=== PATIENT | female | born 1945 | race Caucasian/White ===

== ENCOUNTER 2017-11-17 16:08 | Emergency (ER) | payer MEDICARE, SELFPAY ==
[2017-11-17 16:08] VITALS: BP 181/116; PULSE 116; RESP 16; TEMP 36.6; O2SAT 98; BMI 30.2
--- NOTE | 2017-11-17 16:49 | CT_ITS ---
STUDY: CT ABDOMEN AND PELVIS WITH CONTRAST REASON FOR EXAM: Female, 72 years old. BILATERAL LOWER ABDOMINAL PAIN RADIATION DOSAGE (If Supplied By Facility): CTDIvol = ( 17.29 ) mGy, DLP = ( 1041.08 ) mGycm TECHNIQUE: Transaxial images were obtained from the dome of the diaphragm to the symphysis pubis without oral contrast. 100 ml of Isovue 300 contrast was administered. Sagittal and coronal images were reconstructed. Individualized dose optimization techniques were used for this CT. COMPARISON: December 07, 2013. FINDINGS: The visualized lung bases are unremarkable. The visualized portions of the heart are within normal limits. Normal liver. Normal gallbladder and extrahepatic biliary system. Normal spleen. There is diffuse atrophy of the pancreas. Normal bilateral adrenal glands. Normal right kidney. Normal left kidney. There is a small hiatal hernia. Normal small intestine. There are multiple diverticula the colon. I do not that the colonic wall in association with the distal sigmoid colon appears thickened, consider colitis. No evidence of subjacent abscess. No sign of perforation. There is non-visualization of the appendix. No inflammatory change in the right lower quadrant to suggest an appendicitis. There is diffuse atherosclerotic calcification of the abdominal aorta, without a demonstrated aneurysm. Normal inferior vena cava. Normal retroperitoneum. The urinary bladder is contracted. The uterus appears atrophic. There does appear a lobulation in association with the fundus suggesting underlying fibroid. I do note that there is a left adnexal cyst measuring approximately 3.2 x 2.5 cm. This may be benign, it was present December 07, 2013 and now appears smaller. Ultrasound may characterize further however. Normal abdominal wall. There are diffuse degenerative changes of the visualized lumbar spine. There is grade 1 anterior listhesis of L4 and L5. This appears secondary to facet arthropathy. CT/Abdomen/Pelvis W IV Cont ONLY IMPRESSION: Diverticulosis. It does appear that the sigmoid colon is thick-walled and this is consistent with superimposed colitis. I do not see a specific diverticulum that is inflamed to suggest diverticulitis nor do I see evidence of pericolonic abscess. There does appear a persistent left adnexal cyst likely ovarian related, smaller than that seen previously. See above. Electronically Signed: Magda Lloyd MD at 18:19 EST Tel , Service support ,
--- NOTE | 2017-11-17 16:51 | ED.VISSUMM ---
- ER Visit Summary Date of Service: 11/17/17 Chief Complaint: Lower quadrant abdominal discomfort History of Present Illness: The patient is a 72 F 3 of hypertension and prior kidney stones. Patient states she had normal bowel movements on Monday but has not had any bowel movements for the last 2 days. Denies nausea or vomiting. No diarrhea. No melena. No fever. No dysuria. No back pain. No prior abdominal surgeries. Patient states she has never had any surgeries. She is just concerned because she normally does not have abdominal pain. Physical Examination: Afebrile. She does not look septic or toxic. She is in no acute distress. HEENT exam unremarkable. Neck nontender no lymphadenopathy. Lungs clear to auscultation bilaterally. Heart regular rhythm no murmur. Abdomen is soft and nondistended. Normal bowel sounds. No pulsatile mass. No hernias. No signs of obstruction. Both the right upper right lower quadrants are unremarkable. She really does not have significant reproducible abdominal pain since the same discomfort she had with or without palpating her abdomen. She is moving all 4 extremities. They are neurovascularly intact. No mottling. Back exam nontender. Neurologic exam normal. Test Results: CBC shows a white count of 15,000 with a normal H&H no bands. Electrolytes are unremarkable. Liver and lipase are normal. UA shows 25-50 white cells 1+ bacteria but no nitrates and no red cells. She has had no urinary symptoms. A urine culture was sent. CT abdomen and pelvis shows increasing stool. Diverticulosis no obvious diverticulitis but there is inflammation of the bowel around the areas of diverticulosis that may be a colitis versus diverticulitis. This is read by the radiologist and reviewed by me. I did go over all test results with patient. Emergency Department Course and Treatment: Patient with bilateral lower quadrant abdominal pain Treatment Plan: We treated both Cipro and Flagyl for 10 days for possible diverticulitis versus colitis. Magnesium citrate for her constipation. A urine culture will be sent. She will follow-up her primary care physician on . On repeat exam patient is doing well at 2039. She has no peritoneal signs. Disposition: Discharge Impression: Acute bilateral lower quadrant abdominal pain secondary to situs rule out diverticulitis. Constipation Rule out UTI urine culture sent. This note was generated with pocketfungamesation software. It may contain incorrect words, spelling, and punctuation that were not noted in review of the chart prior to signing ED Disposition - Plan for ED Patient: Chief Complaint: Abd Pain Referrals: Belén Pratt MD [Primary Care Provider] -
[2017-11-17] MEDS: 0.9% Normal Saline 1,000 ML 1000 ML IV (17:03)
[2017-11-17 17:16] LABS: Basophil# 0.02 X10^3/uL; Basophil% 0.1 % (0-1); Eosinophil# 0.14 X10^3/uL; Eosinophils% 0.9 % (0-5); Hematocrit 42.6 % (37-47); Hemoglobin 13.7 g/dl (12.0-15.0); Lymphocyte % 10.6 % (19-41); Mean Corp Hgb Conc 32.2 g/gl (32-36); Mean Corpuscular Volume 90.3 fL (81-99); Monocyte% 8.6 % (0-10); Neutrophil # 11.98 X10^3/uL (2.7-7.7); Neutrophil % 79.6 % (47-70); POSITIVE COUNT NO; POSITIVE DIFFERENTIAL NO; POSITIVE MORPHOLOGY NO; Platelet Count 309 K/mm3 (150-450); RBC Distribution Width CV 13.6 % (11.6-14.6); RBC Distribution Width SD 45.1 fl (35.1-43.9); Red Blood Count 4.72 M/mm3 (4.2-5.4); White Blood Count 15.1 K/mm3 (4.4-11.0)
[2017-11-17 17:32] LABS: AST(SGOT) 19 U/L (15-37); Alanine Aminotransfer ALT/SGPT 29 U/L (13-56); Albumin, Serum 3.6 g/dL (3.2-5.0); Alkaline Phosphatase 94 U/L (45-117); Anion Gap 6 (5-15); BUN 20 mg/dL (7-18); BUN/Creat Ratio 23.5 RATIO (10-20); Bilirubin, Direct 0.13 mg/dL (0.00-0.30); Calcium,Total 8.5 mg/dL (8.5-10.1); Chloride 106 mmol/L (98-107); Creatinine, Serum 0.85 mg/dL (0.55-1.02); EST Glomerular Filtration Rate 69 mL/min (>60); Est Glom Filt Rate - Afr Amer 84 mL/min (>60); Estimated Creatinine Clearance 44.48 ml/min; Globulin 3.7 g/dL (2.2-4.2); Glucose 145 mg/dL (74-106); Lipase 85 U/L (73-393); Potassium 3.8 mmol/L (3.5-5.1); Protein, Total 7.3 g/dL (6.4-8.2); Sodium Level 138 mmol/L (136-145)
[2017-11-17 17:39] LABS: Mucous, Urine 0 SEEN /hpf (<or=2+)
[2017-11-17 17:43] LABS: Color, Urine Yellow (Yellow); Glucose, Dipstick Normal (Normal); Ketone-Dipstick Negative (Negative); Leukocyte Esterase-Dipstick 500 /ul (Negative); Nitrite-Dipstick Negative (Negative); Occult Blood-Urine 10 /ul (Negative); Protein-Dipstick 15 mg/dl (Negative); Specific Gravity, Urine 1.025 (1.002-1.030); Urine Bilirubin Dipstick Negative (Negative); Urine Clarity Clear (Clear); Urine Urobilinogen Normal (Normal)
[2017-11-17 17:48] LABS: White Blood Cells 25-50 SEEN /hpf (0-5)
[2017-11-17 17:49] LABS: Bacteria 1+ /hpf (None Seen); Red Blood Cells-Urine 0-5 SEEN /hpf (0-5); Squamous Epithelial Cells - UA 0-5 SEEN /hpf (5-10)
[2017-11-17 18:28] VITALS: BP 147/81; PULSE 78; RESP 18; O2SAT 97
[2017-11-17 20:34] VITALS: RESP 18
--- NOTE | 2017-11-17 20:41 | ED.DEP ---
ED Disposition - Plan for ED Patient: Disposition: Home or Assisted Living Chief Complaint: Abd Pain Instructions: ED Constipation Prescriptions: Ciprofloxacin [Cipro] 500 mg PO BID #20 tab Metronidazole [Flagyl] 500 mg PO Q6H #40 tab Referrals: Belén Pratt MD [Primary Care Provider] - As soon as possible Additional Instructions: abdominal pain secondary to colitis which is inflammation of the colon and constipation. See diverticulosis but not specifically diverticulitis. Will be treated with 2 antibiotics Cipro and Flagyl which should take care of this problem. Your also constipated and we given magnesium citrate to help have a bowel movement. Also do plenty of fluids. Plenty of fruits, vegetables and fiber to help you have a bowel movement. Follow-up your primary care physician and/or return to the ER if worse.
[2017-11-17] MEDS: Magnesium Citrate 300 ML 150 ML PO (21:04)
[2017-11-17] MEDS: Ciprofloxacin 500 MG Tablet PO (21:07)
[2017-11-17 21:09] VITALS: BP 116/73; PULSE 84; RESP 16; O2SAT 96
== END 2017-11-17 21:10 | disposition home or self-care (01) ==
PROVIDERS: Emergency Provider Emergency Medicine; Family Provider Internal Medicine; PCP Internal Medicine
DX: R10.31 Right lower quadrant pain (principal); R10.32 Left lower quadrant pain; K59.00 Constipation, unspecified; K52.9 Noninfective gastroenteritis and colitis, unspecified; K57.90 Diverticulosis of intestine, part unspecified, without perforation or abscess without bleeding; I10 Essential (primary) hypertension; Z87.442 Personal history of urinary calculi; Z79.899 Other long term (current) drug therapy
CPT/HCPCS: 74177; 80048; 80076; 81001; 83690; 85025; 96360; 96361; 99284; J7030

== ENCOUNTER 2020-11-12 01:49 | Outpatient (RCR) | payer MEDICARE, SELFPAY ==
[2020-11-12] MEDS: COVID-19 VACC, MRNA(PFIZER)/PF 30 MCG/0.3 ML SYRINGE IM (13:24)
[2020-12-03] MEDS: COVID-19 VACC, MRNA(PFIZER)/PF 30 MCG/0.3 ML SYRINGE IM (12:59)
== END 2020-12-03 23:59 | disposition home or self-care (01) ==
LOC: IMMUN 01:49
PROVIDERS: PCP Internal Medicine; Visit Provider Family Medicine
DX: Z23 Encounter for immunization (principal)
CPT/HCPCS: 0001A; 0002A; 91300

== ENCOUNTER → 2025-02-20 | Outpatient (CLI) | payer MEDICARE, SELFPAY ==
--- NOTE | 2025-02-19 16:20 | LES_PTH ---
PATIENT: ANGELICA MARTINEZ LOC: [facility] #:[id number] AGE/SX: 80/F ROOM: RE02/20/[address]: Dr. Antelmo Gutierrez MD : 1945 BED: DIS: 02/20/2025 SPEC #: [id number] RECD: 02/19/25 17:28 STATUS: JIM REGene #: [id number] ANNA MARIE: 02/19/25 16:[address]: Antelmo Gutierrez DEPT: SURGICAL PATHOLOGY RECD BY: Hemant Lai ENTERED: 02/20/25 11:44 SP TYPE: Lesion OTHR DR: Dr. Belén Pratt MD Tissues: A - Skin of eyelid, NOS Procedures: Surgery Specimen Level IV HEADER OPERATION: Lesion removal left upper lid PRE-OP DIAGNOSIS: Possible papilloma TISSUE SUBMITTED: A- Left upper eyelid lesion MICROSCOPIC DIAGNOSIS A. Eyelid, left upper, lesion, shave biopsy: * Atypical squamous proliferation arising in an eroded and inflamed fibroepithelial polyp, suspicious for a superficially invasive, well-differentiated squamous cell carcinoma. * The surgical margin is free in the planes of section examined (deeper sections examined). MICROSCOPIC DESCRIPTION Slides are reviewed. GROSS DESCRIPTION A. Received in formalin labeled with the patient's name and date of . Designated as left upper eyelid lesion is a 0.4 x 0.2 x <0.1 cm spencer skin shave devoid of orientation. There is a 0.4 x 0.4 x 0.2 cm spencer, raised and granular lesion comprising approximately 90% of the epidermal surface. The resection margin is inked black, the specimen is bisected (on the long axis) and entirely submitted in 1 cassette. [facility] [place] 02/20/2025 CPT:52155
--- OUTSIDE RECORDS SUMMARY | 2025-02-20 07:21 | XMS RPT_ITS | CCD ---
Author Organization [facility] Care Team Providers Care Tanning Drum Operator Name Role Phone Emily Flaherty MD Primary Care Provider [facility], Becki Unavailable Emily Flaherty MD Primary Care Provider [facility], Becki Unavailable Mauricio HOSPICE REGISTERED NURSE.DELIVERY AND MAIL SORTER, Amara Unavailable Gema HOSPICE REGISTERED NURSE.TUBE CUTTER OPERATOR, Araeclis Unavailable Gema HOSPICE REGISTERED NURSE.TUBE CUTTER OPERATOR, Aracelis Unavailable Kiera Shepard RN Unavailable Mauricio HOSPICE REGISTERED NURSE.DELIVERY AND MAIL SORTER, Amara Unavailable LC CUELLO Attending Unavailable TALAMPAS, EMILY D Primary Care Unavailable LC CUELLO Attending Unavailable TALAMPAS, EMILY D Primary Care Unavailable TALAMPAS, EMILY D Primary Care Unavailable ZAHRAA DELACRUZ Attending Unavailable LC CUELLO Attending Unavailable TALAMPAS, EMILY D Referring Unavailable TALAMPAS, EMILY D Primary Care Unavailable TALAMPAS, EMILY D Referring Unavailable TALAMPAS, EMILY D Primary Care Unavailable TALAMPAS, EMILY D Attending Unavailable TALAMPAS, EMILY D Primary Care Unavailable MAURICIO, AMARA Referring Unavailable TALAMPAS, EMILY D Primary Care Unavailable TALAMPAS, EMILY D Primary Care Unavailable MAURICIO, AMARA Attending Unavailable TALAMPAS, EMILY D Primary Care Unavailable GEMA, ARACELIS Attending Unavailable SELF Referring Unavailable TALAMPAS, EMILY D Primary Care Unavailable TALAMPAS, EMILY D Primary Care Unavailable Allergies Allergy Classification Reported Allergen(s) Allergy Type Date of Onset Reaction(s) Facility (20 sources) Acetaminophen; Translations: [ACETAMINOPHEN] Drug Allergy 10-17-2005 [facility] Work Phone: (20 sources) beef allergenic extract; Translations: [BEEF DERIVED (BOVINE)] Drug Allergy 10-17-2005 [facility] Work Phone: (20 sources) Fish; Translations: [FISH CONTAINING PRODUCTS] Drug Allergy 11-17-2017 Itching [facility] (20 sources) peanut; Translations: [PEANUTS] Propensity to adverse reactions 10-17-2005 [facility] Work Phone: (20 sources) peanut oil; Translations: [PEANUT OIL] Drug Allergy 10-17-2005 [facility] Work Phone: (14 sources) Homeopathic Products Propensity to adverse reactions 10-17-2005 [facility] Work Phone: (20 sources) Shellfish; Translations: [SHELLFISH DERIVED] Drug Allergy 10-11-2023 Itching [facility] Medications Current Medications Medication Drug Class(es) Dates Sig (Normalized) Sig (Original) cholecalciferol 0.05 mg oral capsule (20 sources) Vitamin D Start: 03-30-2021 End: 11-11-2024 take 1 capsule by mouth once daily Cholecalciferol , Vitamin D3, 50 mcg (2,000 unit) cap Take 1 capsule by mouth once daily. 90 capsule 3 11/11/2024 Active Comment on above: Take 1 capsule by [facility] once daily. clobetasol propionate 0.0005 mg/mg topical ointment (20 sources) Corticosteroid Start: 02-08-2024 End: 02-04-2026 clobetasol (TEMOVATE) 0.05 % ointment APPLY DAILY NEEDED TO THE AFFECTED AREA SPARINGLY 30 g 3 02/06/2025 02/04/2026 Active Start: 03-30-2021 End: 2024 clobetasol (TEMOVATE) 0.05 % ointment APPLY DAILY NEEDED TO THE AFFECTED AREA SPARINGLY 30 g 3 2023 2024 Active Comment on above: APPLY DAILY NEEDE D TO THE AFFECTED AREA SPARINGLY lisinopril 20 mg oral tablet (20 sources) Angiotensin Converting Enzyme Inhibitor Start: 11-06-2023 End: 11-11-2024 take 1 tablet by mouth once daily lisinopril (ZESTRIL) 20 mg tablet Take 1 tablet by mouth once daily. 90 tablet 3 11/11/2024 Active Start: 11-01-2022 take 1 tablet by [facility] once daily lisinopril (ZESTRIL, PRINIVIL) 20 mg tablet Take 1 tablet by mouth once daily. 90 tablet 3 11/01/2022 Active Start: 07-28-2020 End: 10-05-2021 take 1 tablet by mouth once daily lisinopril (ZESTRIL, PRINIVIL) 20 mg tablet Take 1 tablet by mouth once daily. 90 tablet 3 10/05/2021 Active Comment on above: Take 1 tablet by fel[facility] once daily. meloxicam 15 mg oral tablet (3 sources) Nonsteroidal Anti-inflammatory Drug Start: End: take 1 tablet by mouth once daily for pain meloxicam (MOBIC) 15 mg tablet Indications: Acute right-sided low back pain with right-sided sciatica Take 1 tablet by mouth once daily. for back pain. Take with food. 30 tablet 1 07/04/2024 09/02/2024 Active 24 hr metFORMIN hydrochloride 500 mg extended release oral tablet (20 sources) Biguanide Start: metFORMIN ER (GLUCOPHAGE XR) 500 mg 24 hr tablet Take 1 tablets with breakfast and 1 tablet with dinner or as directed 180 tablet 3 01/03/2025 Active Start: 06-07-2024 take 1 tablet by felipe [facility] once daily at breakfast, then take 1 tablet by mouth at breakfast, then take 1 tablet by mouth at dinner metFORMIN ER (GLUCOPHAGE XR) 500 mg 24 hr tablet Take 1 tablet by mouth daily with breakfast. Take 1 tablets with breakfast and 1 tablet with dinner or as directed 180 tablet 1 06/07/2024 Active Start: 12-30-2022 End: 06-07-2024 metFORMIN ER (GLUCOPHAGE XR) 500 mg 24 hr tablet Indications: Controlled type 2 diabetes mellitus without complication, without long-term current use of insulin (HCC) Take 1 tablets with breakfast and 1 tablet with dinner or as directed 180 tablet 3 12/06/2023 06/07/2024 Discontinued (Adjust Sig - Block E-Cancel) Start: 04-08-2021 End: 10-05-2021 metFORMIN ER (GLUCOPHAGE XR) 500 mg 24 hr tablet Take 1 tablets with breakfast and 1 tablet with dinner or as directed 180 tablet 3 10/05/2021 Active Comment on above: Take 1 tablets with breakfast and 1 tablet with dinner or as directed Take 2 tablets with breakfast and 1 tablet with dinner or as directed minocycline 50 mg oral capsule (20 sources) Tetracycline-class Drug Start: 4 End: 5 take 1 capsule by mouth once daily minocycline (MINOCIN, DYNACIN) 50 mg capsule Take 1 capsule by mouth once daily. As directed 90 capsule 3 11/11/2024 Active Start: 03-30-2021 End: 12-06-2023 take 1 capsule by mouth twice daily minocycline (MINOCIN, DYNACIN) 50 mg capsule Take 1 capsule by mouth twice daily. As directed 180 capsule 1 04/18/2022 12/06/2023 Discontinued Comment on above: Take 1 capsule by [facility] twice daily. As directed perflutren lipid microspheres 1.3 mL in NaCl (PF) 0.9% 10 mL injection (DEFINITY) (5 sources) Start: 1 End: 2 perflutren lipid microspheres 1.3 mL in NaCl (PF) 0.9% 10 mL injection (DEFINITY) sertraline 50 mg oral tablet (6 sources) Serotonin Reuptake Inhibitor Start: 3 End: 4 take 1 tablet by mouth once daily sertraline (ZOLOFT) 50 mg tablet Take 1 tablet by mouth once daily. 90 tablet 3 08/17/2023 06/07/2024 Discontinued Comment on above: Take 1 tablet by [facility] once daily. 125 ml sodium chloride 9 mg/ml prefilled syringe (5 sources) Start: 1 End: 2 sodium chloride 0.9 % (flush) 10 mL (BD POSIFLUSH) tretinoin 0.25 mg/ml topical cream (6 sources) Retinoid Start: 4 End: 4 tretinoin (RETIN-A) 0.025 % topical cream Indications: Milia Apply a pea size amount to affected area every other night for 2 weeks then increase to daily as tolerated 45 g 5 10/11/2023 06/07/2024 Discontinued Comment on above: Apply a pea size sunny unt to affected area every other night for 2 weeks then increase to daily as tolerated Completed/Discontinued Medications Medication Drug Class(es) Dates Sig (Normalized) Sig (Original) calcium chloride 0.0014 meq/ml / potassium chloride 0.004 meq/ml / sodium chloride 0.103 meq/ml / sodium lactate 0.028 meq/ml injectable solution (1 source) Start: 12-19-2024 End: 12-19-2024 take 30 mL intravenously every hour 30 mL/hr, INTRAVENOUS, CONTINUOUS, Starting on Kecia 12/19/24 at 0730, Until Kecia 12/19/24 at 0832, Preprocedure cyclobenzaprine hydrochloride 10 mg oral tablet (8 sources) Muscle Relaxant Start: 07-04-2024 End: 12-30-2024 take 1 tablet by mouth at bedtime as needed for muscle spasms cyclobenzaprine (FLEXERIL) 10 mg tablet Indications: Acute right-sided low back pain with right-sided sciatica Take 1 tablet by mouth at bedtime as needed for muscle spasm. 30 tablet 1 07/04/2024 12/30/2024 Discontinued (Discontinued by Patient) 1 ml fentaNYL 0.05 mg/ml injection (1 source) Opioid Agonist Start: 12-19-2024 End: 12-19-2024 25-100 mcg, INTRAVENOUS, DIRECTED, Starting on Kecia 12/19/24 at 0830, Until Kecia 12/19/24 at 1229, DOSING DIRECTED BY PHYSICIAN FOR PROCEDURAL SEDATION ONLY, Intraprocedure 5 ml midazolam 1 mg/ml injection (1 source) Benzodiazepine Start: 12-19-2024 End: 12-19-2024 1-5 mg, INTRAVENOUS, DIRECTED, Starting on Kecia 12/19/24 at 0830, Until Kecia 12/19/24 at 1229, DOSING DIRECTED BY PHYSICIAN FOR PROCEDURAL SEDATION ONLY, Intraprocedure triamcinolone acetonide 0.001 mg/mg topical ointment (8 sources) Corticosteroid Start: 03-05-2020 End: 10-05-2021 triamcinolone acetonide (KENALOG) 0.1 % ointment Apply to scaly patches on arms and legs twice daily as needed. Use 2 weeks on 1 week off. Not for face, armpits or groin 80 g 0 10/05/2021 Active Comment on above: Apply to scaly patch es on arms and legs twice daily as needed. Use 2 weeks on 1 week off. Not for face, armpits or groin Problems Active Problems Problem Classification Problem Date Documented Da te Episodic/Chronic Diabetes mellitus with complications (4 sources) Type II diabetes mellitus uncontrolled; Translations: [Type 2 diabetes mellitus with hyperglycemia] Chronic Diabetes mellitus without complication (20 sources) Type 2 diabetes mellitus without complication; Translations: [Type 2 diabetes mellitus without complications] Onset: 05-04-2021 Chronic Diseases of white blood cells (20 sources) Leukocytosis; Translations: [Elevated white blood cell count, unspecified] Onset: 08-20-2007 08-20-2007 Chronic Disorders of lipid metabolism (20 sources) Mixed hyperlipidemia; Translations: [Mixed hyperlipidemia] Onset: 10-17-2005 Chronic Essential hypertension (20 sources) Essential hypertension; Translations: [Essential (primary) hypertension] Onset: 10-17-2005 Chronic Glaucoma (1 source) Glaucoma; Translations: [Unspecified glaucoma] Chronic Menopausal disorders (1 source) Atrophy of vagina; 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 Mood disorders (20 sources) Reactive depression (situational); Translations: [Major depressive disorder, single episode, unspecified] Onset: 10-17-2005 06-25-2018 Chronic Nutritional deficiencies (20 sources) Vitamin D deficiency; Translations: [Vitamin D deficiency, unspecified] Onset: 09-23-2016 Chronic Other aftercare (1 source) Removal of sutures done; Translations: [Encounter for removal of sutures] 2025 Episodic Other aftercare (1 source) Encounter for removal of sutures; Translations: [Visit for suture removal] Onset: 2025 Episodic Other and unspecified benign neoplasm (1 source) Hyperplastic polyp of intestine; Translations: [Polyp of colon] 12-30-2024 Episodic Other and unspecified benign neoplasm (1 source) Polyp of colon; Translations: [Hyperplastic polyp of sigmoid colon] Onset: 12-30-2024 Episodic Other inflammatory condition of skin (20 sources) Rosacea; Translations: [Rosacea, unspecified] Onset: 10-17-2005 10-17-2005 Chronic Other non-epithelial cancer of skin (1 source) Basal cell carcinoma of face; Translations: [Basal cell carcinoma of skin of unspecified parts of face] 11-14-2023 Episodic Other screening for suspected conditions (not mental disorders or infectious disease) (20 sources) Patient encounter status; Translations: [Encounter for screening mammogram for malignant neoplasm of breast] Onset: 07-15-2024 Episodic Other skin disorders (20 sources) Localized scleroderma; 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]] Onset: 10-17-2005 10-17-2005 Chronic Other skin disorders (1 source) Lichen sclerosus et atrophicus; 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 Other skin disorders (1 source) Disorder of skin of lower limb; Translations: [Disorder of the skin and subcutaneous tissue, unspecified] 11-11-2024 Episodic Other skin disorders (2 sources) Sebaceous cyst of skin; Translations: [Sebaceous cyst] 12-31-2024 Episodic Other skin disorders (1 source) Sebaceous cyst; Translations: [Sebaceous cyst] Onset: 01-06-2025 Episodic Past or Other Problems Problem Classification Problem Date Documented Da te Episodic/Chronic Other bone disease and musculoskeletal deformities (20 sources) Disorder of skeletal system; Translations: [Disorder of bone, unspecified] Onset: 09-24-2010 09-24-2010 Episodic Other bone disease and musculoskeletal deformities (20 sources) Osteopenia; Translations: [Other specified disorders of bone density and structure, unspecified site] Onset: 11-06-2012 09-06-2021 Episodic Spondylosis; intervertebral disc disorders; other back problems (2 sources) Acute back pain with sciatica; Translations: [Lumbago with sciatica, right side] Onset: 07-04-2024 07-04-2024 Episodic Unclassified (2 sources) Patient encounter status 11-11-2024 Results Test Name Value Interpretation Reference Range [facility] (GENSWS[facility] ANGELICA [id number]) 1945 F CHT Date Time Provider Department 01/13/25 2:30 PM [facility] During your visit today, we recorded the following information about you: Anson York RN 2025 2:43 PM Signed The right neck (site) was assessed and 2 simple sutures were removed as ordered. Dressing was applied. Patient instructed on wound care and verbalized understanding. Pathology was reviewed by Dr. Cuello and patient was advised.Anson York RN Allergies As of Date: 2025 Noted Allergy Reaction BEEF DERIVED (BOVINE) 10/17/2005 Comments: congestion FISH CONTAINING PRODUCTS 11/17/2017 9 - Itching SHELLFISH DERIVED 10/11/2023 9 - Itching TYLENOL (ACETAMINOPHEN) 10/17/2005 Comments: hyperactivity Date Reviewed: 01/06/2025 Reviewed by: Pooja Shaw LPN - Fully Assessed Primary Visit Diagnosis:Visit for suture removal [Z48.02] Prescriptions as of 2025 - metFORMIN ER (GLUCOPHAGE XR) 500 mg 24 hr tablet Take 1 tablets with breakfast and 1 tablet with dinner or as directed - minocycline (MINOCIN, DYNACIN) 50 mg capsule Take 1 capsule by mouth once daily. As directed - lisinopril (ZESTRIL) 20 mg tablet Take 1 tablet by mouth once daily. - Cholecalciferol, Vitamin D3, 50 mcg (2,000 unit) cap Take 1 capsule by mouth once daily. 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] 10/17/2005 LEUKOCYTOSIS NOS [D72.829] 08/20/2007 Disorder of bone and cartilage, unspecified [M8*09/24/2010 Osteopenia [M85.80] 11/06/2012 Vitamin D deficiency [E55.9] 09/23/2016 Controlled type 2 diabetes mellitus without com*05/04/2021 Special screening for malignant neoplasms, colo*12/19/2024 Encounter Status:Closed by ANSON YORK on 01/13/25 [facility] CNOVon 01-06-2025 CNOV Office Visit (GENSWS ) ANGELICA SOSA ([id number]) 1945 F T Date Time Provider Department 01/06/25 3:00 PM LC CUELLO During your visit today, we recorded the following information about you: Pooja Shaw LPN 01/06/2025 3:23 PM Signed UNIVERSAL PROTOCOL / SAFETY CHECKLIST Procedure to be Performed: Excision of sebaceous cyst right neck Sign In: A Moment of CARE was completed. Appropriate PPE (Personal Protective Equipment) worn by all providers involved with the procedure. Special equipment not required. Patient/Surrogate Stated/Verified: Patient name, Date of , Relevant allergies, and The intended procedure Time Out: Relevant labs, photos, and/or imaging studies are not applicable. Intended patient and procedure match the source document(s) (e.g. consent, HANDP, associated studies [imaging, pathology]) match the intended patient and procedure. Consent obtained and matches the intended procedure. Yes. Correct side/site has been marked and visible. Medications required for this procedure are verified. Fire risk assessed and is not applicable. Implants: are not applicable. Sign Out: Specimens are all correctly labeled and sent. All instruments, equipment, possible retained foreign bodies are accounted for. Yes. The post-procedure plan of care has been communicated to the patient or surrogate. PATRICIO Ye Kimberly, LPN 01/06/2025 3:13 PM Signed The following instructions are important for you related to your office visit today with the [facility] General Surgeons. Instructions After SKIN EXCISION-SUTURES You can remove the dressing in two days. If the dressing becomes soaked or had significant drainage, the dressing should be changed. If there is minor bleeding from this skin edge, you should hold pressure on the incision until the bleeding stops. If there is continued bleeding, you should contact our office immediately. You do not need to leave a dressing on the wound after two days. If the wound shows signs of redness, inflammation, or purulent drainage, you should contact our office immediately. You should keep the wound dry for the first two days. After that time, you may wash the wound with gentle soap and water. The wound should not be immersed in a pool, bathtub, or even hot tub. We prefer to check the incision and remove the stitches (two simple sutures) in our office when ready. Please make an appointment to return to our office in one week. Please do not remove the stitches yourself without approval from our office. If you note any additional difficulties, questions, or concerns, you should contact our office immediately @ [phone] and ask to be transferred to the General Surgery department. Lc Cuello MD 01/06/2025 3:23 PM Signed Preoperative diagnosis: Sebaceous cyst right neck Postoperative diagnosis: The same Procedure: Excision of a 2.5 cm sebaceous cyst of right neck Surgeon: Abdullahi Procedure: Right neck was sterilely prepped and draped in usual fashion. 1% lidocaine plain was injected. 3 cm incision was made. Took quite a bit of dissecting to get out this sebaceous cyst it was old calcified. I was able to remove it in its entirety. I brought the wound together with 2 interrupted sutures of 5-0 nylon sterile dressings were applied and the patient tolerated the procedure well. Allergies As of Date: 01/06/2025 Noted Allergy Reaction BEEF DERIVED (BOVINE) 10/17/2005 Comments: congestion FISH CONTAINING PRODUCTS 11/17/2017 9 - Itching SHELLFISH DERIVED 10/11/2023 9 - Itching TYLENOL (ACETAMINOPHEN) 10/17/2005 Comments: hyperactivity Date Reviewed: 01/06/2025 Reviewed by: Pooja Shaw LPN - Fully Assessed Primary Visit Diagnosis:Sebaceous cyst [L72.3] Order(s):SURGICAL PATHOLOGY [UCP1265] Order #: [id number]. #:[id number] Prescriptions as of 01/06/2025 - metFORMIN ER (GLUCOPHAGE XR) 500 mg 24 hr tablet Take 1 tablets with breakfast and 1 tablet with dinner or as directed - minocycline (MINOCIN, DYNACIN) 50 mg capsule Take 1 capsule by mouth once daily. As directed - lisinopril (ZESTRIL) 20 mg tablet Take 1 tablet by mouth once daily. - Cholecalciferol, Vitamin D3, 50 mcg (2,000 unit) cap Take 1 capsule by mouth once daily. 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 Normal [facility] Pathology biopsy report Jesus (Tiss)on 01-06-2025 AP DISCLAIMER Normal [facility] Comment on above: Order Comment: Speci men Type: TISSUE SPECIMENOrdering Facility: [facility] Address: [address] [place] [address] Result Comment: Bhavik mckinney Developed Test (LDT) Disclaimer: Performance characteristics of immunohistochemical, immunofluorescent, and chromogenic in-situ hybridization tests have been determined by the performing laboratory within [facility]'s Artem Tomlinson Pathology and Laboratory Medicine Department ([facility], [facility], [facility], [facility], [facility], [facility], or [facility]) in a manner consistent with CLIA requirements. One or more of these tests may not have been cleared or approved by the FDA. [facility] is regulated under CLIA as qualified to perform high-complexity testing. These tests are used for clinical purposes. These should not be regarded as investigational or for research. Positive and negative controls stain appropriately. Performed By: #### 6 6121-5 ####[facility] [id number] [place] [address] [place] CASE REPORT Normal [facility] Comment on above: Order Comment: Speci men Type: TISSUE SPECIMENOrdering Facility: [facility] Address: [address] [place] [address] Result Comment: Surg [facility] Pathology Report Case: [id number] Authorizing Provider: Lc Cuello MD Collected: 01/06/2025 03:23 PM Ordering Location: General Surgery Received: 01/06/2025 03:52 PM Pathologist: Cele Antonio MD Specimen: Cyst, Skin, Sebaceous, Right neck Performed By: #### 6 6121-5 ####[facility] [id number] [address] STATES [place] CLINICAL HISTORY Normal [facility] Comment on above: Order Comment: Speci men Type: TISSUE SPECIMENOrdering Facility: [facility] Address: [address] [place] [address] Result Comment: Cyst , Skin, Sebaceous Comment: Right neck Performed By: #### 6 6121-5 ####[facility] [id number] [address] [place] FINAL DIAGNOSIS Normal [facility] Comment on above: Order Comment: Speci men Type: TISSUE SPECIMENOrdering Facility: [facility] Address: [address] [place] [address] Result Comment: A. S kin, right neck, excision: - Epidermal inclusion cyst. MP/FAUZIA/bs 01/08/2025 at 1515 EDT Performed By: #### 6 6121-5 ####[facility] [id number] [address] [place] FINAL PERFORMING LAB Normal [facility] Comment on above: Order Comment: Speci men Type: TISSUE SPECIMENOrdering Facility: [facility] Address: [address] [place] [address] Result Comment: Diag nostic interpretation performed at: [facility], [address] [place] [address] CLIA# [id number] Indoor Landscape Architect: Bertrand Alfaro MD Performed By: #### 6 6121-5 ####[facility] [id number] [address] STATES OF [facility] GROSS DESCRIPTION Normal [facility] Comment on above: Order Comment: Speci men Type: TISSUE SPECIMENOrdering Facility: [facility] Address: [address] [place] [address] Result Comment: Yonatan. Niraj yst, Skin, Sebaceous Received in formalin is an irregular shaped segment of spencer-yellow, firm material measuring 2.2 x 2.1 x 1.7 cm. The specimen resembles a ruptured cyst. No skin is present. A outside sales account representative section is submitted in one cassette. [facility] January 06, 2025 9:53 PM Gross examination performed at [facility], [address] [place] [address] Performed By: #### 6 6121-5 ####[facility] [id number] [address] [place] CNOVon 12-31-2024 CNOV Office Visit (GENSWS ) ANGELICA SOSA ([id number]) 1945 F T Date Time Provider Department 12/31/24 1:15 PM LC CUELLO During your visit today, we recorded the following information about you: Pulse Respiration Blood pressure Weight 71/minute 14/minute 135/70 64.5 kg Lc Cuello MD 12/31/2024 1:33 PM Signed Subjective: Patient is a 79-year-old white female who has a sebaceous cyst in her right neck gradually getting larger in size. Sometimes uncomfortable it is never been infected. Objective:Blood pressure 135/70, pulse 71, resp. rate 14, weight 64.5 kg (142 lb 3.2 oz), SpO2 96%. Right posterior neck shows a 2-1/2 cm sebaceous cyst with a blackhead. No signs of cellulitis no signs of infection. Assessment:Sebaceous cyst (primary encounter diagnosis) Plan: Will excise this in the office. She is not on any blood thinners at this time. Will close this with 2 simple interrupted sutures of 5-0 nylon Allergies As of Date: 12/31/2024 Noted Allergy Reaction BEEF DERIVED (BOVINE) 10/17/2005 Comments: congestion FISH CONTAINING PRODUCTS 11/17/2017 9 - Itching SHELLFISH DERIVED 10/11/2023 9 - Itching TYLENOL (ACETAMINOPHEN) 10/17/2005 Comments: hyperactivity Date Reviewed: 12/31/2024 Reviewed by: Kailyn Diallo RN - Fully Assessed Reason for Visit: Consult [173] Cmt: Lump to rt neck region has been present for a long time Primary Visit Diagnosis:Sebaceous cyst [L72.3] Prescriptions as of 12/31/2024 - minocycline (MINOCIN, DYNACIN) 50 mg capsule Take 1 capsule by mouth once daily. As directed - lisinopril (ZESTRIL) 20 mg tablet Take 1 tablet by mouth once daily. - Cholecalciferol, Vitamin D3, 50 mcg (2,000 unit) cap Take 1 capsule by mouth once daily. - metFORMIN ER (GLUCOPHAGE XR) 500 mg 24 hr tablet Take 1 tablet by mouth daily with breakfast. 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] 10/17/2005 LEUKOCYTOSIS NOS [D72.829] 08/20/2007 Disorder of bone and cartilage, unspecified [M8*09/24/2010 Osteopenia [M85.80] 11/06/2012 Vitamin D deficiency [E55.9] 09/23/2016 Controlled type 2 diabetes mellitus without com*05/04/2021 Special screening for malignant neoplasms, colo*12/19/2024 Follow-up and Disposition History for Encounter Date Provider Department Center 12/31/2024 [id number] CUELLO [facility] Encounter Status:Closed by LC CUELLO on 12/31/24 [facility] CNOVon 12-30-2024 CNOV Office Visit (EDY ) ANGELICA SOSA ([id number]) 1945 [facility] Date Time Provider Department 12/30/24 2:00 PM ZAHRAA DELACRUZ During your visit today, we recorded the following information about you: Zahraa Delacruz APRN.CNP 12/30/2024 2:00 PM Signed FOLLOW UP VISIT - ENDOSCOPY Angelica Sosa 1945 [id number] REFERRING PHYSICIAN: No referring provider defined for this encounter. Angelica Sosa is a patient I am following for screening colonoscopy. Dr. Cuello performed lower endoscopy on 12/19/2024. The patient was found to have Impression: - Three diminutive (1-3 mm) polyps in the sigmoid colon, removed with a jumbo cold forceps. Resected and retrieved. - Diverticulosis in the sigmoid colon and in the descending colon. - Non-bleeding internal hemorrhoids. - The examined portion of the ileum was normal. - The examination was otherwise normal. Pathology demonstrated: FINAL DIAGNOSIS A. Sigmoid colon, polypectomy x 3: -Fragments of hyperplastic polyp The patient notes no complaints since the procedure. VITALS: There were no vitals taken for this visit. General: patient is alert, cooperative, pleasant and in no acute distress On examination, the abdomen is benign. Assessment ASSESSMENT/PLAN: 1. Hyperplastic polyp of sigmoid colon - ICD9: 211.3, ICD10: K63.5 PLAN: The operative findings and pathology report were reviewed with the patient, and the patient has had the opportunity to ask questions and have questions answered. If the patient notes any problems or changes in bowel function, the patient should contact me immediately. Otherwise I recommend follow up endoscopy in 5 years. HM updated. Discussed treatment plan and patient voices understanding. Patient's questions answered appropriately. Medications and potential side effects were discussed and patient voices understanding. Return to the office as scheduled or as needed for worsening/no improvement. Zahraa Delacruz APRN.CNP Allergies As of Date: 12/30/2024 Noted Allergy Reaction BEEF DERIVED (BOVINE) 10/17/2005 Comments: congestion FISH CONTAINING PRODUCTS 11/17/2017 9 - Itching PEANUT OIL 10/17/2005 Comments: uncertain PEANUTS 10/17/2005 Comments: not sure SHELLFISH DERIVED 10/11/2023 9 - Itching TYLENOL (ACETAMINOPHEN) 10/17/2005 Comments: hyperactivity Date Reviewed: 12/30/2024 Reviewed by: Zahraa Delacruz APRN.TUBE CUTTER OPERATOR - Fully Assessed Reason for Visit: Follow Up [171] Primary Visit Diagnosis:Hyperplastic polyp of sigmoid colon [K63.5] Prescriptions as of 12/30/2024 - minocycline (MINOCIN, DYNACIN) 50 mg capsule Take 1 capsule by mouth once daily. As directed - lisinopril (ZESTRIL) 20 mg tablet Take 1 tablet by mouth once daily. - Cholecalciferol, Vitamin D3, 50 mcg (2,000 unit) cap Take 1 capsule by mouth once daily. - metFORMIN ER (GLUCOPHAGE XR) 500 mg 24 hr tablet Take 1 tablet by mouth daily with breakfast. 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 Encounter Status:Closed by ZAHRAA DELACRUZ on 12/30/24 Normal [facility] [id number] 12-19-2024 [id number] HNO ID: [id number] Author: BRIONNA VILLATORO RN Service: ? Author Type: Registered Nurse Type: [id number] Filed: 12/19/2024 08:50 Note Text: The patient received a copy of Colonoscopy discharge instructions that contain information for how to contact the physician who performed the procedure and when to seek medical care. Normal [facility] Colonoscopyon 12-19-2024 Colonoscopy [facility] Patient Name: Angelica Sosa Procedure Date: 12/19/2024 7:52 AM Date of : 1945 Admit Type: Outpatient Age: 79 Gender: Female Note Status: Finalized Procedure: Colonoscopy Indications: Screening for colorectal malignant neoplasm Providers: Lc Cuello MD Patient Profile: This is an 79 year old female. Refer to note in patient chart for documentation of history and physical. Last Colonoscopy: May 2018. Referring Physician: Emily Flaherty (Referring MD) Medicines: Fentanyl 50 micrograms IV, Midazolam 3 mg IV Complications: No immediate complications. Estimated blood loss: Minimal. Requesting Provider: Procedure: Pre-Anesthesia Assessment: - Prior to the procedure, a History and Physical was performed, and patient medications and allergies were reviewed. The patient's tolerance of previous anesthesia was also reviewed. The risks and benefits of the procedure and the sedation options and risks were discussed with the patient. All questions were answered, and informed consent was obtained. Prior Anticoagulants: The patient has taken no anticoagulant or antiplatelet agents. ASA Grade Assessment: III - A patient with severe systemic disease. After reviewing the risks and benefits, the patient was deemed in satisfactory condition to undergo the procedure. After I obtained informed consent, the scope was passed under direct vision. Throughout the procedure, the patient's blood pressure, pulse, and oxygen saturations were monitored continuously. The Colonoscope was introduced through the anus and advanced to 3 cm into the ileum. The colonoscopy was performed without difficulty. The patient tolerated the procedure well. The quality of the bowel preparation was adequate to identify polyps greater than 5 mm in size. The terminal ileum, ileocecal valve, appendiceal orifice, and rectum were photographed. Moderate Sedation: The administration of moderate sedation was initiated at 08:04. Moderate (conscious) sedation was personally administered by the endoscopist. The following parameters were monitored: oxygen saturation, heart rate, blood pressure, respiratory rate, EKG, adequacy of pulmonary ventilation, and response to care. Total physician intraservice time was 15 minutes. Findings: The perianal and digital rectal examinations were normal. Three sessile polyps were found in the sigmoid colon. The polyps were diminutive (1-3 mm) in size. These polyps were removed with a jumbo cold forceps. Resection and retrieval were complete. Many small-mouthed diverticula were found in the sigmoid colon and descending colon. Non-bleeding internal hemorrhoids were found during retroflexion. The hemorrhoids were mild and small. The terminal ileum appeared normal. The exam was otherwise without abnormality. Impression: - Three diminutive (1-3 mm) polyps in the sigmoid colon, removed with a jumbo cold forceps. Resected and retrieved. - Diverticulosis in the sigmoid colon and in the descending colon. - Non-bleeding internal hemorrhoids. - The examined portion of the ileum was normal. - The examination was otherwise normal. Recommendation: - Patient has a contact number available for emergencies. The signs and symptoms of potential delayed complications were discussed with the patient. Return to normal activities tomorrow. Written discharge instructions were provided to the patient. - Resume previous diet. - Continue present medications. - Await pathology results. - Repeat colonoscopy in 5 years for surveillance. - Return to referring provider at appointment to be scheduled. Procedure Code(s): --- Professional --- 83093, Colonoscopy, flexible; with biopsy, single or multiple G0500, Moderate sedation services provided by the same physician or other qualified health professional healthcare representative performing a gastrointestinal endoscopic service that sedation supports, requiring the presence of an independent trained observer to assist in the monitoring of the patient's level of consciousness and physiological status; initial 15 minutes of intra-service time; patient age 5 years or older (additional time may be reported with 34818, as appropriate) Diagnosis Code(s): --- Professional --- Z12.11, Encounter for screening for malignant neoplasm of colon D12.5, Benign neoplasm of sigmoid colon K64.8, Other hemorrhoids K57.30, Diverticulosis of large intestine without perforation or abscess without bleeding CPT copyright 2020 [employer]. All rights reserved. The codes documented in this report are preliminary and upon senior electrical controls engineer review may be revised to meet current compliance requirements. Attending Participation: I personally performed the entire procedure. Scope In: 8:08:00 AM Scope Out: 8:19:48 AM MD Lc Padilla MD 12/19/2024 8 (more content not included)... Normal [facility] Colonoscopy Study observatio non 12-19-2024 [facility] Patient Name: Angelica Sosa Procedure Date: 12/19/2024 7:52 AM Date of : 1945 Admit Type: Outpatient Age: 79 Gender: Female Note Status: Finalized Procedure: Colonoscopy Indications: Screening for colorectal malignant neoplasm Providers: Lc Cuello MD Patient Profile: This is an 79 year old female. Refer to note in patient chart for documentation of history and physical. Last Colonoscopy: May 2018. Referring Physician: Eimly Flaherty (Referring MD) Medicines: Fentanyl 50 micrograms IV, Midazolam 3 mg IV Complications: No immediate complications. Estimated blood loss: Minimal. Requesting Provider: Procedure: Pre-Anesthesia Assessment: - Prior to the procedure, a History and Physical was performed, and patient medications and allergies were reviewed. The patient's tolerance of previous anesthesia was also reviewed. The risks and benefits of the procedure and the sedation options and risks were discussed with the patient. All questions were answered, and informed consent was obtained. Prior Anticoagulants: The patient has taken no anticoagulant or antiplatelet agents. ASA Grade Assessment: III - A patient with severe systemic disease. After reviewing the risks and benefits, the patient was deemed in satisfactory condition to undergo the procedure. After I obtained informed consent, the scope was passed under direct vision. Throughout the procedure, the patient's blood pressure, pulse, and oxygen saturations were monitored continuously. The Colonoscope was introduced through the anus and advanced to 3 cm into the ileum. The colonoscopy was performed without difficulty. The patient tolerated the procedure well. The quality of the bowel preparation was adequate to identify polyps greater than 5 mm in size. The terminal ileum, ileocecal valve, appendiceal orifice, and rectum were photographed. Moderate Sedation: The administration of moderate sedation was initiated at 08:04. Moderate (conscious) sedation was personally administered by the endoscopist. The following parameters were monitored: oxygen saturation, heart rate, blood pressure, respiratory rate, EKG, adequacy of pulmonary ventilation, and response to care. Total physician intraservice time was 15 minutes. Findings: The perianal and digital rectal examinations were normal. Three sessile polyps were found in the sigmoid colon. The polyps were diminutive (1-3 mm) in size. These polyps were removed with a jumbo cold forceps. Resection and retrieval were complete. Many small-mouthed diverticula were found in the sigmoid colon and descending colon. Non-bleeding internal hemorrhoids were found during retroflexion. The hemorrhoids were mild and small. The terminal ileum appeared normal. The exam was otherwise without abnormality. Impression: - Three diminutive (1-3 mm) polyps in the sigmoid colon, removed with a jumbo cold forceps. Resected and retrieved. - Diverticulosis in the sigmoid colon and in the descending colon. - Non-bleeding internal hemorrhoids. - The examined portion of the ileum was normal. - The examination was otherwise normal. Recommendation: - Patient has a contact number available for emergencies. The signs and symptoms of potential delayed complications were discussed with the patient. Return to normal activities tomorrow. Written discharge instructions were provided to the patient. - Resume previous diet. - Continue present medications. - Await pathology results. - Repeat colonoscopy in 5 years for surveillance. - Return to referring provider at appointment to be scheduled. Procedure Code(s): --- Professional --- 82039, Colono (more content not included)... PROVATION [facility] Radiology Study observation (narrative) [facility] HISTORY PHYSICALon HISTORY PHYSICAL HNO ID: [id number] Author: LC CUELLO MD Service: General Surgery Author Type: Physician Type: H&P Filed: 12/19/2024 07:57 Note Text: Angelica Sosa is a 79 year old female. Patient presents with: Diabetes: Is concerned due to medication side effects with treating diabetes. Is taking Metformin 500 mg 1 daily as two daily causes to severe diarrhea. SUBJECTIVE: Angelica Sosa is a 79 year old year old lady here today for follow up appointment for review of medical conditions. Angelica Sosa is an 79-year-old female with a history of DM, presenting for evaluation of glycemic control and a chronic pruritic lesion on the leg. Angelica reports difficulty tolerating metformin due to gastrointestinal side effects, specifically diarrhea, when taking more than 500 mg daily. She currently takes 500 mg once daily at bedtime and notes that higher doses exacerbate gastrointestinal symptoms. She monitors her blood glucose levels regularly and brought her glucose meter to the visit. Recent fasting blood glucose readings have ranged from 159 to 192 mg/dL, with most readings in the 160s to 180s. She denies any fasting blood glucose readings over 200 mg/dL. She occasionally checks postprandial blood glucose levels but has not done so recently and denies any postprandial readings over 180 mg/dL. Her last HbA1c, measured in November of the previous year, was 7.5%. She reports decreased physical activity due to weather conditions and denies any recent changes in diet or exercise habits. Angelica also reports a chronic pruritic lesion on her leg, which has been present since she had shingles approximately 2 years ago. The lesion is described as itchy and sometimes scaly. She has tried various topical treatments, including calamine lotion and ice packs, to alleviate the itching. She has clobetasol at home but has used it sparingly due to concerns about skin thinning. She has not seen a installation service representative for this issue in the past year but plans to make an appointment. Additionally, Angelica inquires about the need for a colonoscopy. She had her last colonoscopy in 2019 and has a family history of colorectal cancer, with both grandmothers having from the disease. She expresses reluctance to undergo the procedure but is seeking medical advice on whether it is necessary. PAST MEDICAL HISTORY 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 LICHEN SCLEROSIS Controlled type 2 diabetes mellitus without complication, without long-term current use of insulin ([facility]) 05/04/2021 DEPRESSIVE DISORDER NEC 10/17/[address] eyes [address]. Daniels follows at [facility] HYPERLIPIDEMIA NEC/NOS 10/17/2005 HYPERTENSION NOS 10/17/2005 Rosacea 10/17/2005 Vitamin D deficiency 09/23/2016 CURRENT MEDICATIONS Current Outpatient Medications Medication Sig cyclobenzaprine (FLEXERIL) 10 mg tablet Take 1 tablet by mouth at bedtime as needed for muscle spasm. (Patient not taking: Reported on 11/11/2024) metFORMIN ER (GLUCOPHAGE XR) 500 mg 24 hr tablet Take 1 tablet by mouth daily with breakfast. Take 1 tablets with breakfast and 1 tablet with dinner or as directed clobetasol (TEMOVATE) 0.05 % ointment APPLY DAILY NEEDED TO THE AFFECTED AREA SPARINGLY Cholecalciferol, Vitamin D3, 50 mcg (2,000 unit) cap Take 1 capsule by mouth once daily. minocycline (MINOCIN, DYNACIN) 50 mg capsule Take 1 capsule by mouth once daily. As directed lisinopril (ZESTRIL) 20 mg tablet Take 1 tablet by mouth once daily. blood sugar diagnostic (CyberXTOUCH VERIO TEST STRIPS) test strip USE TO CHECK BLOOD SUGAR ONCE A DAY lancets (CyberXTOUCH DELICA PLUS LANCET) 33 gauge USE TO CHECK BLOOD SUGAR ONCE A DAY No current facility-administered medications for this visit. Review of Systems Objective BP 126/66 Pulse (!) 58 Wt 65.2 kg (143 lb 11.8 oz) SpO2 97% BMI 26.72 kg/m? Physical Exam Constitutional: Appearance: Normal appearance. HENT: Head: Normocephalic. Eyes: Conjunctiva/sclera: Conjunctivae normal. Cardiovascular: Rate and Rhythm: Normal rate and regular rhythm. Heart sounds: Normal heart sounds. Pulmonary: Effort: Pulmonary effort is normal. Breath sounds: Normal breath sounds. Musculoskeletal: Right lower leg: No edema. Left lower leg: No edema. Skin: General: Skin is warm and dry. Neurological: General: No focal deficit present. Mental Status: She is alert and oriented to person, place, and time. Psychiatric: Mood and Affect: Mood normal. Behavior: Behavior normal. Thought Content: Thought content normal. Judgment: Judgment normal. Hemoglobin A1C (%) Date Value 12/06/2023 7.5 07/13/2021 7.0 03/23/2021 13.6 06/08/2018 6.5 12/26/2017 6.7 05/27/2017 6.3 Hemoglobin A1C (POCT) (%) Date Value 11/01/2022 7.2 Assessment and Plan # Controlled type 2 diabetes mellitus without c (more content not included)... Normal [facility] Pathology biopsy report Jesus (Tiss)on 12-19-2024 AP DISCLAIMER Normal [facility] Comment on above: Order Comment: Speci men Type: TISSUE SPECIMEN Ordering Facility: [facility] Address: [address] [place] [address] Result Comment: Bhavik Solares Test (LDT) Disclaimer: Performance characteristics of immunohistochemical, immunofluorescent, and chromogenic in-situ hybridization tests have been determined by the performing laboratory within [facility]'s [facility] Pathology and Laboratory Medicine Department ([facility], [facility], [facility], [facility], [facility], [facility], or [facility]) in a manner consistent with CLIA requirements. One or more of these tests may not have been cleared or approved by the FDA. [facility] is regulated under CLIA as qualified to perform high-complexity testing. These tests are used for clinical purposes. These should not be regarded as investigational or for research. Positive and negative controls stain appropriately. Performed By: #### 6 6121-5 #### [facility] CLIA [id number] [address] [place] [address] [place] CASE REPORT Normal [facility] Comment on above: Order Comment: Speci men Type: TISSUE SPECIMEN Ordering Facility: [facility] Address: [address] [place] [address] Result Comment: Surg [facility] Pathology Report Case: [id number] Authorizing Provider: Lc Cuello MD Collected: 12/19/2024 08:17 AM Ordering Location: Ambulatory Surgery Received: 12/19/2024 12:28 PM Pathologist: Leonard Lopez MD Specimen: Colon, Sigmoid, Polyp, polyp'S x3 Performed By: #### 6 6121-5 #### [facility] CLIA [id number] [address] [place] [address] OF [place] FINAL DIAGNOSIS Normal [facility] Comment on above: Order Comment: Speci men Type: TISSUE SPECIMEN Ordering Facility: [facility] Address: [address] [place] [address] Result Comment: A. S igmoid colon, polypectomy x 3: -Fragments of hyperplastic polyp at 1408 EDT Performed By: #### 6 6121-5 #### [facility] CLIA [id number] [address] [place] [address] OF [place] FINAL PERFORMING LAB Normal [facility] Comment on above: Order Comment: Speci men Type: TISSUE SPECIMEN Ordering Facility: [facility] Address: [address] [place] [address] Result Comment: Diag nostic interpretation performed at: [facility], [address] [place] [address] CLIA# [id number] Indoor Landscape Architect: Bertrand Alfaro MD Performed By: #### 6 6121-5 #### [facility] CLIA [id number] [address] [place] [address] [place] GROSS DESCRIPTION Normal [facility] Comment on above: Order Comment: Speci men Type: TISSUE SPECIMEN Ordering Facility: [facility] Address: [address] [place] [address] Result Comment: A. C olon, Sigmoid, Polyp Received in formalin are multiple pieces of spencer, soft tissue aggregating to 1.3 x 0.2 x 0.2 cm. Totally submitted in one cassette. Gross examination performed at [address] 12/19/2024 4:57 PM Performed By: #### 6 6121-5 #### [facility] CLIA [id number] [address] [place] [address] [place] 25(OH)D3 [facility] 25-hydroxyvitamin D3 [Mass/Vol] 20.3 ng/mL Low 31.0-80.0 [facility] Comment on above: Order Comment: Speci men Type: BLOOD SPECIMENOrdering Facility: [facility] Address: [address] [place] [address] Result Comment: Clas sification of 25 [place] Vitamin D status: Deficiency/Insufficiency: < or = 30 ng/ml. Sufficiency/Optimal Levels: 31-80 ng/mL Toxicity: > 100 ng/mL. Test performed by chemiluminescent immunoassay. Performed By: #### 1 989-3 ####[facility] [id number] [place] [address] [place] CBC panel Auto (Bld)on 11-27 Erythrocyte distribution width (RBC) [Ratio] 13.5 % Normal 11.5-15.0 [facility] Comment on above: Order Comment: Speci men Type: BLOOD SPECIMENOrdering Facility: [facility] Address: [address] [place] [address] Performed By: #### 5 8410-2 ####[facility] [id number] [place] [address] [place] Hematocrit (Bld) [Volume fraction] 41.4 % Normal 36.0-46.0 [facility] Comment on above: Order Comment: Speci men Type: BLOOD SPECIMENOrdering Facility: [facility] Address: [address] [place] [address] Performed By: #### 5 8410-2 ####[facility] [id number] [place] [address] [place] Hemoglobin (Bld) [Mass/Vol] 13.2 g/dL Normal 11.5-15.5 [facility] Comment on above: Order Comment: Speci men Type: BLOOD SPECIMENOrdering Facility: [facility] Address: [address] [place] [address] Performed By: #### 5 8410-2 ####[facility] [id number] [place] [address] [place] MCH (RBC) [Entitic mass] 28.8 pg Normal 26.0-34.0 [facility] Comment on above: Order Comment: Speci men Type: BLOOD SPECIMENOrdering Facility: [facility] Address: [address] [place] [address] Performed By: #### 5 8410-2 ####[facility] [id number] [place] [address] [place] MCHC (RBC) [Mass/Vol] 31.9 g/dL Normal 30.5-36.0 [facility] Comment on above: Order Comment: Speci men Type: BLOOD SPECIMENOrdering Facility: [facility] Address: [address] [place] [address] Performed By: #### 5 8410-2 ####[facility] [id number] [place] [address] [place] MCV (RBC) [Entitic vol] 90.2 fL Normal 80.0-100.0 [facility] Comment on above: Order Comment: Speci men Type: BLOOD SPECIMENOrdering Facility: [facility] Address: [address] [place] [address] Performed By: #### 5 8410-2 ####[facility] [id number] [address] [address] [place] Nucleated RBC (Bld) [#/Vol] 10*3/uL Normal <0.01 [facility] Comment on above: Order Comment: Speci men Type: BLOOD SPECIMENOrdering Facility: [facility] Address: [address] [place] [address] Performed By: #### 5 8410-2 ####[facility] [id number] [address] [address] [place] Platelet mean volume (Bld) [Entitic vol] 9.6 fL Normal 9.0-12.7 [facility] Comment on above: Order Comment: Speci men Type: BLOOD SPECIMENOrdering Facility: [facility] Address: [address] [place] [address] Performed By: #### 5 8410-2 ####[facility] [id number] [place] [address] [place] Platelets (Bld) [#/Vol] 392 10*3/uL Normal 150-400 [facility] Comment on above: Order Comment: Speci men Type: BLOOD SPECIMENOrdering Facility: [facility] Address: [address] [place] [address] Performed By: #### 5 8410-2 ####[facility] [id number] [address] [address] [place] RBC (Bld) [#/Vol] 4.59 10*6/uL Normal 3.90-5.20 [facility] Comment on above: Order Comment: Speci men Type: BLOOD SPECIMENOrdering Facility: [facility] Address: [address] [place] [address] Performed By: #### 5 8410-2 ####[facility] [id number] [address] [place] [address] [place] WBC (Bld) [#/Vol] 10.22 10*3/uL Normal 3.70-11.00 [facility] Comment on above: Order Comment: Speci men Type: BLOOD SPECIMENOrdering Facility: [facility] Address: [address] [place] [address] Performed By: #### 5 8410-2 ####[facility] [id number] [address] [place] [address] [place] [facility] Comprehensive metabolic 2000 panelon 11-27-2024 Albumin [Mass/Vol] 4.4 g/dL Normal 3.9-4.9 [facility] Comment on above: Order Comment: Speci men Type: BLOOD SPECIMENOrdering Facility: [facility] Address: [address] [place] [address] Performed By: #### 2 4331-1, 69677-7 ####[facility] [id number] [address] [place] [address] [place] ALP [Catalytic activity/Vol] 88 U/L Normal 34-123 [facility] Comment on above: Order Comment: Speci men Type: BLOOD SPECIMENOrdering Facility: [facility] Address: [address] [place] [address] Performed By: #### 2 4331-1, 12859-0 ####[facility] [id number] [address] [place] [address] [place] ALT [Catalytic activity/Vol] 18 U/L Normal 7-38 [facility] Comment on above: Order Comment: Speci men Type: BLOOD SPECIMENOrdering Facility: [facility] Address: [address] [place] [address] Performed By: #### 2 4331-1, 66779-7 ####[facility] [id number] [address] [place] [address] [place] Anion gap [Moles/Vol] 12 mmol/L Normal 8-15 [facility] Comment on above: Order Comment: Speci men Type: BLOOD SPECIMENOrdering Facility: [facility] Address: [address] [place] [address] Performed By: #### 2 4331-1, ####[facility] [id number] [place] [id number] [place] AST [Catalytic activity/Vol] 19 U/L Normal 13-35 [facility] Comment on above: Order Comment: Speci men Type: BLOOD SPECIMENOrdering Facility: [facility] Address: [address] [place] [address] Performed By: #### 2 4331-1, 78341-4 ####[facility] [id number] [place] [address] [place] Bilirubin [Mass/Vol] 0.5 mg/dL Normal 0.2-1.3 [facility] Comment on above: Order Comment: Speci men Type: BLOOD SPECIMENOrdering Facility: [facility] Address: [address] [place] [address] Performed By: #### 2 4331-1, 41877-4 ####[facility] [id number] [facility] [place] [id number] [place] Calcium [Mass/Vol] 9.5 mg/dL Normal 8.5-10.2 [facility] Comment on above: Order Comment: Speci men Type: BLOOD SPECIMENOrdering Facility: [facility] Address: [address] [place], [place] [address] Performed By: #### 2 4331-1, ####[facility] [id number] [facility] [place] [address] [place] Chloride [Moles/Vol] 104 mmol/L Normal 98-107 [facility] Comment on above: Order Comment: Speci men Type: BLOOD SPECIMENOrdering Facility: [facility] Address: [address] [place] [address] Performed By: #### 2 4331-1, 52962-1 ####[facility] [id number] [place] [id number] [place] CO2 [Moles/Vol] 24 mmol/L Normal 22-30 [facility] Comment on above: Order Comment: Speci men Type: BLOOD SPECIMENOrdering Facility: [facility] Address: [address] [place] [address] Performed By: #### 2 4331-1, 71511-9 ####[facility] [id number] [address] [place] Creatinine [Mass/Vol] 0.67 mg/dL Normal 0.58-0.96 [facility] Comment on above: Order Comment: Speci men Type: BLOOD SPECIMENOrdering Facility: [facility] Address: [address] [place] [address] Performed By: #### 2 4331-1, 16620-8 ####[facility] [id number] [address] Creatinine and Glomerular filtration rate.predicted panel (S/P/Bld) 88 mL/min/1.73m??? Normal >=60 [facility] Comment on above: Order Comment: Speci men Type: BLOOD SPECIMENOrdering Facility: [facility] Address: [address] [place] [address] Result Comment: Jaylin mated Glomerular Filtration Rate (eGFR) is calculated using the 2020 CKD-EPI creatinine equation. This equation utilizes serum creatinine, sex, and age as parameters. The creatinine assay has traceable calibration to isotope dilution-mass spectrometry. Refer to KDIGO guidelines for clinical interpretation. In patients with unstable renal function, e.g. those with acute kidney injury, the eGFR may not accurately reflect actual GFR. Performed By: #### 2 4331-1, 37530-4 ####[facility] [id number] [address] [address] [place] Glucose [Mass/Vol] 179 mg/dL High 74-99 [facility] Comment on above: Order Comment: Speci men Type: BLOOD SPECIMENOrdering Facility: [facility] Address: [address] [place] [address] Result Comment: The [place] Diabetes Association (ADA) provides guidance for cutoff values for fasting glucose and random glucose. The ADA defines fasting as no caloric intake for at least 8 hours. Fasting plasma glucose results between 100 to 125 mg/dL indicate increased risk for diabetes (prediabetes). Fasting plasma glucose results greater than or equal to 126 mg/dL meet the criteria for diagnosis of diabetes. In the absence of unequivocal hyperglycemia, results should be confirmed by repeat testing. In a patient with classic symptoms of hyperglycemia or hyperglycemic crisis, random plasma glucose results greater than or equal to 200 mg/dL meet the criteria for diagnosis of diabetes. Reference: Standards of Medical Care in Diabetes 2016, [place] Diabetes Association. Diabetes Care. 2016.39(Suppl 1). Performed By: #### 2 4331-1, 32869-2 ####[facility] [id number] [place] [address] [place] Potassium [Moles/Vol] 4.4 mmol/L Normal 3.7-5.1 [facility] Comment on above: Order Comment: Speci men Type: BLOOD SPECIMENOrdering Facility: [facility] Address: [address] [place] [address] Performed By: #### 2 4331-1, 41879-2 ####[facility] [id number] [place] [id number] [place] Protein [Mass/Vol] 6.9 g/dL Normal 6.3-8.0 [facility] Comment on above: Order Comment: Speci men Type: BLOOD SPECIMENOrdering Facility: [facility] Address: [address] [place] [address] Performed By: #### 2 4331-, 44559-6 ####[facility] [id number] [address] [address] [place] Sodium [Moles/Vol] 140 mmol/L Normal 136-144 [facility] Comment on above: Order Comment: Speci men Type: BLOOD SPECIMENOrdering Facility: [facility] Address: [address] [place] [address] Performed By: #### 2 4331-1, 35668-7 ####[facility] [id number] [place] [address] [place] Urea nitrogen [Mass/Vol] 23 mg/dL High 7-21 [facility] Comment on above: Order Comment: Fiordalizai men Type: BLOOD SPECIMENOrdering Facility: [facility] Address: [address] [place] [address] Performed By: #### 2 4331-1, 58528-7 ####[facility] [id number] [place] [address] [place] HbA1c (Bld)on 11-27-2024 Average glucose Estimated from glycated hemoglobin (Bld) [Mass/Vol] 192 mg/dL Normal [facility] Comment on above: Order Comment: Fiordalizai men Type: BLOOD SPECIMENOrdering Facility: [facility] Address: [address] [place] [address] Result Comment: eAG: (Estimated average glucose) is a calculated value from HgbA1c and is outside sales account representative of the average blood glucose level in the last 2-3 month period. Performed By: #### 5 5454-3 ####[facility] [id number] [address] [address] [place] HbA1c (Bld) [Mass fraction] 8.3 % High 4.3-5.6 [facility] Comment on above: Order Comment: Fiordalizai men Type: BLOOD SPECIMENOrdering Facility: [facility] Address: [address] [place] [address] Result Comment: Amer [place] Diabetes Association guidelines indicate that patients with HgbA1c in the range 5.7-6.4% are at increased risk for development of diabetes, and intervention by lifestyle modification may be beneficial. HgbA1c greater or equal to 6.5% is considered diagnostic of diabetes. Performed By: #### 5 5454-3 ####[facility] [id number] [address] [address] [place] Lipid 1996 panelon 5 Cholesterol [Mass/Vol] 184 mg/dL Normal <200 [facility] Comment on above: Order Comment: Speci men Type: BLOOD SPECIMENOrdering Facility: [facility] Address: [address] [place] [address] Result Comment: <200 mg/dL, Desirable 200-239 mg/dL, Borderline high >239 mg/dL, High Performed By: #### 2 4331-1, 76973-4 ####[facility] [id number] [place] [id number] [place] Cholesterol in HDL [Mass/Vol] 36 mg/dL Low >39 [facility] Comment on above: Order Comment: Graciela patton Type: BLOOD SPECIMENOrdering Facility: [facility] Address: [address] [place] [address] Result Comment: 40-5 9 mg/dL, Acceptable >59 mg/dL, High: Negative risk factor for coronary heart disease <40 mg/dL, Low: Positive risk factor for coronary heart disease Performed By: #### 2 4331-1, 01032-0 ####[facility] [id number] [address] [address] [place] Cholesterol in LDL [Mass/Vol] 127 mg/dL High <100 [facility] Comment on above: Order Comment: Fiordalizai men Type: BLOOD SPECIMENOrdering Facility: [facility] Address: [address] [place] [address] Result Comment: <100 mg/dL, Optimal 100-129 mg/dL, Near optimal/above optimal 130-159 mg/dL, Borderline high 160-189 mg/dL, High >189 mg/dL, Very high Secondary prevention optimal LDL Cholesterol levels are recommended to be < 70 mg/dL Performed By: #### 2 4331-1, 15990-9 ####[facility] [id number] [address] [address] [place] Cholesterol in LDL/Cholesterol in HDL [Mass ratio] 3.53 {ratio} High <2.54 [facility] Comment on above: Order Comment: Speci men Type: BLOOD SPECIMENOrdering Facility: [facility] Address: [address] [place] [address] Result Comment: Refe rence: 1. National Cholesterol Education Program ATP III Guideline At-A-Glance Quick Desk Reference: National Heart, Lung, and Blood [place]. National Institutes of Health. 2001: NIH Publication No. 01-3305. 2. An International Atherosclerosis Society position paper: global recommendations for the management of dyslipidemia: executive summary, Atherosclerosis. 2014: 232(2):410-413. Performed By: #### 2 4331-1, 58192-9 ####[facility] [id number] [place] [id number] [place] Cholesterol in VLDL [Mass/Vol] 21 mg/dL Normal <30 [facility] Comment on above: Order Comment: Graciela patton Type: BLOOD SPECIMENOrdering Facility: [facility] Address: [address] [place] [address] Performed By: #### 2 4331-1, 14660-9 ####[facility] [id number] [address] [address] [place] Cholesterol non HDL [Mass/Vol] 148 mg/dL High <130 [facility] Comment on above: Order Comment: Fiordalizai men Type: BLOOD SPECIMENOrdering Facility: [facility] Address: [address] [place] [address] Result Comment: <130 mg/dL, Optimal 130-159 mg/dL, Near optimal/above optimal 160-189 mg/dL, Borderline high 190-219 mg/dL, High >219 mg/dL, Very high Secondary prevention optimal non HDL Cholesterol levels are recommended to be <100 mg/dL Performed By: #### 2 4331-1, ####[facility] [id number] [address] [address] [place] Cholesterol.total/Ch olesterol in HDL [Mass ratio] 5.11 {ratio} High <5.10 [facility] Comment on above: Order Comment: Speci men Type: BLOOD SPECIMENOrdering Facility: [facility] Address: [address] [place] [address] Performed By: #### 2 4331-1, ####[facility] [id number] [place] [address] [place] FASTING TIME 12 hrs Normal [facility] Comment on above: Order Comment: Speci men Type: BLOOD SPECIMENOrdering Facility: [facility] Address: [address] [place] [address] Performed By: #### 2 4331-1, ####[facility] [id number] [place] [id number] [place] Triglyceride [Mass/Vol] 107 mg/dL Normal <150 [facility] Comment on above: Order Comment: Speci men Type: BLOOD SPECIMENOrdering Facility: [facility] Address: [address] [place] [address] Result Comment: <150 mg/dL, Normal 150-199 mg/dL, Borderline high 200-499 mg/dL, High >499 mg/dL, Very high Performed By: #### 2 4331-1, ####[facility] [id number] [place] [id number] [place] CNOVon 11-11-2024 CNOV Office Visit (INTMWS ) ANGELICA SOSA ([id number]) 1945 [address] [facility] Date Time Provider Department 11/11/24 10:00 AM EMILY FLAHERTY INTMarshalWS During your visit today, we recorded the following information about you: Pulse Blood pressure Weight 58/minute 126/66 65.2 kg Emily Flaherty MD 11/11/2024 11:59 AM Signed This note was created using Bespokeriter. Subjective Angelica Sosa is a 79 year old female. Patient presents with: Diabetes: Is concerned due to medication side effects with treating diabetes. Is taking Metformin 500 mg 1 daily as two daily causes to severe diarrhea. SUBJECTIVE: Angelica Sosa is a 79 year old year old lady here today for follow up appointment for review of medical conditions. Angelica Sosa is an 79-year-old female with a history of DM, presenting for evaluation of glycemic control and a chronic pruritic lesion on the leg. Angelica reports difficulty tolerating metformin due to gastrointestinal side effects, specifically diarrhea, when taking more than 500 mg daily. She currently takes 500 mg once daily at bedtime and notes that higher doses exacerbate gastrointestinal symptoms. She monitors her blood glucose levels regularly and brought her glucose meter to the visit. Recent fasting blood glucose readings have ranged from 159 to 192 mg/dL, with most readings in the 160s to 180s. She denies any fasting blood glucose readings over 200 mg/dL. She occasionally checks postprandial blood glucose levels but has not done so recently and denies any postprandial readings over 180 mg/dL. Her last HbA1c, measured in November of the previous year, was 7.5%. She reports decreased physical activity due to weather conditions and denies any recent changes in diet or exercise habits. Angelica also reports a chronic pruritic lesion on her leg, which has been present since she had shingles approximately 2 years ago. The lesion is described as itchy and sometimes scaly. She has tried various topical treatments, including calamine lotion and ice packs, to alleviate the itching. She has clobetasol at home but has used it sparingly due to concerns about skin thinning. She has not seen a installation service representative for this issue in the past year but plans to make an appointment. Additionally, Angelica inquires about the need for a colonoscopy. She had her last colonoscopy in 2019 and has a family history of colorectal cancer, with both grandmothers having from the disease. She expresses reluctance to undergo the procedure but is seeking medical advice on whether it is necessary. 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 Daniels follows at [facility] HYPERLIPIDEMIA NEC/NOS 10/17/2005 HYPERTENSION NOS 10/17/2005 Rosacea 10/17/2005 Vitamin D deficiency 09/23/2016 Current Outpatient Medications Medication Sig cyclobenzaprine (FLEXERIL) 10 mg tablet Take 1 tablet by mouth at bedtime as needed for muscle spasm. (Patient not taking: Reported on 11/11/2024) metFORMIN ER (GLUCOPHAGE XR) 500 mg 24 hr tablet Take 1 tablet by mouth daily with breakfast. Take 1 tablets with breakfast and 1 tablet with dinner or as directed clobetasol (TEMOVATE) 0.05 % ointment APPLY DAILY NEEDED TO THE AFFECTED AREA SPARINGLY Cholecalciferol, Vitamin D3, 50 mcg (2,000 unit) cap Take 1 capsule by mouth once daily. minocycline (MINOCIN, DYNACIN) 50 mg capsule Take 1 capsule by mouth once daily. As directed lisinopril (ZESTRIL) 20 mg tablet Take 1 tablet by mouth once daily. blood sugar diagnostic (ONETOUCH VERIO TEST STRIPS) test strip USE TO CHECK BLOOD SUGAR ONCE A DAY lancets (CyberXTOUCH DELICA PLUS LANCET) 33 gauge USE TO CHECK BLOOD SUGAR ONCE A DAY No current facility-administered medications for this visit. Review of Systems Objective BP 126/66 Pulse (!) 58 Wt 65.2 kg (143 lb 11.8 oz) SpO2 97% BMI 26.72 kg/m? Physical Exam Constitutional: Appearance: Normal appearance. HENT: Head: Normocephalic. Eyes: Conjunctiva/sclera: Conjunctivae normal. Cardiovascular: Rate and Rhythm: Normal rate and regular rhythm. Heart sounds: Normal heart sounds. Pulmonary: Effort: Pulmonary effort is normal. Breath sounds: Normal breath sounds. Musculoskeletal: Right lower leg: No edema. Left lower leg: No edema. Skin: General: Skin is warm and dry. Neurological: General: No focal deficit present. Mental Status: She is alert and oriented to person, place, and time. Psychiatric: Mood and Affect: Mood normal. Behavior: Behavior normal. Thought Content: Thought content normal. Judgment: Judgment normal. (more content not included)... Normal [facility] 07-31-2024 CNPN Telephone (INTMWS) ANGELICA SOSA ([id number]) 1945 F T Date Time Provider Department 07/31/24 EMILY FLAHERTY INTMWS During your visit today, we recorded the following information about you: Alicia Templeton LPN 07/31/2024 10:04 AM Signed Electronic PA completed for cyclobenzaprine. This was approved. Approved Prior authorization approved Payer: [employer] [phone] Approval Details Authorized from September 11, 2023 to October 29, 2024 Electronic appeal: Not supported Prior auth initiated by: e- [facility]/pharmacy #[id number] [place] [address] [address] [facility] [phone] [facility] [place] [id number] View History Notes Time User Attachment Attachment received from payer. 07/31/2024 9:20 AM [facility], Rx Priorauth In Document OBTAIN PA USING PA Phone # [phone] or TP Help Desk Phone:[phone] REQUIRES PRIOR AUTH. 07/31/2024 8:32 AM Reba, [facility] Incoming Retail Pharmacy From [facility] Open Encounter ANGELICA SOSA - [facility] SSIMDXR ([employer] CLAUDE) Covered: Retail, Mail Order, Specialty Unknown: Long-Term Care BIN: [id number] : 1945 Group ID: [id number] PCN: [id number] Legal sex: F Group name: [facility] [place] [facility] MED D/AMA PART B ONLY Address: [address] [place] [address] [place] [address] Medication Being Authorized cyclobenzaprine (FLEXERIL) 10 mg tablet Take 1 tablet by mouth at bedtime as needed for muscle spasm. Dispense: 30 tablet Refills: 1 Start: 07/04/2024 Class: Normal Diagnoses: Acute right-sided low back pain with right-sided sciatica This order has been released to its destination. To be filled at: e- [id number] [place] [address] - [address] - [phone] [phone] Pt notified via my chart. Allergies As of Date: 07/31/2024 Noted Allergy Reaction BEEF DERIVED (BOVINE) 10/17/2005 Comments: congestion FISH CONTAINING PRODUCTS 11/17/2017 9 - Itching PEANUT OIL 10/17/2005 Comments: uncertain PEANUTS 10/17/2005 Comments: not sure SHELLFISH DERIVED 10/11/2023 9 - Itching TYLENOL (ACETAMINOPHEN) 10/17/2005 Comments: hyperactivity Date Reviewed: 07/04/2024 Reviewed by: Amara Mauricio APRN.DELIVERY AND MAIL SORTER - Fully Assessed Reason for Visit: Insurance Authorization [[id number]] Prescriptions as of 07/31/2024 - meloxicam (MOBIC) 15 mg tablet Take 1 tablet by mouth once daily. for back pain. Take with food. - cyclobenzaprine (FLEXERIL) 10 mg tablet Take 1 tablet by mouth at bedtime as needed for muscle spasm. - metFORMIN ER (GLUCOPHAGE XR) 500 mg 24 hr tablet Take 1 tablet by mouth daily with breakfast. Take 1 tablets with breakfast and 1 tablet with dinner or as directed - clobetasol (TEMOVATE) 0.05 % ointment APPLY DAILY NEEDED TO THE AFFECTED AREA SPARINGLY - Cholecalciferol, Vitamin D3, 50 mcg (2,000 unit) cap Take 1 capsule by mouth once daily. - minocycline (MINOCIN, DYNACIN) 50 mg capsule Take 1 capsule by mouth once daily. As directed - lisinopril (ZESTRIL) 20 mg tablet Take 1 tablet by mouth once daily. - blood sugar diagnostic (ONETOUCH VERIO TEST STRIPS) test strip USE TO CHECK BLOOD SUGAR ONCE A DAY - lancets (ONETOUCH DELICA PLUS LANCET) 33 gauge USE TO CHECK BLOOD SUGAR ONCE A DAY Problem List As Of Date 07/31/2024 Noted Resolved Essential hypertension [I10] 10/17/2005 Reactive depression [F32.9] 10/17/2005 Mixed hyperlipidemia [E78.2] 10/17/2005 ROSACEA [L71.9] 10/17/2005 CIRCUMSCRIBE SCLERODERMA [L94.0] 10/17/2005 LEUKOCYTOSIS NOS [D72.829] 08/20/2007 Disorder of bone and cartilage, unspecified [M8*09/24/2010 Osteopenia [M85.80] 11/06/2012 Vitamin D deficiency [E55.9] 09/23/2016 Controlled type 2 diabetes mellitus without com*05/04/2021 Encounter Status:Closed by ALICIA TEMPLETON on 07/31/24 Normal [facility] SCREENINGon 07-15-2024 [facility] SCREENING * * *Final Report* * * DATE OF EXAM: Jul 15 2024 2:39PM [facility] [id number] - [facility] SCREENING / PROCEDURE REASON: Screening mammogram for breast cancer * * * * Physician Interpretation * * * * RESULT: [place] [address] HISTORY: Patient is 79 years old and is seen for screening and is asymptomatic in both breasts. Patient states no personal history of breast cancer. Patient states no personal history of other cancers. COMPARISON STUDIES: The present examination has been compared to prior imaging studies dated 01/29/2021 (mammogram), 04/25/2022 (mammogram) and 07/13/2023 (mammogram). MAMMOGRAM TECHNIQUE: The study was acquired using full field digital technology and interpreted from soft copy. Digital Breast Tomosynthesis (DBT) images were obtained and used to assist in the interpretation of this examination. Computer-aided detection was utilized by the radiologist in the interpretation of this examination. MAMMOGRAM FINDINGS: The breasts are heterogeneously dense, which may obscure small masses. No suspicious masses, calcifications or other abnormalities are seen in either breast. There are no significant changes from the prior study. IMPRESSION: There is no mammographic evidence of malignancy in either breast. Routine screening mammogram is recommended. Annual mammogram will be due in 1 year. BI-RADS Category 1: Negative RISK: Based on the Tyrer-Cuzick (TC) risk assessment model, this patient has a 3.4% lifetime risk of developing breast cancer, meaning they are at average risk for developing breast cancer. However, this is only an estimate based on available history provided on the patient's questionnaire. We encourage all patients to talk with their providers about these results, further recommendations for managing breast health, and appropriate supplemental screening options if the patient has dense breast tissue. Interpreting Radiologist: Flex Ochoa M.D. Electronically signed on: 07/16/2024 [employer] Polisher Operator: RITESH Transcribe Date/Time: Jul 15 2024 2:28P Dictated by: FLEX OCHOA MD This examination was interpreted and the report reviewed and electronically signed by: FLEX OCHOA MD on Jul 16 2024 3:10PM EST [id number] Normal [facility] CNOVon 07-04-2024 CNOV Office Visit (INTMWS ) ANGELICA SOSA ([id number]) 1945 F T Date Time Provider Department 07/04/24 12:00 PM AMARA MAURICIO INTMWS During your visit today, we recorded the following information about you: Pulse Respiration Blood pressure Weight 89/minute 16/minute 134/79 67.3 kg Amara Mauricio APRN.DELIVERY AND MAIL SORTER 07/04/2024 2:01 PM Signed SUBJECTIVE: Diabetic Foot Exam Never done Shingrix Vaccine(2 of 3) due on 01/29/2009 DTaP,Tdap,Td Vaccine(2 - Td or Tdap) due on 11/24/2018 RSV Vaccine(1 - 1-dose 75+ series) Never done BP Controlled (<130/80) due on 07/28/2021 Covid-19 Vaccine( season) due on 05/12/2024 HbA1C due on 06/07/2024 HPI Angelica Sosa is a 79 year old female. Presents today to follow up. She presents with right sided back pin radiating to right leg for 1-2 weeks. She notes this started after standing for standing prolonged period, better with walking. Is keep ing her awake at night. Pain described as persistent only. It is working in the kitchen. Nothing seems to aggravate or alleviate it. Has taken Advil. Notes that feels like sciatic pain. No alarm symptoms reported. Review of Systems Constitutional: Negative. Musculoskeletal: Positive for back pain. Objective BP 134/79 Pulse 89 Resp 16 Wt 67.3 kg (148 lb 5.9 oz) BMI 27.58 kg/m? Physical Exam Vitals and nursing note reviewed. Constitutional: Appearance: Normal appearance. HENT: Head: Normocephalic and atraumatic. Eyes: Conjunctiva/sclera: Conjunctivae normal. Cardiovascular: Rate and Rhythm: Normal rate. Pulmonary: Effort: Pulmonary effort is normal. Neurological: Mental Status: She is alert. Mental status is at baseline. ALLERGIES Allergen Reactions Beef Derived (Bovin* congestion Fish Containing Pro* Itching Peanut Oil uncertain Peanuts not sure Shellfish Derived Itching Tylenol [Acetaminop* hyperactivity Medications: metFORMIN ER (GLUCOPHAGE XR) 500 mg 24 hr tablet Take 1 tablet by mouth daily with breakfast. Take 1 tablets with breakfast and 1 tablet with dinner or as directed (Patient taking differently: Take 500 mg by mouth daily with breakfast.) clobetasol (TEMOVATE) 0.05 % ointment APPLY DAILY NEEDED TO THE AFFECTED AREA SPARINGLY Cholecalciferol, Vitamin D3, 50 mcg (2,000 unit) cap Take 1 capsule by mouth once daily. minocycline (MINOCIN, DYNACIN) 50 mg capsule Take 1 capsule by mouth once daily. As directed lisinopril (ZESTRIL) 20 mg tablet Take 1 tablet by mouth once daily. 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 Daniels follows at [facility] HYPERLIPIDEMIA NEC/NOS 10/17/2005 HYPERTENSION NOS 10/17/2005 Rosacea 10/17/2005 Vitamin D deficiency 09/23/2016 Social History Tobacco Use Smoking status: Former Current packs/day: 0.00 Types: Cigarettes Quit date: 05/12/1972 Years since quittin.1 Smokeless tobacco: Never Substance Use Topics Alcohol use: No Drug use: No Component Latest Ref Rng AND Units 03/23/2021 03/26/2021 03/29/2021 Protein, Total 6.3 - 8.0 g/dL 7.5 Albumin 3.9 - 4.9 g/dL 4.6 Calcium 8.5 - 10.2 mg/dL 10.3 (H) 9.8 Bilirubin, Total 0.2 - 1.3 mg/dL 0.5 Alkaline Phosphatase 34 - 123 U/L 115 AST 13 - 35 U/L 27 Glucose 74 - 99 mg/dL 460 (H) 321 (H) BUN 7 - 21 mg/dL 16 14 Creatinine 0.58 - 0.96 mg/dL 0.76 0.56 (L) Sodium 136 - 144 mmol/L 134 (L) 136 Potassium 3.7 - 5.1 mmol/L 4.4 4.5 Chloride 97 - 105 mmol/L 98 101 CO2 22 - 30 mmol/L 22 20 (L) Anion Gap 9 - 18 mmol/L 14 15 ALT 7 - 38 U/L 41 (H) eGFR- >60 >60 eGFR-All Other Races . >60 >60 Color Yellow Light Yellow (A) Clarity Clear Clear Glucose, Urine Negative mg/dL 3+ (A) Bilirubin, Urine Negative Negative Ketones, Urine Negative 1+ (A) Specific [place], Ur 1.005 - 1.030 1.035 (H) Hemoglobin/Blood,Ur Negative Negative pH, Urine 5.0 - 8.0 6.0 Protein, Urine Negative Negative Urobilinogen Negative E.U./dL Negative Nitrites Negative Negative Leukest Negative Trace (A) Comment SEE COMMENT Urine Ish Comment SEE COMMENT WBC, Urine 0 - 5 /HPF 0-5 RBC, Urine 0 - 3 /HPF 0-3 Epithelial Cells /HPF SEE COMMENT WBC 3.70 - 11.00 k/uL 10.16 RBC 3.90 - 5.20 m/uL 5.09 Hemoglobin 11.5 - 15.5 g/dL 14.7 Hematocrit 36.0 - 46.0 % 44.9 MCV 80.0 - 100.0 fL 88.2 MCH 26.0 - 34.0 pG 28.9 MCHC 30.5 - 36.0 g/dL 32.7 RDW-CV 11.5 - 15.0 % 12.5 Platelet Count 150 - (more content not included)... [facility]INTMWS[facility] ANGELICA SOSA ([id number]) 1945 F T Date Time Provider Department 07/04/24 EMILY FLAHERTY INTWS During your visit today, we recorded the following information about you: Kelly Soto RN 07/04/2024 8:48 AM Signed Patient calls and states that she has had issues with sciatica pain in the past. Patient asking if there is anything else she can do for the pain besides taking Advil. Advised patient that she should set up appointment with provider so that provider can assess her back pain. Patient voiced understanding. Patient scheduled today with Amara 07/04/2024. Kelly Soto RN Allergies As of Date: 07/04/2024 Noted Allergy Reaction BEEF DERIVED (BOVINE) 10/17/2005 Comments: congestion FISH CONTAINING PRODUCTS 11/17/2017 9 - Itching PEANUT OIL 10/17/2005 Comments: uncertain PEANUTS 10/17/2005 Comments: not sure SHELLFISH DERIVED 10/11/2023 9 - Itching TYLENOL (ACETAMINOPHEN) 10/17/2005 Comments: hyperactivity Date Reviewed: 06/07/2024 Reviewed by: Aracelis Ribeiro APRN.TUBE CUTTER OPERATOR - Fully Assessed Reason for Visit: Patient Update [1234] Prescriptions as of 07/04/2024 - metFORMIN ER (GLUCOPHAGE XR) 500 mg 24 hr tablet Take 1 tablet by mouth daily with breakfast. Take 1 tablets with breakfast and 1 tablet with dinner or as directed - clobetasol (TEMOVATE) 0.05 % ointment APPLY DAILY NEEDED TO THE AFFECTED AREA SPARINGLY - Cholecalciferol, Vitamin D3, 50 mcg (2,000 unit) cap Take 1 capsule by mouth once daily. - minocycline (MINOCIN, DYNACIN) 50 mg capsule Take 1 capsule by mouth once daily. As directed - lisinopril (ZESTRIL) 20 mg tablet Take 1 tablet by mouth once daily. - blood sugar diagnostic (ParakeyUCH VERIO TEST STRIPS) test strip USE TO CHECK BLOOD SUGAR ONCE A DAY - lancets (CyberXTOUCH DELICA PLUS LANCET) 33 gauge USE TO CHECK BLOOD SUGAR ONCE A DAY Problem List As Of Date 07/04/2024 Noted Resolved Essential hypertension [I10] 10/17/2005 Reactive depression [F32.9] 10/17/2005 Mixed hyperlipidemia [E78.2] 10/17/2005 ROSACEA [L71.9] 10/17/2005 CIRCUMSCRIBE SCLERODERMA [L94.0] 10/17/2005 LEUKOCYTOSIS NOS [D72.829] 08/20/2007 Disorder of bone and cartilage, unspecified [M8*09/24/2010 Osteopenia [M85.80] 11/06/2012 Vitamin D deficiency [E55.9] 09/23/2016 Controlled type 2 diabetes mellitus without com*05/04/2021 Encounter Status:Closed by KELLY SOTO on 07/04/24 Normal [facility] CNOVon 06-07-2024 CNOV Office Visit (INTMWS ) ANGELICA SOSA ([id number]) 1945 F CHT Date Time Provider Department 06/07/24 9:00 AM ARACELIS RIBEIRO During your visit today, we recorded the following information about you: Pulse Blood pressure Weight 74/minute 154/72 66.6 kg Aracelis Ribeiro APRN.CNP 06/07/2024 9:28 AM Signed Angelica Sosa is a 79 year old female here for a Medicare wellness visit. Medicare Health Risk Assessment General Health Pretty good for age Exercise: Minutes/Day 30 min Exercise: Days/Week 7 days Alcohol: Daily Use Never Alcohol: Drinks/Day Patient does not drink Alcohol: 6 or more drinks Never Feel off balance No Concerns: Teeth/Dentures no Concerns: Sexual function no Troubled by feelings no Frequency: Eating healthy diet Tries daily ADLs requiring help no Safety precautions in home/vehicle yes Smoke, vape, chews tobacco no Difficulty hearing Hearing aid Difficulty seeing no Current Providers Specialists: I have reviewed specialist-related care of the patient in the medical record. Current care team: Patient Care Team: [facility] Outside specialists seen: hook and eye machine operator, dermatology Medical/Family history review Reviewed and updated problem list, medical/surgical/famil y/social history, medications, and allergies. Opioid use review Opioid Medications (last 90 days) No data to display Anxiety/Depression screening CAITIE-2 Score: 0 (Lower risk for anxiety) Recommendation: no further intervention at this time Cognitive screening Mini Cog Score: 5 Cognitive screening reviewed and No further action needed (score 3-5). Functional Observation Was the patient's Timed Up AND Go test unsteady or >= 12 seconds? No Advance Care Planning Surrogate decision maker and/or advance care plan documented Measurements BP 154/72 Pulse 74 Wt 66.6 kg (146 lb 13.2 oz) SpO2 97% BMI 27.29 kg/m? Vision Screening: Follows with optometry/ophthalmolog y SUBJECTIVE Angelica Sosa is a 79 year old female here today for a check up on her medical problems. Chief Complaint Patient presents with: F/U 6 months Medicare Wellness Exam HPI Angelica Sosa is a 79 year old female. Here for 6 month follow up and medicare wellness. Some issues with her sugars, running 150's on average, metformin causes GI upset/diarrhea and taking this as 500 mg daily. Otherwise doing well. Has not had blood pressure pill yet today. Her medications were reviewed today and her list is now up to date. Medications Current Outpatient Medications Medication Sig clobetasol (TEMOVATE) 0.05 % ointment APPLY DAILY NEEDED TO THE AFFECTED AREA SPARINGLY Cholecalciferol, Vitamin D3, 50 mcg (2,000 unit) cap Take 1 capsule by mouth once daily. minocycline (MINOCIN, DYNACIN) 50 mg capsule Take 1 capsule by mouth once daily. As directed lisinopril (ZESTRIL) 20 mg tablet Take 1 tablet by mouth once daily. metFORMIN ER (GLUCOPHAGE XR) 500 mg 24 hr tablet Take 1 tablet by mouth daily with breakfast. Take 1 tablets with breakfast and 1 tablet with dinner or as directed blood sugar diagnostic (CyberXTOUCH VERIO TEST STRIPS) test strip USE TO CHECK BLOOD SUGAR ONCE A DAY lancets (CyberXTOUCH DELICA PLUS LANCET) 33 gauge USE TO CHECK BLOOD SUGAR ONCE A DAY No current facility-administered medications for this visit. ALLERGIES Allergen Reactions Beef Derived (Bovin* congestion Fish Containing Pro* Itching Peanut Oil uncertain Peanuts not sure Shellfish Derived Itching Tylenol [Acetaminop* hyperactivity ACTIVE PROBLEM LIST Controlled Type 2 Diabetes Mellitus Without Complication, Without Long-Term Current Use of Insulin ([facility]) - 05/04/2021 Vitamin D Deficiency - 09/23/2016 Osteopenia - 11/06/2012 Comment: Last BMD - 2010 Disorder of Bone and Cartilage, Unspecified - 09/24/2010 Leukocytosis, Unspecified - 08/20/2007 Essential Hypertension - 10/17/2005 Reactive Depression - 10/17/2005 Mixed Hyperlipidemia - 10/17/2005 Rosacea - 10/17/2005 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 Respiratory: Negative. Cardiovascular: Negative. OBJECTIVE BP 154/72 Pulse 74 Wt 146 lb 13.2 oz (66.6kg) SpO2 97% Physical Exam Vitals and nursing note reviewed. Constitutional: General: She is awake. She is not in acute distress. Appearance: Normal appearance. She is well-developed and well-groomed. She is not ill-appearing, toxic-appearing or diaphoretic. HENT: Head: Normocephalic. Right Ear: External ear no (more content not included)... Normal [facility] ALBUMIN/CREATININE RATIO, UR INEon 04-19-2024 Albumin DL <= 20 mg/L (U) [Mass/Vol] 41.7 mg/L [facility] Albumin/Creatinine (U) [Mass ratio] 27 mg/g NINF - 30 mg/g [facility] Comment on above: Adult Male and Femal e Nephrotic Criteria: <30 mg/g is considered normal to mildly increased 30-300 mg/g is considered moderately increased >300 mg/g is considered severely increased KDIGO. (2013). KDIGO 2012 Clinical Practice Guideline for the Evaluation and Management of Chronic Kidney Disease. Official Journal of the International Society of Nephrology, 3(1), 1-150. Creatinine (U) [Mass/Vol] 153.1 mg/dL 20.0 - 300.0 mg/dL [facility] Albumin DL <= 20 mg/L (U) [Mass/Vol] 41.7 mg/L Normal [facility] Comment on above: Order Comment: Speci men Type: URINE SPECIMENOrdering Facility: [facility] Address: [address] [place] [address] Performed By: #### U ACR ####[facility] [id number] [place] [address] [place] Albumin/Creatinine (U) [Mass ratio] 27 mg/g Normal <30 [facility] Comment on above: Order Comment: Speci men Type: URINE SPECIMENOrdering Facility: [facility] Address: [address] [place] [address] Result Comment: Adul t Male and Female Nephrotic Criteria: <30 mg/g is considered normal to mildly increased 30-300 mg/g is considered moderately increased >300 mg/g is considered severely increased KDIGO. (2013). KDIGO 2012 Clinical Practice Guideline for the Evaluation and Management of Chronic Kidney Disease. Official Journal of the International Society of Nephrology, 3(1), 1-150. Performed By: #### U ACR ####[facility] [id number] [place] [address] [place] Creatinine (U) [Mass/Vol] 153.1 mg/dL Normal 20.0-300.0 [facility] Comment on above: Order Comment: Speci men Type: URINE SPECIMENOrdering Facility: [facility] Address: [address] [place] [address] Performed By: #### U ACR ####[facility] [id number] [address] OF [place] [facility] Telephone (INTMWS) ANGELICA SOSA ([id number]) 1945 F T Date Time Provider Department 04/19/24 EMILY FLAHERTY INTWS During your visit today, we recorded the following information about you: Meaghan Galvan LPN 04/19/2024 12:12 PM Signed Patient brought urine sample to lab, the alb/crea order had been cancelled. Order pending so lab can accept the urine. PATRICIO Carl Sue E, LPN 04/19/2024 12:12 PM Signed Order needing to be files as soon as possible. Forwarded pending order to Dr Flaherty. PATRICIO Carl Liza D, MD 04/19/2024 12:17 PM Signed Filed order I also filed standing orders so may get labs every 6 months given diagnosis of diabetes. Meaghan Galvan LPN 04/19/2024 1:20 PM Signed Urine presently in process. Meaghan PATRICIO Bolton Liza D, MD 04/19/2024 6:17 PM Signed Noted. MD Goran Marquez Julia, LPN 04/30/2024 10:09 AM Signed Urine results have been processed. Emily Flaherty MD 05/04/2024 1:25 AM Signed Lab within normal limits Allergies As of Date: 04/19/2024 Noted Allergy Reaction BEEF DERIVED (BOVINE) 10/17/2005 Comments: congestion FISH CONTAINING PRODUCTS 11/17/2017 9 - Itching PEANUT OIL 10/17/2005 Comments: uncertain PEANUTS 10/17/2005 Comments: not sure SHELLFISH DERIVED 10/11/2023 9 - Itching TYLENOL (ACETAMINOPHEN) 10/17/2005 Comments: hyperactivity Date Reviewed: 12/06/2023 Reviewed by: Janice Quach LPN - Fully Assessed Primary Visit Diagnosis:Controlled type 2 diabetes mellitus without complication, without long-term current use of insulin (HCC) [E11.9] Other Visit Diagnoses:Essential hypertension [I10] Mixed hyperlipidemia [E78.2] Vitamin D deficiency [E55.9] Order(s):ALBUMIN/CREAT ININE RATIO, URINE [SQUACR] Order #: [id number] FUTURE ALBUMIN/CREATININE RATIO, URINE [SQUACR] Order #: [id number] FUTURE COMPLETE BLOOD COUNT [SQCBC] Order #: [id number] STANDING COMPREHENSIVE METABOLIC PANEL [SQCMP] Order #: [id number] STANDING HEMOGLOBIN A1C [EGYSI3R] Order #: [id number] STANDING LIPID PANEL BASIC [SQLIPB] Order #: [id number] STANDING VITAMIN D 25 HYDROXY [SQVITD] Order #: [id number] STANDING Prescriptions as of 05/04/2024 - clobetasol (TEMOVATE) 0.05 % ointment APPLY DAILY NEEDED TO THE AFFECTED AREA SPARINGLY - metFORMIN ER (GLUCOPHAGE XR) 500 mg 24 hr tablet Take 1 tablets with breakfast and 1 tablet with dinner or as directed - Cholecalciferol, Vitamin D3, 50 mcg (2,000 unit) cap Take 1 capsule by mouth once daily. - minocycline (MINOCIN, DYNACIN) 50 mg capsule Take 1 capsule by mouth once daily. As directed - lisinopril (ZESTRIL) 20 mg tablet Take 1 tablet by mouth once daily. - blood sugar diagnostic (ParakeyUCH VERIO TEST STRIPS) test strip USE TO CHECK BLOOD SUGAR ONCE A DAY - tretinoin (RETIN-A) 0.025 % topical cream Apply a pea size amount to affected area every other night for 2 weeks then increase to daily as tolerated - lancets (CyberXTOUCH DELICA PLUS LANCET) 33 gauge USE TO CHECK BLOOD SUGAR ONCE A DAY - sertraline (ZOLOFT) 50 mg tablet Take 1 tablet by mouth once daily. Problem List As Of Date 04/19/2024 Noted Resolved Essential hypertension [I10] 10/17/2005 Reactive depression [F32.9] 10/17/2005 Mixed hyperlipidemia [E78.2] 10/17/2005 ROSACEA [L71.9] 10/17/2005 CIRCUMSCRIBE SCLERODERMA [L94.0] 10/17/2005 LEUKOCYTOSIS NOS [D72.829] 08/20/2007 Disorder of bone and cartilage, unspecified [M8*09/24/2010 Osteopenia [M85.80] 11/06/2012 Vitamin D deficiency [E55.9] 09/23/2016 Controlled type 2 diabetes mellitus without com*05/04/2021 Encounter Status:Closed by EMILY FLAHERTY on 05/04/24 Normal [facility] CBC panel Auto (Bld)on 12-05 Erythrocyte distribution width (RBC) [Ratio] 14.0 % 11.5 - 15.0 % [facility] Hematocrit (Bld) [Volume fraction] 43.0 % 36.0 - 46.0 % [facility] Hemoglobin (Bld) [Mass/Vol] 13.5 g/dL 11.5 - 15.5 g/dL [facility] Interpretation and review of laboratory results Normal [facility] MCH (RBC) [Entitic mass] 28.4 pg 26.0 - 34.0 pg [facility] MCHC (RBC) [Mass/Vol] 31.4 g/dL 30.5 - 36.0 g/dL [facility] MCV (RBC) [Entitic vol] 90.5 fL 80.0 - 100.0 fL [facility] Nucleated RBC (Bld) [#/Vol] NINF [facility] Platelet mean volume (Bld) [Entitic vol] 9.2 fL 9.0 - 12.7 fL [facility] Platelets (Bld) [#/Vol] 344 10*3/uL [facility] RBC (Bld) [#/Vol] 4.75 10*6/uL 3.90 - 5.2 0 m/uL [facility] WBC (Bld) [#/Vol] 8.71 10*3/uL [facility] REINIER SCREENINGon 07-13-2023 [facility] REINIER SCREENINGon 04-25-2022 [facility] Vital Signs Date Time Vital Sign Value Performing Clinician Faci lity 02-18-2025 14:53-0400 Body height 152.5 cm Aracelis Gema HOSPICE REGISTERED NURSE.TUBE CUTTER OPERATOR Work Phone: [facility] 02-18-2025 14:53-0400 Body mass index (BMI) [Ratio] 27.61 kg/m2 Aracelis Gema HOSPICE REGISTERED NURSE.TUBE CUTTER OPERATOR Work Phone: [facility] 02-18-2025 14:53-0400 Body weight 64.2 kg Aracelis Gema HOSPICE REGISTERED NURSE.TUBE CUTTER OPERATOR Work Phone: [facility] 02-18-2025 14:53-0400 Diastolic blood pressure 62 mm[Hg] Aracelis Gema HOSPICE REGISTERED NURSE.TUBE CUTTER OPERATOR Work Phone: [facility] 02-18-2025 14:53-0400 Heart rate 66 /min Aracelis Gema HOSPICE REGISTERED NURSE.TUBE CUTTER OPERATOR Work Phone: [facility] 02-18-2025 14:53-0400 SaO2% (BldA) [Mass fraction] 96 % Aracelis Gema HOSPICE REGISTERED NURSE.TUBE CUTTER OPERATOR Work Phone: [facility] 02-18-2025 14:53-0400 Systolic blood pressure 134 mm[Hg] Aracelis Gema HOSPICE REGISTERED NURSE.TUBE CUTTER OPERATOR Work Phone: [facility] 12-31-2024 13:16-0400 Body mass index (BMI) [Ratio] 26.43 kg/m2 Lc Cuello MD Work Phone: [facility] [facility]-31-2024 13:16-0400 Body weight 64.5 kg Lc Cuello MD Work Phone: [facility] 12-31-2024 13:16-0400 Diastolic blood pressure 70 mm[Hg] Lc Cuello MD Work Phone: [facility] 12-31-2024 13:16-0400 Heart rate 71 /min Lc Cuello MD Work Phone: [facility] 12-31-2024 13:16-0400 Respiratory rate 14 /min Lc Cuello MD Work Phone: [facility] 12-31-2024 13:16-0400 SaO2% (BldA) [Mass fraction] 96 % Lc Cuello MD Work Phone: [facility] 12-31-2024 13:16-0400 Systolic blood pressure 135 mm[Hg] cL Cuello MD Work Phone: [facility] 12-19-2024 09:00-0400 Heart rate 58 /min Lc Cuello MD Work Phone: [facility] 12-19-2024 09:00-0400 Respiratory rate 16 /min Lc Cuello MD Work Phone: [facility] 12-19-2024 09:00-0400 SaO2% (BldA) [Mass fraction] 97 % Lc Cuello MD Work Phone: [facility] 12-19-2024 08:50-0400 Diastolic blood pressure 51 mm[Hg] Lc Cuello MD Work Phone: [facility] 12-19-2024 08:50-0400 Systolic blood pressure 100 mm[Hg] Lc Cuello MD Work Phone: [facility] 12-19-2024 07:34-0400 Body mass index (BMI) [Ratio] 26.72 kg/m2 Lc Cuello MD Work Phone: [facility] 12-19-2024 07:34-0400 Body temperature 97.81 [degF] Lc Cuello MD Work Phone: [facility] 12-19-2024 07:34-0400 Body weight 65.2 kg Lc Cuello MD Work Phone: [facility] 11-11-2024 10:36-0500 Body mass index (BMI) [Ratio] 26.72 kg/m2 Emily Flaherty MD Work Phone: [facility] 11-11-2024 10:36-0500 Body weight 65.2 kg Emily Flaherty MD Work Phone: [facility] 11-11-2024 10:36-0500 Diastolic blood pressure 66 mm[Hg] Emily Flaherty MD Work Phone: [facility] 11-11-2024 10:36-0500 Heart rate 58 /min Emily Flaherty MD Work Phone: [facility] 11-11-2024 10:36-0500 SaO2% (BldA) [Mass fraction] 97 % Emily Flaherty MD Work Phone: [facility] 11-11-2024 10:36-0500 Systolic blood pressure 126 mm[Hg] Emily Flaherty MD Work Phone: [facility] 07-04-2024 12:08-0400 Body mass index (BMI) [Ratio] 27.58 kg/m2 Amara Mauricio HOSPICE REGISTERED NURSE.DELIVERY AND MAIL SORTER Work Phone: [facility] 07-04-2024 12:08-0400 Body weight 67.3 kg Amara Mauricio HOSPICE REGISTERED NURSE.DELIVERY AND MAIL SORTER Work Phone: [facility] 07-04-2024 12:08-0400 Diastolic blood pressure 79 mm[Hg] Amara Mauricio HOSPICE REGISTERED NURSE.DELIVERY AND MAIL SORTER Work Phone: [facility] 07-04-2024 12:08-0400 Heart rate 89 /min Amara Mauricio HOSPICE REGISTERED NURSE.DELIVERY AND MAIL SORTER Work Phone: [facility] 07-04-2024 12:08-0400 Respiratory rate 16 /min Amara Mauricio HOSPICE REGISTERED NURSE.DELIVERY AND MAIL SORTER Work Phone: [facility] 07-04-2024 12:08-0400 Systolic blood pressure 134 mm[Hg] Amara Mauricio HOSPICE REGISTERED NURSE.DELIVERY AND MAIL SORTER Work Phone: [facility] 06-07-2024 08:39-0400 Diastolic blood pressure 72 mm[Hg] Aracelis Gema HOSPICE REGISTERED NURSE.TUBE CUTTER OPERATOR Work Phone: [facility] 06-07-2024 08:39-0400 Systolic blood pressure 154 mm[Hg] Aracelis Gema HOSPICE REGISTERED NURSE.TUBE CUTTER OPERATOR Work Phone: [facility] 06-07-2024 08:37-0400 Body mass index (BMI) [Ratio] 27.29 kg/m2 Aracelis Gema HOSPICE REGISTERED NURSE.TUBE CUTTER OPERATOR Work Phone: [facility] 06-07-2024 08:37-0400 Body weight 66.6 kg Aracelis Gema HOSPICE REGISTERED NURSE.TUBE CUTTER OPERATOR Work Phone: [facility] 06-07-2024 08:37-0400 Heart rate 74 /min Aracelis Gema HOSPICE REGISTERED NURSE.TUBE CUTTER OPERATOR Work Phone: [facility] 06-07-2024 08:37-0400 SaO2% (BldA) [Mass fraction] 97 % Aracelis Gema HOSPICE REGISTERED NURSE.TUBE CUTTER OPERATOR Work Phone: [facility] 11-14-2023 10:22-0500 Diastolic blood pressure 73 mm[Hg] Lakeisha Strange MD Work Phone: [facility] 11-14-2023 10:22-0500 Heart rate 73 /min Lakeisha Strange MD Work Phone: [facility] 11-14-2023 10:22-0500 Systolic blood pressure 142 mm[Hg] Lakeisha Strange MD Work Phone: [facility] 05-03-2023 15:14-0400 Body temperature 96.49 [degF] Emily Flaherty MD Work Phone: [facility] 05-03-2023 15:14-0400 Body weight 65.32 kg Emily Flaherty MD Work Phone: [facility] 05-03-2023 15:14-0400 Diastolic blood pressure 62 mm[Hg] Emily Flaherty MD Work Phone: [facility] 05-03-2023 15:14-0400 Heart rate 68 /min Emily Flaherty MD Work Phone: [facility] 05-03-2023 15:14-0400 Respiratory rate 18 /min Emily Flaherty MD Work Phone: [facility] 05-03-2023 15:14-0400 SaO2% (BldA) [Mass fraction] 99 % Emily Flaherty MD Work Phone: [facility] 05-03-2023 15:14-0400 Systolic blood pressure 120 mm[Hg] Emily Flaherty MD Work Phone: [facility] 04-18-2022 16:44-0400 Body weight 62.6 kg Emily Flaherty MD Work Phone: [facility] 04-18-2022 16:44-0400 Diastolic blood pressure 82 mm[Hg] Emily Flaherty MD Work Phone: [facility] 04-18-2022 16:44-0400 Heart rate 76 /min Emily Flaherty MD Work Phone: [facility] 04-18-2022 16:44-0400 SaO2% (BldA) [Mass fraction] 95 % Emily Flaherty MD Work Phone: [facility] 04-18-2022 16:44-0400 Systolic blood pressure 132 mm[Hg] Emily Flaherty MD Work Phone: [facility] 02-16-2022 17:19-0400 Body weight 60.78 kg Emily Flaherty MD Work Phone: [facility] 02-16-2022 17:19-0400 Diastolic blood pressure 90 mm[Hg] Emily Flaherty MD Work Phone: [facility] 02-16-2022 17:19-0400 Heart rate 76 /min Emily Flaherty MD Work Phone: [facility] 02-16-2022 17:19-0400 Respiratory rate 16 /min Emily Flaherty MD Work Phone: [facility] 02-16-2022 17:19-0400 Systolic blood pressure 160 mm[Hg] Emily Flaherty MD Work Phone: [facility] 10-05-2021 14:18-0500 Diastolic blood pressure 70 mm[Hg] Emily Flaherty MD Work Phone: [facility] 10-05-2021 14:18-0500 Systolic blood pressure 122 mm[Hg] Emily Flaherty MD Work Phone: [facility] 10-05-2021 13:30-0500 Body temperature 98.6 [degF] Emily Flaherty MD Work Phone: [facility] 10-05-2021 13:30-0500 Body weight 62.14 kg Emily Flaherty MD Work Phone: [facility] 10-05-2021 13:30-0500 Heart rate 64 /min Emily Flaherty MD Work Phone: [facility] 10-05-2021 13:30-0500 Respiratory rate 20 /min Emily Flaherty MD Work Phone: [facility] Encounters Encounter Date Encounter Type Care Provider Facility Start: 02-18-2025 End: 02-18-2025 Patient encounter procedure Aracelis Ribeiro APRN.TUBE CUTTER OPERATOR Work Phone: [facility] Comment on above: Medicare annual well ness visit, subsequent (Primary Dx); Type 2 diabetes mellitus with hyperlipidemia (HCC); Essential hypertension Start: 02-07-2025 End: 02-07-2025 ambulatory Hedy Sepulveda RN Work Phone: [employer] Comment on above: Primary Care Coordin ator- Other (Incoming call ) Bi-Weekly Outreach ( Recurring) for Chronic Disease Management Start: 02-05-2025 End: 02-06-2025 Refill Emily Flaherty MD Work Phone: [facility] Comment on above: Refill Request Start: 01-24-2025 End: 01-24-2025 ambulatory Tara Bohon range scientistSolar System Designer Management Comment on above: Initial enrollment o rodolfo for Chronic Disease Management Start: 2025 End: 2025 Nursing evaluation of patient and report Nurse Nargis [facility] Work Phone: General Surgery Comment on above: Visit for suture rem oval (Primary Dx) Start: 2025 End: 2025 ambulatory EMILY Logan [facility] Facility:[facility] Start: 01-06-2025 End: 01-06-2025 Patient encounter procedure Lc Cuello MD Work Phone: General Surgery Comment on above: Sebaceous cyst (Prim vamshi Dx) Start: 01-06-2025 End: 01-06-2025 ambulatory LC CUELLO Facility:[facility] Start: 12-31-2024 End: 12-31-2024 Patient encounter procedure Lc Cuello MD Work Phone: General Surgery Comment on above: Sebaceous cyst (Prim vamshi Dx) Start: 12-31-2024 End: 12-31-2024 ambulatory LC CUELLO Facility:[facility] Start: 12-30-2024 End: 12-30-2024 Patient encounter procedure Zahraa Delacruz APRN.CNP Work Phone: General Surgery Comment on above: Hyperplastic polyp o f sigmoid colon (Primary Dx) Start: 12-30-2024 End: 12-30-2024 [facility] Start: 12-25-2024 End: 12-25-2024 ambulatory Ngozi Foster [facility] Work Phone: Pharmacy Medicine Start: 12-25-2024 End: 12-25-2024 Patient encounter procedure Ngozi Foster [facility] Work Phone: Pharmacy Medicine Comment on above: Care Coordination (P tiffany Management Review for Pharmacist Referral for Diabetes Management) Start: 12-19-2024 End: 12-19-2024 ambulatory LC CUELLO Facility:[facility] Start: 12-19-2024 End: 12-19-2024 Subsequent hospital visit by physician Lc Cuello MD Work Phone: Ambulatory Surgery Comment on above: Special screening fo r malignant neoplasms, colon [Z12.11] Start: 12-11-2024 End: 12-11-2024 Admission to same day surgery center Lc Cuello MD Work Phone: Ambulatory Surgery Comment on above: bowel prep instructi ons Start: 12-11-2024 End: 12-11-2024 E-mail encounter from caregiver Lc Cuello MD Work Phone: Ambulatory Surgery Start: 11-27-2024 End: 11-27-2024 ambulatory EMILY D KRYSTINA Facility:[facility] Start: 11-11-2024 End: 11-11-2024 ambulatory EMILY D KRYSTINA Facility:[facility] Start: 11-11-2024 End: 11-11-2024 Office outpatient visit 40 minutes Emily Flaherty MD Work Phone: [facility] Comment on above: Controlled type 2 di abetes mellitus without complication, without long-term current use of insulin (HCC) (Primary Dx); Vitamin D deficiency; Mixed hyperlipidemia; Essential hypertension; Skin lesion of lower extremity; Special screening for malignant neoplasms, colon; Encounter for immunization Start: 07-31-2024 End: 07-31-2024 Telephone encounter Emily Flaherty MD Work Phone: [facility] [place] Comment on above: Insurance Authorizat ion Start: 07-15-2024 End: 07-15-2024 ambulatory AMARA MAURICIO Facility:[facility] Start: 07-15-2024 End: 07-15-2024 Subsequent hospital visit by physician Screen Mammo [facility] Mammogram Comment on above: Screening mammogram for breast cancer [Z12.31] Start: 07-04-2024 End: 07-04-2024 Telephone encounter Emily Flaherty MD Work Phone: [facility] [place] Comment on above: Patient Update Start: 07-04-2024 End: 07-04-2024 ambulatory EMILY Logan FLAHERTY Facility:[facility] Start: 07-04-2024 End: 07-04-2024 Office outpatient visit 15 minutes Amara Mauricio HOSPICE REGISTERED NURSE.DELIVERY AND MAIL SORTER Work Phone: [facility] Comment on above: Acute right-sided lo w back pain with right-sided sciatica (Primary Dx); Screening mammogram for breast cancer Start: 06-07-2024 End: 06-07-2024 ambulatory EMILY FLAHERTY Facility:[facility] Start: 06-07-2024 End: 06-07-2024 Patient encounter procedure Aracelis Gema WILSON.TUBE CUTTER OPERATOR Work Phone: [facility] Comment on above: Medicare annual well ness visit, subsequent (Primary Dx); Controlled type 2 diabetes mellitus without complication, without long-term current use of insulin (HCC); Essential hypertension; Mixed hyperlipidemia; Vitamin D deficiency; Encounter for screening examination for other mental health and behavioral disorders Start: 04-19-2024 End: 05-04-2024 Telephone encounter Emily Flaherty MD Work Phone: [facility] Start: 04-19-2024 End: 04-19-2024 ambulatory EMILY FLAHERTY Facility:[facility] Start: 02-07-2024 Refill Emily colon MD Work Phone: [facility] Comment on above: Refill Request Start: 12-06-2023 End: 12-06-2023 Office outpatient visit 25 minutes Emily Flaherty MD Work Phone: [facility] Comment on above: Controlled type 2 di abetes mellitus without complication, without long-term current use of insulin (HCC) (Primary Dx); Mixed hyperlipidemia; Primary hypertension; Vitamin D deficiency; Encounter for immunization Start: 11-14-2023 End: 11-14-2023 Patient encounter procedure Lakeisha Strange MD Work Phone: Dermatology Comment on above: Basal cell carcinoma of face Start: 10-19-2023 Telephone encounter Alessia Townsend MD Work Phone: Dermatology Comment on above: Insurance Authorizat ion Start: 07-14-2023 Documentation procedure Mammog umm Coordinator [facility] Start: 07-14-2023 Letter encounter Mammography Coordinator [facility] Department Start: 07-13-2023 End: 07-13-2023 Subsequent hospital visit by physician Screen Mammo [facility] Mammogram Comment on above: Encounter for screen ing mammogram for breast cancer [Z12.31] Start: 05-03-2023 End: 05-03-2023 Office outpatient visit 25 minutes Emily Flaherty MD Work Phone: [facility] [place] Comment on above: Controlled type 2 di abetes mellitus without complication, without long-term current use of insulin (HCC) (Primary Dx); Mixed hyperlipidemia; Vitamin D deficiency; Primary hypertension Start: 2023 Refill Emily colon MD Work Phone: [facility] [place] Comment on above: Refill Request Start: 12-30-2022 End: 12-30-2022 Office outpatient visit 15 minutes Emily Flaherty MD Work Phone: [facility] Comment on above: Controlled type 2 di abetes mellitus without complication, without long-term current use of insulin (HCC) (Primary Dx) Start: 07-15-2022 Refill Emily colon MD Work Phone: [facility] Comment on above: Refill Request Start: 04-25-2022 End: 04-25-2022 Refill Emily Flaherty MD Work Phone: [facility] Comment on above: Refill Request Visit for screening mammogram [Z12.31] Appointment Start: 04-18-2022 End: 04-18-2022 Office outpatient visit 25 minutes Emily Flaherty MD Work Phone: [facility] Comment on above: Controlled type 2 di abetes mellitus without complication, without long-term current use of insulin (HCC) (Primary Dx); Vitamin D deficiency; Essential hypertension Start: 02-16-2022 End: 02-17-2022 Office outpatient visit 15 minutes Emily Flaherty MD Work Phone: [facility] Comment on above: Vaginal atrophy (Myla kylah Dx); Lichen sclerosus et atrophicus Start: 10-05-2021 End: 10-05-2021 Patient encounter procedure Emily Flaherty MD Work Phone: [facility] Comment on above: Controlled type 2 di abetes mellitus without complication, without long-term current use of insulin (HCC) (Primary Dx); Essential hypertension; Vitamin D deficiency; Mixed hyperlipidemia; Glaucoma, unspecified glaucoma type, unspecified laterality Procedures Date Procedure Procedure Detail Performing Clinician Start: 12-19-2024 Colonoscopy flx dx w /collj spec when pfrmd Emily Flaherty MD Work Phone: Start: 12-19-2024 Colonoscopy Lc mendiola MD Work Phone: Start: 07-13-2023 Screening mammograph y bi 2-view breast inc sofía Flaherty MD Work Phone: Start: 04-25-2022 Screening mammograph y bi 2-view breast inc sofía Flaherty MD Work Phone: Start: 05-29-2018 Colonoscopy Emily tee MD Work Phone: Plan of Treatment Date Care Activity Detail Author Start: 12-19-2029 Screening for malign ant neoplasm of colon [facility] Start: 11-27-2025 Hepatitis B surface antibody level LDL Cholesterol [facility] Start: 11-25-2025 End: 11-25-2025 Patient encounter procedure 11/25/2025 1:20 PM EDT Office Visit [facility] [address] [place], [place] [id number] Emily Flaherty MD [address] [place], [place] [id number] Medicare Wellness Exam [facility] Comment on above: Medicare Wellness Ex am Start: 11-11-2025 Annual PCP Team Operating Room Coordinator zhao Disease Visit Annual PCP Team Chronic Disease Visit [facility] Start: 11-11-2025 BP Controlled (<130/80) BP Controlle d (<130/80) [facility] Start: 11-11-2025 Shingrix Vaccine (2 of 3) Shingrix Vaccine (2 of 3) [facility] Comment on above: Postponed from 01/29 (Declined at this time) Start: 08-16-2025 Glaucoma screening Dilated Retinal E xam [facility] Start: 06-07-2025 Annual PCP Team Operating Room Coordinator zhao Disease Visit Annual PCP Team Chronic Disease Visit [facility] Start: 06-07-2025 Anxiety Screening Anxiety Screening [facility] Start: 05-26-2025 End: 05-26-2025 Patient encounter procedure 05/26/2025 10:00 AM EDT Office Visit [facility] [address] [place] [address] Emily Flaherty MD [address] [place], [place] [id number] 6 month follow up [facility] Comment on above: 6 month follow up Start: 05-12-2025 Influenza vaccination Influenz a Vaccine (Season Ended) [facility] Start: 04-19-2025 Hepatitis B screening Urine Al bumin:Creatinine Ratio [facility] Start: 03-10-2025 Influenza vaccination Influenza Vacc ine (#1) [facility] Comment on above: Postponed from 05/12 (Declined at this time) Start: 02-27-2025 Hemoglobin A1c measurement HbA1C [facility] Start: 02-27-2025 End: 02-27-2025 Patient encounter procedure 02/27/2025 1:00 PM EDT Office Visit Pharm [facility] [address] [place], [place] [id number] [facility] [address] [place] [address] Goal: A1c < 8% Pharm [facility] Comment on above: Goal: A1c < 8% Start: 02-18-2025 End: 02-18-2025 Patient encounter procedure 02/18/2025 3:00 PM EDT Office Visit [facility] [address] [place], [place] [id number] Aracelis Ribeiro APRN.TUBE CUTTER OPERATOR [address] [place], [place] [address] 2024 Medicare Wellness Z00.00 [facility] Comment on above: 2024 Medicare Wellne ss Z00.00 Start: 01-23-2025 End: 01-23-2025 Patient encounter procedure 01/23/2025 1:00 PM EDT Office Visit [facility] [address] [place] [address] Damarismargaret Mala, [facility] [address] [place] [address] initial pharmD visit. T2DM. [facility] Comment on above: initial pharmD visit . T2DM. Start: 2025 End: 2025 Nursing evaluation of patient and report 2025 2:30 PM EDT Nurse Visit General Surgery [address] [place] [address] Wstr, Nurse Gens [facility] [address] [place] [address] Nurse visit suture removal General Surgery Comment on above: Nurse visit suture r emoval Start: 01-06-2025 End: 01-06-2025 Patient encounter procedure 01/06/2025 3:00 PM EDT Office Visit General Surgery [address] [place] [address] Lc Cuello MD [address] [place] [address] excision right neck cyst General Surgery Comment on above: excision right neck cyst Start: 12-30-2024 End: 12-30-2024 Patient encounter procedure General Surgery Comment on above: 12-19 colonoscopy fo llow up 12-19 colonoscopy fo llow up with Path. Hx updated. [facility] Start: 12-19-2024 End: 12-19-2024 Patient encounter procedure 12/19/2024 8:00 AM EDT Appointment Ambulatory Surgery [address] [place] [address] Lc Cuello MD [address] [place] [address] Special screening for malignant neoplasms, colon [Z12.11] Ambulatory Surgery Comment on above: Special screening fo r malignant neoplasms, colon [Z12.11] Start: 12-13-2024 End: 12-13-2024 Patient encounter procedure 12/13/2024 1:00 PM EDT Office Visit [facility] [address] [place] [address] Emily Flaherty MD [address] [place] [address] Yearly [facility] Comment on above: Yearly Start: 12-05-2024 Annual PCP Team Operating Room Coordinator zhao Disease Visit Annual PCP Team Chronic Disease Visit [facility] Start: 12-05-2024 BP Controlled (<130/80) BP Controlle d (<130/80) [facility] Start: 12-05-2024 Hepatitis B surface antibody level LDL Cholesterol [facility] Start: 11-21-2024 End: 01-21-2025 Microalbumin/Creatinine [Mass Ratio] in Urine ALBUMIN/CREATININE RATIO, URINE Lab Routine Controlled type 2 diabetes mellitus without complication, without long-term current use of insulin (HCC) Expected: 11/21/2024 (Approximate), Expires: 01/21/2025 [facility] Work Phone: Comment on above: Expected: 11/21/2024 (Approximate), Expires: 01/21/2025 Start: 11-11-2024 End: 02-10-2025 Microalbumin/Creatinine [Mass Ratio] in Urine ALBUMIN/CREATININE RATIO, URINE Lab Routine Controlled type 2 diabetes mellitus without complication, without long-term current use of insulin (HCC) Essential hypertension Expected: 11/11/2024, Expires: 02/10/2025 [facility] Work Phone: Comment on above: Expected: 11/11/2024 , Expires: 02/10/2025 Start: 10-12-2024 Glaucoma screening Dilated Retinal E xam [facility] Start: 09-11-2024 Advance Directive Discussion Advance Directive Discussion [facility] Start: 07-15-2024 End: 07-15-2024 Patient encounter procedure 07/15/2024 2:30 PM EST Appointment Mammogram [address] [place] [address] Screening mammogram for breast cancer [Z12.31] Mammogram Comment on above: Screening mammogram for breast cancer [Z12.31] Start: 06-07-2024 Hemoglobin A1c measurement HbA1C [facility] Start: 06-07-2024 End: 06-07-2024 Patient encounter procedure 06/07/2024 9:00 AM EDT Office Visit [facility] [address] [place], [place] [phone] Aracelis Ribeiro APRN.TUBE CUTTER OPERATOR [address] [place], [place] [phone] 6 month follow up [facility] Comment on above: 6 month follow up Start: 05-12-2024 Covid-19 Vaccine () Covid-19 Vaccine () [facility] Start: 05-12-2024 Influenza vaccination C [facility] Start: 05-03-2024 Annual PCP Team Operating Room Coordinator zhao Disease Visit Annual PCP Team Chronic Disease Visit [facility] Start: 05-03-2024 BP Controlled (<130/80) BP Controlle d (<130/80) [facility] Start: 12-31-2023 ANNUAL PCP TEAM SLAT GRADER ZHAO DISEASE VISIT ANNUAL PCP TEAM CHRONIC DISEASE VISIT [facility] Start: 12-06-2023 End: 03-06-2024 ALBUMIN/CREAT RATIO RND UR ALBUMIN/CREAT RATIO RND UR Lab Routine Controlled type 2 diabetes mellitus without complication, without long-term current use of insulin (HCC) Expected: 12/06/2023, Expires: 03/06/2024 [facility] Work Phone: Comment on above: Expected: 12/06/2023 , Expires: 03/06/2024 Start: 11-01-2023 BP CONTROLLED (<130/80) BP CONTROLLE D (<130/80) [facility] Start: 10-12-2023 End: 12-12-2023 25-hydroxyvitamin D3 [Mass/volume] in Serum or Plasma VITAMIN D 25 HYDROXY Lab Routine Vitamin D deficiency Expected: 10/12/2023 (Approximate), Expires: 12/12/2023 [facility] Work Phone: Comment on above: Expected: 10/12/2023 (Approximate), Expires: 12/12/2023 Start: 10-12-2023 End: 12-12-2023 Comprehensive metabolic 2000 panel - Serum or Plasma COMP METABOLIC PANEL Lab Routine Controlled type 2 diabetes mellitus without complication, without long-term current use of insulin (HCC) Primary hypertension Expected: 10/12/2023 (Approximate), Expires: 12/12/2023 [facility] Work Phone: Comment on above: Expected: 10/12/2023 (Approximate), Expires: 12/12/2023 Start: 10-12-2023 End: 12-12-2023 Hemoglobin A1c in Blood HGB A1C Lab Routine Controlled type 2 diabetes mellitus without complication, without long-term current use of insulin (HCC) Expected: 10/12/2023 (Approximate), Expires: 12/12/2023 [facility] Work Phone: Comment on above: Expected: 10/12/2023 (Approximate), Expires: 12/12/2023 Start: 10-12-2023 End: 12-12-2023 Lipid 1996 panel - Serum or Plasma LIPID PANEL BASIC Lab Routine Mixed hyperlipidemia Expected: 10/12/2023 (Approximate), Expires: 12/12/2023 [facility] Work Phone: Comment on above: Expected: 10/12/2023 (Approximate), Expires: 12/12/2023 Start: 09-11-2023 Advance Directive Discussion Advance Directive Discussion [facility] Start: 05-29-2023 Screening for malign ant neoplasm of colon [facility] Start: 05-12-2023 Covid-19 Vaccine ( season) Covid-19 Vaccine () [facility] Start: 05-12-2023 Influenza vaccination C [facility] Start: 05-01-2023 Hemoglobin A1c measurement HbA1C [facility] Start: 05-01-2023 Hemoglobin A1c/Hemoglobin.total in Blood HBA1C [facility] Start: 04-18-2023 ANNUAL PCP TEAM SLAT GRADER ZHAO DISEASE VISIT ANNUAL PCP TEAM CHRONIC DISEASE VISIT [facility] Start: 04-18-2023 SHINGRIX VACCINE (2 of 3) SHINGRIX VACCINE (2 of 3) [facility] Comment on above: Postponed from 01/29 (Declined at this time) Start: 04-18-2023 Urine microalbumin profile DTAP,TDAP,TD (2 - Td or Tdap) [facility] Comment on above: Postponed from 11/24 (Declined at this time) Start: 03-01-2023 Covid-19 Vaccine (5 - Pfizer series) Covid-19 Vaccine (5 - Pfizer series) [facility] Start: 02-16-2023 ANNUAL PCP TEAM SLAT GRADER ZHAO DISEASE VISIT ANNUAL PCP TEAM CHRONIC DISEASE VISIT [facility] Start: 10-05-2022 ANNUAL PCP TEAM SLAT GRADER ZHAO DISEASE VISIT ANNUAL PCP TEAM CHRONIC DISEASE VISIT [facility] Start: 10-05-2022 BP CONTROLLED (<130/80) BP CONTROLLE D (<130/80) [facility] Start: 09-16-2022 Hepatitis C antibody , confirmatory test DILATED RETINAL EXAM [facility] Start: 09-11-2022 ADVANCE DIRECTIVE DISCUSSION ADVANCE DIRECTIVE DISCUSSION [facility] Start: 07-13-2022 Hepatitis B screening URINE AL BUMIN:CREATININE RATIO [facility] Start: 07-13-2022 Hepatitis B surface antibody level LDL CHOLESTEROL [facility] Start: 05-12-2022 [facility] Start: 04-04-2022 End: 10-05-2022 CBC panel - Blood by Automated count CBC Lab Routine Controlled type 2 diabetes mellitus without complication, without long-term current use of insulin (HCC) Expected: 04/04/2022 (Approximate), Expires: 10/05/2022 [facility] Work Phone: Comment on above: Expected: 04/04/2022 (Approximate), Expires: 10/05/2022 Start: 04-04-2022 End: 10-05-2022 Comprehensive metabolic 2000 panel - Serum or Plasma COMP METABOLIC PANEL Lab Routine Controlled type 2 diabetes mellitus without complication, without long-term current use of insulin (HCC) Expected: 04/04/2022 (Approximate), Expires: 10/05/2022 [facility] Work Phone: Comment on above: Expected: 04/04/2022 (Approximate), Expires: 10/05/2022 Start: 04-04-2022 End: 10-05-2022 Hemoglobin A1c/Hemoglobin.total in Blood HGB A1C Lab Routine Controlled type 2 diabetes mellitus without complication, without long-term current use of insulin (HCC) Expected: 04/04/2022 (Approximate), Expires: 10/05/2022 [facility] Work Phone: Comment on above: Expected: 04/04/2022 (Approximate), Expires: 10/05/2022 Start: 03-22-2022 SHINGRIX VACCINE (2 of 3) SHINGRIX VACCINE (2 of 3) [facility] Comment on above: Postponed from 01/29 (Declined at this time) Start: 03-22-2022 Urine microalbumin profile DTAP,TDAP,TD (2 - Td or Tdap) [facility] Comment on above: Postponed from 11/24 (Declined at this time) Start: 01-10-2022 Hemoglobin A1c/Hemoglobin.total in Blood HBA1C [facility] Start: 12-10-2021 COVID-19 VACCINE (4 - Booster for Pfizer series) COVID-19 VACCINE (4 - Booster for Pfizer series) [facility] Start: 10-12-2021 End: 10-05-2022 Basic metabolic 2000 panel - Serum or Plasma BASIC METABOLIC PNL Lab Routine Controlled type 2 diabetes mellitus without complication, without long-term current use of insulin (HCC) Expected: 10/12/2021 (Approximate), Expires: 10/05/2022 [facility] Work Phone: Comment on above: Expected: 10/12/2021 (Approximate), Expires: 10/05/2022 Start: 10-12-2021 End: 10-05-2022 Hemoglobin A1c/Hemoglobin.total in Blood HGB A1C Lab Routine Controlled type 2 diabetes mellitus without complication, without long-term current use of insulin (HCC) Expected: 10/12/2021 (Approximate), Expires: 10/05/2022 [facility] Work Phone: Comment on above: Expected: 10/12/2021 (Approximate), Expires: 10/05/2022 Start: 10-12-2021 End: 10-05-2022 VITAMIN D 25 HYDROXY VITAMIN D 25 HYDROXY Lab Routine Vitamin D deficiency Expected: 10/12/2021 (Approximate), Expires: 10/05/2022 [facility] Work Phone: Comment on above: Expected: 10/12/2021 (Approximate), Expires: 10/05/2022 Start: 10-06-2021 COVID-19 VACCINE (4 - Booster for Pfizer series) COVID-19 VACCINE (4 - Booster for Pfizer series) [facility] Start: 09-11-2021 ADVANCE DIRECTIVE DISCUSSION ADVANCE DIRECTIVE DISCUSSION [facility] Start: 07-28-2021 BP CONTROLLED (<130/80) BP CONTROLLE D (<130/80) [facility] Start: 01-12-2019 RSV Vaccine (1 - 1-d ose 75+ series) RSV Vaccine (1 - 1-dose 75+ series) [facility] Start: 11-24-2018 Urine microalbumin profile [facility] Start: 01-29-2009 SHINGRIX VACCINE (2 of 3) SHINGRIX VACCINE (2 of 3) [facility] Start: 2004 Hepatitis B Vaccine (1 of 3 - Risk 3-dose series) Hepatitis B Vaccine (1 of 3 - Risk 3-dose series) [facility] Start: 2004 RSV Vaccine (1 - 1-d ose 60+ series) RSV Vaccine (1 - 1-dose 60+ series) [facility] Start: 01-12-1962 Anxiety Screening Anxiety Screening [facility] Start: 01-12-1954 3 comp foot exam completed DIABETIC FOOT EXAM [facility] Start: 01-12-1954 Diabetic foot examination Diabetic Foot Exam [facility] Start: 1944 Screening for malign ant neoplasm of colon [facility] End: 04-19-2025 25-hydroxyvitamin D3 [Mass/volume] in Serum or Plasma VITAMIN D 25 HYDROXY Lab Routine Vitamin D deficiency Every 4 months for 60 Occurrences starting 04/19/2024 until 04/19/2025 [facility] Comment on above: Every 4 months for 6 0 Occurrences starting 04/19/2024 until 04/19/2025 End: 04-19-2025 CBC panel - Blood by Automated count COMPLETE BLOOD COUNT Lab Routine Essential hypertension Every 4 months for 60 Occurrences starting 04/19/2024 until 04/19/2025 [facility] Comment on above: Every 4 months for 6 0 Occurrences starting 04/19/2024 until 04/19/2025 End: 04-19-2025 Comprehensive metabolic 2000 panel - Serum or Plasma COMPREHENSIVE METABOLIC PANEL Lab Routine Controlled type 2 diabetes mellitus without complication, without long-term current use of insulin (HCC) Essential hypertension Every 4 months for 60 Occurrences starting 04/19/2024 until 04/19/2025 [facility] Comment on above: Every 4 months for 6 0 Occurrences starting 04/19/2024 until 04/19/2025 End: 04-19-2025 Hemoglobin A1c in Blood HEMOGLOBIN A1C Lab Routine Controlled type 2 diabetes mellitus without complication, without long-term current use of insulin (HCC) Every 4 months for 60 Occurrences starting 04/19/2024 until 04/19/2025 [facility] Comment on above: Every 4 months for 6 0 Occurrences starting 04/19/2024 until 04/19/2025 End: 04-19-2025 Lipid 1996 panel - Serum or Plasma LIPID PANEL BASIC Lab Routine Mixed hyperlipidemia Every 4 months for 60 Occurrences starting 04/19/2024 until 04/19/2025 [facility] Comment on above: Every 4 months for 6 0 Occurrences starting 04/19/2024 until 04/19/2025 End: 08-03-2025 MG Breast Screening REINIER SCREENING Radiology Routine Screening mammogram for breast cancer 1 Occurrences starting 07/04/2024 until 08/03/2025 [facility] Comment on above: 1 Occurrences starti ng 07/04/2024 until 08/03/2025 MG Breast Screening REINIER SCREENIN G Radiology Routine Screening mammogram for breast cancer 07/15/2024 2:39 PM EST [facility] Work Phone: End: 11-11-2025 Screening colonoscopy COLONOSCOPY SCREENING Endoscopy Routine Special screening for malignant neoplasms, colon 1 Occurrences starting 11/11/2024 until 11/11/2025 [facility] Comment on above: 1 Occurrences starti ng 11/11/2024 until 11/11/2025 Tissue Pathology bio psy report [facility] Work Phone: Comment on above: Release Upon Orderin g for 1 Occurrences starting 12/19/2024, 1 completed Tissue Pathology bio psy report SURGICAL PATHOLOGY Lab Routine Sebaceous cyst 01/06/2025 3:23 PM EDT [facility] Work Phone: End: 08-03-2025 XR Lumbar spine 3 Views XR LUMBAR GENERAL 3V AP/LAT/L5-S1 Radiology Routine Acute right-sided low back pain with right-sided sciatica 1 Occurrences starting 07/04/2024 until 08/03/2025 [facility] Work Phone: Comment on above: 1 Occurrences starti ng 07/04/2024 until 08/03/2025 [facility] Immunizations Immunization Date Immunization Notes Care Provider Fa [facility] 11-01-2022 COVID-19 vaccine, ag e 12+ yr, bivalent (PFIZER-BIONTECH) Emily Flaherty MD Work Phone: [facility] 08-11-2021 COVID-19 vaccine, ag e 12+ yr (PFIZER-BIONTECH - PURPLE TOP) Emily Flaherty MD Work Phone: [facility] Work Phone: 12-03-2020 COVID-19 vaccine, ag e 12+ yr (PFIZER-BIONTECH - PURPLE TOP) Emily Flaherty MD Work Phone: [facility] 11-12-2020 COVID-19 vaccine, ag e 12+ yr (PFIZER-BIONTECH - PURPLE TOP) Emily Flaherty MD Work Phone: [facility] 06-08-2018 influenza virus vacc ine, unspecified formulation Emily Flaherty MD Work Phone: [facility] 03-09-2015 pneumococcal conjuga te vaccine, 13 valent Emily Flaherty MD Work Phone: [facility] 11-06-2012 pneumococcal polysaccharide vaccine, 23 valent Emily Flaherty MD Work Phone: [facility] Work Phone: 12-04-2008 zoster vaccine, live Emily mireles MD Work Phone: [facility] 11-24-2008 tetanus toxoid, redu ba diphtheria toxoid, and acellular pertussis vaccine, adsorbed Emily Flaherty MD Work Phone: [facility] Work Phone: 01-27-2005 hepatitis B vaccine, pediatric or pediatric/adolescent dosage Emily Flaherty MD Work Phone: [facility] 12-27-2004 hepatitis B vaccine, pediatric or pediatric/adolescent dosage Emily Flaherty MD Work Phone: [facility] Payers Date Payer Category Payer Medicare AET[employer] MEDICARE A ETNA MEDICARE PPO [id number] 2021-Present [phone] [address] [place] [address] PPO [id number] 2021 Medicare AETNA MEDICARE A ETNA MEDICARE PPO [id number] 2021-Present [phone] [address] [place] [address] [facility] [id number] 2021 Medicare (Managed Care) [facility] [facility] [id number] 2021 Medicare [id number] Social History Date Type Detail Facility Start: 04-18-2022 End: 06-07-2024 Tobacco smoking status NHIS Ex-smoker [facility] Work Phone: End: 05-12-1972 History of tobacco use Current smoker [facility] Start: 10-05-2021 End: 02-18-2025 Alcohol intake Current non-drinker of alcohol (finding) [facility] Start: 1945 Sex Assigned At Not on file C [facility] Start: 09-05-2021 End: 04-25-2022 Exposure to SARS-CoV-2 (event) Not sure [facility] End: 05-12-1972 History of tobacco use Cigarette Smoker [facility] Start: 04-18-2022 End: 06-07-2024 Tobacco use and exposure Smokeless tobacco non-user [facility] Start: 11-01-2022 History SDOH Physica l Activity DPW 7 [facility] Start: 11-01-2022 History SDOH Physica l Activity MPS 3 [facility] Start: 11-01-2022 History SDOH Stress 1 [facility] Start: 10-31-2022 End: 05-01-2023 History of Social function [facility] Start: 10-31-2022 End: 05-01-2023 Social connection and isolation panel [facility] In a typical week, h ow many times do you talk on the telephone with family, friends, or neighbors? Patient refused [facility] Are you now , , , , never or living with a partner? Refused [facility] Do you feel stress - tense, restless, nervous, or anxious, or unable to sleep at night because your mind is troubled all the time - these days [OSQ] Not at all [facility] (I/We) worried wheth er (my/our) food would run out before (I/we) got money to buy more. DK or Refused [facility] Has the [employer], [employer], or [employer] threatened to shut off services in your home in past 12Mo No [facility] Do you belong to any clubs or organizations such as roman catholic groups, unions, fraternal or athletic groups, or school groups? Yes [facility] Are you now , , , , never or living with a partner? [facility] How often to you hav e a drink containing alcohol? Never [facility] (I/We) worried wheth er (my/our) food would run out before (I/we) got money to buy more. Never true [facility] Medical Equipment Procedure Code Equipment Code Equipment Original Text Equipment Identifier Dates [id number], [id number], [id number], [id number] Start: 03-30-2021 End: 02-18-2025 Comment on above: Test blood sugar(s) 1 times daily. Dx: Type 2 DM - Uncontrolled E11.65 Insulin: No USE TO CHECK BLOOD S UGAR ONCE A DAY Functional Status Date Assessment Result Facility 02-18-2025 Total score [AUDIT-C] 0 02/19/20 3:04 PM EDT Diana Zimmer LPN [facility] 03-09-2015 Are you deaf, or do you have serious difficulty hearing No 03/09/2015 1:54 PM EDT Karely Grubbs Cma [facility] 03-09-2015 Are you blind, or do you have serious difficulty seeing, even when wearing glasses No 03/09/2015 1:54 PM EDT Karely Grubbs Cma No [facility] 03-09-2015 Do you have serious difficulty walking or climbing stairs No 03/09/2015 1:54 PM EDT Karely Grubbs Cma No [facility] 03-09-2015 Do you have difficul ty dressing or bathing No 03/09/2015 1:54 PM EDT Karely Grubbs Cma [facility] 03-09-2015 Because of a physica l, mental, or emotional condition, do you have difficulty doing errands alone such as visiting a physician's office or shopping No 03/09/2015 1:54 PM EDT Karely Grubbs Cma [facility] Mental Status Date Assessment Result Facility 03-09-2015 Because of a physica l, mental, or emotional condition, do you have serious difficulty concentrating, remembering, or making decisions No 03/09/2015 1:54 PM EDT Karely Grubbs Cma [facility] Clinical Notes 10-05-2021 to 02-18-2025 Aracelis Ribeiro APRN.TUBE CUTTER OPERATOR - 02/18/2025 3:14 PM EDTPKiera Hussein RN - 02/07/2025 2:22 PM LEIGHTONTPMala fajardo RPh - 02/07/2025 2:21 PM EDTPatient Instructions Note Date & Type Note Facility 02-18-2025 History of Presen t illness Narrative Images from the original note were not included. Angelica Sosa is a 80 year old female here for a Medicare wellness visit. Medicare Health Risk Assessment General Health Very good Exercise: Minutes/Day 20 min Exercise: Days/Week 7 days Alcohol: Daily Use Never Alcohol: Drinks/Day Patient does not drink Alcohol: 6 or more drinks Never Feel off balance Yes Concerns: Teeth/Dentures No Concerns: Sexual function No Troubled by feelings None of the above Frequency: Eating healthy diet Nearly every day ADLs requiring help None of the above Safety precautions in home/vehicle Yes Smoke, vape, chews tobacco No Difficulty hearing Yes, I wear a hearing aid Difficulty seeing No Current Providers Specialists: I have reviewed specialist-related care of the patient in the medical record. Current care team: Patient Care Team: Emily Flaherty MD as PCP - Becki Gonzalez [facility] as Pharmacist (Pharmacy) Aracelis Ribeiro APRN.TUBE CUTTER OPERATOR as [employer] (Internal Medicine) Kiera Shepard RN as Roll Former (Family Medicine) Amara Mauricio APRN.DELIVERY AND MAIL SORTER as [employer] (Internal Medicine) Outside specialists seen: Eye provider Medical/Family history review Reviewed and updated problem list, medical/surgical/family/social history, medications, and allergies. Opioid use review Opioid Medications (last 90 days) No data to display Anxiety/Depression screening PHQ-2 Score: 0 (Lower risk for depression) Recommendation: no further intervention at this time Cognitive screening Mini Cog Score: 5 Cognitive screening reviewed and No further action needed (score 3-5). Functional Observation Was the patient's Timed Up & Go test unsteady or >= 12 seconds? No Advance Care Planning Surrogate decision maker and/or advance care plan documented Measurements BP 134/62 Pulse 66 Ht 152.5 cm (5' 0.04) Wt 64.2 kg (141 lb 8.6 oz) SpO2 96% BMI 27.61 kg/m Vision Screening: Follows with optometry/ophthalmology SUBJECTIVE Angelica Sosa is a 80 year old female here today for a check up on her medical problems. Chief Complaint Patient presents with: Medicare Wellness Exam: Having trouble controlling sugar levels states this morning it was 199 and averaging 160-170 Rash: on arms and legs only HPI Angelica Sosa is a 80 year old female. Daughter recently diagnosed with breast cancer. Watching her blood sugars. Metformin can cause diarrhea at times. Planning to see pharmD for help with sugar mgmt, wants to wait and see them before starting new medicine. Blood pressure stable. Her medications were reviewed today and her list is now up to date. Medications Current Outpatient Medications Medication Sig clobetasol (TEMOVATE) 0.05 % ointment APPLY DAILY NEEDED TO THE AFFECTED AREA SPARINGLY metFORMIN ER (GLUCOPHAGE XR) 500 mg 24 hr tablet Take 1 tablets with breakfast and 1 tablet with dinner or as directed (Patient taking differently: Take 500 mg by mouth daily with breakfast. Take 1 tablets with breakfast and 1 tablet with dinner or as directed) minocycline (MINOCIN, DYNACIN) 50 mg capsule Take 1 capsule by mouth once daily. As directed lisinopril (ZESTRIL) 20 mg tablet Take 1 tablet by mouth once daily. Cholecalciferol, Vitamin D3, 50 mcg (2,000 unit) cap Take 1 capsule by mouth once daily. lancets (CyberXTOUCH DELICA PLUS LANCET) 33 gauge USE TO CHECK BLOOD SUGAR ONCE A DAY blood sugar diagnostic (CyberXT[employer]CH VERIO TEST STRIPS) test strip USE TO CHECK BLOOD SUGAR ONCE A DAY No current facility-administered medications for this visit. ALLERGIES Allergen Reactions Beef Derived (Bovin* congestion Fish Containing Pro* Itching Shellfish Derived Itching Tylenol [Acetaminop* hyperactivity ACTIVE PROBLEM LIST Special Screening for Malignant Neoplasms, Colon - 12/19/2024 Controlled Type 2 Diabetes Mellitus Without Complication, Without Long-Term Current Use of Insulin (Hcc) - 05/04/2021 Vitamin D Deficiency - 09/23/2016 Osteopenia - 11/06/2012 Comment: Last BMD - 2010 Disorder of Bone and Cartilage, Unspecified - 09/24/2010 Leukocytosis, Unspecified - 08/20/2007 Essential Hypertension - 10/17/2005 Reactive Depression - 10/17/2005 Mixed Hyperlipidemia - 10/17/2005 Rosacea - 10/17/2005 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 Respiratory: Negative. Cardiovascular: Negative. OBJECTIVE BP 134/62 Pulse 66 Ht 5' .039 (1.53m) Wt 141 lb 8.6 oz (64.2kg) SpO2 96% BMI 27.61 kg/(m^2). Physical Exam Vitals and nursing note reviewed. Constitutional: General: She is awake. She is not in acute distress. Appearance: Normal appearance. She is well-developed and well-groomed. She is not ill-appearing, toxic-appearing or diaphoretic. HENT: Head: Normocephalic. Right Ear: External ear normal. Left Ear: External ear normal. Nose: Nose normal. Eyes: General: Vision grossly intact. Conjunctiva/sclera: Conjunctivae normal. Pupils: Pupils are equal, round, and reactive to light. Neck: Vascular: No JVD. Trachea: Trachea normal. Cardiovascular: Rate and Rhythm: Normal rate and regular rhythm. Pulses: Normal pulses. Heart sounds: Normal heart sounds. No murmur heard. Pulmonary: Effort: Pulmonary effort is normal. No accessory muscle usage, prolonged expiration or respiratory distress. Breath sounds: Normal breath sounds. Musculoskeletal: Cervical back: Neck supple. Skin: General: Skin is warm and dry. Capillary Refill: Capillary refill takes less than 2 seconds. Neurological: General: No focal deficit present. Mental Status: She is alert and oriented to person, place, and time. Mental status is at baseline. Psychiatric: Attention and Perception: Attention and perception normal. Mood and Affect: Mood and affect normal. Speech: Speech normal. Behavior: Behavior normal. Behavior is cooperative. Thought Content: Thought content normal. Cognition and Memory: Cognition and memory normal. Judgment: Judgment normal. ASSESSMENT/PLAN: 1. Medicare annual wellness visit, subsequent - ICD9: V70.0, ICD10: Z00.00 (primary diagnosis) - Counseled on healthy diet and regular exercise - Fall avoidance information provided - Personalized prevention plan provided 2. Type 2 diabetes mellitus with hyperlipidemia (HCC) - ICD9: 250.80, 272.4, ICD10: E11.69, E78.5 - Barriers to control: lack of exercise - Continue current medications, discussed glp-1's and declines script today - Counseled on healthy diet and regular exercise - Discussed need for and benefit of weight loss. BMI 27.61 kg/(m^2) - See pharmD - Control undetermined, due for labs - Counseled on healthy diet and regular exercise 3. Essential hypertension - ICD9: 401.9, ICD10: I10 - Controlled - Continue current medications - Recommend home blood pressure monitoring, to bring results to next visit - Encouraged sodium restriction, DASH or Mediterranean diet - Recommend regular aerobic exercise Portions of this note have been entered by ancillary staff. I have reviewed and when necessary edited, so that they are an adequate record of my encounter with this patient Please note that parts of this document were created using voice recognition software and therefore may contain grammatical errors. Patient verbalizes understanding of instructions from today's visit and in agreement with treatment plan. Questions answered. Agrees to call the office if questions, concerns of issues with acute symptoms not improving or if they worsen. See diagnoses and orders for additional plan(s). Allergies and medications were reviewed, list was updated, and refills given if needed. Past medical, surgical, social, and family history reviewed and updated as appropriate. Encouraged proper diet & exercise as well as compliance with taking medications. Age-appropriate health preventative measures were discussed.. Return if symptoms worsen or fail to improve, for Keep next scheduled appointment.. Aracelis Ribeiro APRN-EMIGDIO documented in this encounter [facility] 02-18-2025 Instructions Aracelis Ribeiro APRN.CNP - 02/18/2025 3:14 PM EDT Screening schedule The following prevention plan is recommended: Diabetic Foot Exam Never done DTaP,Tdap,Td Vaccine(2 - Td or Tdap) due on 11/24/2018 RSV Vaccine(1 - 1-dose 75+ series) Never done Advance Directive Discussion due on 09/11/2024 WHAT YOU CAN DO TO PREVENT FALLS Many falls can be prevented. By making some changes, you can lower your chances of falling. Four things YOU can do to prevent falls for you* and your caregiver 1. Begin a regular exercise program Exercise is one of the most important ways to lower your chances of falling. It makes you stronger and helps you feel better. Exercises that improve balance and coordination (like Phill Chi) are the most helpful. Lack of exercise leads to weakness and increases your chances of falling. Ask your doctor or health care provider about the best type of exercise program for you. 2. Have your health care provider review your medicines Have your doctor or pharmacist review all the medicines you take, even [id number] medicines. As you get older, the way medicines work in your body can change. Some medicines, or combinations of medicines, can make you sleepy or dizzy and can cause you to fall. 3. Have your vision checked Have your eyes checked by an eye doctor at least once a year. You may be wearing the wrong glasses or have a condition like glaucoma or cataracts that limits your vision. Poor vision can increase your chances of falling. 4. Make your home safer About half of all falls happen at home. To make your home safer: Remove things you can trip over (like papers, books, clothes, and shoes) from stairs and places where you walk. Remove small throw rugs or use double-sided tape to keep the rugs from slipping. Keep items you use often in cabinets you can reach easily without using a step stool. Have grab bars put in next to your toilet and in the tub or shower. Use non-slip mats in the bathtub and on shower floors. Improve the lighting in your home. As you get older, you need brighter lights to see well. Hang light-weight curtains or shades to reduce glare. Have handrails and lights put in on all staircases. Wear shoes both inside and outside the house. Avoid going barefoot or wearing slippers. For more information, contact: Centers for Disease Control and Prevention www.cdc.gov/injury * This information may not apply if you have certain medical conditions. documented in this encounter [facility] 02-07-2025 History of Presen t illness Narrative CDM ENROLLMENT Provider Action / FYI: Dr. Iveth Ball spoke to Angelica today and she is really having a hard time with taking metformin. In fact, she is only taking it once a day because of the side effect of diarrhea and she is not able to control her bowels at times. She skips taking it when she has to go outside of the house in fear of having an accident. She would really like to stop taking it. She wants to know if there are other options? Please have office reach out to discuss your recommendations/suggestions. Thank you in advance. Mala [facility] and Becki [facility]- [place] for you as well. Sincerely, Kiera HERNANDEZ PCC Patient identified by name and date of . Discussed care with patient. Program Details Chronic Disease Management Status: Enrolled Effective Dates: 01/24/2025 - present Responsible Staff: Kiera Shepard RN Support and Services: Hypertension, Diabetes Assessments CDM Assessment Medications: Do you have any questions about taking your medications or which medications you should be taking?: Yes Do you need any medication refills at this time, including any of the medication you might take only when needed?: No Social: It can be normal to feel anxious or down during a time like this. Would you like to talk to a mental health professional about how you have been feeling?: No Symptoms: Are you experiencing any new or worsening symptoms that you need to talk about today?: Yes ADLs Patients can perform the following activities without help: Bathing: Yes Dressing: Yes Eating: Yes Transferring: Yes Toileting: Yes Walking : Yes Instrumental activities of daily living Grocery Shopping: Yes Driving / Use Public Transportation: Yes Using Telephone: Yes Meal Preparation: Yes Housework: Yes Home Repair: No Doing laundry: Yes Taking Medications: Yes Handling finances: Yes Fall Risk One or more falls in the last year:: Yes Any near falls in the last year?: No Advised to use a cane or walker to get around safely:: No Feels unsteady when walking:: Yes Steadies self on furniture while walking at home:: Yes Worried about falling:: Yes Needs to push with hands when rising from a chair:: Yes Has trouble stepping up onto a curb:: No Often has to [place] to the toilet:: Yes Has lost some feeling in feet:: No Takes medicine that makes him/her feel lightheaded or more tired than usual:: Yes Takes medicine to sleep or improve mood:: No SDOH Financial Resource Strain How hard is it for you to pay for the very basics like food, housing, medical care, and heating?: Not hard at all Housing Stability In the last 12 months, was there a time when you were not able to pay the mortgage or rent on time?: No At any time in the past 12 months, were you homeless or living in a [place] facility (including now)?: No Transportation Needs In the past 12 months, has lack of transportation kept you from medical appointments or from getting medications?: No In the past 12 months, has lack of transportation kept you from meetings, work, or from getting things needed for daily living?: No Food Insecurity Within the past 12 months, you worried that your food would run out before you got the money to buy more.: Never true Within the past 12 months, the food you bought just didn't last and you didn't have money to get more.: Never true Utilities In the past 12 months has the electric, gas, oil, or water company threatened to shut off services in your home?: No Tobacco Use Patient reports that she quit smoking about 52 years ago. Her smoking use included cigarettes. She has never used smokeless tobacco. Interventions The following were addressed during this visit: - HTN lab care gaps addressed - Month 3: Schedule/Order BMP Lab - Month 1: Schedule/Order HbA1C Lab - Month 1: Schedule/Order Lipid Panel Lab - Evaluate for Referral to Pharmacy for Diabetes Medication Management - Intake assessments completed: ADLs, Fall Risk, SDOH - Biannual PCP visit addressed - General education provided (managing stress, where to go/how to contact, etc.) - Annual Medicare Wellness visit addressed - Schedule Biannual PCP Appointment - Schedule Annual Wellness Visit - Month 1: Provide General Education: Where to Go for Care - Bi-Weekly Outreach (Recurring) Disposition Based on ballpoint pen cartridge tester, the following disposition is advised: No action needed (routed a message to PCP) Kiera Shepard RN February 07, 2025 2:37 PM Patient is scheduled for New pharmacy visit with me on 02/27/25 (patient no showed previous pharmacy visit with me on 01/23). No earlier PharmD availability on mine or Becki's schedule prior to patient's upcoming visit with Aracelis Ribeiro on 02/18. Could consider switching patient from metformin to an SGLT2i or GLP-1; does not appear patient has tried either per chart review. Routing to Aracelis Gema for review as next patient appointment is scheduled with her (02/18/25) and Dr. Flaherty is out of office next week. Mala Delgado, PharmD, BCACP Primary Care Clinical [place] documented in this encounter [facility] 02-07-2025 Note HNO ID: [id number] Author: KIERA SHEPARD RN Service: ? Author Type: Registered Nurse Type: Progress Notes Filed: 02/07/2025 14:45 Note Text: CDM ENROLLMENT Provider Action / FYI: Dr. Iveth Ball spoke to Angelica today and she is really having a hard time with taking metformin. In fact, she is only taking it once a day because of the side effect of diarrhea and she is not able to control her bowels at times. She skips taking it when she has to go outside of the house in fear of having an accident. She would really like to stop taking it. She wants to know if there are other options? Please have office reach out to discuss your recommendations/suggestions. Thank you in advance. Mala [facility] and Becki [facility]- FYI for you as well. Sincerely, Kiera RN PCC Patient identified by name and date of . Discussed care with patient. Program Details Chronic Disease Management Status: Enrolled Effective Dates: 01/24/2025 - present Responsible Staff: Kiera Shepard RN Support and Services: Hypertension, Diabetes Assessments CDM Assessment Medications: Do you have any questions about taking your medications or which medications you should be taking?: Yes Do you need any medication refills at this time, including any of the medication you might take only when needed?: No Social: It can be normal to feel anxious or down during a time like this. Would you like to talk to a mental health professional about how you have been feeling?: No Symptoms: Are you experiencing any new or worsening symptoms that you need to talk about today?: Yes ADLs Patients can perform the following activities without help: Bathing: Yes Dressing: Yes Eating: Yes Transferring: Yes Toileting: Yes Walking : Yes Instrumental activities of daily living Grocery Shopping: Yes Driving / Use Public Transportation: Yes Using Telephone: Yes Meal Preparation: Yes Housework: Yes Home Repair: No Doing laundry: Yes Taking Medications: Yes Handling finances: Yes Fall Risk One or more falls in the last year:: Yes Any near falls in the last year?: No Advised to use a cane or walker to get around safely:: No Feels unsteady when walking:: Yes Steadies self on furniture while walking at home:: Yes Worried about falling:: Yes Needs to push with hands when rising from a chair:: Yes Has trouble stepping up onto a curb:: No Often has to [place] to the toilet:: Yes Has lost some feeling in feet:: No Takes medicine that makes him/her feel lightheaded or more tired than usual:: Yes Takes medicine to sleep or improve mood:: No SDOH Financial Resource Strain How hard is it for you to pay for the very basics like food, housing, medical care, and heating?: Not hard at all Housing Stability In the last 12 months, was there a time when you were not able to pay the mortgage or rent on time?: No At any time in the past 12 months, were you homeless or living in a [place] facility (including now)?: No Transportation Needs In the past 12 months, has lack of transportation kept you from medical appointments or from getting medications?: No In the past 12 months, has lack of transportation kept you from meetings, work, or from getting things needed for daily living?: No Food Insecurity Within the past 12 months, you worried that your food would run out before you got the money to buy more.: Never true Within the past 12 months, the food you bought just didn't last and you didn't have money to get more.: Never true Utilities In the past 12 months has the [facility], gas, oil, or water [employer] threatened to shut off services in your home?: No Tobacco Use Patient reports that she quit smoking about 52 years ago. Her smoking use included cigarettes. She has never used smokeless tobacco. Interventions The following were addressed during this visit: - HTN lab care gaps addressed - Month 3: Schedule/Order BMP Lab - Month 1: Schedule/Order HbA1C Lab - Month 1: Schedule/Order Lipid Panel Lab - Evaluate for Referral to Pharmacy for Diabetes Medication Management - Intake assessments completed: ADLs, Fall Risk, SDOH - Biannual PCP visit addressed - General education provided (managing stress, where to go/how to contact, etc.) - Annual Medicare Wellness visit addressed - Schedule Biannual PCP Appointment - Schedule Annual Wellness Visit - Month 1: Provide General Education: Where to Go for Care - Bi-Weekly Outreach (Recurring) Disposition Based on ballpoint pen cartridge tester, the following disposition is advised: No action needed (routed a message to PCP) Kiera Shepard RN February 07, 2025 2:37 PM [facility] 02-07-2025 Note HNO ID: [id number] Author: MALA DELGADO [facility] Service: ? Author Type: Pharmacist Type: Progress Notes Filed: 02/07/2025 15:18 Note Text: Patient is scheduled for New pharmacy visit with me on 02/27/25 (patient no showed previous pharmacy visit with me on 01/23). No earlier PharmD availability on [facility] or Becki's schedule prior to patient's upcoming visit with Aracelis Ribeiro on 02/18. Could consider switching patient from metformin to an SGLT2i or GLP-1; does not appear patient has tried either per chart review. Routing to Aracelis Ribeiro for review as next patient appointment is scheduled with her (02/18/25) and Dr. Flaherty is out of office next week. Mala Delgado, PharmD, BCACP Primary Care Clinical [place] [facility] 02-07-2025 Note HNO ID: [id number] Author: HEDY SEPULVEDA RN Service: ? Author Type: Registered Nurse Type: Progress Notes Filed: 02/07/2025 13:37 Note Text: Value Based Care Management Inbound Call Provider Action / FYI: Date of Call: 02/07/2025 Time of Call: 1:36 PM Caller Name: pt Caller relationship to the patient: Patient Patient identified by Name and Date of : Yes Reason for Call / Main Concern Returning call to Pyrometer Temperature Regulator Summary of Callers Concern I don't get to the phone in time usually but she can always leave a message. Action Taken / Plan Routed to Patient's Pyrometer Temperature Regulator Pcc status: stacia Sepulveda RN February 07, 2025 1:36 PM [facility] 02-07-2025 History of Presen t illness Narrative Value Based Care Management Inbound Call Provider Action / FYI: Date of Call: 02/07/2025 Time of Call: 1:36 PM Caller Name: pt Caller relationship to the patient: Patient Patient identified by Name and Date of : Yes Reason for Call / Main Concern Returning call to Pyrometer Temperature Regulator Summary of Callers Concern I don't get to the phone in time usually but she can always leave a message. Action Taken / Plan Routed to Patient's Pyrometer Temperature Regulator Pcc status: stacia Sepulveda RN February 07, 2025 1:36 PM documented in this encounter [facility] 02-07-2025 Note Patient Outreach ([facility]) ANGELICA SOSA ([id number]) 1945 F T Date Time Provider Department 02/07/25 KIERA SHEPARD During your visit today, we recorded the following information about you: Mala Delgado RPh 02/07/2025 3:18 PM Signed Patient is scheduled for New pharmacy visit with ms on 02/27/25 (patient no showed previous pharmacy visit with ms on 01/23). No earlier PharmD availability on jesika or Becki's schedule prior to patient's upcoming visit with Aracelis Ribeiro on 02/18. Could consider switching patient from metformin to an SGLT2i or GLP-1; does not appear patient has tried either per chart review. Routing to Aracelis Ribeiro for review as next patient appointment is scheduled with her (02/18/25) and Dr. Flaherty is out of office next week. Mala Delgado, Paramjit, BCACP Primary Care Clinical [place] Kiera Shepard RN 02/07/2025 2:45 PM Signed CDM ENROLLMENT Provider Action / FYI: Dr. Iveth Ball spoke to Angelica today and she is really having a hard time with taking metformin. In fact, she is only taking it once a day because of the side effect of diarrhea and she is not able to control her bowels at times. She skips taking it when she has to go outside of the house in fear of having an accident. She would really like to stop taking it. She wants to know if there are other options? Please have office reach out to discuss your recommendations/suggestions. Thank you in advance. Mala [facility] and Becki [facility]- FYI for you as well. Sincerely, Kiera HERNANDEZ PCC Patient identified by name and date of . Discussed care with patient. Program Details Chronic Disease Management Status: Enrolled Effective Dates: 01/24/2025 - present Responsible Staff: Kiera Shepard RN Support and Services: Hypertension, Diabetes Assessments CDM Assessment Medications: Do you have any questions about taking your medications or which medications you should be taking?: Yes Do you need any medication refills at this time, including any of the medication you might take only when needed?: No Social: It can be normal to feel anxious or down during a time like this. Would you like to talk to a mental health professional about how you have been feeling?: No Symptoms: Are you experiencing any new or worsening symptoms that you need to talk about today?: Yes ADLs Patients can perform the following activities without help: Bathing: Yes Dressing: Yes Eating: Yes Transferring: Yes Toileting: Yes Walking : Yes Instrumental activities of daily living Grocery Shopping: Yes Driving / Use Public Transportation: Yes Using Telephone: Yes Meal Preparation: Yes Housework: Yes Home Repair: No Doing laundry: Yes Taking Medications: Yes Handling finances: Yes Fall Risk One or more falls in the last year:: Yes Any near falls in the last year?: No Advised to use a cane or walker to get around safely:: No Feels unsteady when walking:: Yes Steadies self on furniture while walking at home:: Yes Worried about falling:: Yes Needs to push with hands when rising from a chair:: Yes Has trouble stepping up onto a curb:: No Often has to [place] to the toilet:: Yes Has lost some feeling in feet:: No Takes medicine that makes him/her feel lightheaded or more tired than usual:: Yes Takes medicine to sleep or improve mood:: No SDOH Financial Resource Strain How hard is it for you to pay for the very basics like food, housing, medical care, and heating?: Not hard at all Housing Stability In the last 12 months, was there a time when you were not able to pay the mortgage or rent on time?: No At any time in the past 12 months, were you homeless or living in a [place] facility (including now)?: No Transportation Needs In the past 12 months, has lack of transportation kept you from medical appointments or from getting medications?: No In the past 12 months, has lack of transportation kept you from meetings, work, or from getting things needed for daily living?: No Food Insecurity Within the past 12 months, you worried that your food would run out before you got the money to buy more.: Never true Within the past 12 months, the food you bought just didn't last and you didn't have money to get more.: Never true Utilities In the past 12 months has the [facility], gas, oil, or water [employer] threatened to shut off services in your home?: No Tobacco Use Patient reports that she quit smoking about 52 years ago. Her smoking use included cigarettes. She has never used smokeless tobacco. Interventions The following were addressed during this visit: - HTN lab care gaps addressed - Month 3: Schedule/Order BMP Lab - Month 1: Schedule/Order HbA1C Lab - Month 1: Schedule/Order Lipid Panel Lab - Evaluate for Referral to Pharmacy for Diabetes Medication Management - Intak (more content not included)... [facility] 02-07-2025 Note Patient Outreach ([facility]) ANGELICA SOSA ([id number]) 1945 F T Date Time Provider Department 02/07/25 COCO, HEDY [facility] During your visit today, we recorded the following information about you: Hedy Sepulveda RN 02/07/2025 1:37 PM Signed Value Based Care Management Inbound Call Provider Action / FYI: Date of Call: 02/07/2025 Time of Call: 1:36 PM Caller Name: pt Caller relationship to the patient: Patient Patient identified by Name and Date of : Yes Reason for Call / Main Concern Returning call to Pyrometer Temperature Regulator Summary of Callers Concern I don't get to the phone in time usually but she can always leave a message. Action Taken / Plan Routed to Patient's Pyrometer Temperature Regulator Pcc status: stacia Sepulveda RN February 07, 2025 1:36 PM Allergies As of Date: 02/07/2025 Noted Allergy Reaction BEEF DERIVED (BOVINE) 10/17/2005 Comments: congestion FISH CONTAINING PRODUCTS 11/17/2017 9 - Itching SHELLFISH DERIVED 10/11/2023 9 - Itching TYLENOL (ACETAMINOPHEN) 10/17/2005 Comments: hyperactivity Date Reviewed: 01/06/2025 Reviewed by: Pooja Shaw LPN - Fully Assessed Reason for Visit: Roll Former- Other [1233] Cmt: Incoming call Prescriptions as of 02/07/2025 - clobetasol (TEMOVATE) 0.05 % ointment APPLY DAILY NEEDED TO THE AFFECTED AREA SPARINGLY - metFORMIN ER (GLUCOPHAGE XR) 500 mg 24 hr tablet Take 1 tablets with breakfast and 1 tablet with dinner or as directed - minocycline (MINOCIN, DYNACIN) 50 mg capsule Take 1 capsule by mouth once daily. As directed - lisinopril (ZESTRIL) 20 mg tablet Take 1 tablet by mouth once daily. - Cholecalciferol, Vitamin D3, 50 mcg (2,000 unit) cap Take 1 capsule by mouth once daily. 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] 10/17/2005 LEUKOCYTOSIS NOS [D72.829] 08/20/2007 Disorder of bone and cartilage, unspecified [M8*09/24/2010 Osteopenia [M85.80] 11/06/2012 Vitamin D deficiency [E55.9] 09/23/2016 Controlled type 2 diabetes mellitus without com*05/04/2021 Special screening for malignant neoplasms, colo*12/19/2024 Encounter Status:Closed by HEDY SEPULVEDA on 02/07/25 [facility] 02-05-2025 Telephone encounter Note Prescription Refill Information The patient has been identified by name and date of : Yes Caregiver verified no other encounters exist for this prescription request: Yes Caregiver confirmed with patient/requestor that no other refills are due, in the near future, with this provider at this time: Yes The last office visit in the department: 11/11/2024 Does the patient have a future office visit with this provider/department: Yes Requested Prescriptions Pending Prescriptions Disp Refills clobetasol (TEMOVATE) 0.05 % ointment 30 g 3 Sig: APPLY DAILY NEEDED TO THE AFFECTED AREA SPARINGLY Niya Durham February 05, 2025 4:41 PM [facility] 02-05-2025 Miscellaneous Notes Prescription Refill Information The patient has been identified by name and date of : Yes Caregiver verified no other encounters exist for this prescription request: Yes Caregiver confirmed with patient/requestor that no other refills are due, in the near future, with this provider at this time: Yes The last office visit in the department: 11/11/2024 Does the patient have a future office visit with this provider/department: Yes Requested Prescriptions Pending Prescriptions Disp Refills clobetasol (TEMOVATE) 0.05 % ointment 30 g 3 Sig: APPLY DAILY NEEDED TO THE AFFECTED AREA SPARINGLY Niya Durham February 05, 2025 4:41 PM documented in this encounter [facility] 01-27-2025 Note HNO ID: [id number] Author: LAKEISHA STORM MA Service: ? Author Type: Care Aid Type: Progress Notes Filed: 01/27/2025 08:45 Note Text: POPULATION HEALTH NAVIGATION OUTREACH Action/FYI Patient returning my call from initial patient outreach Community Monitoring Navigation Pool/CDM Discuss/Due for: Pharmacy Appointment HM Due: Dilated Retinal Exam, 2024 Medicare Wellness KED, Hgb a1c previously ordered - standing order in place 2025 Medicare Wellness previously scheduled Last AWV 06/07/2024 Hi there, Are you able to reschedule a pharmacy visit for diabetes follow up? I am not sure if this is something you are able to do but if so the pt. Is hoping to reschedule the visit she missed yesterday with Mala Delgado [facility] Outcome: 1st attempt - Spoke to patient Scheduled Pharmacy Scheduled 2024 Medicare Wellness Patient reports going to outside facility for Dilated Retinal Exam, will have results sent to Emily Flaherty MD Reason for Outreach Community Monitoring/Network Navigator Pools AND Phone Line: CM Pool Care Gaps due: Medicare Annual Wellness Visit Follow-up Appointment Diabetic Eye Exam Patient Contacted: Spoke to patient/parent/or legal guardian Patient identified by name and : Yes Community Monitoring/Network Navigator Pools AND Phone Line actions taken: Patient scheduled / pended orders: Medicare Annual Wellness Visit Specialty Appointment 02/18/2025 in [facility] with ARACELIS RIBEIRO - 2024 Medicare Wellness Z00.00 02/27/2025 in [facility] with MALA DELGADO - Goal: A1c < 8%, Diabetes Management 05/26/2025 in [facility] with EMILY FLAHERTY - 6 month follow up 11/25/2025 in [facility] with EMILY FLAHERTY - Medicare Wellness Exam Navigation Signature: Lakeisha Storm MA January 27, 2025 8:31 AM [facility] 01-27-2025 Note HNO ID: [id number] Author: LAKEISHA STORM MA Service: ? Author Type: Care Aid Type: Progress Notes Filed: 01/27/2025 08:25 Note Text: POPULATION HEALTH NAVIGATION OUTREACH Action/FYI Community Monitoring Navigation Pool/CDM Discuss/Due for: Pharmacy Appointment HM Due: Dilated Retinal Exam, 2024 Medicare Wellness KED, Hgb a1c previously ordered - standing order in place 2025 medicare Wellness previously scheduled Last AWV 06/07/2024 Hi there, Are you able to reschedule a pharmacy visit for diabetes follow up? I am not sure if this is something you are able to do but if so the pt. Is hoping to reschedule the visit she missed yesterday with Mala Delgado Rph Outcome: 1st attempt - Left Message Final attempt made Reason for Outreach Community Monitoring/Network Navigator Pools AND Phone Line: CM Pool Care Gaps due: Medicare Annual Wellness Visit Follow-up Appointment Diabetic Eye Exam Patient Contacted: Unable or unnecessary to reach patient: Left message Navigation Signature: Lakeisha Storm MA January 27, 2025 8:15 AM [facility] 01-24-2025 Note HNO ID: [id number] Author: NOHEMI BROWN MA Service: ? Author Type: Care Aid Type: Progress Notes Filed: 01/24/2025 18:35 Note Text: POPULATION HEALTH NAVIGATION OUTREACH Action/I Hi there, Are you able to reschedule a pharmacy visit for diabetes follow up? I am not sure if this is something you are able to do but if so the pt. Is hoping to reschedule the visit she missed yesterday with Mala Delgado Rph. Thank you so very much! 2025 MWE noted to be scheduled KED: uACR Due (order in [facility]) Call placed to patient to assist in scheduling - Left message on machine to return call - INTEX Programt message sent to patient Reason for Outreach Community Monitoring/Network Navigator Pools AND Phone Line: CM Pool Care Gaps due: Follow-up Appointment KED Patient Contacted: Unable or unnecessary to reach patient: Left message [employer] message sent Navigation Signature: Nohemi Cunningham MA January 24, 2025 6:30 PM [facility] 01-24-2025 History of Presen t illness Narrative POPULATION HEALTH NAVIGATION OUTREACH Action/FYI Hi there, Are you able to reschedule a pharmacy visit for diabetes follow up? I am not sure if this is something you are able to do but if so the pt. Is hoping to reschedule the visit she missed yesterday with Mala Delgado Rph. Thank you so very much! 2025 MWE noted to be scheduled KED: uACR Due (order in Epic) Call placed to patient to assist in scheduling - Left message on machine to return call - [employer] message sent to patient Reason for Outreach Community Monitoring/Network Navigator Pools & Phone Line: CM Pool Care Gaps due: Follow-up Appointment KED Patient Contacted: Unable or unnecessary to reach patient: Left message MyChart message sent Navigation Signature: Nohemi Cunningham MA January 24, 2025 6:30 PM CDM ENROLLMENT Provider Action / FYI: N/A Navigation Update Hi there, Are you able to reschedule a pharmacy visit for diabetes follow up? I am not sure if this is something you are able to do but if so the pt. Is hoping to reschedule the visit she missed yesterday with Mala Delgado Rph. Thank you so very much! Patient identified by name and date of . Discussed care with patient. CDM Update Briefly spoke with the pt. Who was currently out of town She is interested in ongoing outreach calls but she did not have the time to talk today and finish the initial assessment questions. She mentioned that she had an appt yesterday for diabetic follow up with the pharmacist and she could not make it. She would like to reschedule this appt as it is something she is interested in learning more about. Will send a message to navigation to see if there is any way they could assist in rescheduling. Program Details Chronic Disease Management Status: Enrolled Effective Dates: 01/24/2025 - present Responsible Staff: Kiera Shepard RN Support and Services: Hypertension, Diabetes Assessments No documentation this encounter Interventions The following were addressed during this visit: - Initial enrollment outreach Tara Young RN January 24, 2025 4:01 PM documented in this encounter [facility] 01-24-2025 Note HNO ID: [id number] Author: TARA YOUNG RN Service: ? Author Type: Registered Nurse Type: Progress Notes Filed: 01/24/2025 16:18 Note Text: CDM ENROLLMENT Provider Action / FYI: N/A Navigation Update Hi there, Are you able to reschedule a pharmacy visit for diabetes follow up? I am not sure if this is something you are able to do but if so the pt. Is hoping to reschedule the visit she missed yesterday with Mala Delgado [facility]. Thank you so very much! Patient identified by name and date of . Discussed care with patient. CDM Update Briefly spoke with the pt. Who was currently out of town She is interested in ongoing outreach calls but she did not have the time to talk today and finish the initial assessment questions. She mentioned that she had an appt yesterday for diabetic follow up with the pharmacist and she could not make it. She would like to reschedule this appt as it is something she is interested in learning more about. Will send a message to navigation to see if there is any way they could assist in rescheduling. Program Details Chronic Disease Management Status: Enrolled Effective Dates: 01/24/2025 - present Responsible Staff: Kiera Shepard RN Support and Services: Hypertension, Diabetes Assessments No documentation this encounter Interventions The following were addressed during this visit: - Initial enrollment outreach Tara Young RN January 24, 2025 4:01 PM [facility] 01-24-2025 Note Patient Outreach (AM [facility]) ANGELICA SOSA ([id number]) 1945 F CHT Date Time Provider Department 01/24/25 TARA YOUNGG During your visit today, we recorded the following information about you: Tara Young RN 01/24/2025 4:18 PM Signed CDM ENROLLMENT Provider Action / FYI: N/A Navigation Update Hi there, Are you able to reschedule a pharmacy visit for diabetes follow up? I am not sure if this is something you are able to do but if so the pt. Is hoping to reschedule the visit she missed yesterday with Mala Delgado Rph. Thank you so very much! Patient identified by name and date of . Discussed care with patient. CDM Update Briefly spoke with the pt. Who was currently out of town She is interested in ongoing outreach calls but she did not have the time to talk today and finish the initial assessment questions. She mentioned that she had an appt yesterday for diabetic follow up with the pharmacist and she could not make it. She would like to reschedule this appt as it is something she is interested in learning more about. Will send a message to navigation to see if there is any way they could assist in rescheduling. Program Details Chronic Disease Management Status: Enrolled Effective Dates: 01/24/2025 - present Responsible Staff: Kiera Shepard RN Support and Services: Hypertension, Diabetes Assessments No documentation this encounter Interventions The following were addressed during this visit: - Initial enrollment outreach Tara Young RN January 24, 2025 4:01 PM Nohemi Brown MA 01/24/2025 6:35 PM Signed POPULATION HEALTH NAVIGATION OUTREACH Action/FYI Hi there, Are you able to reschedule a pharmacy visit for diabetes follow up? I am not sure if this is something you are able to do but if so the pt. Is hoping to reschedule the visit she missed yesterday with Mala Delgado Rph. Thank you so very much! 2025 MWE noted to be scheduled KED: uACR Due (order in [facility]) Call placed to patient to assist in scheduling - Left message on machine to return call - INTEX Programt message sent to patient Reason for Outreach Community Monitoring/Network Navigator Pools AND Phone Line: CM Pool Care Gaps due: Follow-up Appointment KED Patient Contacted: Unable or unnecessary to reach patient: Left message MyChart message sent Navigation Signature: Nohemi Cunningham MA January 24, 2025 6:30 PM Lakeisha Storm MA 01/27/2025 8:25 AM Signed POPULATION HEALTH NAVIGATION OUTREACH Action/FYI Community Monitoring Navigation Pool/CDM Discuss/Due for: Pharmacy Appointment HM Due: Dilated Retinal Exam, 2024 Medicare Wellness KED, Hgb a1c previously ordered - standing order in place 2025 medicare Wellness previously scheduled Last AWV 06/07/2024 Hi there, Are you able to reschedule a pharmacy visit for diabetes follow up? I am not sure if this is something you are able to do but if so the pt. Is hoping to reschedule the visit she missed yesterday with Mala Delgado Rph Outcome: 1st attempt - Left Message Final attempt made Reason for Outreach Community Monitoring/Network Navigator Pools AND Phone Line: CM Pool Care Gaps due: Medicare Annual Wellness Visit Follow-up Appointment Diabetic Eye Exam Patient Contacted: Unable or unnecessary to reach patient: Left message Navigation Signature: Lakeisha Storm MA January 27, 2025 8:15 AM Lakeisha Storm MA 01/27/2025 8:45 AM Signed POPULATION HEALTH NAVIGATION OUTREACH Action/FYI Patient returning my call from initial patient outreach Community Monitoring Navigation Pool/CDM Discuss/Due for: Pharmacy Appointment Due: Dilated Retinal Exam, 2024 Medicare Wellness KED, Hgb a1c previously ordered - standing order in place 2025 Medicare Wellness previously scheduled Last AWV 06/07/2024 Hi there, Are you able to reschedule a pharmacy visit for diabetes follow up? I am not sure if this is something you are able to do but if so the pt. Is hoping to reschedule the visit she missed yesterday with Mala Delgado Rph Outcome: 1st attempt - Spoke to patient Scheduled Pharmacy Scheduled 2024 Medicare Wellness Patient reports going to outside facility for Dilated Retinal Exam, will have results sent to Emily Flaherty MD Reason for Outreach Community Monitoring/Network Navigator Pools AND Phone Line: CM Pool Care Gaps due: Medicare Annual Wellness Visit Follow-up Appointment Diabetic Eye Exam Patient Contacted: Spoke to patient/parent/or legal guardian Patient identified by name and : Yes Community Monitoring/Network Navigator Pools AND Phone Line actions taken: Patient scheduled / pended orders: Medicare Annual Wellness Visit Specialty App[facility] GEMA ARACELIS - 2024 Medicare Wellness Z00.00 02/27/2025 in [facility] (more content not included)... [facility] 2025 Note HNO ID: [id number] Author: ANSON YORK RN Service: ? Author Type: Registered Nurse Type: Progress Notes Filed: 2025 14:43 Note Text: The right neck (site) was assessed and 2 simple sutures were removed as ordered. Dressing was applied. Patient instructed on wound care and verbalized understanding. Pathology was reviewed by Dr. Cuello and patient was advised.Anson York RN [facility] 2025 History of Presen t illness Narrative The right neck (site) was assessed and 2 simple sutures were removed as ordered. Dressing was applied. Patient instructed on wound care and verbalized understanding. Pathology was reviewed by Dr. Cuello and patient was advised.Anson York RN documented in this encounter [facility] 01-06-2025 Note HNO ID: [id number] Author: LC CUELLO MD Service: ? Author Type: Physician Type: Progress Notes Filed: 01/06/2025 15:23 Note Text: Preoperative diagnosis: Sebaceous cyst right neck Postoperative diagnosis: The same Procedure: Excision of a 2.5 cm sebaceous cyst of right neck Surgeon: Abdullahi Procedure: Right neck was sterilely prepped and draped in usual fashion. 1% lidocaine plain was injected. 3 cm incision was made. Took quite a bit of dissecting to get out this sebaceous cyst it was old calcified. I was able to remove it in its entirety. I brought the wound together with 2 interrupted sutures of 5-0 nylon sterile dressings were applied and the patient tolerated the procedure well. [facility] 01-06-2025 History of Presen t illness Narrative Preoperative diagnosis: Sebaceous cyst right neck Postoperative diagnosis: The same Procedure: Excision of a 2.5 cm sebaceous cyst of right neck Surgeon: Abdullahi Procedure: Right neck was sterilely prepped and draped in usual fashion. 1% lidocaine plain was injected. 3 cm incision was made. Took quite a bit of dissecting to get out this sebaceous cyst it was old calcified. I was able to remove it in its entirety. I brought the wound together with 2 interrupted sutures of 5-0 nylon sterile dressings were applied and the patient tolerated the procedure well. UNIVERSAL PROTOCOL / SAFETY CHECKLIST Procedure to be Performed: Excision of sebaceous cyst right neck Sign In: A Moment of CARE was completed. Appropriate PPE (Personal Protective Equipment) worn by all providers involved with the procedure. Special equipment not required. Patient/Surrogate Stated/Verified: Patient name, Date of , Relevant allergies, and The intended procedure Time Out: Relevant labs, photos, and/or imaging studies are not applicable. Intended patient and procedure match the source document(s) (e.g. consent, H&P, associated studies [imaging, pathology]) match the intended patient and procedure. Consent obtained and matches the intended procedure. Yes. Correct side/site has been marked and visible. Medications required for this procedure are verified. Fire risk assessed and is not applicable. Implants: are not applicable. Sign Out: Specimens are all correctly labeled and sent. All instruments, equipment, possible retained foreign bodies are accounted for. Yes. The post-procedure plan of care has been communicated to the patient or surrogate. Pooja Shaw LPN documented in this encounter [facility] 01-06-2025 Instructions oPoja Shaw LPN - 01/06/2025 3:01 PM EDT The following instructions are important for you related to your office visit today with the [facility] General Surgeons. Instructions After SKIN EXCISION-SUTURES You can remove the dressing in two days. If the dressing becomes soaked or had significant drainage, the dressing should be changed. If there is minor bleeding from this skin edge, you should hold pressure on the incision until the bleeding stops. If there is continued bleeding, you should contact our office immediately. You do not need to leave a dressing on the wound after two days. If the wound shows signs of redness, inflammation, or purulent drainage, you should contact our office immediately. You should keep the wound dry for the first two days. After that time, you may wash the wound with gentle soap and water. The wound should not be immersed in a pool, bathtub, or even hot tub. We prefer to check the incision and remove the stitches (two simple sutures) in our office when ready. Please make an appointment to return to our office in one week. Please do not remove the stitches yourself without approval from our office. If you note any additional difficulties, questions, or concerns, you should contact our office immediately @ [phone] and ask to be transferred to the General Surgery department. documented in this encounter [facility] 01-06-2025 Note HNO ID: [id number] Author: POOJA SHAW LPN Service: ? Author Type: LICENSED NURSE Type: Progress Notes Filed: 01/06/2025 15:23 Note Text: UNIVERSAL PROTOCOL / SAFETY CHECKLIST Procedure to be Performed: Excision of sebaceous cyst right neck Sign In: A Moment of CARE was completed. Appropriate PPE (Personal Protective Equipment) worn by all providers involved with the procedure. Special equipment not required. Patient/Surrogate Stated/Verified: Patient name, Date of , Relevant allergies, and The intended procedure Time Out: Relevant labs, photos, and/or imaging studies are not applicable. Intended patient and procedure match the source document(s) (e.g. consent, HANDP, associated studies [imaging, pathology]) match the intended patient and procedure. Consent obtained and matches the intended procedure. Yes. Correct side/site has been marked and visible. Medications required for this procedure are verified. Fire risk assessed and is not applicable. Implants: are not applicable. Sign Out: Specimens are all correctly labeled and sent. All instruments, equipment, possible retained foreign bodies are accounted for. Yes. The post-procedure plan of care has been communicated to the patient or surrogate. Pooja Shaw LPN [facility] 12-31-2024 Note HNO ID: [id number] Author: LC CUELLO MD Service: ? Author Type: Physician Type: Progress Notes Filed: 12/31/2024 13:33 Note Text: Subjective: Patient is a 79-year-old white female who has a sebaceous cyst in her right neck gradually getting larger in size. Sometimes uncomfortable it is never been infected. Objective:Blood pressure 135/70, pulse 71, resp. rate 14, weight 64.5 kg (142 lb 3.2 oz), SpO2 96%. Right posterior neck shows a 2-1/2 cm sebaceous cyst with a blackhead. No signs of cellulitis no signs of infection. Assessment:Sebaceous cyst (primary encounter diagnosis) Plan: Will excise this in the office. She is not on any blood thinners at this time. Will close this with 2 simple interrupted sutures of 5-0 nylon [facility] 12-31-2024 History of Presen t illness Narrative Subjective: Patient is a 79-year-old white female who has a sebaceous cyst in her right neck gradually getting larger in size. Sometimes uncomfortable it is never been infected. Objective:Blood pressure 135/70, pulse 71, resp. rate 14, weight 64.5 kg (142 lb 3.2 oz), SpO2 96%. Right posterior neck shows a 2-1/2 cm sebaceous cyst with a blackhead. No signs of cellulitis no signs of infection. Assessment:Sebaceous cyst (primary encounter diagnosis) Plan: Will excise this in the office. She is not on any blood thinners at this time. Will close this with 2 simple interrupted sutures of 5-0 nylon documented in this encounter [facility] 12-30-2024 History of Presen t illness Narrative FOLLOW UP VISIT - ENDOSCOPY Angelica Sosa 1945 [id number] REFERRING PHYSICIAN: No referring provider defined for this encounter. Angelica Sosa is a patient I am following for screening colonoscopy. Dr. Cuello performed lower endoscopy on 12/19/2024. The patient was found to have Impression: - Three diminutive (1-3 mm) polyps in the sigmoid colon, removed with a jumbo cold forceps. Resected and retrieved. - Diverticulosis in the sigmoid colon and in the descending colon. - Non-bleeding internal hemorrhoids. - The examined portion of the ileum was normal. - The examination was otherwise normal. Pathology demonstrated: FINAL DIAGNOSIS A. Sigmoid colon, polypectomy x 3: -Fragments of hyperplastic polyp The patient notes no complaints since the procedure. VITALS: There were no vitals taken for this visit. General: patient is alert, cooperative, pleasant and in no acute distress On examination, the abdomen is benign. Assessment ASSESSMENT/PLAN: 1. Hyperplastic polyp of sigmoid colon - ICD9: 211.3, ICD10: K63.5 PLAN: The operative findings and pathology report were reviewed with the patient, and the patient has had the opportunity to ask questions and have questions answered. If the patient notes any problems or changes in bowel function, the patient should contact me immediately. Otherwise I recommend follow up endoscopy in 5 years. HM updated. Discussed treatment plan and patient voices understanding. Patient's questions answered appropriately. Medications and potential side effects were discussed and patient voices understanding. Return to the office as scheduled or as needed for worsening/no improvement. Zahraa Delacruz APRN.TUBE CUTTER OPERATOR documented in this encounter [facility] 12-30-2024 Note HNO ID: [id number] Author: ZAHRAA DELACRUZ APRN.TUBE CUTTER OPERATOR Service: ? Author Type: Nurse Practitioner Type: Progress Notes Filed: 12/30/2024 14:00 Note Text: FOLLOW UP VISIT - ENDOSCOPY Angelica Sosa 1945 [id number] REFERRING PHYSICIAN: No referring provider defined for this encounter. Angelica Sosa is a patient I am following for screening colonoscopy. Dr. Cuello performed lower endoscopy on 12/19/2024. The patient was found to have Impression: - Three diminutive (1-3 mm) polyps in the sigmoid colon, removed with a jumbo cold forceps. Resected and retrieved. - Diverticulosis in the sigmoid colon and in the descending colon. - Non-bleeding internal hemorrhoids. - The examined portion of the ileum was normal. - The examination was otherwise normal. Pathology demonstrated: FINAL DIAGNOSIS A. Sigmoid colon, polypectomy x 3: -Fragments of hyperplastic polyp The patient notes no complaints since the procedure. VITALS: There were no vitals taken for this visit. General: patient is alert, cooperative, pleasant and in no acute distress On examination, the abdomen is benign. Assessment ASSESSMENT/PLAN: 1. Hyperplastic polyp of sigmoid colon - ICD9: 211.3, ICD10: K63.5 PLAN: The operative findings and pathology report were reviewed with the patient, and the patient has had the opportunity to ask questions and have questions answered. If the patient notes any problems or changes in bowel function, the patient should contact me immediately. Otherwise I recommend follow up endoscopy in 5 years. HM updated. Discussed treatment plan and patient voices understanding. Patient's questions answered appropriately. Medications and potential side effects were discussed and patient voices understanding. Return to the office as scheduled or as needed for worsening/no improvement. Zahraa Delacruz APRN.CNP [facility] 12-27-2024 Note HNO ID: [id number] Author: ARACELIS RIBEIRO APRN.CNP Service: ? Author Type: Nurse Practitioner Type: Progress Notes Filed: 12/27/2024 08:13 Note Text: Noted. [facility] 12-25-2024 History of Presen t illness Narrative Primary Care Pharmacy Panel Management This patient has been identified through Specialty Integration/Value-Based Operations Diabetes Registry Review by the primary care pharmacy team. Please contact patient and schedule a pharmacy in-person or phone visit for diabetes management. Please use New Pharmacy, New Pharmacy Phone call, or Video Primary New visit types. ^Contacted patient discuss consult agreement/services, and to schedule initial appointment. Patient prefers in-office visits. Initial appointment was scheduled for 01/23/25. Patient was educated to come prepared with medications and recent blood sugar readings, if checking these at home. Verbalized understanding. Thank you, Ngozi Foster, PharmD, BCACP documented in this encounter [facility] 12-25-2024 Note HNO ID: [id number] Author: NGOZI FOSTER RPh Service: ? Author Type: Pharmacist Type: Progress Notes Filed: 12/25/2024 15:52 Note Text: Primary Care Pharmacy Panel Management This patient has been identified through Specialty Integration/Value-Based Operations Diabetes Registry Review by the primary care pharmacy team. Please contact patient and schedule a pharmacy in-person or phone visit for diabetes management. Please use New Pharmacy, New Pharmacy Phone call, or Video Primary New visit types. Contacted patient discuss consult agreement/services, and to schedule initial appointment. Patient prefers in-office visits. Initial appointment was scheduled for 01/23/25. Patient was educated to come prepared with medications and recent blood sugar readings, if checking these at home. Verbalized understanding. Thank you, Ngozi Foster PharmD, BCACP [facility] 12-25-2024 Note Patient Outreach (PM STOW) ANGELICA SOSA ([id number]) 1945 [facility] Date Time Provider Department 12/25/24 NGOZI FOSTER PMSTOW During your visit today, we recorded the following information about you: Ngozi Foster RPh 12/25/2024 3:52 PM Signed Primary Care Pharmacy Panel Management This patient has been identified through Specialty Integration/Value-Based Operations Diabetes Registry Review by the primary care pharmacy team. Please contact patient and schedule a pharmacy in-person or phone visit for diabetes management. Please use New Pharmacy, New Pharmacy Phone call, or Video Primary New visit types. Contacted patient discuss consult agreement/services, and to schedule initial appointment. Patient prefers in-office visits. Initial appointment was scheduled for 01/23/25. Patient was educated to come prepared with medications and recent blood sugar readings, if checking these at home. Verbalized understanding. Thank you, Ngozi Foster PharmD, BCACP Aracelis Ribeiro APRN.TUBE CUTTER OPERATOR 12/27/2024 8:13 AM Signed Noted. Allergies As of Date: 12/25/2024 Noted Allergy Reaction BEEF DERIVED (BOVINE) 10/17/2005 Comments: congestion FISH CONTAINING PRODUCTS 11/17/2017 9 - Itching PEANUT OIL 10/17/2005 Comments: uncertain PEANUTS 10/17/2005 Comments: not sure SHELLFISH DERIVED 10/11/2023 9 - Itching TYLENOL (ACETAMINOPHEN) 10/17/2005 Comments: hyperactivity Date Reviewed: 12/19/2024 Reviewed by: Brionna Villatoro RN - Fully Assessed Reason for Visit: Care Coordination [8045] Cmt: Panel Management Review for Pharmacist Referral for Diabetes Management Primary Visit Diagnosis:Type 2 diabetes mellitus without complication, without long-term current use of insulin (HCC) [E11.9] Order(s):CONSULT TO PHARMACY [147469] Order #: [id number]: 1 Prescriptions as of 12/27/2024 - minocycline (MINOCIN, DYNACIN) 50 mg capsule Take 1 capsule by mouth once daily. As directed - lisinopril (ZESTRIL) 20 mg tablet Take 1 tablet by mouth once daily. - Cholecalciferol, Vitamin D3, 50 mcg (2,000 unit) cap Take 1 capsule by mouth once daily. - cyclobenzaprine (FLEXERIL) 10 mg tablet Take 1 tablet by mouth at bedtime as needed for muscle spasm. - metFORMIN ER (GLUCOPHAGE XR) 500 mg 24 hr tablet Take 1 tablet by mouth daily with breakfast. Take 1 tablets with breakfast and 1 tablet with dinner or as directed - clobetasol (TEMOVATE) 0.05 % ointment APPLY DAILY NEEDED TO THE AFFECTED AREA SPARINGLY - blood sugar diagnostic (ParakeyUCH VERIO TEST STRIPS) test strip USE TO CHECK BLOOD SUGAR ONCE A DAY - lancets (CyberXTOUCH DELICA PLUS LANCET) 33 gauge USE TO CHECK BLOOD SUGAR ONCE A DAY Problem List As Of Date 12/25/2024 Noted Resolved Essential hypertension [I10] 10/17/2005 Reactive depression [F32.9] 10/17/2005 Mixed hyperlipidemia [E78.2] 10/17/2005 ROSACEA [L71.9] 10/17/2005 CIRCUMSCRIBE SCLERODERMA [L94.0] 10/17/2005 LEUKOCYTOSIS NOS [D72.829] 08/20/2007 Disorder of bone and cartilage, unspecified [M8*09/24/2010 Osteopenia [M85.80] 11/06/2012 Vitamin D deficiency [E55.9] 09/23/2016 Controlled type 2 diabetes mellitus without com*05/04/2021 Special screening for malignant neoplasms, colo*12/19/2024 Encounter Status:Closed by NGOZI FOSTER on 12/25/24 [facility] 12-19-2024 Note Formatting of this n ote might be different from the original. The patient received a copy of Colonoscopy discharge instructions that contain information for how to contact the physician who performed the procedure and when to seek medical care. [facility] 12-19-2024 Miscellaneous Notes The patient received a copy of Colonoscopy discharge instructions that contain information for how to contact the physician who performed the procedure and when to seek medical care. documented in this encounter [facility] 12-19-2024 History and physical note Images from the original note were not included. Angelica Sosa is a 79 year old female. Patient presents with: Diabetes: Is concerned due to medication side effects with treating diabetes. Is taking Metformin 500 mg 1 daily as two daily causes to severe diarrhea. SUBJECTIVE: Angelica Sosa is a 79 year old year old lady here today for follow up appointment for review of medical conditions. Angelica Sosa is an 79-year-old female with a history of DM, presenting for evaluation of glycemic control and a chronic pruritic lesion on the leg. Angelica reports difficulty tolerating metformin due to gastrointestinal side effects, specifically diarrhea, when taking more than 500 mg daily. She currently takes 500 mg once daily at bedtime and notes that higher doses exacerbate gastrointestinal symptoms. She monitors her blood glucose levels regularly and brought her glucose meter to the visit. Recent fasting blood glucose readings have ranged from 159 to 192 mg/dL, with most readings in the 160s to 180s. She denies any fasting blood glucose readings over 200 mg/dL. She occasionally checks postprandial blood glucose levels but has not done so recently and denies any postprandial readings over 180 mg/dL. Her last HbA1c, measured in November of the previous year, was 7.5%. She reports decreased physical activity due to weather conditions and denies any recent changes in diet or exercise habits. Angelica also reports a chronic pruritic lesion on her leg, which has been present since she had shingles approximately 2 years ago. The lesion is described as itchy and sometimes scaly. She has tried various topical treatments, including calamine lotion and ice packs, to alleviate the itching. She has clobetasol at home but has used it sparingly due to concerns about skin thinning. She has not seen a installation service representative for this issue in the past year but plans to make an appointment. Additionally, Angelica inquires about the need for a colonoscopy. She had her last colonoscopy in 2019 and has a family history of colorectal cancer, with both grandmothers having from the disease. She expresses reluctance to undergo the procedure but is seeking medical advice on whether it is necessary. PAST MEDICAL HISTORY 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 LICHEN SCLEROSIS Controlled type 2 diabetes mellitus without complication, without long-term current use of insulin ([facility]) 05/04/2021 DEPRESSIVE DISORDER NEC 10/17/[address] of [address] eyes [address] Daniels follows at [facility] HYPERLIPIDEMIA NEC/NOS 10/17/2005 HYPERTENSION NOS 10/17/2005 Rosacea 10/17/2005 Vitamin D deficiency 09/23/2016 CURRENT MEDICATIONS Current Outpatient Medications Medication Sig cyclobenzaprine (FLEXERIL) 10 mg tablet Take 1 tablet by mouth at bedtime as needed for muscle spasm. (Patient not taking: Reported on 11/11/2024) metFORMIN ER (GLUCOPHAGE XR) 500 mg 24 hr tablet Take 1 tablet by mouth daily with breakfast. Take 1 tablets with breakfast and 1 tablet with dinner or as directed clobetasol (TEMOVATE) 0.05 % ointment APPLY DAILY NEEDED TO THE AFFECTED AREA SPARINGLY Cholecalciferol, Vitamin D3, 50 mcg (2,000 unit) cap Take 1 capsule by mouth once daily. minocycline (MINOCIN, DYNACIN) 50 mg capsule Take 1 capsule by mouth once daily. As directed lisinopril (ZESTRIL) 20 mg tablet Take 1 tablet by mouth once daily. blood sugar diagnostic (CyberXTOUCH VERIO TEST STRIPS) test strip USE TO CHECK BLOOD SUGAR ONCE A DAY lancets (CyberXTOUCH DELICA PLUS LANCET) 33 gauge USE TO CHECK BLOOD SUGAR ONCE A DAY No current facility-administered medications for this visit. Review of Systems Objective BP 126/66 Pulse (!) 58 Wt 65.2 kg (143 lb 11.8 oz) SpO2 97% BMI 26.72 kg/m Physical Exam Constitutional: Appearance: Normal appearance. HENT: Head: Normocephalic. Eyes: Conjunctiva/sclera: Conjunctivae normal. Cardiovascular: Rate and Rhythm: Normal rate and regular rhythm. Heart sounds: Normal heart sounds. Pulmonary: Effort: Pulmonary effort is normal. Breath sounds: Normal breath sounds. Musculoskeletal: Right lower leg: No edema. Left lower leg: No edema. Skin: General: Skin is warm and dry. Neurological: General: No focal deficit present. Mental Status: She is alert and oriented to person, place, and time. Psychiatric: Mood and Affect: Mood normal. Behavior: Behavior normal. Thought Content: Thought content normal. Judgment: Judgment normal. Hemoglobin A1C (%) Date Value 12/06/2023 7.5 07/13/2021 7.0 03/23/2021 13.6 06/08/2018 6.5 12/26/2017 6.7 05/27/2017 6.3 Hemoglobin A1C (POCT) (%) Date Value 11/01/2022 7.2 Assessment and Plan # Controlled type 2 diabetes mellitus without complication, without long-term current use of insulin (HCC) (E11.9) - Current medication regimen includes Metformin 500 mg once daily at bedtime; higher doses result in significant gastrointestinal side effects, including diarrhea. - Fasting blood glucose readings are consistently in the 160s to 180s, slightly above the target of <150 mg/dL. - Last HbA1c in November of the previous year was 7.5%. - Ordered comprehensive lab work including HbA1c, vitamin D, lipid panel, CMP, CBC, and ACR to assess current glycemic control and overall metabolic status. - Discussed the importance of diet and exercise in managing blood glucose levels. Recommended indoor exercises such as chair aerobics and light weightlifting due to weather constraints. - Will evaluate lab results to determine if additional pharmacological intervention is necessary. # Vitamin D deficiency (E55.9) - Currently taking vitamin D supplementation. - Ordered vitamin D level to assess efficacy of current supplementation. # Mixed hyperlipidemia (E78.2) - Last LDL was in the 130s. - Discussed dietary modifications to improve lipid profile, including increasing intake of omega-3 fatty acids and using olive oil. - Will evaluate lipid panel results to determine if initiation of statin therapy is indicated. # Essential hypertension (I10) - Refilled lisinopril prescription. - Blood pressure management to continue with current medication regimen. # Skin lesion of lower extremity (L98.9) - Chronic pruritic lesion on the lower extremity, persisting since a shingles outbreak two years ago. - Advised use of clobetasol sparingly for no more than 14 days to reduce inflammation and pruritus. - Recommended moisturizing with lotion followed by a thin layer of Vaseline to lock in moisture. - Patient to follow up with installation service representative Dr. Townsend for further evaluation and management. # Special screening for malignant neoplasms, colon (Z12.11) - Last colonoscopy was in 2018; due for repeat screening. - Family history of colorectal cancer in both grandmothers. - Referred to Dr. Cuello for colonoscopy. - Discussed alternative bowel prep using Miralax and Gatorade to improve tolerability. # Encounter for immunization (Z23) - Discussed RSV and tetanus vaccines; informed patient that these are covered by Medicare Part D. - Patient has received three COVID-19 vaccinations and does not wish to receive additional doses at this time. - Postponed Shingrix vaccine as patient has previously completed the two-dose series. I spent a total of 42 minutes on the date of the service which included [id number] patient care, completing clinical documentation, obtaining and/or reviewing separately obtained history, performing a medically appropriate examination, counseling and educating the patient/family/caregiver, ordering medications, tests, or procedures, and independently interpreting results (not separately reported). Emily Flaherty MD UPDATED HISTORY AND PHYSICAL EXAMINATION SERVICE DATE: 12/19/2024 SERVICE TIME: 7:57 AM PHYSICAL EXAM MUST BE COMPLETED ON ADMISSION The History and Physical (completed in the past 30 days) has been reviewed and the patient has been examined. The contents accurately reflect the patient's condition with the following additions or revisions since the H&P was completed. Examination indicates no changes. This H&P can be found in the attached. SIGNATURE: Lc Cuello III, MD PATIENT NAME: Angelica Sosa DATE: December 19, 2024 TIME: 7:56 AM [facility] 12-19-2024 History and physical note Images from the original note were not included. Angelica Sosa is a 79 year old female. Patient presents with: Diabetes: Is concerned due to medication side effects with treating diabetes. Is taking Metformin 500 mg 1 daily as two daily causes to severe diarrhea. SUBJECTIVE: Angelica Sosa is a 79 year old year old lady here today for follow up appointment for review of medical conditions. Angelica Sosa is an 79-year-old female with a history of DM, presenting for evaluation of glycemic control and a chronic pruritic lesion on the leg. Angelica reports difficulty tolerating metformin due to gastrointestinal side effects, specifically diarrhea, when taking more than 500 mg daily. She currently takes 500 mg once daily at bedtime and notes that higher doses exacerbate gastrointestinal symptoms. She monitors her blood glucose levels regularly and brought her glucose meter to the visit. Recent fasting blood glucose readings have ranged from 159 to 192 mg/dL, with most readings in the 160s to 180s. She denies any fasting blood glucose readings over 200 mg/dL. She occasionally checks postprandial blood glucose levels but has not done so recently and denies any postprandial readings over 180 mg/dL. Her last HbA1c, measured in November of the previous year, was 7.5%. She reports decreased physical activity due to weather conditions and denies any recent changes in diet or exercise habits. Angelica also reports a chronic pruritic lesion on her leg, which has been present since she had shingles approximately 2 years ago. The lesion is described as itchy and sometimes scaly. She has tried various topical treatments, including calamine lotion and ice packs, to alleviate the itching. She has clobetasol at home but has used it sparingly due to concerns about skin thinning. She has not seen a installation service representative for this issue in the past year but plans to make an appointment. Additionally, Angelica inquires about the need for a colonoscopy. She had her last colonoscopy in 2019 and has a family history of colorectal cancer, with both grandmothers having from the disease. She expresses reluctance to undergo the procedure but is seeking medical advice on whether it is necessary. PAST MEDICAL HISTORY 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 LICHEN SCLEROSIS Controlled type 2 diabetes mellitus without complication, without long-term current use of insulin (HCC) 05/04/2021 DEPRESSIVE DISORDER NEC 10/17/[address] of [address] eyes [address] Daniels follows at [facility] HYPERLIPIDEMIA NEC/NOS 10/17/2005 HYPERTENSION NOS 10/17/2005 Rosacea 10/17/2005 Vitamin D deficiency 09/23/2016 CURRENT MEDICATIONS Current Outpatient Medications Medication Sig cyclobenzaprine (FLEXERIL) 10 mg tablet Take 1 tablet by mouth at bedtime as needed for muscle spasm. (Patient not taking: Reported on 11/11/2024) metFORMIN ER (GLUCOPHAGE XR) 500 mg 24 hr tablet Take 1 tablet by mouth daily with breakfast. Take 1 tablets with breakfast and 1 tablet with dinner or as directed clobetasol (TEMOVATE) 0.05 % ointment APPLY DAILY NEEDED TO THE AFFECTED AREA SPARINGLY Cholecalciferol, Vitamin D3, 50 mcg (2,000 unit) cap Take 1 capsule by mouth once daily. minocycline (MINOCIN, DYNACIN) 50 mg capsule Take 1 capsule by mouth once daily. As directed lisinopril (ZESTRIL) 20 mg tablet Take 1 tablet by mouth once daily. blood sugar diagnostic (ONETOUCH VERIO TEST STRIPS) test strip USE TO CHECK BLOOD SUGAR ONCE A DAY lancets (ONETOUCH DELICA PLUS LANCET) 33 gauge USE TO CHECK BLOOD SUGAR ONCE A DAY No current facility-administered medications for this visit. Review of Systems Objective BP 126/66 Pulse (!) 58 Wt 65.2 kg (143 lb 11.8 oz) SpO2 97% BMI 26.72 kg/m Physical Exam Constitutional: Appearance: Normal appearance. HENT: Head: Normocephalic. Eyes: Conjunctiva/sclera: Conjunctivae normal. Cardiovascular: Rate and Rhythm: Normal rate and regular rhythm. Heart sounds: Normal heart sounds. Pulmonary: Effort: Pulmonary effort is normal. Breath sounds: Normal breath sounds. Musculoskeletal: Right lower leg: No edema. Left lower leg: No edema. Skin: General: Skin is warm and dry. Neurological: General: No focal deficit present. Mental Status: She is alert and oriented to person, place, and time. Psychiatric: Mood and Affect: Mood normal. Behavior: Behavior normal. Thought Content: Thought content normal. Judgment: Judgment normal. Hemoglobin A1C (%) Date Value 12/06/2023 7.5 07/13/2021 7.0 03/23/2021 13.6 06/08/2018 6.5 12/26/2017 6.7 05/27/2017 6.3 Hemoglobin A1C (POCT) (%) Date Value 11/01/2022 7.2 Assessment and Plan # Controlled type 2 diabetes mellitus without complication, without long-term current use of insulin (HCC) (E11.9) - Current medication regimen includes Metformin 500 mg once daily at bedtime; higher doses result in significant gastrointestinal side effects, including diarrhea. - Fasting blood glucose readings are consistently in the 160s to 180s, slightly above the target of <150 mg/dL. - Last HbA1c in November of the previous year was 7.5%. - Ordered comprehensive lab work including HbA1c, vitamin D, lipid panel, CMP, CBC, and ACR to assess current glycemic control and overall metabolic status. - Discussed the importance of diet and exercise in managing blood glucose levels. Recommended indoor exercises such as chair aerobics and light weightlifting due to weather constraints. - Will evaluate lab results to determine if additional pharmacological intervention is necessary. # Vitamin D deficiency (E55.9) - Currently taking vitamin D supplementation. - Ordered vitamin D level to assess efficacy of current supplementation. # Mixed hyperlipidemia (E78.2) - Last LDL was in the 130s. - Discussed dietary modifications to improve lipid profile, including increasing intake of omega-3 fatty acids and using olive oil. - Will evaluate lipid panel results to determine if initiation of statin therapy is indicated. # Essential hypertension (I10) - Refilled lisinopril prescription. - Blood pressure management to continue with current medication regimen. # Skin lesion of lower extremity (L98.9) - Chronic pruritic lesion on the lower extremity, persisting since a shingles outbreak two years ago. - Advised use of clobetasol sparingly for no more than 14 days to reduce inflammation and pruritus. - Recommended moisturizing with lotion followed by a thin layer of Vaseline to lock in moisture. - Patient to follow up with installation service representative Dr. Townsend for further evaluation and management. # Special screening for malignant neoplasms, colon (Z12.11) - Last colonoscopy was in 2018; due for repeat screening. - Family history of colorectal cancer in both grandmothers. - Referred to Dr. Cuello for colonoscopy. - Discussed alternative bowel prep using Miralax and Gatorade to improve tolerability. # Encounter for immunization (Z23) - Discussed RSV and tetanus vaccines; informed patient that these are covered by Medicare Part D. - Patient has received three COVID-19 vaccinations and does not wish to receive additional doses at this time. - Postponed Shingrix vaccine as patient has previously completed the two-dose series. I spent a total of 42 minutes on the date of the service which included [id number] patient care, completing clinical documentation, obtaining and/or reviewing separately obtained history, performing a medically appropriate examination, counseling and educating the patient/family/caregiver, ordering medications, tests, or procedures, and independently interpreting results (not separately reported). Emily Flaherty MD UPDATED HISTORY AND PHYSICAL EXAMINATION SERVICE DATE: 12/19/2024 SERVICE TIME: 7:57 AM PHYSICAL EXAM MUST BE COMPLETED ON ADMISSION The History and Physical (completed in the past 30 days) has been reviewed and the patient has been examined. The contents accurately reflect the patient's condition with the following additions or revisions since the H&P was completed. Examination indicates no changes. This H&P can be found in the attached. SIGNATURE: Lc Cuello III, MD PATIENT NAME: Angelica Sosa DATE: December 19, 2024 TIME: 7:56 AM documented in this encounter [facility] 11-11-2024 Instructions Emily Flaherty MD - 11/11/2024 11:45 AM EST - Refill prescriptions for Minocycline, Lisinopril, and Vitamin D at [facility]. - Continue taking Metformin 500 mg once daily at bedtime. - Schedule and complete lab tests, including Vitamin D, cholesterol, A1c, metabolic panel, blood counts, and urine test for protein. - Stay hydrated by drinking water before lab tests. - Increase physical activity with indoor exercises such as chair aerobics, light weights, and walking around the house. - Use Clobetasol sparingly for no more than 14 days to treat itching on the alvarez. - Apply lotion followed by a thin layer of Vaseline to keep the skin moisturized. - Schedule an appointment with your installation service representative. - Use olive oil in your diet to help lower LDL cholesterol. - Schedule a colonoscopy with Dr. Cuello and follow the Miralax and Gatorade prep instructions. - Next follow-up appointment in 6 months. Miralax/Dulcolax Bowel Prep For this bowel preparation, you will need to purchase the following medications at any pharmacy: Over the counter Miralax (generic name is polyethylene glycol) 8.3 oz or 238 grams Four (4) Dulcolax (generic name is Bisacodyl) tablets 3 days prior to your procedure, you need to be on a low fiber diet (Such as popcorn, beans, seeds, nuts, salad and raw vegetables, corn, fresh and dried fruit and multi-grain bread) YOU MUST BE ON CLEAR LIQUIDS FOR 2 FULL DAYS PRIOR TO YOUR COLONOSCOPY Day one which would be two days before your colonoscopy, you will need to be on clear liquids all day. You may have coffee or tea-black only (no cream), clear broths (beef, chicken or vegetable), apple juice, white grape juice, pop, Gatorade, Powerade, lemonade, Jello, popsicles, Guille-aid, and water-But nothing red or dark purple in color and no dairy products, tomato or orange juices. Day two which would be the day before your colonoscopy continue clear liquids all day as above. And follow the instructions below: 8:00 AM - Mix the Miralax with 64 oz of Gatorade or another clear liquid of choice and place in refrigerator. Most people say the drink is better cold. 4:00 PM - Take 2 of the Dulcolax tablets with 8 oz of water. 6:00 PM - Start to drink the Miralax mixture. You must finish it by midnight. 8:00 PM - Take the other 2 Dulcolax tablets with 8 oz of water. You may continue to drink clear liquids while you are taking your prep and after you finish it as long as it is before midnight. Drink lots of fluids so you don t become dehydrated. Nothing to drink after midnight the night before the procedure unless you are instructed differently by the physician or nurses. Please remember to take your normal medications the morning of the procedure with a small sip of water especially your blood pressure medications. If you are diabetic, you need to contact your physician about how to take your diabetic medications and/or insulin during the prepping period and the day of your procedure. Any questions please call: Dr. Reddy or Dr. Barksdale [phone] Tammie Degroot [phone] Dr. Avendano [phone] [facility] nurses [phone] documented in this encounter [facility] 11-11-2024 Note HNO ID: [id number] Author: EMILY FLAHERTY MD Service: ? Author Type: Physician Type: Progress Notes Filed: 11/11/2024 11:59 Note Text: This note was created using [employer]. Subjective Angelica Sosa is a 79 year old female. Patient presents with: Diabetes: Is concerned due to medication side effects with treating diabetes. Is taking Metformin 500 mg 1 daily as two daily causes to severe diarrhea. SUBJECTIVE: Angelica Sosa is a 79 year old year old lady here today for follow up appointment for review of medical conditions. Angelica Sosa is an 79-year-old female with a history of DM, presenting for evaluation of glycemic control and a chronic pruritic lesion on the leg. Angelica reports difficulty tolerating metformin due to gastrointestinal side effects, specifically diarrhea, when taking more than 500 mg daily. She currently takes 500 mg once daily at bedtime and notes that higher doses exacerbate gastrointestinal symptoms. She monitors her blood glucose levels regularly and brought her glucose meter to the visit. Recent fasting blood glucose readings have ranged from 159 to 192 mg/dL, with most readings in the 160s to 180s. She denies any fasting blood glucose readings over 200 mg/dL. She occasionally checks postprandial blood glucose levels but has not done so recently and denies any postprandial readings over 180 mg/dL. Her last HbA1c, measured in November of the previous year, was 7.5%. She reports decreased physical activity due to weather conditions and denies any recent changes in diet or exercise habits. Angelica also reports a chronic pruritic lesion on her leg, which has been present since she had shingles approximately 2 years ago. The lesion is described as itchy and sometimes scaly. She has tried various topical treatments, including calamine lotion and ice packs, to alleviate the itching. She has clobetasol at home but has used it sparingly due to concerns about skin thinning. She has not seen a installation service representative for this issue in the past year but plans to make an appointment. Additionally, Angelica inquires about the need for a colonoscopy. She had her last colonoscopy in 2019 and has a family history of colorectal cancer, with both grandmothers having from the disease. She expresses reluctance to undergo the procedure but is seeking medical advice on whether it is necessary. 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 LICHEN SCLEROSIS Controlled type 2 diabetes mellitus without complication, without long-term current use of insulin (HCC) 05/04/2021 DEPRESSIVE DISORDER NEC 10/17/2005 Gl[address] of both eyes Dr. Daniels follows at [facility] HYPERLIPIDEMIA NEC/NOS 10/17/2005 HYPERTENSION NOS 10/17/2005 Rosacea 10/17/2005 Vitamin D deficiency 09/23/2016 Current Outpatient Medications Medication Sig cyclobenzaprine (FLEXERIL) 10 mg tablet Take 1 tablet by mouth at bedtime as needed for muscle spasm. (Patient not taking: Reported on 11/11/2024) metFORMIN ER (GLUCOPHAGE XR) 500 mg 24 hr tablet Take 1 tablet by mouth daily with breakfast. Take 1 tablets with breakfast and 1 tablet with dinner or as directed clobetasol (TEMOVATE) 0.05 % ointment APPLY DAILY NEEDED TO THE AFFECTED AREA SPARINGLY Cholecalciferol, Vitamin D3, 50 mcg (2,000 unit) cap Take 1 capsule by mouth once daily. minocycline (MINOCIN, DYNACIN) 50 mg capsule Take 1 capsule by mouth once daily. As directed lisinopril (ZESTRIL) 20 mg tablet Take 1 tablet by mouth once daily. blood sugar diagnostic (ONETOUCH VERIO TEST STRIPS) test strip USE TO CHECK BLOOD SUGAR ONCE A DAY lancets (CyberXTOUCH DELICA PLUS LANCET) 33 gauge USE TO CHECK BLOOD SUGAR ONCE A DAY No current facility-administered medications for this visit. Review of Systems Objective BP 126/66 Pulse (!) 58 Wt 65.2 kg (143 lb 11.8 oz) SpO2 97% BMI 26.72 kg/m? Physical Exam Constitutional: Appearance: Normal appearance. HENT: Head: Normocephalic. Eyes: Conjunctiva/sclera: Conjunctivae normal. Cardiovascular: Rate and Rhythm: Normal rate and regular rhythm. Heart sounds: Normal heart sounds. Pulmonary: Effort: Pulmonary effort is normal. Breath sounds: Normal breath sounds. Musculoskeletal: Right lower leg: No edema. Left lower leg: No edema. Skin: General: Skin is warm and dry. Neurological: General: No focal deficit present. Mental Status: She is alert and oriented to person, place, and time. Psychiatric: Mood and Affect: Mood normal. Behavior: Behavior normal. Thought Content: Thought content normal. Judgment: Judgment normal. Hemoglobin A1C (%) Date Value 12/06/2023 7.5 07/13/2021 7.0 03/23/2021 13.6 06/08/2018 6.5 12/26/2017 6.7 05/27/2017 6.3 Hemoglobin A1C (POCT) (%) Date Value 11/01/2022 7.2 Assessment and Plan # Controlled type 2 diabetes mellitus wit (more content not included)... [facility] 11-11-2024 History of Presen t illness Narrative Images from the original note were not included. This note was created using [employer]. Subjective Angelica Sosa is a 79 year old female. Patient presents with: Diabetes: Is concerned due to medication side effects with treating diabetes. Is taking Metformin 500 mg 1 daily as two daily causes to severe diarrhea. SUBJECTIVE: Angelica Sosa is a 79 year old year old lady here today for follow up appointment for review of medical conditions. Angelica Sosa is an 79-year-old female with a history of DM, presenting for evaluation of glycemic control and a chronic pruritic lesion on the leg. Angelica reports difficulty tolerating metformin due to gastrointestinal side effects, specifically diarrhea, when taking more than 500 mg daily. She currently takes 500 mg once daily at bedtime and notes that higher doses exacerbate gastrointestinal symptoms. She monitors her blood glucose levels regularly and brought her glucose meter to the visit. Recent fasting blood glucose readings have ranged from 159 to 192 mg/dL, with most readings in the 160s to 180s. She denies any fasting blood glucose readings over 200 mg/dL. She occasionally checks postprandial blood glucose levels but has not done so recently and denies any postprandial readings over 180 mg/dL. Her last HbA1c, measured in November of the previous year, was 7.5%. She reports decreased physical activity due to weather conditions and denies any recent changes in diet or exercise habits. Angelica also reports a chronic pruritic lesion on her leg, which has been present since she had shingles approximately 2 years ago. The lesion is described as itchy and sometimes scaly. She has tried various topical treatments, including calamine lotion and ice packs, to alleviate the itching. She has clobetasol at home but has used it sparingly due to concerns about skin thinning. She has not seen a installation service representative for this issue in the past year but plans to make an appointment. Additionally, Angelica inquires about the need for a colonoscopy. She had her last colonoscopy in 2019 and has a family history of colorectal cancer, with both grandmothers having from the disease. She expresses reluctance to undergo the procedure but is seeking medical advice on whether it is necessary. 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 Daniels follows at [facility] HYPERLIPIDEMIA NEC/NOS 10/17/2005 HYPERTENSION NOS 10/17/2005 Rosacea 10/17/2005 Vitamin D deficiency 09/23/2016 Current Outpatient Medications Medication Sig cyclobenzaprine (FLEXERIL) 10 mg tablet Take 1 tablet by mouth at bedtime as needed for muscle spasm. (Patient not taking: Reported on 11/11/2024) metFORMIN ER (GLUCOPHAGE XR) 500 mg 24 hr tablet Take 1 tablet by mouth daily with breakfast. Take 1 tablets with breakfast and 1 tablet with dinner or as directed clobetasol (TEMOVATE) 0.05 % ointment APPLY DAILY NEEDED TO THE AFFECTED AREA SPARINGLY Cholecalciferol, Vitamin D3, 50 mcg (2,000 unit) cap Take 1 capsule by mouth once daily. minocycline (MINOCIN, DYNACIN) 50 mg capsule Take 1 capsule by mouth once daily. As directed lisinopril (ZESTRIL) 20 mg tablet Take 1 tablet by mouth once daily. blood sugar diagnostic (ONETOUCH VERIO TEST STRIPS) test strip USE TO CHECK BLOOD SUGAR ONCE A DAY lancets (ONETOUCH DELICA PLUS LANCET) 33 gauge USE TO CHECK BLOOD SUGAR ONCE A DAY No current facility-administered medications for this visit. Review of Systems Objective BP 126/66 Pulse (!) 58 Wt 65.2 kg (143 lb 11.8 oz) SpO2 97% BMI 26.72 kg/m Physical Exam Constitutional: Appearance: Normal appearance. HENT: Head: Normocephalic. Eyes: Conjunctiva/sclera: Conjunctivae normal. Cardiovascular: Rate and Rhythm: Normal rate and regular rhythm. Heart sounds: Normal heart sounds. Pulmonary: Effort: Pulmonary effort is normal. Breath sounds: Normal breath sounds. Musculoskeletal: Right lower leg: No edema. Left lower leg: No edema. Skin: General: Skin is warm and dry. Neurological: General: No focal deficit present. Mental Status: She is alert and oriented to person, place, and time. Psychiatric: Mood and Affect: Mood normal. Behavior: Behavior normal. Thought Content: Thought content normal. Judgment: Judgment normal. Hemoglobin A1C (%) Date Value 12/06/2023 7.5 07/13/2021 7.0 03/23/2021 13.6 06/08/2018 6.5 12/26/2017 6.7 05/27/2017 6.3 Hemoglobin A1C (POCT) (%) Date Value 11/01/2022 7.2 Assessment and Plan # Controlled type 2 diabetes mellitus without complication, without long-term current use of insulin (HCC) (E11.9) - Current medication regimen includes Metformin 500 mg once daily at bedtime; higher doses result in significant gastrointestinal side effects, including diarrhea. - Fasting blood glucose readings are consistently in the 160s to 180s, slightly above the target of <150 mg/dL. - Last HbA1c in November of the previous year was 7.5%. - Ordered comprehensive lab work including HbA1c, vitamin D, lipid panel, CMP, CBC, and ACR to assess current glycemic control and overall metabolic status. - Discussed the importance of diet and exercise in managing blood glucose levels. Recommended indoor exercises such as chair aerobics and light weightlifting due to weather constraints. - Will evaluate lab results to determine if additional pharmacological intervention is necessary. # Vitamin D deficiency (E55.9) - Currently taking vitamin D supplementation. - Ordered vitamin D level to assess efficacy of current supplementation. # Mixed hyperlipidemia (E78.2) - Last LDL was in the 130s. - Discussed dietary modifications to improve lipid profile, including increasing intake of omega-3 fatty acids and using olive oil. - Will evaluate lipid panel results to determine if initiation of statin therapy is indicated. # Essential hypertension (I10) - Refilled lisinopril prescription. - Blood pressure management to continue with current medication regimen. # Skin lesion of lower extremity (L98.9) - Chronic pruritic lesion on the lower extremity, persisting since a shingles outbreak two years ago. - Advised use of clobetasol sparingly for no more than 14 days to reduce inflammation and pruritus. - Recommended moisturizing with lotion followed by a thin layer of Vaseline to lock in moisture. - Patient to follow up with installation service representative Dr. Townsend for further evaluation and management. # Special screening for malignant neoplasms, colon (Z12.11) - Last colonoscopy was in 2018; due for repeat screening. - Family history of colorectal cancer in both grandmothers. - Referred to Dr. Cuello for colonoscopy. - Discussed alternative bowel prep using Miralax and Gatorade to improve tolerability. # Encounter for immunization (Z23) - Discussed RSV and tetanus vaccines; informed patient that these are covered by Medicare Part D. - Patient has received three COVID-19 vaccinations and does not wish to receive additional doses at this time. - Postponed Shingrix vaccine as patient has previously completed the two-dose series. I spent a total of 42 minutes on the date of the service which included [id number] patient care, completing clinical documentation, obtaining and/or reviewing separately obtained history, performing a medically appropriate examination, counseling and educating the patient/family/caregiver, ordering medications, tests, or procedures, and independently interpreting results (not separately reported). Emily Flaherty MD documented in this encounter [facility] 07-31-2024 Telephone encounter Note Images from the original note were not included. Electronic PA completed for cyclobenzaprine. This was approved. Approved Prior authorization approved Payer: [facility] [phone] Approval Details Authorized from September 11, 2023 to October 29, 2024 Electronic appeal: Not supported Prior auth initiated by: e- [id number] - [place] [address] - [address] [facility]. - [phone] [phone] View History Notes Time User Attachment Attachment received from payer. 07/31/2024 9:20 AM Mila Maciasauth In Document OBTAIN PA USING PA Phone # [phone] or TP Help Desk Phone:[phone] REQUIRES PRIOR AUTH. 07/31/2024 8:32 AM [facility] From [employer] Benefits Open Encounter ANGELICA SOSAST BB CDH-N SSIMDXR ([facility]) Covered: Retail, Mail Order, Specialty Unknown: Long-Term Care BIN: [id number] : 1945 Group ID: [id number] PCN: [id number] Legal sex: F Group name: [facility] MED D/AMA PART B ONLY Address: [address] [place] [address] [place] [address] Medication Being Authorized cyclobenzaprine (FLEXERIL) 10 mg tablet Take 1 tablet by mouth at bedtime as needed for muscle spasm. Dispense: 30 tablet Refills: 1 Start: 07/04/2024 Class: Normal Diagnoses: Acute right-sided low back pain with right-sided sciatica This order has been released to its destination. To be filled at: e- [id number] - [place] [address] - [address] [facility]. - [phone] [address] [facility] [id number] Pt notified via my chart. [facility] 07-31-2024 Miscellaneous Notes Images from the original note were not included. Electronic PA completed for cyclobenzaprine. This was approved. Approved Prior authorization approved Payer: [facility] [phone] Approval Details Authorized from September 11, 2023 to October 29, 2024 Electronic appeal: Not supported Prior auth initiated by: e- [id number] - [place] [address] - [address] - [phone] [facility] [phone] View History Notes Time User Attachment Attachment received from payer. 07/31/2024 9:20 AM [facility], Rx Priorauth In Document OBTAIN PA USING PA Phone # [phone] or TP Help Desk Phone:[phone] REQUIRES PRIOR AUTH. 07/31/2024 8:32 AM Ce, [facility] Incoming Retail Pharmacy From [employer] Open Encounter ANGELICA SOSA - SSIST BB CDH-N SSIMDXR ([facility]) Covered: Retail, Mail Order, Specialty Unknown: Long-Term Care BIN: [id number] : 1945 Group ID: [id number] PCN: [id number] Legal sex: F Group name: [facility] D/AMA PART B ONLY Address: [address] [place] [address] [place] [address] Medication Being Authorized cyclobenzaprine (FLEXERIL) 10 mg tablet Take 1 tablet by mouth at bedtime as needed for muscle spasm. Dispense: 30 tablet Refills: 1 Start: 07/04/2024 Class: Normal Diagnoses: Acute right-sided low back pain with right-sided sciatica This order has been released to its destination. To be filled at: e- [id number] [place] [address] - [address] [facility]. - [phone] [facility] [place] [id number] Pt notified via my chart. documented in this encounter [facility] 07-15-2024 History of Presen t illness Narrative Radiology Service Progress Note PATIENT NAME: Angelica Sosa DATE OF SERVICE: July 15, 2024 TIME: 2:56 PM PATIENT IDENTITY VERIFICATION COMPLETED USING TWO (2) IDENTIFIERS: Name and Date of confirmed by patient verbally. FALL SCREENING: Has the patient had 2 falls in the last year or 1 fall with injury or currently using an Ambulatory Assistive Device (Walker, Cane, Wheelchair, Crutches, etc.)? No PATIENT GENDER DATA: Female. status: : No status: NO. PATIENT RELEVANT IMPLANT DATA REVIEWED: Not Applicable PATIENT PRESENTS WITH AN IMPLANTABLE OR ATTACHED PORTER LUGGAGE: No RADIOLOGY DEPARTMENT: Mammography PERIPHERAL IV DATA: Not applicable SIGNED BY: Ryan Coppola July 15, 2024 2:56 PM documented in this encounter [facility] 07-15-2024 Note HNO ID: [id number] Author: TEGAN WILKS Mammo Tech Service: ? Author Type: Infrastructure Consultant Type: Progress Notes Filed: 07/15/2024 14:58 Note Text: Radiology Service Progress Note PATIENT NAME: Angelica Sosa DATE OF SERVICE: July 15, 2024 TIME: 2:56 PM PATIENT IDENTITY VERIFICATION COMPLETED USING TWO (2) IDENTIFIERS: Name and Date of confirmed by patient verbally. FALL SCREENING: Has the patient had 2 falls in the last year or 1 fall with injury or currently using an Ambulatory Assistive Device (Walker, Cane, Wheelchair, Crutches, etc.)? No PATIENT GENDER DATA: Female. status: : No status: NO. PATIENT RELEVANT IMPLANT DATA REVIEWED: Not Applicable PATIENT PRESENTS WITH AN IMPLANTABLE OR ATTACHED PORTER LUGGAGE: No RADIOLOGY DEPARTMENT: Mammography PERIPHERAL IV DATA: Not applicable SIGNED BY: Ryan Coppola July 15, 2024 2:56 PM [facility] 07-04-2024 Instructions Amara Mauricio APRN.[employer] - 07/04/2024 12:43 PM EDT Take meloxicam once daily for the next several days to two weeks daily until back pain is improved then may just take as needed. Take Flexeril at bedtime for back pain as needed, may make you very drowsy Let us know if you are not feeling improved documented in this encounter [facility] 07-04-2024 Note HNO ID: [id number] Author: AMARA MAURICIO APRN.[employer] Service: ? Author Type: Nurse Specialist Type: Progress Notes Filed: 07/04/2024 14:01 Note Text: SUBJECTIVE: Diabetic Foot Exam Never done Shingrix Vaccine(2 of 3) due on 01/29/2009 DTaP,Tdap,Td Vaccine(2 - Td or Tdap) due on 11/24/2018 RSV Vaccine(1 - 1-dose 75+ series) Never done BP Controlled (<130/80) due on 07/28/2021 Covid-19 Vaccine( season) due on 05/12/2024 HbA1C due on 06/07/2024 HPI Angelica Sosa is a 79 year old female. Presents today to follow up. She presents with right sided back pin radiating to right leg for 1-2 weeks. She notes this started after standing for standing prolonged period, better with walking. Is keep ing her awake at night. Pain described as persistent only. It is working in the kitchen. Nothing seems to aggravate or alleviate it. Has taken Advil. Notes that feels like sciatic pain. No alarm symptoms reported. Review of Systems Constitutional: Negative. Musculoskeletal: Positive for back pain. Objective BP 134/79 Pulse 89 Resp 16 Wt 67.3 kg (148 lb 5.9 oz) BMI 27.58 kg/m? Physical Exam Vitals and nursing note reviewed. Constitutional: Appearance: Normal appearance. HENT: Head: Normocephalic and atraumatic. Eyes: Conjunctiva/sclera: Conjunctivae normal. Cardiovascular: Rate and Rhythm: Normal rate. Pulmonary: Effort: Pulmonary effort is normal. Neurological: Mental Status: She is alert. Mental status is at baseline. ALLERGIES Allergen Reactions Beef Derived (Bovin* congestion Fish Containing Pro* Itching Peanut Oil uncertain Peanuts not sure Shellfish Derived Itching Tylenol [Acetaminop* hyperactivity Medications: metFORMIN ER (GLUCOPHAGE XR) 500 mg 24 hr tablet Take 1 tablet by mouth daily with breakfast. Take 1 tablets with breakfast and 1 tablet with dinner or as directed (Patient taking differently: Take 500 mg by mouth daily with breakfast.) clobetasol (TEMOVATE) 0.05 % ointment APPLY DAILY NEEDED TO THE AFFECTED AREA SPARINGLY Cholecalciferol, Vitamin D3, 50 mcg (2,000 unit) cap Take 1 capsule by mouth once daily. minocycline (MINOCIN, DYNACIN) 50 mg capsule Take 1 capsule by mouth once daily. As directed lisinopril (ZESTRIL) 20 mg tablet Take 1 tablet by mouth once daily. blood sugar diagnostic (ONETOUCH VERIO TEST STRIPS) test strip USE TO CHECK BLOOD SUGAR ONCE A DAY lancets (ONETOUCH DELICA PLUS LANCET) 33 gauge USE TO CHECK BLOOD SUGAR ONCE A DAY 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 LICHEN SCLEROSIS Controlled type 2 diabetes mellitus without complication, without long-term current use of insulin (HCC) 05/04/2021 DEPRESSIVE DISORDER NEC 10/17/[address] of [address] eyes Dr. Daniels follows at [facility] HYPERLIPIDEMIA NEC/NOS 10/17/2005 HYPERTENSION NOS 10/17/2005 Rosacea 10/17/2005 Vitamin D deficiency 09/23/2016 Social History Tobacco Use Smoking status: Former Current packs/day: 0.00 Types: Cigarettes Quit date: 05/12/1972 Years since quittin.1 Smokeless tobacco: Never Substance Use Topics Alcohol use: No Drug use: No Component Latest Ref Rng AND Units 03/23/2021 03/26/2021 03/29/2021 Protein, Total 6.3 - 8.0 g/dL 7.5 Albumin 3.9 - 4.9 g/dL 4.6 Calcium 8.5 - 10.2 mg/dL 10.3 (H) 9.8 Bilirubin, Total 0.2 - 1.3 mg/dL 0.5 Alkaline Phosphatase 34 - 123 U/L 115 AST 13 - 35 U/L 27 Glucose 74 - 99 mg/dL 460 (H) 321 (H) BUN 7 - 21 mg/dL 16 14 Creatinine 0.58 - 0.96 mg/dL 0.76 0.56 (L) Sodium 136 - 144 mmol/L 134 (L) 136 Potassium 3.7 - 5.1 mmol/L 4.4 4.5 Chloride 97 - 105 mmol/L 98 101 CO2 22 - 30 mmol/L 22 20 (L) Anion Gap 9 - 18 mmol/L 14 15 ALT 7 - 38 U/L 41 (H) eGFR- >60 >60 eGFR-All Other Races . >60 >60 Color Yellow Light Yellow (A) Clarity Clear Clear Glucose, Urine Negative mg/dL 3+ (A) Bilirubin, Urine Negative Negative Ketones, Urine Negative 1+ (A) Specific [place], Ur 1.005 - 1.030 1.035 (H) Hemoglobin/Blood,Ur Negative Negative pH, Urine 5.0 - 8.0 6.0 Protein, Urine Negative Negative Urobilinogen Negative E.U./dL Negative Nitrites Negative Negative Leukest Negative Trace (A) Comment SEE COMMENT Urine Ish Comment SEE COMMENT WBC, Urine 0 - 5 /HPF 0-5 RBC, Urine 0 - 3 /HPF 0-3 Epithelial Cells /HPF SEE COMMENT WBC 3.70 - 11.00 k/uL 10.16 RBC 3.90 - 5.20 m/uL 5.09 Hemoglobin 11.5 - 15.5 g/dL 14.7 Hematocrit 36.0 - 46.0 % 44.9 MCV 80.0 - 100.0 fL 88.2 MCH 26.0 - 34.0 pG 28.9 MCHC 30.5 - 36.0 g/dL 32.7 RDW-CV 11.5 - 15.0 % 12.5 Platelet Count 150 - 400 k/uL 335 MPV 9.0 - 12.7 fL 10.0 Absolute nRBC <0.01 k/uL <0.01 Hemoglobin A1C 4.3 - 5.6 % 13.6 (H) Estimated Average Glucose mg/dL 344 Glutamic Acid Decarboxylase Ab, Qual Negative Negative Glutamic Acid Decarboxylase Ab <5.1 IU/mL <5.0 Insulin Antibody, (more content not included)... [facility] 07-04-2024 History of Presen t illness Narrative SUBJECTIVE: Diabetic Foot Exam Never done Shingrix Vaccine(2 of 3) due on 01/29/2009 DTaP,Tdap,Td Vaccine(2 - Td or Tdap) due on 11/24/2018 RSV Vaccine(1 - 1-dose 75+ series) Never done BP Controlled (<130/80) due on 07/28/2021 Covid-19 Vaccine(2023- season) due on 05/12/2024 HbA1C due on 06/07/2024 DRE Angelica Sosa is a 79 year old female. Presents today to follow up. She presents with right sided back pin radiating to right leg for 1-2 weeks. She notes this started after standing for standing prolonged period, better with walking. Is keep ing her awake at night. Pain described as persistent only. It is working in the kitchen. Nothing seems to aggravate or alleviate it. Has taken Advil. Notes that feels like sciatic pain. No alarm symptoms reported. Review of Systems Constitutional: Negative. Musculoskeletal: Positive for back pain. Objective BP 134/79 Pulse 89 Resp 16 Wt 67.3 kg (148 lb 5.9 oz) BMI 27.58 kg/m Physical Exam Vitals and nursing note reviewed. Constitutional: Appearance: Normal appearance. HENT: Head: Normocephalic and atraumatic. Eyes: Conjunctiva/sclera: Conjunctivae normal. Cardiovascular: Rate and Rhythm: Normal rate. Pulmonary: Effort: Pulmonary effort is normal. Neurological: Mental Status: She is alert. Mental status is at baseline. ALLERGIES Allergen Reactions Beef Derived (Bovin* congestion Fish Containing Pro* Itching Peanut Oil uncertain Peanuts not sure Shellfish Derived Itching Tylenol [Acetaminop* hyperactivity Medications: metFORMIN ER (GLUCOPHAGE XR) 500 mg 24 hr tablet Take 1 tablet by mouth daily with breakfast. Take 1 tablets with breakfast and 1 tablet with dinner or as directed (Patient taking differently: Take 500 mg by mouth daily with breakfast.) clobetasol (TEMOVATE) 0.05 % ointment APPLY DAILY NEEDED TO THE AFFECTED AREA SPARINGLY Cholecalciferol, Vitamin D3, 50 mcg (2,000 unit) cap Take 1 capsule by mouth once daily. minocycline (MINOCIN, DYNACIN) 50 mg capsule Take 1 capsule by mouth once daily. As directed lisinopril (ZESTRIL) 20 mg tablet Take 1 tablet by mouth once daily. blood sugar diagnostic (CyberXTOUCH VERIO TEST STRIPS) test strip USE TO CHECK BLOOD SUGAR ONCE A DAY lancets (ParakeyUCH DELICA PLUS LANCET) 33 gauge USE TO CHECK BLOOD SUGAR ONCE A DAY 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 LICHEN SCLEROSIS Controlled type 2 diabetes mellitus without complication, without long-term current use of insulin ([facility]) 05/04/2021 DEPRESSIVE DISORDER NEC 10/17/[address] of both eyes Dr. Daniels follows at [facility] HYPERLIPIDEMIA NEC/NOS 10/17/2005 HYPERTENSION NOS 10/17/2005 Rosacea 10/17/2005 Vitamin D deficiency 09/23/2016 Social History Tobacco Use Smoking status: Former Current packs/day: 0.00 Types: Cigarettes Quit date: 05/12/1972 Years since quittin.1 Smokeless tobacco: Never Substance Use Topics Alcohol use: No Drug use: No Component Latest Ref Rng & Units 03/23/2021 03/26/2021 03/29/2021 Protein, Total 6.3 - 8.0 g/dL 7.5 Albumin 3.9 - 4.9 g/dL 4.6 Calcium 8.5 - 10.2 mg/dL 10.3 (H) 9.8 Bilirubin, Total 0.2 - 1.3 mg/dL 0.5 Alkaline Phosphatase 34 - 123 U/L 115 AST 13 - 35 U/L 27 Glucose 74 - 99 mg/dL 460 (H) 321 (H) BUN 7 - 21 mg/dL 16 14 Creatinine 0.58 - 0.96 mg/dL 0.76 0.56 (L) Sodium 136 - 144 mmol/L 134 (L) 136 Potassium 3.7 - 5.1 mmol/L 4.4 4.5 Chloride 97 - 105 mmol/L 98 101 CO2 22 - 30 mmol/L 22 20 (L) Anion Gap 9 - 18 mmol/L 14 15 ALT 7 - 38 U/L 41 (H) eGFR- >60 >60 eGFR-All Other Races . >60 >60 Color Yellow Light Yellow (A) Clarity Clear Clear Glucose, Urine Negative mg/dL 3+ (A) Bilirubin, Urine Negative Negative Ketones, Urine Negative 1+ (A) Specific [place], Ur 1.005 - 1.030 1.035 (H) Hemoglobin/Blood,Ur Negative Negative pH, Urine 5.0 - 8.0 6.0 Protein, Urine Negative Negative Urobilinogen Negative E.U./dL Negative Nitrites Negative Negative Leukest Negative Trace (A) Comment SEE COMMENT Urine Ish Comment SEE COMMENT WBC, Urine 0 - 5 /HPF 0-5 RBC, Urine 0 - 3 /HPF 0-3 Epithelial Cells /HPF SEE COMMENT WBC 3.70 - 11.00 k/uL 10.16 RBC 3.90 - 5.20 m/uL 5.09 Hemoglobin 11.5 - 15.5 g/dL 14.7 Hematocrit 36.0 - 46.0 % 44.9 MCV 80.0 - 100.0 fL 88.2 MCH 26.0 - 34.0 pG 28.9 MCHC 30.5 - 36.0 g/dL 32.7 RDW-CV 11.5 - 15.0 % 12.5 Platelet Count 150 - 400 k/uL 335 MPV 9.0 - 12.7 fL 10.0 Absolute nRBC <0.01 k/uL <0.01 Hemoglobin A1C 4.3 - 5.6 % 13.6 (H) Estimated Average Glucose mg/dL 344 Glutamic Acid Decarboxylase Ab, Qual Negative Negative Glutamic Acid Decarboxylase Ab <5.1 IU/mL <5.0 Insulin Antibody, Qual Negative Negative Insulin Antibody <0.4 U/mL <0.4 Vitamin D 25 Hydroxy 31.0 - 80.0 ng/mL 18.6 (L) TSH 0.270 - 4.200 uU/mL 0.515 Free T4 0.9 - 1.7 ng/dL 1.5 Free T3 2.3 - 4.1 pg/mL 2.6 PTH, Intact 15 - 65 pg/mL 31 Hep C Antibody IA Negative Negative C-Peptide 0.8 - 3.9 ng/mL 1.8 ASSESSMENT/PLAN: 1. Acute right-sided low back pain with right-sided sciatica - ICD9: 724.2, 724.3, ICD10: M54.41 (primary diagnosis) Symptoms consistent with sciatica - NSAIDS- see orders - Muscle relaxant- see orders - PT consult - Xrays- see orders - MELOXICAM 15 MG TABLET - CYCLOBENZAPRINE 10 MG TABLET - XR LUMBAR GENERAL 3V AP/LAT/L5-S1 - CONSULT TO PHYSICAL THERAPY 2. Screening mammogram for breast cancer - ICD9: V76.12, ICD10: Z12.31 - Encourage monthly BSE - REINIER SCREENING Amara Mauricio APRN.CNS Medical Decision Making: Problems: Low: Acute, uncomplicated illness or injury Data: Unique test(s) ordered: 2 Risk: Moderate: Drug management Medical Decision Making Level: 3 - Low documented in this encounter [facility] 07-04-2024 Telephone encounter Note Patient calls and states that she has had issues with sciatica pain in the past. Patient asking if there is anything else she can do for the pain besides taking Advil. Advised patient that she should set up appointment with provider so that provider can assess her back pain. Patient voiced understanding. Patient scheduled today with Amara 07/04/2024. Kelly Soto RN [facility] 07-04-2024 Miscellaneous Notes Patient calls and states that she has had issues with sciatica pain in the past. Patient asking if there is anything else she can do for the pain besides taking Advil. Advised patient that she should set up appointment with provider so that provider can assess her back pain. Patient voiced understanding. Patient scheduled today with Amara 07/04/2024. Kelly Soto RN documented in this encounter [facility] 06-07-2024 Note HNO ID: [id number] Author: ARACELIS RIBEIRO APRN.TUBE CUTTER OPERATOR Service: ? Author Type: Nurse Practitioner Type: Progress Notes Filed: 06/07/2024 09:28 Note Text: Angelica Sosa is a 79 year old female here for a Medicare wellness visit. Medicare Health Risk Assessment General Health Pretty good for age Exercise: Minutes/Day 30 min Exercise: Days/Week 7 days Alcohol: Daily Use Never Alcohol: Drinks/Day Patient does not drink Alcohol: 6 or more drinks Never Feel off balance No Concerns: Teeth/Dentures no Concerns: Sexual function no Troubled by feelings no Frequency: Eating healthy diet Tries daily ADLs requiring help no Safety precautions in home/vehicle yes Smoke, vape, chews tobacco no Difficulty hearing Hearing aid Difficulty seeing no Current Providers Specialists: I have reviewed specialist-related care of the patient in the medical record. Current care team: Patient Care Team: Emily Flaherty MD as PCP - [place] FieldsBecki manley RPh as Pharmacist (Pharmacy) Outside specialists seen: hook and eye machine operator, dermatology Medical/Family history review Reviewed and updated problem list, medical/surgical/family/social history, medications, and allergies. Opioid use review Opioid Medications (last 90 days) No data to display Anxiety/Depression screening CAITIE-2 Score: 0 (Lower risk for anxiety) Recommendation: no further intervention at this time Cognitive screening Mini Cog Score: 5 Cognitive screening reviewed and No further action needed (score 3-5). Functional Observation Was the patient's Timed Up AND Go test unsteady or >= 12 seconds? No Advance Care Planning Surrogate decision maker and/or advance care plan documented Measurements BP 154/72 Pulse 74 Wt 66.6 kg (146 lb 13.2 oz) SpO2 97% BMI 27.29 kg/m? Vision Screening: Follows with optometry/ophthalmology SUBJECTIVE Angelica Sosa is a 79 year old female here today for a check up on her medical problems. Chief Complaint Patient presents with: F/U 6 months Medicare Wellness Exam HPI Angelica Sosa is a 79 year old female. Here for 6 month follow up and medicare wellness. Some issues with her sugars, running 150's on average, metformin causes GI upset/diarrhea and taking this as 500 mg daily. Otherwise doing well. Has not had blood pressure pill yet today. Her medications were reviewed today and her list is now up to date. Medications Current Outpatient Medications Medication Sig clobetasol (TEMOVATE) 0.05 % ointment APPLY DAILY NEEDED TO THE AFFECTED AREA SPARINGLY Cholecalciferol, Vitamin D3, 50 mcg (2,000 unit) cap Take 1 capsule by mouth once daily. minocycline (MINOCIN, DYNACIN) 50 mg capsule Take 1 capsule by mouth once daily. As directed lisinopril (ZESTRIL) 20 mg tablet Take 1 tablet by mouth once daily. metFORMIN ER (GLUCOPHAGE XR) 500 mg 24 hr tablet Take 1 tablet by mouth daily with breakfast. Take 1 tablets with breakfast and 1 tablet with dinner or as directed blood sugar diagnostic (ONETOUCH VERIO TEST STRIPS) test strip USE TO CHECK BLOOD SUGAR ONCE A DAY lancets (ONETOUCH DELICA PLUS LANCET) 33 gauge USE TO CHECK BLOOD SUGAR ONCE A DAY No current facility-administered medications for this visit. ALLERGIES Allergen Reactions Beef Derived (Bovin* congestion Fish Containing Pro* Itching Peanut Oil uncertain Peanuts not sure Shellfish Derived Itching Tylenol [Acetaminop* hyperactivity ACTIVE PROBLEM LIST Controlled Type 2 Diabetes Mellitus Without Complication, Without Long-Term Current Use of Insulin ([facility]) - 05/04/2021 Vitamin D Deficiency - 09/23/2016 Osteopenia - 11/06/2012 Comment: Last BMD - 2010 Disorder of Bone and Cartilage, Unspecified - 09/24/2010 Leukocytosis, Unspecified - 08/20/2007 Essential Hypertension - 10/17/2005 Reactive Depression - 10/17/2005 Mixed Hyperlipidemia - 10/17/2005 Rosacea - 10/17/2005 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 Respiratory: Negative. Cardiovascular: Negative. OBJECTIVE BP 154/72 Pulse 74 Wt 146 lb 13.2 oz (66.6kg) SpO2 97% Physical Exam Vitals and nursing note reviewed. Constitutional: General: She is awake. She is not in acute distress. Appearance: Normal appearance. She is well-developed and well-groomed. She is not ill-appearing, toxic-appearing or diaphoretic. HENT: Head: Normocephalic. Right Ear: External ear normal. Left Ear: External ear normal. Nose: Nose normal. Eyes: General: Vision grossly intact. Conjunctiva/sclera: Conjunctivae normal. Pupils: Pupils are equal, round, and reactive to light. Neck: Vascular: No JVD. Trachea: Tr (more content not included)... [facility] 06-07-2024 History of Presen t illness Narrative Images from the original note were not included. Angelica Sosa is a 79 year old female here for a Medicare wellness visit. Medicare Health Risk Assessment General Health Pretty good for age Exercise: Minutes/Day 30 min Exercise: Days/Week 7 days Alcohol: Daily Use Never Alcohol: Drinks/Day Patient does not drink Alcohol: 6 or more drinks Never Feel off balance No Concerns: Teeth/Dentures no Concerns: Sexual function no Troubled by feelings no Frequency: Eating healthy diet Tries daily ADLs requiring help no Safety precautions in home/vehicle yes Smoke, vape, chews tobacco no Difficulty hearing Hearing aid Difficulty seeing no Current Providers Specialists: I have reviewed specialist-related care of the patient in the medical record. Current care team: Patient Care Team: [facility] Outside specialists seen: hook and eye machine operator, dermatology Medical/Family history review Reviewed and updated problem list, medical/surgical/family/social history, medications, and allergies. Opioid use review Opioid Medications (last 90 days) No data to display Anxiety/Depression screening CAITIE-2 Score: 0 (Lower risk for anxiety) Recommendation: no further intervention at this time Cognitive screening Mini Cog Score: 5 Cognitive screening reviewed and No further action needed (score 3-5). Functional Observation Was the patient's Timed Up & Go test unsteady or >= 12 seconds? No Advance Care Planning Surrogate decision maker and/or advance care plan documented Measurements BP 154/72 Pulse 74 Wt 66.6 kg (146 lb 13.2 oz) SpO2 97% BMI 27.29 kg/m Vision Screening: Follows with optometry/ophthalmology SUBJECTIVE Angelica Sosa is a 79 year old female here today for a check up on her medical problems. Chief Complaint Patient presents with: F/U 6 months Medicare Wellness Exam HPI Angelica Sosa is a 79 year old female. Here for 6 month follow up and medicare wellness. Some issues with her sugars, running 150's on average, metformin causes GI upset/diarrhea and taking this as 500 mg daily. Otherwise doing well. Has not had blood pressure pill yet today. Her medications were reviewed today and her list is now up to date. Medications Current Outpatient Medications Medication Sig clobetasol (TEMOVATE) 0.05 % ointment APPLY DAILY NEEDED TO THE AFFECTED AREA SPARINGLY Cholecalciferol, Vitamin D3, 50 mcg (2,000 unit) cap Take 1 capsule by mouth once daily. minocycline (MINOCIN, DYNACIN) 50 mg capsule Take 1 capsule by mouth once daily. As directed lisinopril (ZESTRIL) 20 mg tablet Take 1 tablet by mouth once daily. metFORMIN ER (GLUCOPHAGE XR) 500 mg 24 hr tablet Take 1 tablet by mouth daily with breakfast. Take 1 tablets with breakfast and 1 tablet with dinner or as directed blood sugar diagnostic (CyberXTOUCH VERIO TEST STRIPS) test strip USE TO CHECK BLOOD SUGAR ONCE A DAY lancets (CyberXTOUCH DELICA PLUS LANCET) 33 gauge USE TO CHECK BLOOD SUGAR ONCE A DAY No current facility-administered medications for this visit. ALLERGIES Allergen Reactions Beef Derived (Bovin* congestion Fish Containing Pro* Itching Peanut Oil uncertain Peanuts not sure Shellfish Derived Itching Tylenol [Acetaminop* hyperactivity ACTIVE PROBLEM LIST Controlled Type 2 Diabetes Mellitus Without Complication, Without Long-Term Current Use of Insulin ([facility]) - 05/04/2021 Vitamin D Deficiency - 09/23/2016 Osteopenia - 11/06/2012 Comment: Last BMD - 2010 Disorder of Bone and Cartilage, Unspecified - 09/24/2010 Leukocytosis, Unspecified - 08/20/2007 Essential Hypertension - 10/17/2005 Reactive Depression - 10/17/2005 Mixed Hyperlipidemia - 10/17/2005 Rosacea - 10/17/2005 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 Respiratory: Negative. Cardiovascular: Negative. OBJECTIVE BP 154/72 Pulse 74 Wt 146 lb 13.2 oz (66.6kg) SpO2 97% Physical Exam Vitals and nursing note reviewed. Constitutional: General: She is awake. She is not in acute distress. Appearance: Normal appearance. She is well-developed and well-groomed. She is not ill-appearing, toxic-appearing or diaphoretic. HENT: Head: Normocephalic. Right Ear: External ear normal. Left Ear: External ear normal. Nose: Nose normal. Eyes: General: Vision grossly intact. Conjunctiva/sclera: Conjunctivae normal. Pupils: Pupils are equal, round, and reactive to light. Neck: Vascular: No JVD. Trachea: Trachea normal. Cardiovascular: Rate and Rhythm: Normal rate and regular rhythm. Pulses: Normal pulses. Heart sounds: Normal heart sounds. No murmur heard. Pulmonary: Effort: Pulmonary effort is normal. No accessory muscle usage, prolonged expiration or respiratory distress. Breath sounds: Normal breath sounds. Musculoskeletal: Cervical back: Neck supple. Skin: General: Skin is warm and dry. Capillary Refill: Capillary refill takes less than 2 seconds. Neurological: General: No focal deficit present. Mental Status: She is alert and oriented to person, place, and time. Mental status is at baseline. Psychiatric: Attention and Perception: Attention and perception normal. Mood and Affect: Mood and affect normal. Speech: Speech normal. Behavior: Behavior normal. Behavior is cooperative. Thought Content: Thought content normal. Cognition and Memory: Cognition and memory normal. Judgment: Judgment normal. ASSESSMENT/PLAN: 1. Medicare annual wellness visit, subsequent - ICD9: V70.0, ICD10: Z00.00 (primary diagnosis) - Counseled on healthy diet and regular exercise - Fall avoidance information provided - Personalized prevention plan provided 2. Controlled type 2 diabetes mellitus without complication, without long-term current use of insulin (HCC) - ICD9: 250.00, ICD10: E11.9 - Control undetermined, due for labs, planning to do standing order labs - Continue current medications - Counseled on healthy diet and regular exercise - Discussed need for and benefit of weight loss. BMI 27.29 kg/(m^2) 3. Essential hypertension - ICD9: 401.9, ICD10: I10 - Controlled, has not had med yet today - Continue current medications - Recommend home blood pressure monitoring, to bring results to next visit - Encouraged sodium restriction, DASH or Mediterranean diet - Recommend regular aerobic exercise 4. Mixed hyperlipidemia - ICD9: 272.2, ICD10: E78.2 - Control undetermined, due for labs - Counseled on healthy diet and regular exercise 5. Vitamin D deficiency - ICD9: 268.9, ICD10: E55.9 Getting standing order labs soon 6. Encounter for screening examination for other mental health and behavioral disorders - ICD9: V79.8, ICD10: Z13.39 - ANXIETY SCREENING Portions of this note have been entered by ancillary staff. I have reviewed and when necessary edited, so that they are an adequate record of my encounter with this patient Please note that parts of this document were created using voice recognition software and therefore may contain grammatical errors. Patient verbalizes understanding of instructions from today's visit and in agreement with treatment plan. Questions answered. Agrees to call the office if questions, concerns of issues with acute symptoms not improving or if they worsen. See diagnoses and orders for additional plan(s). Allergies and medications were reviewed, list was updated, and refills given if needed. Past medical, surgical, social, and family history reviewed and updated as appropriate. Encouraged proper diet & exercise as well as compliance with taking medications. Age-appropriate health preventative measures were discussed. Return if symptoms worsen or fail to improve, for Keep next scheduled appointment.. ANTON Renee documented in this encounter [facility] 06-07-2024 Instructions Aracelis Ribeiro APRN.CNP - 06/07/2024 8:43 AM EDT Screening schedule The following prevention plan is recommended: Diabetic Foot Exam Never done Anxiety Screening Never done Shingrix Vaccine(2 of 3) due on 01/29/2009 DTaP,Tdap,Td Vaccine(2 - Td or Tdap) due on 11/24/2018 RSV Vaccine(1 - 1-dose 75+ series) Never done Advance Directive Discussion due on 09/11/2023 Covid-19 Vaccine( season) due on 05/12/2024 HbA1C due on 06/07/2024 Influenza Vaccine(1) due on 05/12/2024 WHAT YOU CAN DO TO PREVENT FALLS Many falls can be prevented. By making some changes, you can lower your chances of falling. Four things YOU can do to prevent falls for you* and your caregiver 1. Begin a regular exercise program Exercise is one of the most important ways to lower your chances of falling. It makes you stronger and helps you feel better. Exercises that improve balance and coordination (like Phlil Chi) are the most helpful. Lack of exercise leads to weakness and increases your chances of falling. Ask your doctor or health care provider about the best type of exercise program for you. 2. Have your health care provider review your medicines Have your doctor or pharmacist review all the medicines you take, even [id number] medicines. As you get older, the way medicines work in your body can change. Some medicines, or combinations of medicines, can make you sleepy or dizzy and can cause you to fall. 3. Have your vision checked Have your eyes checked by an eye doctor at least once a year. You may be wearing the wrong glasses or have a condition like glaucoma or cataracts that limits your vision. Poor vision can increase your chances of falling. 4. Make your home safer About half of all falls happen at home. To make your home safer: Remove things you can trip over (like papers, books, clothes, and shoes) from stairs and places where you walk. Remove small throw rugs or use double-sided tape to keep the rugs from slipping. Keep items you use often in cabinets you can reach easily without using a step stool. Have grab bars put in next to your toilet and in the tub or shower. Use non-slip mats in the bathtub and on shower floors. Improve the lighting in your home. As you get older, you need brighter lights to see well. Hang light-weight curtains or shades to reduce glare. Have handrails and lights put in on all staircases. Wear shoes both inside and outside the house. Avoid going barefoot or wearing slippers. For more information, contact: Centers for Disease Control and Prevention www.cdc.gov/injury * This information may not apply if you have certain medical conditions. documented in this encounter [facility] 05-04-2024 Telephone encounter Note Lab within normal limits [facility] 05-04-2024 Miscellaneous Notes Lab within normal limits Urine results have been processed. Fer. Emily Flaherty MD Urine presently in process. Meaghan Galvan LPN Filed order I also filed standing orders so may get labs every 6 months given diagnosis of diabetes. Order needing to be files as soon as possible. Forwarded pending order to Dr Flaherty. Meaghan Galvan LPN Patient brought urine sample to lab, the alb/crea order had been cancelled. Order pending so lab can accept the urine. Meaghan Galvan LPN documented in this encounter [facility] 04-30-2024 Telephone encounter Note Urine results have been processed. [facility] 04-19-2024 Telephone encounter Note Noted. Emily Flaherty MD [facility] 04-19-2024 Telephone encounter Note Urine presently in process. Meaghan Galvan LPN [facility] 04-19-2024 Telephone encounter Note Filed order I also filed standing orders so may get labs every 6 months given diagnosis of diabetes. [facility] 04-19-2024 Telephone encounter Note Order needing to be files as soon as possible. Forwarded pending order to Dr Flaherty. Meaghan Galvan LPN [facility] 04-19-2024 Telephone encounter Note Patient brought urine sample to lab, the alb/crea order had been cancelled. Order pending so lab can accept the urine. Meaghan Galvan LPN [facility] 02-08-2024 Telephone encounter Note The following approved medication requests have been transmitted electronically. Requested Prescriptions Signed Prescriptions Disp Refills clobetasol (TEMOVATE) 0.05 % ointment 30 g 3 Sig: APPLY DAILY NEEDED TO THE AFFECTED AREA SPARINGLY Authorizing Provider: EMILY FLAHERTY MD [facility] 02-08-2024 Miscellaneous Notes The following approved medication requests have been transmitted electronically. Requested Prescriptions Signed Prescriptions Disp Refills clobetasol (TEMOVATE) 0.05 % ointment 30 g 3 Sig: APPLY DAILY NEEDED TO THE AFFECTED AREA SPARINGLY Authorizing Provider: EMILY FLAHERTY MD Patient has a current script for the test strips at the pharmacy accordingly to our records. Prescription Refill Information The patient has been identified by name and date of : Yes Patient needs to have this resent to her pharmacy it was cancelled inadvertently by the pharmacy Caregiver verified no other encounters exist for this prescription request: Yes Caregiver confirmed with patient/requestor that no other refills are due, in the near future, with this provider at this time: Yes The last office visit in the department: 09/23/23 Does the patient have a future office visit with this provider/department: Yes Requested Prescriptions Pending Prescriptions Disp Refills clobetasol (TEMOVATE) 0.05 % ointment 30 g 3 Sig: APPLY DAILY NEEDED TO THE AFFECTED AREA SPARINGLY blood sugar diagnostic (ONETOUCH VERIO TEST STRIPS) test strip 100 Strip 11 Sig: USE TO CHECK BLOOD SUGAR ONCE A DAY Yanelis Paez February 07, 2024 3:10 PM documented in this encounter [facility] 02-07-2024 Telephone encounter Note Patient has a current script for the test strips at the pharmacy accordingly to our records. [facility] 02-07-2024 Telephone encounter Note Prescription Refill Information The patient has been identified by name and date of : Yes Patient needs to have this resent to her pharmacy it was cancelled inadvertently by the pharmacy Caregiver verified no other encounters exist for this prescription request: Yes Caregiver confirmed with patient/requestor that no other refills are due, in the near future, with this provider at this time: Yes The last office visit in the department: 09/23/23 Does the patient have a future office visit with this provider/department: Yes Requested Prescriptions Pending Prescriptions Disp Refills clobetasol (TEMOVATE) 0.05 % ointment 30 g 3 Sig: APPLY DAILY NEEDED TO THE AFFECTED AREA SPARINGLY blood sugar diagnostic (ONETOUCH VERIO TEST STRIPS) test strip 100 Strip 11 Sig: USE TO CHECK BLOOD SUGAR ONCE A DAY Yanelis Paez February 07, 2024 3:10 PM [facility] 12-06-2023 History of Presen t illness Narrative This note was created using [employer]. Subjective Angelica Sosa is a 78 year old female. Patient presents with: F/U 6 months SUBJECTIVE: Angelica Sosa is a 78 year old year old lady here today for 6 month follow up appointment for review of medical conditions. Sugars up to 150s. Weight up. Was not walking much in the winter. Avoids shellfish since causing itching. Ocular rosacea diagnosed. Noted had COVID last year after Thanksgiving and was mild like a cold. See assessment and plan for other issues addressed. 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 Daniels follows at [facility] HYPERLIPIDEMIA NEC/NOS 10/17/2005 HYPERTENSION NOS 10/17/2005 Rosacea 10/17/2005 Vitamin D deficiency 09/23/2016 Current Outpatient Medications Medication Sig lisinopril (ZESTRIL) 20 mg tablet Take 1 tablet by mouth once daily. blood sugar diagnostic (ParakeyUCH VERIO TEST STRIPS) test strip USE TO CHECK BLOOD SUGAR ONCE A DAY tretinoin (RETIN-A) 0.025 % topical cream Apply a pea size amount to affected area every other night for 2 weeks then increase to daily as tolerated lancets (ParakeyUCH DELICA PLUS LANCET) 33 gauge USE TO CHECK BLOOD SUGAR ONCE A DAY sertraline (ZOLOFT) 50 mg tablet Take 1 tablet by mouth once daily. clobetasol (TEMOVATE) 0.05 % ointment APPLY DAILY NEEDED TO THE AFFECTED AREA SPARINGLY metFORMIN ER (GLUCOPHAGE XR) 500 mg 24 hr tablet Take 1 tablets with breakfast and 1 tablet with dinner or as directed minocycline (MINOCIN, DYNACIN) 50 mg capsule Take 1 capsule by mouth twice daily. As directed (Patient taking differently: Take 50 mg by mouth once daily. As directed) Cholecalciferol, Vitamin D3, 50 mcg (2,000 unit) cap Take 1 capsule by mouth once daily. No current facility-administered medications for this visit. Review of Systems Objective BP (P) 114/66 (BP Site: Left Arm, BP Position: Sitting, BP Cuff Size: Regular Adult) Pulse (P) 72 Resp (P) 16 Wt (P) 66.7 kg (147 lb) BMI (P) 27.33 kg/m Last 5 Encounter Wt Readings: Date: Wt: 05/03/2023 65.3 kg (144 lb) 11/01/2022 65.3 kg (144 lb) 04/18/2022 62.6 kg (138 lb) 02/16/2022 60.8 kg (134 lb) 10/05/2021 62.1 kg (137 lb) No waist measurement recorded Estimated body mass index is 27.33 kg/m (pended) as calculated from the following: Height as of 04/12/21: 156.2 cm (5' 1.5). Weight as of this encounter: (P) 66.7 kg (147 lb). Last 5 Encounter BP Readings: Date: BP: 11/14/2023 142/73 05/03/2023 120/62 11/01/2022 122/64 04/18/2022 132/82 02/16/2022 160/90 Physical Exam Constitutional: Appearance: Normal appearance. HENT: Head: Normocephalic. Eyes: Conjunctiva/sclera: Conjunctivae normal. Cardiovascular: Rate and Rhythm: Normal rate and regular rhythm. Heart sounds: Normal heart sounds. Pulmonary: Effort: Pulmonary effort is normal. Breath sounds: Normal breath sounds. Musculoskeletal: Right lower leg: No edema. Left lower leg: No edema. Skin: General: Skin is warm and dry. Neurological: General: No focal deficit present. Mental Status: She is alert and oriented to person, place, and time. Psychiatric: Mood and Affect: Mood normal. Behavior: Behavior normal. Thought Content: Thought content normal. Judgment: Judgment normal. Healing well from MOHS on right anterior ear area. Hemoglobin A1C (%) Date Value 07/13/2021 7.0 03/23/2021 13.6 06/08/2018 6.5 12/26/2017 6.7 05/27/2017 6.3 Hemoglobin A1C (POCT) (%) Date Value 11/01/2022 7.2 Assessment and Plan Encounter Diagnosis ICD-10-CM 1. Controlled type 2 diabetes mellitus without complication, without long-term current use of insulin (HCC) E11.9 metFORMIN ER (GLUCOPHAGE XR) 500 mg 24 hr tablet ALBUMIN/CREAT RATIO RND UR Some higher sugars but over all controll is good. Continue present management. Work on healthier choices for diet and exercise most of the time 2. Mixed hyperlipidemia E78.2 Continue present management with lab follow up and working on diet. Declining statin at this time 3. Primary hypertension I10 CBC Good BP control. Continue present management 4. Vitamin D deficiency E55.9 Continue present management 5. Encounter for immunization Z23 RSV PRINTED PHARMACY INSTRUCTIONS SHINGRIX PRINTED PHARMACY INSTRUCTIONS TDAP PRINTED PHARMACY INSTRUCTIONS Above issues addressed with patient. Patient involved in shared decision making for management of medical issues. History and medications reviewed. Epic updated as needed Refills and/or prescriptions taken care of and meds adjusted as indicated after reviewed history, exam and labs. Health Maintenance reviewed. Updated record and/or ordered tests as recorded. Encouraged on efforts at healthy diet and regular exercise and adequate sleep. Emily Flaherty MD documented in this encounter [facility] 11-14-2023 Instructions Diana Jerez RN - 11/14/2023 12:43 PM EST WOUND CARE INSTRUCTIONS WITH DISSOLVABLE SUTURES WOUND CARE: The dressing you have been sent home with is called a pressure dressing. It should remain in place for 48 hours. To care for the wound: Remove pressure dressing after 48 hours. Tip: wet dressing in the shower to assist with adhesive removal. You can remove adhesive with soap, water, or alcohol pad. Clean with gentle soap and water twice daily. Example of gentle soap: Dove, Dial, CeraVe, Cetaphil, Aveeno, or any non-scented bar of soap After wound is thoroughly cleansed and dried, apply a thick layer of Vaseline or Aquaphor to the suture line. Do NOT use polysporin or neosporin on your wound After 72 hours, may leave uncovered as long as it is kept greasy and won t interfere with clothing. You may notice redness along the suture line as the wound heals This is normal- it is your body trying to break down the sutures If redness persists and continues to grow, please call us Signs and symptoms of infection: Redness streaking away from the wound, swelling, new onset of pain, foul smelling drainage, pus, and generalized fevers/chills BLEEDING: Careful attention has been given to your wound to prevent bleeding. The initial dressing you have on is a pressure dressing to also help prevent bleeding. You may notice a small amount of blood on the edges of the dressing the first day; this is normal. In case of persistent bleeding: Apply firm, steady pressure over the dressing with gauze for 20 minutes. If bleeding persists, please apply firm pressure for another 30 minutes. Tip #1: use a timer to record the time of pressure held Tip #2: do not peek at wound until time is completed- this will disrupt clotting time of vessel Tip #3: you may also use ice, as this may aid in slowing any bleeding. 2. If bleeding persists, please call the office using the numbers below. We will instruct you on how to proceed. PAIN: What pain can I expect after surgery? You can expect to have some pain after surgery. This is normal. The pain is typically worse for a day or two after surgery, and quickly begins to get better. Most patients are able to manage their pain after surgery with Hwvi-cmg-Somblmk (OTC) medications such as Tylenol (acetaminophen) and Motrin/Advil (ibuprofen). If you have a condition that does not allow you to take either of these medications, please notify us immediately. How will I manage my pain? The best strategy for controlling your pain after surgery is around the clock pain control with Tylenol (acetaminophen) and Motrin/Advil (ibuprofen). Alternating these medications with each other allows you to maximize your pain control. In addition to Tylenol and Motrin, you can use ice packs on your incisions for 20 minutes each hour for the first two days after surgery to help reduce your pain and swelling. After the first two days, you may use a heating pad or warm compress on your incisions and surrounding area. If you have received a graft, please *DO NOT* apply ice directly onto the graft site. How will I alternate my regular strength lxan-svw-ovbzpxz pain medication? You will take a dose of pain medication every four hours while you're awake. Start by taking 200-400 mg of Motrin/Advil (ibuprofen) (1-2 pills of 200 mg) 4 hours later, take 500-1000 mg of Tylenol (acetaminophen) (1-2 pills of 500 mg) 4 hours later, take 200-400 mg of Motrin/Advil (ibuprofen) (1-2 pills of 200 mg) 4 hours later, take 500-1000 mg of Tylenol (acetaminophen) (1-2 pills of 500 mg) 4 hours later, take 200-400 mg of Motrin/Advil (ibuprofen) (1-2 pills of 200 mg) We recommend that you follow this schedule [id number]-pnm-[id number] for at least 3 days after surgery, or until you feel that it is no longer needed. As an alternative, you can purchase OTC Advil Dual Action, which is a combined pill containing Acetaminophen 250mg and Ibuprofen 125mg. IMPORTANT: Do not take more than 3000mg of Tylenol (acetaminophen) or 3200mg of Motrin/Advil (ibuprofen) in a 24-hour period. Be aware that some chronic pain medications as well as over the counter cold and flu remedies may also contain acetaminophen. Take this into consideration to avoid exceeding the maximum daily dose. Easy on the alcohol. It is recommended to avoid heavy alcohol intake (more than two standard drinks per day for men and one standard drink for women) after surgery and while taking acetaminophen. Drinking alcohol causes the liver to convert more of the acetaminophen you take into toxic byproducts. Alcohol also acts as a blood thinner and can increase your risk for post-operative bleeding. Continue to take all of your prescribed medication. SWELLING: Swelling after surgery is normal and can peak at 48hr after surgery Suggestion: sleep on 1-2 pillows post procedure for 2-3 days to minimize swelling You can do this if you had a procedure on your face, top of head, ears, jaw, eyes, nose, cheeks, etc. Elevate arms and legs at rest to decrease swelling You can wrap your affected extremity by using BEATA wrap, coban wrap, or compression stockings to also minimize swelling Please also use ice to decrease swelling. Can use approximately 20 minutes each hour. NOTES: You may shower regularly after your initial surgery dressing is removed Avoid increasing heart rate or blood pressure for the first 72 hours following surgery (increases bleeding risk) Avoid heavy lifting and strenuous activity for 72 hours following surgery Return to referring installation service representative for skin checks every 6 months Wear sunscreen If sutures are still present in 10 days, cleanse with hydrogen peroxide PHONE NUMBERS: [place]: [phone], [phone], or [phone] (Monday-Monday, 8am-5pm) For emergencies only: On-call number: [phone] and ask for the patient coordinator front desk dermatology surgery fellow documented in this encounter [facility] 11-14-2023 History of Presen t illness Narrative MOHS MICROGRAPHIC OPERATIVE REPORT SERVICE DATE: 11/14/2023 SERVICE TIME: 10:09 AM LOCATION: [place]:[facility],[id number] REFERRING PROVIDER: Alessia Townsend [facility] [address] PROCEDURE START TIME: 10:28 AM PROCEDURE END TIME: 12:42 PM SURGEON: Dr. Lakeisha Strange FELLOW: Dr. Giuseppe Ohara REGISTERED NURSE: Diana Jerez RN ANTICOAGULANTS: None IMPLANTED DEVICES: None ANTIBIOTIC PROPHYLAXIS: Not required TRANSPLANT PATIENT: No PHOTOS: Photos taken VERIFICATION OF PROCEDURE: Procedure to be Performed: Mohs Surgery Patient Verified By: Name and Date of Site(s) Confirmed: Patient confirmed site from image in the EMR. Patient used mirror(s) to identify site(s). Patient verbalized agreement of surgical site(s). Site(s) Marked: Provider marking the site with patient involvement. Relevant documentation, images, implants or special equipment present: Yes SIGN IN COMMUNICATION: Completed Time Out: Team Confirms the Correct Patient, Correct Procedure, Correct Site(s) and Site Marked, Correct Position (if applicable). Time: 10:31 AM Affirmation of Time Out: Yes Sign out Discussion: Completed UNIVERSAL PROTOCOL / SAFETY CHECKLIST Procedure to be Performed: MOHS Sign In: A Moment of CARE was completed. Personnel directly involved with the procedure wore the appropriate PPE (Personal Protective Equipment). Patient/Surrogate Stated/Verified: PATIENT VERIFIED(optional for EMERGENT procedures): Patient name, Date of , Relevant allergies, and The intended procedure Time Out Communication: Intended patient and procedure match the source documents. Consent documented and matches the intended procedure. Sign Out: SIGN OUT (optional for EMERGENT procedures): All specimen containers correctly labeled. Post-procedure follow-up management communicated and Plan of Care Visit completed when applicable. 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 Townsend Pre-op Size: 1.1 cm - 2 cm, (1.2cm X 0.9cm) Indication for Mohs: Anatomic Location where lesion is prone to recur and Type of tumor Location: Area H: (Mask Areas of the Face - Includes Central Face, Eyelids, Inner/Outer Canthi, Eyebrows, Nose, Chin, Lips, Ears, Periauricular Skin and Goldsmith) Preparation: Chlorhexidine LAYER A The patient was positioned, prepped with alcohol and draped in the usual manner. Anesthesia was obtained with local infiltration. The clinically apparent tumor was then debulked with a curette. A 1-2 mm rim of tissue was marked circumferentially around the defect. The area thus outlined was excised deep to the subcutis. Hemostasis was achieved with electrocautery. The specimen was oriented, subdivided into 2 sections, chromacoded and submitted for horizontal frozen sections. The patient tolerated the procedure well and no complications were noted. Upon review of the horizontal frozen sections for Layer A, residual BCC was identified in pieces A1 (A2 negative) Depth of Invasion:epidermis Perineural invasion: No LVI: No . SUPERFICIAL BASAL CELL CARCINOMA: Arising from the epidermis and superficial hair follicles are small, superficial, multicentric buds of basaloid keratinocytes. The cells have scant cytoplasm and round dark nuclei. Mitotic figures and apoptotic bodies are evident. The nuclei at the periphery of the islands have a palisaded arrangement. The islands are associated with a fibromyxoid stroma and there is cleft formation between some of the islands and stroma. LAYER B A 1-2 mm rim of tissue was marked to encompass the positive margins noted in the frozen section. The area thus outlined was excised deep to the subcutis. Hemostasis was achieved with electrocautery. The specimen was oriented, subdivided into 1 sections, chromacoded and submitted for horizontal frozen sections. The patient tolerated the procedure well and no complications were noted. Upon review of the horizontal frozen sections for Layer B, no residual tumor was identified . B1 negative CLOSURE Rationale for Primary Closure: Given the location and size of the defect and in order to minimize the pain, bleeding, and infection associated with second intention healing, the wound was closed with a primary linear closure. 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 Post-op Defect Size: 1.8 x 1.7 cm INTERMEDIATE CLOSURE: Requiring skin and subcutaneous fat. The beveled edge of the Mohs defect was surgically removed. The wound edges were undermined in all directions to decrease the tension of the wound and facilitate skin edge apposition. Meticulous hemostasis was achieved with electrocautery. Redundant standing cones were removed to allow the wound to be closed without distortion. The deep tissue were opposed with 5-0 Absorbable Absorbant sutures. The epidermal edges were opposed with 5-0 Absorbable sutures. The surgical site was cleansed with saline and covered with a bandage as below. The patient tolerated the procedure well and no complications were noted. Final Size: Linear closure - 2.0 cm SCC Staging N/A N/A LOCAL ANESTHETIC: 3cc 1% Lidocaine HCl with Epinephrine 1:100,000 and 1cc 0.5% Bupivacaine HCl ESTIMATED BLOOD LOSS: Less Than Minimal Unless Noted Here. COMPLICATIONS: None, patient tolerated procedure well. TOTAL OPERATIVE TIME: 130 Minutes POST OP MEDS: Pt allergic to tylenol, pt states she will take Advil and use ice for pain control POST OP CARE: Pressure Dressing applied consisting of Contact Layer: Petrolatum ointment and Non stick Telfa pad Absorbent Layer: Gauze pad Liquid Adhesive to surrounding skin to adhere dressing. Outer Layer: Hypafix MOHS POST OP INSTRUCTIONS GIVEN WITH VERBAL UNDERSTANDING: Yes PATIENT DISCHARGED TO HAND COUNTER/NAME: self FOLLOW UP: PRN The documentation for this note was completed by Diana Jerez RN acting as scribe for Lakeisha Strange MD. November 14, 2023 12:57 PM. I/primary surgeon/proceduralist performed the procedure with assistance. I/primary surgeon/proceduralist reviewed the specimen(s) and worked as the pathologist. I have seen and examined Angelica Sosa. I have discussed the case and the management of this patient's care with the Fellow. I also have reviewed and agree with the assessment and plan as stated above and agree with all of its relevant components. I was present for and supervised the procedures as documented above by the Fellow. I was physically present during the critical portion(s) of this procedure. I agree with the operative note independently gathered by the clinical operations support specialist and the remaining scribed note accurately describes my personal service to the patient. I/primary surgeon/proceduralist reviewed the specimen(s) and worked as the pathologist. Lakeisha Strange MD November 27, 2023 Lakeisha Strange MD documented in this encounter [facility] 10-19-2023 Miscellaneous Notes Please advise pt to get tretinoin through [facility]. It is affordable. Prior Auth for Tretinoin cream was denied. Milia does not meet the requirements for approval. Edel Maldonado LPN documented in this encounter [facility] 07-14-2023 Miscellaneous Notes July 14, 2023 PID: [id number] Angelica Sosa [address] [place] [address] Dear Ms. Sosa, We are pleased to inform you that the results of your recent breast imaging exam on 07/13/2023 are normal. Your mammogram demonstrates that you have dense breast tissue, which could hide abnormalities. Dense breast tissue, in and of itself, is a relatively common condition. Therefore, this information is not provided to cause undue concern; rather, it is to raise your awareness and promote discussion with your health care provider regarding the presence of dense breast tissue in addition to other risk factors. Early detection of cancer is very important. We also understand recommendations regarding breast cancer screening are controversial. Please discuss with your primary care provider which strategy is best for you and whether a mammogram is right for you. Your imaging studies and report will be kept on file at [facility] as part of your permanent medical record and are available for your continuing care. Thank you for allowing us to help in meeting your health care needs. Sincerely, Dr. Campos Interpreting Radiologist [facility] (Normal over 40) documented in this encounter [facility] 07-13-2023 History of Presen t illness Narrative Radiology Service Progress Note PATIENT NAME: Angelica Sosa DATE OF SERVICE: July 13, 2023 TIME: 12:32 PM PATIENT IDENTITY VERIFICATION COMPLETED USING TWO (2) IDENTIFIERS: Name and Date of confirmed by patient verbally. FALL SCREENING: Has the patient had 2 falls in the last year or 1 fall with injury or currently using an Ambulatory Assistive Device (Walker, Cane, Wheelchair, Crutches, etc.)? No PATIENT GENDER DATA: Female. status: : No status: NO. PATIENT RELEVANT IMPLANT DATA REVIEWED: Not Applicable RADIOLOGY DEPARTMENT: Mammography PERIPHERAL IV DATA: Not applicable SIGNED BY: Catalino LeoAdallom Reyna July 13, 2023 12:32 PM documented in this encounter [facility] 05-03-2023 History of Presen t illness Narrative This note was created using [employer]. Subjective Angelica Sosa is a 78 year old female. Patient presents with: Follow Up SUBJECTIVE: Angelica Sosa is a 78 year old year old lady here today for follow up appointment for review of medical conditions. Trouble keeping sugars down Walking. Meds and diet same. Current 139 average Highest was 199 around 10AM before breakfast. Most in 130 to 140s range with a few 120s and 150s. Cannot tolerate more metformin--GI and diarrhea. No more than one daily. No lows under 70. Increased stressors noted Does walk every AM. Sometimes twice daily. 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 LICHEN SCLEROSIS Controlled type 2 diabetes mellitus without complication, without long-term current use of insulin (HCC) 05/04/2021 DEPRESSIVE DISORDER NEC 10/17/[address] of [address] eyes [address]. Daniels follows at [facility] HYPERLIPIDEMIA NEC/NOS 10/17/2005 HYPERTENSION NOS 10/17/2005 Rosacea 10/17/2005 Vitamin D deficiency 09/23/2016 Current Outpatient Medications Medication Sig clobetasol (TEMOVATE) 0.05 % ointment APPLY DAILY NEEDED TO THE AFFECTED AREA SPARINGLY metFORMIN ER (GLUCOPHAGE XR) 500 mg 24 hr tablet Take 1 tablets with breakfast and 1 tablet with dinner or as directed lisinopril (ZESTRIL, PRINIVIL) 20 mg tablet Take 1 tablet by mouth once daily. Lancets lancets Test blood sugar(s) 1 times daily. Dx: Type 2 DM - Uncontrolled E11.65 Insulin: No blood sugar diagnostic (BLOOD GLUCOSE TEST) test strip Test blood sugar(s) 1 times daily. Dx: Type 2 DM - Uncontrolled E11.65 Insulin: No minocycline (MINOCIN, DYNACIN) 50 mg capsule Take 1 capsule by mouth twice daily. As directed (Patient taking differently: Take 50 mg by mouth once daily. As directed) Cholecalciferol, Vitamin D3, 50 mcg (2,000 unit) cap Take 1 capsule by mouth once daily. No current facility-administered medications for this visit. Review of Systems Objective BP 120/62 Pulse 68 Temp (!) 35.8 C (96.5 F) Resp 18 Wt 65.3 kg (144 lb) SpO2 99% BMI 26.77 kg/m Physical Exam Constitutional: Appearance: Normal appearance. HENT: Head: Normocephalic. Eyes: Conjunctiva/sclera: Conjunctivae normal. Cardiovascular: Rate and Rhythm: Normal rate and regular rhythm. Heart sounds: Normal heart sounds. Pulmonary: Effort: Pulmonary effort is normal. Breath sounds: Normal breath sounds. Skin: General: Skin is warm and dry. Neurological: General: No focal deficit present. Mental Status: She is alert and oriented to person, place, and time. Psychiatric: Mood and Affect: Mood normal. Behavior: Behavior normal. Thought Content: Thought content normal. Judgment: Judgment normal. Has labs ordered Hemoglobin A1C (%) Date Value 07/13/2021 7.0 03/23/2021 13.6 06/08/2018 6.5 12/26/2017 6.7 05/27/2017 6.3 Hemoglobin A1C (POCT) (%) Date Value 11/01/2022 7.2 Assessment and Plan Encounter Diagnosis ICD-10-CM 1. Controlled type 2 diabetes mellitus without complication, without long-term current use of insulin (HCC) E11.9 HGB A1C COMP METABOLIC PANEL 2. Mixed hyperlipidemia E78.2 LIPID PANEL BASIC 3. Vitamin D deficiency E55.9 VITAMIN D 25 HYDROXY 4. Primary hypertension I10 COMP METABOLIC PANEL Above issues addressed with patient. Patient involved in shared decision making for management of medical issues. History and medications reviewed. Epic updated as needed Refills and/or prescriptions taken care of and meds adjusted as indicated after reviewed history, exam and labs. Health Maintenance reviewed. Updated record and/or ordered tests as recorded. Encouraged on efforts at healthy diet and regular exercise and adequate sleep. Needs to keep working on diet and exercise with lifestyle changes for effective weight loss as well as control of DM, and control of BP and lipids. Noted gets some higher sugars but overall control okay. Get labs for follow up at her convenience in next couple months then before next follow up. Continue present management.Continue present meds.Further evaluation and treatment as indicated. I spent a total of 35 minutes on the date of the service which included [id number] patient care, completing clinical documentation, performing a medically appropriate examination, counseling and educating the patient/family/caregiver, and ordering medications, tests, or procedures. Emily Flaherty MD documented in this encounter [facility] 2023 Miscellaneous Notes Patient wants to know if this can be sent before the weekend. [facility] told her they requested it multiple times, but go no response from us. I advised her we didn't receive anything from the pharmacy. Patient has been identified by name and date of : Yes Requested Prescriptions Pending Prescriptions Disp Refills clobetasol (TEMOVATE) 0.05 % ointment 30 g 3 Sig: APPLY DAILY NEEDED TO THE AFFECTED AREA SPARINGLY RX INSTRUCTIONS: Patient aware RX will be sent to pharmacy. No need to notify patient. Luzmaria Paez documented in this encounter [facility] 12-30-2022 History of Presen t illness Narrative This note was created using LiveWire [employer]. Subjective Angelica Sosa is a 77 year old female. Patient presents with: Established Patient Medication Follow-up SUBJECTIVE: Angelica Sosa is a 77 year old year old lady here today for medication follow up appointment for review of medical conditions. Frustrated with metformin--higher dose causes diarrhea but lower dose not adequate. Incontinence if pushes the dose. Bowel urgency as well. States that has been taking 100mg dose Checking sugars once or twice a day. Sometimes drops a strip. Bought some out of pocket recently since insurance will not approve more than once daily (100 strips per 90 days). 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 LICHEN SCLEROSIS Controlled type 2 diabetes mellitus without complication, without long-term current use of insulin (HCC) 05/04/2021 DEPRESSIVE DISORDER NEC 10/17/[address] of [address] eyes [address]. Daniels follows at [facility] HYPERLIPIDEMIA NEC/NOS 10/17/2005 HYPERTENSION NOS 10/17/2005 Rosacea 10/17/2005 Vitamin D deficiency 09/23/2016 Current Outpatient Medications Medication Sig lisinopril (ZESTRIL, PRINIVIL) 20 mg tablet Take 1 tablet by mouth once daily. Lancets lancets Test blood sugar(s) 1 times daily. Dx: Type 2 DM - Uncontrolled E11.65 Insulin: No blood sugar diagnostic (BLOOD GLUCOSE TEST) test strip Test blood sugar(s) 1 times daily. Dx: Type 2 DM - Uncontrolled E11.65 Insulin: No minocycline (MINOCIN, DYNACIN) 50 mg capsule Take 1 capsule by mouth twice daily. As directed Cholecalciferol, Vitamin D3, 50 mcg (2,000 unit) cap Take 1 capsule by mouth once daily. clobetasol (TEMOVATE) 0.05 % ointment APPLY DAILY NEEDED TO THE AFFECTED AREA SPARINGLY No current facility-administered medications for this visit. Review of Systems Objective There were no vitals taken for this visit. Physical Exam Constitutional: Appearance: Normal appearance. HENT: Head: Normocephalic. Eyes: Conjunctiva/sclera: Conjunctivae normal. Cardiovascular: Rate and Rhythm: Normal rate and regular rhythm. Heart sounds: Normal heart sounds. Pulmonary: Effort: Pulmonary effort is normal. Breath sounds: Normal breath sounds. Skin: General: Skin is warm and dry. Neurological: General: No focal deficit present. Mental Status: She is alert and oriented to person, place, and time. Psychiatric: Mood and Affect: Mood normal. Behavior: Behavior normal. Thought Content: Thought content normal. Judgment: Judgment normal. Hemoglobin A1C (%) Date Value 07/13/2021 7.0 03/23/2021 13.6 06/08/2018 6.5 12/26/2017 6.7 05/27/2017 6.3 Hemoglobin A1C (POCT) (%) Date Value 11/01/2022 7.2 Assessment and Plan Encounter Diagnosis ICD-10-CM 1. Controlled type 2 diabetes mellitus without complication, without long-term current use of insulin (HCC) E11.9 metFORMIN ER (GLUCOPHAGE XR) 500 mg 24 hr tablet Above issues addressed with patient. Patient involved in shared decision making for management of medical issues. History and medications reviewed. Epic updated as needed Refills and/or prescriptions taken care of and meds adjusted as indicated after reviewed history, exam and labs. Health Maintenance reviewed. Updated record and/or ordered tests as recorded. Encouraged on efforts at healthy diet and regular exercise and adequate sleep. Will see if once daily 500mg tolerated. Stop if ongoing bowel issues. Further evaluation and treatment as indicated. Discussed HgA1C in 7 range is fine. Emily Flaherty MD documented in this encounter [facility] 07-15-2022 Miscellaneous Notes Patient has been identified by name and date of : Yes Last office visit in this department: 04/18/2022 RX INSTRUCTIONS: Patient aware RX will be sent to pharmacy. No need to notify patient. Patient phones requesting refills as follows: Requested Prescriptions Pending Prescriptions Disp Refills Lancets lancets 100 Each 11 Sig: Test blood sugar(s) 1 times daily. Dx: Type 2 DM - Uncontrolled E11.65 Insulin: No blood sugar diagnostic (BLOOD GLUCOSE TEST) test strip 100 Strip 11 Sig: Test blood sugar(s) 1 times daily. Dx: Type 2 DM - Uncontrolled E11.65 Insulin: No Please review and advise. Cele Pollack Pss documented in this encounter [facility] 04-25-2022 History of Presen t illness Narrative Radiology Service Progress Note PATIENT NAME: Angelica Sosa DATE OF SERVICE: April 25, 2022 TIME: 1:52 PM PATIENT IDENTITY VERIFICATION COMPLETED USING TWO (2) IDENTIFIERS: Name and Date of confirmed by patient verbally. FALL SCREENING: Has the patient had 2 falls in the last year or 1 fall with injury or currently using an Ambulatory Assistive Device (Walker, Cane, Wheelchair, Crutches, etc.)? No PATIENT GENDER DATA: Female. status: : No status: NO. PATIENT RELEVANT IMPLANT DATA REVIEWED: Not Applicable RADIOLOGY DEPARTMENT: Mammography PERIPHERAL IV DATA: Not applicable SIGNED BY: Ryan Leo April 25, 2022 1:52 PM documented in this encounter [facility] 04-25-2022 Miscellaneous Notes Last see pcp 04/18/22 Next appt is due in Oct with fasting labs. Patient has been identified by name and date of : Yes Requested Prescriptions Pending Prescriptions Disp Refills blood sugar diagnostic (BLOOD GLUCOSE TEST) test strip 100 Strip 11 Sig: Test blood sugar(s) 1 times daily. Dx: Type 2 DM - Uncontrolled E11.65 Insulin: No RX INSTRUCTIONS: Patient aware RX will be sent to pharmacy. No need to notify patient. Iesha DukeChasqui Bus [employer] documented in this encounter [facility] 04-25-2022 Miscellaneous Notes Patient due for 6 month follow-up around 10/19/22.Prefers not a Monday and after 10AM. Left message for patient to call office Can schedule with Amara Mauricio in [address] Flaherty at first available in documented in this encounter [facility] 04-18-2022 History of Presen t illness Narrative This note was created using LiveWire [employer]. Subjective Angelica Sosa is a 77 year old female. Patient presents with: F/U 6 months SUBJECTIVE: Angelica Sosa is a 77 year old year old lady here today for 6 month follow up appointment for review of medical conditions. Doing well from DM standpoint. Sugars at home have been fine. Eats well. Cooks sugar free mcduffie pie. Declines statin. Noted lost her [email or web address] vaccine card--will get from [facility]. Noted that has had exposure but not gotten ill. 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 Daniels follows at [facility] HYPERLIPIDEMIA NEC/NOS 10/17/2005 HYPERTENSION NOS 10/17/2005 Rosacea 10/17/2005 Vitamin D deficiency 09/23/2016 Current Outpatient Medications Medication Sig clobetasol (TEMOVATE) 0.05 % ointment APPLY DAILY NEEDED TO THE AFFECTED AREA SPARINGLY metFORMIN ER (GLUCOPHAGE XR) 500 mg 24 hr tablet Take 1 tablets with breakfast and 1 tablet with dinner or as directed triamcinolone acetonide (KENALOG) 0.1 % ointment Apply to scaly patches on arms and legs twice daily as needed. Use 2 weeks on 1 week off. Not for face, armpits or groin lisinopril (ZESTRIL, PRINIVIL) 20 mg tablet Take 1 tablet by mouth once daily. minocycline (MINOCIN, DYNACIN) 50 mg capsule Take 1 capsule by mouth twice daily. As directed Cholecalciferol, Vitamin D3, 50 mcg (2,000 unit) cap Take 1 capsule by mouth once daily. blood sugar diagnostic (BLOOD GLUCOSE TEST) test strip Test blood sugar(s) 1 times daily. Dx: Type 2 DM - Uncontrolled E11.65 Insulin: No Lancets lancets Test blood sugar(s) 1 times daily. Dx: Type 2 DM - Uncontrolled E11.65 Insulin: No Current Facility-Administered Medications Medication Dose Route Frequency perflutren lipid microspheres 1.3 mL in NaCl (PF) 0.9% 10 mL injection (DEFINITY) INTRAVENOUS DIRECTED PRN sodium chloride 0.9 % (flush) 10 mL (BD POSIFLUSH) 10 mL INTRAVENOUS DIRECTED PRN Review of Systems Objective There were no vitals taken for this visit. Physical Exam Constitutional: Appearance: Normal appearance. HENT: Head: Normocephalic. Eyes: Conjunctiva/sclera: Conjunctivae normal. Cardiovascular: Rate and Rhythm: Normal rate and regular rhythm. Heart sounds: Normal heart sounds. Pulmonary: Effort: Pulmonary effort is normal. Breath sounds: Normal breath sounds. Skin: General: Skin is warm and dry. Neurological: General: No focal deficit present. Mental Status: She is alert and oriented to person, place, and time. Psychiatric: Mood and Affect: Mood normal. Speech: Speech normal. Behavior: Behavior normal. Thought Content: Thought content normal. Judgment: Judgment normal. Still has spot from shingles on right lateral calf. Labs ordered. Hemoglobin A1C (%) Date Value 07/13/2021 7.0 03/23/2021 13.6 06/08/2018 6.5 12/26/2017 6.7 05/27/2017 6.3 Assessment and Plan ASSESSMENT/PLAN: 1. Controlled type 2 diabetes mellitus without complication, without long-term current use of insulin (HCC) - ICD9: 250.00, ICD10: E11.9 (primary diagnosis) Controlled. - Continue current medications - COMP METABOLIC PANEL - HGB A1C - ALBUMIN/CREAT RATIO RND UR - LIPID PANEL, NONFASTING 2. Vitamin D deficiency - ICD9: 268.9, ICD10: E55.9 Adjust supplement as indicated - VITAMIN D 25 HYDROXY 3. Essential hypertension - ICD9: 401.9, ICD10: I10 - fair control - Recommended regular aerobic exercise. - Recommend home blood pressure monitoring, to bring results in on next visit - Goal of BP <130/80 - COMP METABOLIC PANEL - CBC - LIPID PANEL, NONFASTING Emily Flaherty MD documented in this encounter [facility] 02-16-2022 History of Presen t illness Narrative Images from the original note were not included. This note was created using Bespoker[employer]. Subjective Angelica Sosa is a 77 year old female. Patient presents with: Vaginal Problem SUBJECTIVE: Angelica Sosa is a 77 year old year old lady here today for appointment for review of medical conditions. Using clobetasol 3 times weekly. 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 Daniels follows at [facility] HYPERLIPIDEMIA NEC/NOS 10/17/2005 HYPERTENSION NOS 10/17/2005 Rosacea 10/17/2005 Vitamin D deficiency 09/23/2016 Current Outpatient Medications Medication Sig metFORMIN ER (GLUCOPHAGE XR) 500 mg 24 hr tablet Take 1 tablets with breakfast and 1 tablet with dinner or as directed triamcinolone acetonide (KENALOG) 0.1 % ointment Apply to scaly patches on arms and legs twice daily as needed. Use 2 weeks on 1 week off. Not for face, armpits or groin lisinopril (ZESTRIL, PRINIVIL) 20 mg tablet Take 1 tablet by mouth once daily. clobetasol (TEMOVATE) 0.05 % ointment APPLY DAILY NEEDED TO THE AFFECTED AREA SPARINGLY minocycline (MINOCIN, DYNACIN) 50 mg capsule Take 1 capsule by mouth twice daily. As directed Cholecalciferol, Vitamin D3, 50 mcg (2,000 unit) cap Take 1 capsule by mouth once daily. blood sugar diagnostic (BLOOD GLUCOSE TEST) test strip Test blood sugar(s) 1 times daily. Dx: Type 2 DM - Uncontrolled E11.65 Insulin: No Lancets lancets Test blood sugar(s) 1 times daily. Dx: Type 2 DM - Uncontrolled E11.65 Insulin: No Current Facility-Administered Medications Medication Dose Route Frequency perflutren lipid microspheres 1.3 mL in NaCl (PF) 0.9% 10 mL injection (DEFINITY) INTRAVENOUS DIRECTED PRN sodium chloride 0.9 % (flush) 10 mL (BD POSIFLUSH) 10 mL INTRAVENOUS DIRECTED PRN Review of Systems Objective BP 160/90 (BP Site: Right Arm, BP Position: Sitting, BP Cuff Size: Regular Adult) Pulse 76 Resp 16 Wt 60.8 kg (134 lb) BMI 24.91 kg/m Physical Exam Genitourinary: Comments: Vulva area with changes consistent with lichen sclerosus Assessment and Plan Encounter Diagnosis ICD-10-CM 1. Vaginal atrophy N95.2 2. Lichen sclerosus et atrophicus L90.0 Discussed treatment Vaginal lubricants Make sure to treat lichen sclerosus. Further evaluation and treatment as indicated. Emily Flaherty MD documented in this encounter [facility] 10-05-2021 History of Presen t illness Narrative This note was created using [employer]. Subjective Angelica Sosa is a 76 year old female. Patient presents with: F/U 6 months SUBJECTIVE: Angelica Sosa is a 76 year old year old lady here today for 6 month follow up appointment for review of medical conditions. Diarrhea from metformin. Down to every 14 hours. Wondered about goals for sugars Meter reviewed; had not known how to work meter--126 90 day average--checks only fasting in AM. Choosing better breads with fewer carbs.. Feels like hungry all the time. Limiting carbs Adding low carb snacks. Getting 3 to 4 cups of coffee in AM. Later has regular tea. Sugar free hot chocolate. Not much water yet. Half a potato instead of whole. Getting protein and healthy oils Lost weight when sugars were really high. Getting out for 10 minutes walks some days now. 09/15/21 eye exam--no retinopathy. Glaucoma controlled. 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 LICHEN SCLEROSIS DEPRESSIVE DISORDER NEC 10/17/2005 HYPERLIPIDEMIA NEC/NOS 10/17/2005 HYPERTENSION NOS 10/17/2005 Rosacea 10/17/2005 Vitamin D deficiency 09/23/2016 Current Outpatient Medications Medication Sig metFORMIN ER (GLUCOPHAGE XR) 500 mg 24 hr tablet Take 2 tablets with breakfast and 1 tablet with dinner or as directed (Patient taking differently: Take 1 tablets with breakfast and 1 tablet with dinner or as directed ) clobetasol (TEMOVATE) 0.05 % ointment APPLY DAILY NEEDED TO THE AFFECTED AREA SPARINGLY minocycline (MINOCIN, DYNACIN) 50 mg capsule Take 1 capsule by mouth twice daily. As directed Cholecalciferol, Vitamin D3, 50 mcg (2,000 unit) cap Take 1 capsule by mouth once daily. blood sugar diagnostic (BLOOD GLUCOSE TEST) test strip Test blood sugar(s) 1 times daily. Dx: Type 2 DM - Uncontrolled E11.65 Insulin: No Lancets lancets Test blood sugar(s) 1 times daily. Dx: Type 2 DM - Uncontrolled E11.65 Insulin: No lisinopril (ZESTRIL, PRINIVIL) 20 mg tablet Take 1 tablet by mouth once daily. triamcinolone acetonide (KENALOG) 0.1 % ointment Apply to scaly patches on arms and legs twice daily as needed. Use 2 weeks on 1 week off. Not for face, armpits or groin Current Facility-Administered Medications Medication Dose Route Frequency perflutren lipid microspheres 1.3 mL in NaCl (PF) 0.9% 10 mL injection (DEFINITY) INTRAVENOUS DIRECTED PRN sodium chloride 0.9 % (flush) 10 mL (BD POSIFLUSH) 10 mL INTRAVENOUS DIRECTED PRN Review of Systems Objective BP 134/70 (BP Site: Left Arm, BP Position: Sitting, BP Cuff Size: Regular Adult) Pulse 64 Temp 37 C (98.6 F) (Temporal Artery) Resp 20 Wt 62.1 kg (137 lb) BMI 25.47 kg/m Last 5 Encounter BP Readings: Date: BP: 10/05/2021 134/70 07/13/2021 140/78 03/30/2021 140/70 03/22/2021 110/64 07/28/2020 112/62 Last 5 Encounter Wt Readings: Date: Wt: 10/05/2021 62.1 kg (137 lb) 07/13/2021 60.8 kg (134 lb) 04/12/2021 64.3 kg (141 lb 12.8 oz) 03/30/2021 64 kg (141 lb) 03/22/2021 64.9 kg (143 lb) 10/05/21 1330 10/05/21 1418 BP: 134/70 122/70 BP Site: Left Arm BP Position: Sitting BP Cuff Size: Regular Adult Pulse: 64 Resp: 20 Temp: 37 C (98.6 F) TempSrc: Temporal Artery Weight: 62.1 kg (137 lb) Physical Exam Constitutional: Appearance: Normal appearance. HENT: Head: Normocephalic. Eyes: Conjunctiva/sclera: Conjunctivae normal. Cardiovascular: Rate and Rhythm: Normal rate and regular rhythm. Heart sounds: Normal heart sounds. Pulmonary: Effort: Pulmonary effort is normal. Breath sounds: Normal breath sounds. Skin: General: Skin is warm and dry. Neurological: General: No focal deficit present. Mental Status: She is alert and oriented to person, place, and time. Psychiatric: Mood and Affect: Mood normal. Behavior: Behavior normal. Thought Content: Thought content normal. Judgment: Judgment normal. Component Latest Ref Rng & Units 03/23/2021 03/26/2021 07/13/2021 Protein, Total 6.3 - 8.0 g/dL 7.5 7.3 Albumin 3.9 - 4.9 g/dL 4.6 4.8 Calcium 8.5 - 10.2 mg/dL 10.3 (H) 9.8 9.8 Bilirubin, Total 0.2 - 1.3 mg/dL 0.5 0.4 Alkaline Phosphatase 34 - 123 U/L 115 87 AST 13 - 35 U/L 27 23 Glucose 74 - 99 mg/dL 460 (H) 321 (H) 86 BUN 7 - 21 mg/dL 16 14 22 (H) Creatinine 0.58 - 0.96 mg/dL 0.76 0.56 (L) 0.83 Sodium 136 - 144 mmol/L 134 (L) 136 136 Potassium 3.7 - 5.1 mmol/L 4.4 4.5 4.2 Chloride 97 - 105 mmol/L 98 101 100 CO2 22 - 30 mmol/L 22 20 (L) 25 Anion Gap 9 - 18 mmol/L 14 15 11 ALT 7 - 38 U/L 41 (H) 23 eGFR- >60 >60 >60 eGFR-All Other Races . >60 >60 >60 WBC 3.70 - 11.00 k/uL 10.16 RBC 3.90 - 5.20 m/uL 5.09 Hemoglobin 11.5 - 15.5 g/dL 14.7 Hematocrit 36.0 - 46.0 % 44.9 MCV 80.0 - 100.0 fL 88.2 MCH 26.0 - 34.0 pG 28.9 MCHC 30.5 - 36.0 g/dL 32.7 RDW-CV 11.5 - 15.0 % 12.5 Platelet Count 150 - 400 k/uL 335 MPV 9.0 - 12.7 fL 10.0 Absolute nRBC <0.01 k/uL <0.01 Total Cholesterol, Nonfasting <200 mg/dL 170 Triglycerides, Nonfasting <150 mg/dL 130 HDL Cholesterol, Nonfasting >39 mg/dL 40 LDL Cholesterol, Nonfasting <100 mg/dL 104 (H) Non HDL Cholesterol, Nonfasting <130 mg/dL 130 (H) VLDL Cholesterol, Nonfasting <30 mg/dL 26 Total Chol/HDL Ratio, Nonfasting <5.10 mg/dL 4.25 LDL/HDL Ratio, Nonfasting <2.54 mg/dL 2.60 (H) Creatinine, Ur Random (UCRR) 20 - 300 mg/dL 140.7 Albumin, Urine Random mg/L 12.0 Albumin/Creat Ratio <30 mg/g 9 Hemoglobin A1C 4.3 - 5.6 % 13.6 (H) 7.0 (H) Estimated Average Glucose mg/dL 344 154 Glutamic Acid Decarboxylase Ab, Qual Negative Negative Glutamic Acid Decarboxylase Ab <5.1 IU/mL <5.0 Insulin Antibody, Qual Negative Negative Insulin Antibody <0.4 U/mL <0.4 Vitamin D 25 Hydroxy 31.0 - 80.0 ng/mL 18.6 (L) TSH 0.270 - 4.200 uU/mL 0.515 Free T4 0.9 - 1.7 ng/dL 1.5 Free T3 2.3 - 4.1 pg/mL 2.6 PTH, Intact 15 - 65 pg/mL 31 Hep C Antibody IA Negative Negative C-Peptide 0.8 - 3.9 ng/mL 1.8 Assessment and Plan Encounter Diagnosis ICD-10-CM 1. Controlled type 2 diabetes mellitus without complication, without long-term current use of insulin ([facility]) E11.9 HGB A1C BASIC METABOLIC PNL COMP METABOLIC PANEL CBC HGB A1C 2. Essential hypertension I10 3. Vitamin D deficiency E55.9 VITAMIN D 25 HYDROXY 4. Mixed hyperlipidemia E78.2 5. Glaucoma, unspecified glaucoma type, unspecified laterality H40.9 Controlled per her eye doctor. Continue present management ASSESSMENT/PLAN: 1. Controlled type 2 diabetes mellitus without complication, without long-term current use of insulin ([facility]) - ICD9: 250.00, ICD10: E11.9 (primary diagnosis) Controlled. Greatly improved control with drop in HgA1C from 13 range to 7 - Continue current medications - Discussed diabetic education issues of hypoglycemic symptoms, diet, medications- side effects and need for compliance and importance of exercise with patient. - HGB A1C - BASIC METABOLIC PNL - COMP METABOLIC PANEL - CBC - HGB A1C 2. Essential hypertension - ICD9: 401.9, ICD10: I10 - good control - Continue current medication(s) - Recommended regular aerobic exercise. - Recommend home blood pressure monitoring, to bring results in on next visit - Goal of BP <130/80 3. Vitamin D deficiency - ICD9: 268.9, ICD10: E55.9 Adjust supplement as needed - VITAMIN D 25 HYDROXY 4. Mixed hyperlipidemia - ICD9: 272.2, ICD10: E78.2 - to be determined upon return of lab results - Encouraged following a low fat, low cholesterol diet. - Discussed the benefits of regular aerobic exercise and weight loss. - Encouraged following a low carbohydrate, healthy oil intake diet. 5. Glaucoma, unspecified glaucoma type, unspecified laterality - ICD9: 365.9, ICD10: H40.9 Continue present management. Emily Flaherty MD Additional Medical Conditions Last edited 12/14/21 07:49 EDT by Amara Mauricio APRN.[employer] documented in this encounter [facility] Evaluation note Diagnosis Controlled type 2 diabetes mellitus without complication, without long-term current use of insulin (HCC)- Primary Essential hypertension Unspecified essential hypertension Vitamin D deficiency Unspecified vitamin D deficiency Mixed hyperlipidemia Glaucoma, unspecified glaucoma type, unspecified laterality [facility] Vaginal atrophy- Primary 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 [facility] Diagnosis Uncontrolled type 2 diabetes mellitus with hyperglycemia (HCC) [facility] Visit for screening mammogram Other screening mammogram [facility] Diagnosis Controlled type 2 diabetes mellitus without complication, without long-term current use of insulin (HCC)- Primary Vitamin D deficiency Unspecified vitamin D deficiency Essential hypertension Unspecified essential hypertension [facility] Diagnosis Uncontrolled type 2 diabetes mellitus with hyperglycemia (HCC) [facility] Diagnosis Controlled type 2 diabetes mellitus without complication, without long-term current use of insulin (HCC)- [facility] Diagnosis Controlled type 2 diabetes mellitus without complication, without long-term current use of insulin (HCC)- Primary Mixed hyperlipidemia Vitamin D deficiency Unspecified vitamin D deficiency Primary hypertension Unspecified essential hypertension [facility] Diagnosis Encounter for screening mammogram for breast cancer documented in this encounter [facility] note* Diagnosis Basal cell carcinoma of face Basal cell carcinoma of skin of other and unspecified parts of face [facility] Diagnosis Controlled type 2 diabetes mellitus without complication, without long-term current use of insulin (HCC)- Primary Mixed hyperlipidemia Primary hypertension Unspecified essential hypertension Vitamin D deficiency Unspecified vitamin D deficiency Encounter for immunization Need for other specified prophylactic vaccination against single bacterial disease documented in this encounter [facility] note* Diagnosis Uncontrolled type 2 diabetes mellitus with hyperglycemia (HCC) [facility] Diagnosis Controlled type 2 diabetes mellitus without complication, without long-term current use of insulin (HCC)- Primary Essential hypertension Unspecified essential hypertension Mixed hyperlipidemia Vitamin D deficiency Unspecified vitamin D deficiency [facility] Diagnosis Medicare annual wellness visit, subsequent- Primary Routine general medical examination at a health care facility Controlled type 2 diabetes mellitus without complication, without long-term current use of insulin (HCC) Essential hypertension Unspecified essential hypertension Mixed hyperlipidemia Vitamin D deficiency Unspecified vitamin D deficiency Encounter for screening examination for other mental health and behavioral disorders documented in this encounter [facility] note* Diagnosis Acute right-sided low back pain with right-sided sciatica- Primary Screening mammogram for breast cancer [facility] Diagnosis Screening mamm[facility] for breast cancer [facility] Diagnosis Controlled type 2 diabetes mellitus without complication, without long-term current use of insulin (HCC)- Primary Vitamin D deficiency Unspecified vitamin D deficiency Mixed hyperlipidemia Essential hypertension Unspecified essential hypertension Skin lesion of lower extremity Special screening for malignant neoplasms, colon Encounter for immunization Need for other specified prophylactic vaccination against single bacterial disease [facility]* Diagnosis Encounter for screening for malignant neoplasm of colon- Primary Special screening for malignant neoplasms, colon Special screening for malignant neoplasms, colon documented in this encounter [facility] note* Diagnosis Type 2 diabetes mellitus without complication, without long-term current use of insulin (HCC)- Primary documented in this encounter [facility] note* Diagnosis Hyperplastic polyp of sigmoid colon- Primary documented in this encounter [facility] note* Diagnosis Sebaceous cyst- Primary documented in this encounter [facility] note* Diagnosis Sebaceous cyst- Primary documented in this encounter [facility] note* Diagnosis Visit for suture removal- Primary Encounter for removal of sutures documented in this encounter [facility] note* Diagnosis Medicare annual wellness visit, subsequent- Primary Routine general medical examination at a health care facility Type 2 diabetes mellitus with hyperlipidemia (HCC) Essential hypertension Unspecified essential hypertension documented in this encounter [facility] for referral (narrative)* Diagnostic Procedure Only (Routine) - Closed Specialty Diagnoses / Procedures Referred By Nory pearce Referred To Contact [facility] Diagnoses Visit for screening mammogram Procedures REINIER SCREENING SCREENING MAMMOGRAPHY BI 2-VIEW BREAST INC Emily Rodriguez MD [address] [id number] [facility] [address] [place] [address] Referral ID Status Reason Start Date Expiration Date V isits Requested Visits Authorized [id number] Closed Auto-Generate d Referral 04/06/2022 05/06/2023 1 1 [facility] for referral (narrative)* Diagnostic Procedure Only (Routine) - Closed Specialty Diagnoses / Procedures Referred By Contac t Referred To Contact [facility] Diagnoses Encounter for screening mammogram for breast cancer Procedures REINIER SCREENING SCREENING MAMMOGRAPHY BI 2-VIEW BREAST INC Emily Rodriguez MD [address] [place] [id number] [facility] [address] [place] [address] Referral ID Status Reason Start Date Expiration Date V isits Requested Visits Authorized [id number] Closed Auto-Generate d Referral 06/29/2023 07/26/2024 1 1 [facility] for referral (narrative)* Diagnostic Procedure Only (Routine) - Authorized Specialty Diagnoses / Procedures Referred By Contac t Referred To Contact [facility] Diagnoses Screening mammogram for breast cancer Procedures REINIER SCREENING SCREENING MAMMOGRAPHY BI 2-VIEW BREAST INC CAD Amara Mauricio APRN.[employer] [address] [place] [address] [facility] [address] [place] [address] Referral ID Status Reason Start Date Expiration Date Visits Requested Visits Authorized [id number] Authorized Auto-Generat ed Referral 08/03/2025 1 1 * Physical Therapy (Routine) - Pending Review Specialty Diagnoses / Procedures Referred By Sonac t Referred To Contact [facility] Diagnoses Acute right-sided low back pain with right-sided sciatica Procedures CONSULT TO PHYSICAL THERAPY PHYSICAL THERAPY EVALUATION HIGH COMPLEX 45 MINS Amara Mauricio APRN.[employer] [address] [place] [address] [facility] [place] [address] [place] [id number] Referral ID Status Reason Start Date Expiration Date Visits Requested Visits Authorized [id number] Pending Review Auto-Generat ed Referral 07/04/2025 1 1 * Diagnostic Procedure Only (Routine) - New Request Specialty Diagnoses / Procedures Referred By Contac t Referred To Contact [facility] Diagnoses Acute right-sided low back pain with right-sided sciatica Procedures XR LUMBAR GENERAL 3V AP/LAT/L5-S1 RADEX SPINE LUMBOSACRAL 2/3 VIEWS Amara Mauricio APRN.[employer] [address] [place] [address] [place] [address] Referral ID Status Reason Start Date Expiration Date Visits Requested Visits Authorized [id number] New Request Auto-Generat ed Referral 08/03/2025 1 1 [facility] for visit Narrative* Diagnostic Procedure Only (Routine) - Closed Specialty Diagnoses / Procedures Referred By Nory t Referred To Contact [facility] Diagnoses Visit for screening mammogram Procedures REINIER SCREENING SCREENING MAMMOGRAPHY BI 2-VIEW BREAST INC Emily Rodriguez MD [address] [place] [address] [facility] [address] [place] [address] Referral ID Status Reason Start Date Expiration Date V isits Requested Visits Authorized [id number] Closed Auto-Generate d Referral 04/06/2022 05/06/2023 1 1 [facility] for visit Narrative* Diagnostic Procedure Only (Routine) - Closed Specialty Diagnoses / Procedures Referred By Nory t Referred To Contact [facility] Diagnoses Encounter for screening mammogram for breast cancer Procedures REINIER SCREENING SCREENING MAMMOGRAPHY BI 2-VIEW BREAST INC Emily Rodriguez MD [address] [place] [address] [facility] [address] [place] [address] Referral ID Status Reason Start Date Expiration Date V isits Requested Visits Authorized [id number] Closed Auto-Generate d Referral 06/29/2023 07/26/2024 1 1 [facility] for visit Narrative* Diagnostic Procedure Only (Routine) - Closed Specialty Diagnoses / Procedures Referred By Nory t Referred To Contact [facility] Diagnoses Screening mammogram for breast cancer Procedures REINIER SCREENING SCREENING MAMMOGRAPHY BI 2-VIEW BREAST INC Amara Ross APRN.CNS [address] [place] [address] [facility] [address] [place] [address] Referral ID Status Reason Start Date Expiration Date V isits Requested Visits Authorized [id number] Closed Auto-Generate d Referral 07/04/2024 08/03/2025 1 1 [facility] for visit Narrative* Outpatient Procedure (Routine) - Closed Specialty Diagnoses / Procedures Referred By Nory t Referred To Contact [facility] Diagnoses Special screening for malignant neoplasms, colon Procedures COLONOSCOPY SCREENING COLONOSCOPY FLX DX W/COLLJ SPEC WHEN Emily Khoury MD [address] [place] [address] Phone: tel: fax: [facility] [address] [place] [place] [address] Referral ID Status Reason Start Date Expiration Date V isits Requested Visits Authorized [id number] Closed Auto-Generate d Referral 11/11/2024 11/11/2025 1 1 [facility] Advance Directives Documents on File Type Date Recorded 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 Advance Directive(s) 07/13/2018 10:26 AM Advance Directive(s) 05/29/2018 8:44 AM Summary Purpose Family History No Family History Records Found Additional Source Comments Source Comments (unrecognize d section and content) In the event this informatio n is protected by the Federal Confidentiality of Alcohol and Drug Abuse Patient Records regulations: The Federal rules restrict any use of the information to criminally investigate or prosecute any alcohol or drug abuse patient.[facility] the event this information is protected by the Federal Confidentiality of Alcohol and Drug Abuse Patient Records regulations: The Federal rules restrict any use of the information to criminally investigate or prosecute any alcohol or drug abuse patient.[facility] the event this information is protected by the Federal Confidentiality of Alcohol and Drug Abuse Patient Records regulations: The Federal rules restrict any use of the information to criminally investigate or prosecute any alcohol or drug abuse patient.[facility] the event this information is protected by the Federal Confidentiality of Alcohol and Drug Abuse Patient Records regulations: The Federal rules restrict any use of the information to criminally investigate or prosecute any alcohol or drug abuse patient.[facility] the event this information is protected by the Federal Confidentiality of Alcohol and Drug Abuse Patient Records regulations: The Federal rules restrict any use of the information to criminally investigate or prosecute any alcohol or drug abuse patient.[facility] the event this information is protected by the Federal Confidentiality of Alcohol and Drug Abuse Patient Records regulations: The Federal rules restrict any use of the information to criminally investigate or prosecute any alcohol or drug abuse patient.[facility] the event this information is protected by the Federal Confidentiality of Alcohol and Drug Abuse Patient Records regulations: The Federal rules restrict any use of the information to criminally investigate or prosecute any alcohol or drug abuse patient.[facility] the event this information is protected by the Federal Confidentiality of Alcohol and Drug Abuse Patient Records regulations: The Federal rules restrict any use of the information to criminally investigate or prosecute any alcohol or drug abuse patient.[facility] the event this information is protected by the Federal Confidentiality of Alcohol and Drug Abuse Patient Records regulations: The Federal rules restrict any use of the information to criminally investigate or prosecute any alcohol or drug abuse patient.[facility] the event this information is protected by the Federal Confidentiality of Alcohol and Drug Abuse Patient Records regulations: The Federal rules restrict any use of the information to criminally investigate or prosecute any alcohol or drug abuse patient.[facility] the event this information is protected by the Federal Confidentiality of Alcohol and Drug Abuse Patient Records regulations: The Federal rules restrict any use of the information to criminally investigate or prosecute any alcohol or drug abuse patient.[facility] the event this information is protected by the Federal Confidentiality of Alcohol and Drug Abuse Patient Records regulations: The Federal rules restrict any use of the information to criminally investigate or prosecute any alcohol or drug abuse patient.[facility] the event this information is protected by the Federal Confidentiality of Alcohol and Drug Abuse Patient Records regulations: The Federal rules restrict any use of the information to criminally investigate or prosecute any alcohol or drug abuse patient.[facility] the event this information is protected by the Federal Confidentiality of Alcohol and Drug Abuse Patient Records regulations: The Federal rules restrict any use of the information to criminally investigate or prosecute any alcohol or drug abuse patient.[facility] the event this information is protected by the Federal Confidentiality of Alcohol and Drug Abuse Patient Records regulations: The Federal rules restrict any use of the information to criminally investigate or prosecute any alcohol or drug abuse patient.[facility] the event this information is protected by the Federal Confidentiality of Alcohol and Drug Abuse Patient Records regulations: The Federal rules restrict any use of the information to criminally investigate or prosecute any alcohol or drug abuse patient.[facility] the event this information is protected by the Federal Confidentiality of Alcohol and Drug Abuse Patient Records regulations: The Federal rules restrict any use of the information to criminally investigate or prosecute any alcohol or drug abuse patient.[facility] the event this information is protected by the Federal Confidentiality of Alcohol and Drug Abuse Patient Records regulations: The Federal rules restrict any use of the information to criminally investigate or prosecute any alcohol or drug abuse patient.[facility] the event this information is protected by the Federal Confidentiality of Alcohol and Drug Abuse Patient Records regulations: The Federal rules restrict any use of the information to criminally investigate or prosecute any alcohol or drug abuse patient.[facility] the event this information is protected by the Federal Confidentiality of Alcohol and Drug Abuse Patient Records regulations: The Federal rules restrict any use of the information to criminally investigate or prosecute any alcohol or drug abuse patient.[facility] the event this information is protected by the Federal Confidentiality of Alcohol and Drug Abuse Patient Records regulations: The Federal rules restrict any use of the information to criminally investigate or prosecute any alcohol or drug abuse patient.[facility] the event this information is protected by the Federal Confidentiality of Alcohol and Drug Abuse Patient Records regulations: The Federal rules restrict any use of the information to criminally investigate or prosecute any alcohol or drug abuse patient.[facility] the event this information is protected by the Federal Confidentiality of Alcohol and Drug Abuse Patient Records regulations: The Federal rules restrict any use of the information to criminally investigate or prosecute any alcohol or drug abuse patient.[facility] the event this information is protected by the Federal Confidentiality of Alcohol and Drug Abuse Patient Records regulations: The Federal rules restrict any use of the information to criminally investigate or prosecute any alcohol or drug abuse patient.[facility] the event this information is protected by the Federal Confidentiality of Alcohol and Drug Abuse Patient Records regulations: The Federal rules restrict any use of the information to criminally investigate or prosecute any alcohol or drug abuse patient.[facility] the event this information is protected by the Federal Confidentiality of Alcohol and Drug Abuse Patient Records regulations: The Federal rules restrict any use of the information to criminally investigate or prosecute any alcohol or drug abuse patient.[facility] the event this information is protected by the Federal Confidentiality of Alcohol and Drug Abuse Patient Records regulations: The Federal rules restrict any use of the information to criminally investigate or prosecute any alcohol or drug abuse patient.[facility] the event this information is protected by the Federal Confidentiality of Alcohol and Drug Abuse Patient Records regulations: The Federal rules restrict any use of the information to criminally investigate or prosecute any alcohol or drug abuse patient.[facility] the event this information is protected by the Federal Confidentiality of Alcohol and Drug Abuse Patient Records regulations: The Federal rules restrict any use of the information to criminally investigate or prosecute any alcohol or drug abuse patient.[facility] the event this information is protected by the Federal Confidentiality of Alcohol and Drug Abuse Patient Records regulations: The Federal rules restrict any use of the information to criminally investigate or prosecute any alcohol or drug abuse patient.[facility] the event this information is protected by the Federal Confidentiality of Alcohol and Drug Abuse Patient Records regulations: The Federal rules restrict any use of the information to criminally investigate or prosecute any alcohol or drug abuse patient.[facility] the event this information is protected by the Federal Confidentiality of Alcohol and Drug Abuse Patient Records regulations: The Federal rules restrict any use of the information to criminally investigate or prosecute any alcohol or drug abuse patient.[facility] the event this information is protected by the Federal Confidentiality of Alcohol and Drug Abuse Patient Records regulations: The Federal rules restrict any use of the information to criminally investigate or prosecute any alcohol or drug abuse patient.[facility] the event this information is protected by the Federal Confidentiality of Alcohol and Drug Abuse Patient Records regulations: The Federal rules restrict any use of the information to criminally investigate or prosecute any alcohol or drug abuse patient.[facility] the event this information is protected by the Federal Confidentiality of Alcohol and Drug Abuse Patient Records regulations: The Federal rules restrict any use of the information to criminally investigate or prosecute any alcohol or drug abuse patient.[facility] Reason for Visit (unrecogniz ed section and content) Reason Comments F/U 6 months Reason Comments Vaginal Problem Reason Comments Refill Request Reason Onset Date Comments Refill Request 07/15/2022 Reason Comments Appointment Reason Comments Established Patient Medication Follow-up Reason Onset Date Comments Refill Request 2023 Reason Comments Follow Up Reason Comments Insurance Authorization Reason Comments Mohs Specialty Diagnoses / Procedures Referred By Contac t Referred To Contact Dermatology Diagnoses Basal cell carcinoma of face Procedures MOHS OFFICE/OUTPATIENT [facility] [place] 60 MINUTES Alessia Townsend MD [address] [place] [address] Referral ID Status Reason Start Date Expiration Date V isits Requested Visits Authorized [id number] Closed PCP Requested Referral 10/13/2023 10/12/2024 1 1 Reason Onset Date Comments Refill Request 02/07/2024 Reason Comments F/U 6 months Medicare Wellness Exam Reason Comments Patient Update Reason Comments Sciatica Reason Comments Diabetes Is concerned due to medication side effects with treating diabetes.Is taking Metformin 500 mg 1 daily as two daily causes to severe diarrhea. Reason Onset Date Comments Care Coordination 12/25/2024 Panel Manageme nt Review for Pharmacist Referral for Diabetes Management Reason Comments Consult Lump to rt neck re elizabeth has been present for a long time Reason Onset Date Comments Refill Request 02/05/2025 Reason Onset Date Comments Roll Former- Other 02/07/2025 Incoming call Reason Comments Medicare Wellness Exam Having trouble co ntrolling sugar levels states this morning it was 199 and averaging 160-170 Rash on arms and legs onl y Care Teams (unrecognized sec tion and content) Tanning Drum Operator Relationship Specialty Start Date End Date Emily Flaherty MD [address] [place] [address] PCP - General 07/05/02 Becki Beth, [facility] [address] [place] [address] Pharmacist Pharmacy 05/13/21 Tanning Drum Operator Relationship Specialty Start Date End Date Emily Flaherty MD [address] [place] [address] PCP - General 07/05/02 Becki Beth, [facility] [address] [place] [address] Pharmacist Pharmacy 05/13/21 Tanning Drum Operator Relationship Specialty Start Date End Date Emily Flaherty MD [address] [place] [address] PCP - General 07/05/02 Becki Beth, [facility] [address] [place] [address] Pharmacist Pharmacy 05/13/21 Tanning Drum Operator Relationship Specialty Start Date End Date Emily Flaherty MD [address] [place] [address] PCP - General 07/05/02 Becki Beth, [facility] [address] [place] [address] Pharmacist Pharmacy 05/13/21 Tanning Drum Operator Relationship Specialty Start Date End Date Emily Flaherty MD [address] [place] [address] PCP - General 07/05/02 Becki Beth, [facility] [address] [place] [address] Pharmacist Pharmacy 05/13/21 Tanning Drum Operator Relationship Specialty Start Date End Date Emily Flaherty MD [address] [place] [address] PCP - General 07/05/02 Becki Beth, [facility] [address] [place] [address] Pharmacist Pharmacy 05/13/21 Tanning Drum Operator Relationship Specialty Start Date End Date Emily Flaherty MD [address] [place] [address] PCP - General 07/05/02 Becki Beth, [facility] [address] [place] [address] Pharmacist Pharmacy 05/13/21 Tanning Drum Operator Relationship Specialty Start Date End Date Emily Flaherty MD [address] [place] [address] PCP - General 07/05/02 Becki Beth, [facility] [address] [place] [address] Pharmacist Pharmacy 05/13/21 Tanning Drum Operator Relationship Specialty Start Date End Date Emily Flaherty MD [address] [place] [address] PCP - General 07/05/02 Becki Beth, [facility] [address] [place] [address] Pharmacist Pharmacy 05/13/21 Tanning Drum Operator Relationship Specialty Start Date End Date Emily Flaherty MD [address] [facility] [place] [address] PCP - General 07/05/02 IgnaciaBecki manley, [facility] [address] [facility] [place] [address] Pharmacist Pharmacy 05/13/21 Tanning Drum Operator Relationship Specialty Start Date End Date Emily Flaherty MD [address] [facility] [place] [address] PCP - General 07/05/02 Olympia FieldsBecki manley, [facility] [address] [facility] [place] [address] Pharmacist Pharmacy 05/13/21 Tanning Drum Operator Relationship Specialty Start Date End Date Emily Flaherty MD [address] [facility] [place] [address] PCP - General 07/05/02 Becki Beth, [facility] [address] [facility] [place] [address] Pharmacist Pharmacy 05/13/21 Tanning Drum Operator Relationship Specialty Start Date End Date Emily Flaherty MD [address] [facility] [place] [place] [address] PCP - General 07/05/02 Becki Beth, [facility] [address] [facility] [place] [place] [address] Pharmacist Pharmacy 05/13/21 Tanning Drum Operator Relationship Specialty Start Date End Date Emily Flaherty MD [address] [place] [address] PCP - General 07/05/02 Becki Beth, [facility] [address] [facility] [place] [place] [address] Pharmacist Pharmacy 05/13/21 Tanning Drum Operator Relationship Specialty Start Date End Date Emily Flaherty MD [address] [place] [address] PCP - General 07/05/02 Becki Beth, [facility] [address] [place] [address] Pharmacist Pharmacy 05/13/21 Tanning Drum Operator Relationship Specialty Start Date End Date Emily Flaherty MD [address] [place] [address] PCP - General 07/05/02 Becki Beth, [facility] [address] [place] [address] Pharmacist Pharmacy 05/13/21 Tanning Drum Operator Relationship Specialty Start Date End Date Emily Flaherty MD [address] [facility] [place] [place] [address] PCP - General 07/05/02 Becki Beth, [facility] [address] [facility] [place] [place] [address] Pharmacist Pharmacy 05/13/21 Tanning Drum Operator Relationship Specialty Start Date End Date Emily Flaherty MD [address] [place] [address] PCP - General 07/05/02 Becki Beth, [facility] [address] [place] [address] Pharmacist Pharmacy 05/13/21 Tanning Drum Operator Relationship Specialty Start Date End Date Emily Flaherty MD [address] [place] [address] PCP - General 07/05/02 [facility] [address] [place] [address] Pharmacist Pharmacy 05/13/21 Tanning Drum Operator Relationship Specialty Start Date End Date Emily Flaherty MD [address] [place] [address] PCP - General 07/05/02 [facility] [address] [place] [address] Pharmacist Pharmacy 05/13/21 Amara Mauricio, HOSPICE REGISTERED NURSE.DELIVERY AND MAIL SORTER [address] [place] [address] [employer] Internal Medicine 08/19/24 Aracelis Ribeiro HOSPICE REGISTERED NURSE.TUBE CUTTER OPERATOR [address] [place] [address] [employer] Internal Medicine 08/19/24 Tanning Drum Operator Relationship Specialty Start Date End Date Emily Flaherty MD [address] [place] [address] PCP - General 07/05/02 [facility] [address] [place] [address] Pharmacist Pharmacy 05/13/21 Amara Mauricio, HOSPICE REGISTERED NURSE.DELIVERY AND MAIL SORTER [address] [place] [address] [employer] Internal Medicine 08/19/24 Aracelis Ribeiro APRN.TUBE CUTTER OPERATOR [address] [place] [address] [employer] Internal Medicine 12/03/24 Tanning Drum Operator Relationship Specialty Start Date End Date Emily Flaherty MD [address] [place] [address] PCP - General 07/05/02 [facility] [address] [place] [address] Pharmacist Pharmacy 05/13/21 Amara Mauricio APRN.DELIVERY AND MAIL SORTER [address] [place] [address] [employer] Internal Medicine 08/19/24 Aracelis Ribeiro APRN.TUBE CUTTER OPERATOR [address] [place] [address] [employer] Internal Medicine 12/03/24 Tanning Drum Operator Relationship Specialty Start Date End Date Emily Flaherty MD [address] [place] [address] PCP - General 07/05/02 [facility] [address] [place] [address] Pharmacist Pharmacy 05/13/21 Amara Mauricio APRN.DELIVERY AND MAIL SORTER [address] [place] [address] [employer] Internal Medicine 08/19/24 Aracelis Ribeiro APRN.TUBE CUTTER OPERATOR [address] [place] [address] [employer] Internal Medicine 12/03/24 Tanning Drum Operator Relationship Specialty Start Date End Date Emily Flaherty MD [address] [place] [address] PCP - General 07/05/02 [facility] [address] [place] [address] Pharmacist Pharmacy 05/13/21 Amara Mauricio, HOSPICE REGISTERED NURSE.DELIVERY AND MAIL SORTER [address] [place] [address] [employer] Internal Medicine 08/19/24 Aracelis Ribeiro HOSPICE REGISTERED NURSE.TUBE CUTTER OPERATOR [address] [place] [address] [employer] Internal Medicine 12/03/24 Tanning Drum Operator Relationship Specialty Start Date End Date Emily Flaherty MD [address] [place] [address] PCP - General 07/05/02 [facility] [address] [place] [address] Pharmacist Pharmacy 05/13/21 Amara Mauricio, HOSPICE REGISTERED NURSE.DELIVERY AND MAIL SORTER [address] [place] [address] [employer] Internal Medicine 08/19/24 Aracelis Ribeiro HOSPICE REGISTERED NURSE.TUBE CUTTER OPERATOR [address] [place] [address] [employer] Internal Medicine 12/03/24 Tanning Drum Operator Relationship Specialty Start Date End Date Emily Flaherty MD [address] [place] [address] PCP - General 07/05/02 Bekci Beth [facility] [address] [place] [address] Pharmacist Pharmacy 05/13/21 Amara Mauricio, HOSPICE REGISTERED NURSE.DELIVERY AND MAIL SORTER [address] [place] [address] [employer] Internal Medicine 08/19/24 Aracelis Ribeiro HOSPICE REGISTERED NURSE.TUBE CUTTER OPERATOR [address] [place] [address] [employer] Internal Medicine 12/03/24 Tanning Drum Operator Relationship Specialty Start Date End Date Emily Flaherty MD [address] [place] [address] PCP - General 07/05/02 Becki Beth [facility] [address] [place] [address] Pharmacist Pharmacy 05/13/21 Amara Mauricio, HOSPICE REGISTERED NURSE.DELIVERY AND MAIL SORTER [address] [place] [address] [employer] Internal Medicine 08/19/24 Aracelis Ribeiro HOSPICE REGISTERED NURSE.TUBE CUTTER OPERATOR [address] [place] [address] [employer] Internal Medicine 12/03/24 Tanning Drum Operator Relationship Specialty Start Date End Date Emily Flaherty MD [address] [place] [address] PCP - General 07/05/02 Becki Beth [facility] [address] [place] [address] Pharmacist Pharmacy 05/13/21 Amara Mauricio HOSPICE REGISTERED NURSE.DELIVERY AND MAIL SORTER [address] [place] [address] [employer] Internal Medicine 08/19/24 Aracelis Ribeiro HOSPICE REGISTERED NURSE.TUBE CUTTER OPERATOR [address] [place] [address] [employer] Internal Medicine 12/03/24 Tanning Drum Operator Relationship Specialty Start Date End Date Emily Flaherty MD [address] [facility] [place] [place] [address] PCP - General 07/05/02 [facility] [address] [place] [address] Pharmacist Pharmacy 05/13/21 Aracelis Ribeiro HOSPICE REGISTERED NURSE.TUBE CUTTER OPERATOR [address] [place] [address] [employer] Internal Medicine 12/03/24 Kiera Shepard RN Roll Former Family Medicine 01/16/25 Amara Mauricio, HOSPICE REGISTERED NURSE.DELIVERY AND MAIL SORTER [address] [place] [address] [employer] Internal Medicine 01/29/25 Tanning Drum Operator Relationship Specialty Start Date End Date Emily Flaherty MD [address] [facility] [place] [address] PCP - General 07/05/02 Becki Beth [facility] [address] [place] [address] Pharmacist Pharmacy 05/13/21 Aracelis Ribeiro, HOSPICE REGISTERED NURSE.TUBE CUTTER OPERATOR [address] [facility] [place] [address] [employer] Internal Medicine 12/03/24 Kiera Shepard RN Roll Former Family Medicine 01/16/25 Amara Mauricio, HOSPICE REGISTERED NURSE.DELIVERY AND MAIL SORTER [address] [facility] [place] [address] [employer] Internal Medicine 01/29/25 Tanning Drum Operator Relationship Specialty Start Date End Date Emily Flaherty MD [address] [place] [address] PCP - General 07/05/02 Becki Beth [facility] [address] [place] [address] Pharmacist Pharmacy 05/13/21 Aracelis Ribeiro HOSPICE REGISTERED NURSE.TUBE CUTTER OPERATOR [address] [place] [address] [employer] Internal Medicine 12/03/24 Kiera Shepard RN Roll Former Family Medicine 01/16/25 Amara Mauricio, HOSPICE REGISTERED NURSE.DELIVERY AND MAIL SORTER [address] [place] [address] [employer] Internal Medicine 01/29/25 Tanning Drum Operator Relationship Specialty Start Date End Date Emily Flaherty MD [address] [place] [address] PCP - General 07/05/02 Becki Beth [facility] [address] [facility] [place] [place] [address] Pharmacist Pharmacy 05/13/21 Aracelis Ribeiro HOSPICE REGISTERED NURSE.TUBE CUTTER OPERATOR [address] [place] [address] [employer] Internal Medicine 12/03/24 Kiera Shepard RN Roll Former Family Medicine 01/16/25 Amara Mauricio APRN.DELIVERY AND MAIL SORTER [address] [place], [place] [id number] [facility] Internal Medicine 01/29/25 INFORMATION SOURCE (unrecogn ized section and content) DATE CREATED AUTHOR 02/09/2025 [facility] FOR RECORDS PERTAINING TO PATIENTS WHO ARE OR HAVE BEEN ENROLLED IN A CHEMICAL DEPENDENCY/SUBSTANCEABUSE PROGRAM, SOME INFORMATION MAY BE OMITTED. This clinical summary was aggregated from multiple sources. Caution should be exercised in using it in the provision of clinical care. This summary normalizes information from multiple sources, and as a consequence, information in this document may materially change the coding, format and clinical context of patient data. In addition, data may be omitted in some cases. CLINICAL DECISIONS SHOULD BE BASED ON THE PRIMARY CLINICAL RECORDS. [employer] provides no warranty or guarantee of the accuracy or completeness of information in this document.
== END | disposition home or self-care (01) ==
PROVIDERS: PCP Internal Medicine; Referring Provider Ophthalmology; Visit Provider Ophthalmology
DX: H02.9 Unspecified disorder of eyelid (principal)
CPT/HCPCS: 88305

== ENCOUNTER 2025-04-03 16:47 | Emergency (ER) | payer MEDICARE, SELFPAY ==
[2025-04-03 16:55] VITALS: BP 100/88; PULSE 74; RESP 17; TEMP 36.4; O2SAT 97; BMI 27.4
[2025-04-03 17:01] VITALS: O2SAT 97
[2025-04-03] MEDS: Lidocaine 1% (20 ml mdv) 20 ML Vial INFILT (17:07)
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
--- NOTE | 2025-04-03 17:15 | CT_ITS ---
PROCEDURE: BRAIN/HEAD WITHOUT CONTRAST 04/03/2025 REASON FOR EXAM: HEAD INJURY TECHNIQUE: BRAIN/HEAD WITHOUT CONTRAST Coronal and Sagittal reconstruction series were provided. One or more dose reduction techniques were used (e.g., Automated exposure control, adjustment of the mA and/or kV according to patient size, use of iterative reconstruction technique. RADIATION DOSE SUMMARY: DLP: 796 mGycm COMPARISON: None FINDINGS: There is no acute infarct, intracranial hemorrhage, or mass effect. There is no hydrocephalus or significant midline shift. There is mild chronic microvascular ischemic changes and mild parenchymal volume loss. No acute, depressed calvarial fractures. No large scalp hematomas. Scattered ethmoid sinus collections. Bilateral lens surgeries. CT/Brain/Head without Contrast IMPRESSION: No acute intracranial process. Reading Location: [id number]
[2025-04-03 17:47] VITALS: BP 159/64; PULSE 75; RESP 18; O2SAT 100
[2025-04-03 18:00] VITALS: BP 143/76; PULSE 75; RESP 18; O2SAT 97
[2025-04-03 18:47] VITALS: BP 143/76; PULSE 75; RESP 18; TEMP 36.4; O2SAT 97
== END 2025-04-03 18:48 | disposition home or self-care (01) ==
PROVIDERS: Emergency Provider Emergency Medicine; PCP Internal Medicine; Visit Provider Emergency Medicine
DX: S01.01XA Laceration without foreign body of scalp, initial encounter (principal); E11.9 Type 2 diabetes mellitus without complications; S80.12XA Contusion of left lower leg, initial encounter; I10 Essential (primary) hypertension; S80.11XA Contusion of right lower leg, initial encounter; W17.89XA Other fall from one level to another, initial encounter; Y92.810 Car as the place of occurrence of the external cause; Z79.899 Other long term (current) drug therapy; F41.9 Anxiety disorder, unspecified; Z23 Encounter for immunization; S09.90XA Unspecified injury of head, initial encounter
CPT/HCPCS: 12002; 70450; 90715; 99284

== ENCOUNTER 2025-04-08 14:46 | Emergency (ER) | payer MEDICARE, SELFPAY ==
[2025-04-08 14:47] VITALS: BP 167/79; PULSE 80; RESP 16; TEMP 36.7; O2SAT 98
[2025-04-08 14:54] VITALS: BMI 27.1
--- NOTE | 2025-04-08 14:59 | VDLE_ITS ---
Reason For Study Reason For Study: Right leg pain RIGHT GSV is normal. CFV is compressible, spontaneous, phasic, competent and demonstrates normal augmentation. FV is compressible, spontaneous, phasic, competent and demonstrates normal augmentation. POP V is compressible, spontaneous, phasic, competent and demonstrates normal augmentation. T/P Trunk is compressible. PTV is compressible. RT PerV is compressible. Procedure This is a venous duplex using B-mode, color flow and spectral Doppler. Exam performed portable in ED. A preliminary report was called and/or faxed to Dr. Boone. VL/Venous Duplex US, Unilateral Interpretation Summary Deep veins of the right lower extremity are patent and compressible segmentally . There is no evidence of right lower extremity deep vein thrombosis. Valvular competence appears intact within the p roximal deep venous system on the right . The right great saphenous vein appears patent and compressible segmentally. Ordering Physician: Alber Boone Referring Physician: Belén Pratt M.D. Performed By: Kiera Echols RVT
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
--- NOTE | 2025-04-08 15:24 | RAD_ITS ---
EXAM: Right tibia and fibula. CLINICAL HISTORY: Pain. COMPARISON: None TECHNIQUE: Two views were obtained. FINDINGS: No abnormality is seen. RAD/Tibia & Fibula 2 Views IMPRESSION: Unremarkable examination. Reading Location: [id number]
[2025-04-08 16:51] VITALS: BP 184/78; PULSE 77; RESP 16; TEMP 36.7; O2SAT 95
== END 2025-04-08 16:59 | disposition home or self-care (01) ==
PROVIDERS: Emergency Provider Emergency Medicine; PCP Internal Medicine; Visit Provider Emergency Medicine
DX: M79.604 Pain in right leg (principal); E11.9 Type 2 diabetes mellitus without complications; Z79.84 Long term (current) use of oral hypoglycemic drugs; S01.01XA Laceration without foreign body of scalp, initial encounter; S80.11XA Contusion of right lower leg, initial encounter; I10 Essential (primary) hypertension; W17.89XA Other fall from one level to another, initial encounter; Y92.810 Car as the place of occurrence of the external cause; Z79.899 Other long term (current) drug therapy
CPT/HCPCS: 73590; 93971; 99282

== ENCOUNTER 2025-06-06 12:11 | Observation (INO) | payer MEDICARE, SELFPAY ==
[2025-06-06] VITALS (8 sets, daily range): BP systolic 146–202; BP diastolic 67–99; PULSE 68–101; RESP 14–18; TEMP 36.6–37.4; O2SAT 95–100; BMI 25.3
--- NOTE | 2025-06-06 13:19 | CT_ITS ---
PROCEDURE: CTA HEAD AND NECK W/ CONTRAST 06/06/2025 REASON FOR EXAM: NUMBNESS, RESOLVED TECHNIQUE: Procedure Code: CTCTA.HDNCK Modality: CT Procedure: CTA HEAD AND NECK W/ CONTRAST Multiplanar Sagittal and Coronal images were obtained. CONTRAST: Isovue 370 VOLUME: 100 mL One or more dose reduction techniques were used (e.g., Automated exposure control, adjustment of the mA and/or kV according to patient size, use of iterative reconstruction technique). RADIATION DOSE SUMMARY: CTDlvol: 11.69 mGy DLP: 1154.66 mGycm COMPARISON: None. FINDINGS: Aortic Arch: Normal size and branching pattern. No significant atherosclerotic plaque. Brachiocephalic and Subclavians: Unremarkable RIGHT Carotid: Right CCA: Unremarkable. Right ICA: Unremarkable. Right ECA: Unremarkable. LEFT Carotid: Left CCA: Unremarkable. Left ICA: Unremarkable. Left ECA: Unremarkable. Vertebrals: Codominant. Arise from the subclavians. Both vertebrals form the basilar. RIGHT Vertebral: Small and terminates intracranially at the right posterior inferior cerebellar artery. LEFT Vertebral: Unremarkable. Anatomy: [place] of [place] anatomy is normal. Aneurysm or avm: No intracranial aneurysms or large vascular malformations are identified. Anterior cerebral arteries: Unremarkable: Middle cerebral arteries: Unremarkable. Basilar artery: Unremarkable. Posterior cerebral arteries: Unremarkable. Other major branches of the posterior circulation: Unremarkable. Major venous structures: Unremarkable. Other findings: Neck: No lymphadenopathy. Heterogeneous thyroid gland. Lungs: Lung apices are clear. Bones: Bones are unremarkable. CT/CTA Head AND Neck W/ Contrast IMPRESSION: No hemodynamically significant stenosis in the head and neck. No aneurysm. Reading Location: [facility]
--- NOTE | 2025-06-06 13:19 | CT_ITS ---
PROCEDURE: BRAIN/HEAD WITHOUT CONTRAST 06/06/2025 REASON FOR EXAM: NUMBNESS, RESOLVED TECHNIQUE: Procedure Code: CTBR Modality: CT Procedure: BRAIN/HEAD WITHOUT CONTRAST Coronal and Sagittal reconstruction series were provided. One or more dose reduction techniques were used (e.g., Automated exposure control, adjustment of the mA and/or kV according to patient size, use of iterative reconstruction technique. RADIATION DOSE SUMMARY: CTDlvol: - mGy DLP: - mGycm COMPARISON: None. FINDINGS: Brain: Extensive low density in the deep cerebral white matter most likely represents advanced chronic small vessel ischemic disease. No acute intracranial hemorrhage. No mass-effect or midline shift. No ventriculomegaly. The craniocervical junction and orbits are unremarkable. CSF Spaces: Advanced generalized cerebral atrophy Sinuses/Mastoids: Clear at visualized levels Bones: No acute bony abnormalities. CT/Brain/Head without Contrast IMPRESSION: No acute intracranial abnormalities. Reading Location: [id number]
--- NOTE | 2025-06-06 13:20 | EKG12_ITS ---
Test Reason : NEURO Blood Pressure : */* mmHG Vent. Rate : 68 BPM Atrial Rate : 68 BPM P-R Int : 132 ms QRS Dur : 82 ms QT Int : 400 ms P-R-T Axes : 12 12 61 degrees QTcB Int : 425 ms Normal sinus rhythm Normal ECG Confirmed by CELESTINA ROGERS ([id number]), international editorial producer ODETTE VILLANUEVA ([id number]) on 06/09/2025 9:10:45 AM Referred By: Confirmed By: CELESTINA ROGERS
--- NOTE | 2025-06-06 13:48 | EX.ED.DYSGE1 ---
HPI History of Present Illness Chief Complaint: Neuro S/Sx Narrative Narrative: Chief complaint and HPI: 80-year-old female with past medical history of HTN, DM 2 presents for evaluation of resolved left hand numbness. Patient states she has been fatigued all day. States for several seconds she developed numbness to the left hand that quickly resolved. States she is asymptomatic at this time other than fatigue. She denies any weakness or focal weakness, difficulty speaking, confusion, headache, vision changes, shortness of breath, chest pain, URI symptoms, abdominal pain, nausea, vomiting, dysuria. Review of systems: See HPI Medications: As listed on the chart Allergies: As listed on the chart PFSH: Per chart Vital signs: As listed on the chart. Reviewed. Physical exam: Gen: A&O x3, NAD Head: Normocephalic, atraumatic Eyes: No sclera icterus, conjunctiva clear, PERRL, EOMI ENT: Moist mucous membranes, No facial asymmetry Neck: Trachea midline, No JVD CV: RRR, no murmurs, no peripheral edema Resp: Lungs CTA BL, no w/r/c GI: Abd soft, non-distended, non-tender, no r/r/g Musc: Full ROM, no deformity, strength +5/5 in all extremities, no pronator drift, no ataxia Skin: Warm, dry, intact Neuro: Alert, oriented, grossly intact, sensation intact, no focal deficits, NIH 0 Psych: Cooperative, appropriate mood and affect [facility] Medical History Anxiety Heart murmur Hypertension Shingles Diabetes mellitus Home Medications ?Medication ?Instructions ?Recorded ?Last Taken ?Type cholecalciferol (vitamin D3) 50 50 mcg PO DAILY 04/08/25 04/08/25 History mcg (2,000 unit) capsule latanoprost 0.005 % eye drops 1 drp ophthalmic (eye) DAILY 04/08/25 04/07/25 History lisinopril 20 mg tablet 20 mg PO DAILY 04/08/25 04/08/25 History metformin 500 mg tablet,extended 500 mg PO DAILY 04/08/25 04/07/25 History release 24 hr minocycline 50 mg capsule 50 mg PO DAILY 04/08/25 04/07/25 History timolol maleate 0.5 % eye drops 1 drp ophthalmic (eye) BID 04/08/25 04/08/25 History Allergy/AdvReac Type Severity Reaction Status Date / Time Beef Containing Products Allergy Nausea/Vom/ Verified 06/06/25 12:14 Diarrhea Fish Containing Products Allergy Itching Verified 06/06/25 12:14 lactase (From Dairy Aid) Allergy Nausea/Vom/ Verified 06/06/25 12:14 Diarrhea acetaminophen (From Tylenol) AdvReac Other Verified 06/06/25 12:14 Social History Smoking Status: Never smoker EXAM Physical Exam Const Vital Signs: 06/06/25 12:12 06/06/25 14:14 06/06/25 16:00 Temperature 98.2 F Temperature Source Oral Pulse Rate 101 H 68 72 Respiratory Rate 16 18 18 Blood Pressure 191/98 H 169/78 H 183/81 H Blood Pressure Mean 129 108 115 Pulse Ox 98 95 100 Oxygen Delivery Method Room Air Room Air Room Air MDM MDM MDM Narrative Medical decision making narrative: 80-year-old female with past medical history of HTN, DM 2 presents for evaluation of resolved left hand numbness. Patient states she has been fatigued all day. States for several seconds she developed numbness to the left hand that quickly resolved. States she is asymptomatic at this time other than fatigue. On presentation, patient no acute distress she is hypertensive with SBP in the 190s. She states she takes her antihypertensives in the evening. She states her SBP normally is in the 140s. Differential diagnosis includes but is not limited to hypertension urgency, hypertension emergency, TIA, CVA, electrolyte abnormality, UTI, hyperglycemia or hypoglycemia. Point of glucose was obtained and one 90. NS bolus and labetalol ordered. Hypertension/TIA workup ordered. CBC without leukocytosis or anemia. BMP relatively unremarkable. Magnesium unremarkable. Troponin unremarkable. UA negative for UTI but positive for blood, pyuria. Will send for culture. Patient not endorsing any UTI type symptoms. CT head shows no acute abnormality. CTA head and neck shows no aneurysm or significant stenosis. On reevaluation, patient's blood pressure has improved proved with the labetalol to the 160s. She still feels fatigued otherwise asymptomatic. At this point in time, unclear etiology for her left handed numbness. May have been hypertension urgency versus TIA. Given that I cannot rule out TIA, I recommend patient be admitted for TIA workup. She confirmed understanding of the plan. I spoke with Dr. Adams who accepted admission. EKG: Interpreted by me/EM physician: EKG shows normal sinus rhythm without any acute ischemic changes. Heart rate 68. Diagnostic: Interpreted by me/EM physician: Chest x-ray without pneumonia, effusion, cardiomegaly, pneumothorax Impression: 1. Left hand numbness, resolved. Concern for TIA versus hypertension urgency 2. Hypertension 3. Pyuria Lab Data Labs: Laboratory Results - last 24 hr 06/06/25 06/06/25 06/06/25 13:00 13:01 14:51 WBC 9.4 RBC 4.70 Hgb 13.4 Hct 40.9 MCV 87.0 MCH 28.5 MCHC 32.8 RDW Std Deviation 41.2 RDW Coeff of Michael 13.0 Plt Count 366 MPV 9.5 Immature Gran % (Auto) 0.400 Neut % (Auto) 68.9 Lymph % (Auto) 18.6 L Jackson % (Auto) 7.3 Eos % (Auto) 4.4 Baso % (Auto) 0.4 Absolute Neuts (auto) 6.5 Absolute Lymphs (auto) 1.75 Nucleated RBC % 0.5 Sodium 138 Potassium 4.0 Chloride 103 Carbon Dioxide 20.5 L Anion Gap 15 BUN 25 H Creatinine 0.82 Est GFR (MDRD) Non-Af 72 BUN/Creatinine Ratio 30.0 H Glucose 187 H Calcium 9.5 Magnesium 2.0 Troponin T High Sens 12 Urine Color Yellow Urine Clarity Clear Urine pH 6.0 Ur Specific [place] 1.025 Urine Protein 30 H Urine Glucose (UA) 250 H Urine Ketones 15 H Urine Occult Blood 25 H Urine Nitrite Negative Urine Bilirubin Negative Urine Urobilinogen Normal Ur Leukocyte Esterase 500 H Urine RBC 0 SEEN Urine WBC 50-100 SEEN Ur Squamous Epith Cells 0-5 SEEN Urine Bacteria 0 SEEN Urine Mucus 0 SEEN POC Glucose 190 H Radiography Diagnostic Testing: Clinical Impression(s) from Imaging Studies Brain CT 06/06/25 13:19 IMPRESSION: No acute intracranial abnormalities. Reading Location: [facility] Head/Neck CTA 06/06/25 13:19 IMPRESSION: No hemodynamically significant stenosis in the head and neck. No aneurysm. Reading Location: [facility] Chest X-Ray 06/06/25 15:20 IMPRESSION: Partially visualized kidneys show residual contrast material within the collecting systems. Generalized osteopenia is seen. No acute osseous change is evident. No evidence of cardiomegaly. A mildly calcified aorta is seen. Lungs are mildly hyperinflated with increased interstitial markings, consistent with chronic lung disease. No findings pulmonary edema are seen. No acute pneumonic process is noted. No pleural effusion or pneumothorax is seen. Reading Location: [address] Discharge Plan Triage Chief Complaint: Neuro S/Sx ED Provider: Ji Dozier Dx/Rx/DC Orders Prescriptions: No Action latanoprost 0.005 % drops 1 drp ophthalmic (eye) DAILY lisinopril 20 mg tablet 20 mg PO DAILY minocycline 50 mg capsule 50 mg PO DAILY timolol maleate 0.5 % drops 1 drp ophthalmic (eye) BID metformin 500 mg tablet extended release 24 hr 500 mg PO DAILY cholecalciferol (vitamin D3) 50 mcg (2,000 unit) capsule 50 mcg PO DAILY Primary Care Provider: Belén Pratt Referrals: Belén Pratt MD [Primary Care Provider, Internal Medicine] Print Language: Croatian
[2025-06-06] MEDS: 0.9% Normal Saline (1000mL) 1,000 ML 1000 ML IV (14:38)
[2025-06-06 14:41] LABS: Hematocrit 40.9 % (37-47); Hemoglobin 13.4 g/dL (12.0-15.0); Immature Granulocytes Count 0.040 X10^3/uL (0.0-0.0); Mean Corp Hgb Conc 32.8 g/dL (32-36); Mean Corpuscular Volume 87.0 fL (81-99); Mean Platelet Vol. 9.5 fl (6.2-12.0); NRBC Flagged by Analyzer 0.5 % (0-5); Platelet Count 366 K/mm3 (150-450); RBC Distribution Width CV 13.0 % (11.6-14.6); RBC Distribution Width SD 41.2 fl (35.1-43.9); Red Blood Count 4.70 M/mm3 (4.2-5.4); White Blood Count 9.4 K/mm3 (4.4-11.0)
[2025-06-06 14:55] LABS: Mucous, Urine 0 SEEN /hpf (<or=2+); Red Blood Cells-Urine 0 SEEN /hpf (0-5)
[2025-06-06 14:58] LABS: Color, Urine Yellow (Yellow); Glucose, Dipstick 250 mg/dl (Normal); Ketone-Dipstick 15 mg/dl (Negative); Leukocyte Esterase-Dipstick 500 /ul (Negative); Nitrite-Dipstick Negative (Negative); Occult Blood-Urine 25 /ul (Negative); Protein-Dipstick 30 mg/dl (Negative); Specific Gravity, Urine 1.025 (1.002-1.030); Urine Bilirubin Dipstick Negative (Negative)
[2025-06-06 15:02] LABS: Anion Gap 15 (5-15); BUN 25 mg/dL (4-19); BUN/Creat Ratio 30.0 RATIO (10-20); Calcium,Total 9.5 mg/dL (7.6-11.0); Carbon Dioxide 20.5 mmol/L (21.0-32.0); Chloride 103 mmol/L (98-108); Glucose 187 mg/dL (70-99); Potassium 4.0 mmol/L (3.3-5.1)
[2025-06-06 15:03] LABS: Magnesium 2.0 mg/dL (1.5-2.2); Troponin T High Sensitivity 12 ng/L (<=14)
[2025-06-06 15:06] LABS: Squamous Epithelial Cells - UA 0-5 SEEN /hpf (5-10)
--- NOTE | 2025-06-06 15:20 | RAD_ITS ---
PROCEDURE: CHEST PA AND LATERAL 06/06/2025 REASON FOR EXAM: HTN TECHNIQUE: Procedure Code: RADCXR Modality: DX Procedure: CHEST PA AND LATERAL COMPARISON: None. RAD/Chest PA and Lateral IMPRESSION: Partially visualized kidneys show residual contrast material within the collect ing systems. Generalized osteopenia is seen. No acute osseous change is evident. No evidence of cardiomegaly. A mildly calcified aorta is seen. Lungs are mildly hyperinflated with increased interstitial markings, consistent with chronic lung disease. No findings pulmonary edema are seen. No acute pneumonic process is noted. No pleural effusion or pneumothorax is seen. Reading Location: [id number]
--- OUTSIDE RECORDS SUMMARY | 2025-06-06 16:55 | XMS RPT_ITS | CCD ---
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 conducted in person with the patient where the consult agreement was explained. The patient may decline or cancel the agreement at any time. After consideration, the patient consented to the pharmacy consult agreement and agreed to allow medications be collaboratively managed by a pharmacist. Last Pharmacy Visit: previously saw Becki Beth (05/13/21) for initial visit only HPI: Reports doing well Diagnosis of diabetes back in 2020 States she has problems with the metformin, has GI upset. Better tolerated on just one tablet daily Trying to walk more, even in the wintertime tries to walk in stores Denies any symptoms of hypoglycemia Denies any symptoms of hyperglycemia, had symptoms when first diagnosed States she has had increased level of stress lately; states her daughter was just diagnosed with breast cancer Discussed options and benefits vs risks for additional medications including GLP-1 agonists and SGLT2i; will hold off on adding new medication until updated A1c completed Current DM Medications: Metformin ER 500 mg twice daily - taking 1 tablet once daily (max tolerated dose) Previously Trialed DM Meds: None Diet Eating 2 meals/day Breakfast - goes to [employer], eggs and morrell, tater tots (small amount), occasionally has fruit Dinner (6p) - eats out a lot, last night had chicken thigh and potato, strawberries; pork chops often, does not eat beef or seafood Snack mid day - banana, strawberries, small amount of ice cream Beverages - black coffee (3 cups in AM), sugar free juice or sugar free tea or hot tea in winter, boogie unsweetened peach ice tea Exercise: Yes - walks every day, some days more than others especially in warmer weather, trying to walk up to a mile a day Caffeine: Yes GLYCEMIC CONTROL: Glucometer present at visit: Yes - One Touch Verio Hypoglycemia: No States BGs were down to 130-140s, a couple of months ago SMBGS (Fingersticks) Date Fasting AM 02/26 173 02/25 177 02/23 180 02/20 165 02/19 166 / 169 6/ 199 6/6 171 / 164 02/06 177 02/02 172 01/30 165 01/29 168 AVG 172 Past medical history reviewed. ALLERGIES Allergen Reactions Beef Derived (Bovin* congestion Fish Containing Pro* Itching Shellfish Derived Itching Tylenol [Acetaminop* hyperactivity Current Outpatient Medications Medication Sig Dispense Refill lancets ([employer] DELICA PLUS LANCET) 33 gauge USE TO CHECK BLOOD SUGAR ONCE A DAY 100 each 11 blood sugar diagnostic (Shoulder TapUCH VERIO TEST STRIPS) test strip USE TO CHECK BLOOD SUGAR ONCE A DAY 100 strip 11 clobetasol (TEMOVATE) 0.05 % ointment APPLY DAILY NEEDED TO THE AFFECTED AREA SPARINGLY 30 g 3 metFORMIN ER (GLUCOPHAGE XR) 500 mg 24 hr tablet Take 1 tablets with breakfast and 1 tablet with dinner or as directed (Patient taking differently: Take 500 mg by mouth daily with breakfast. Take 1 tablets with breakfast and 1 tablet with dinner or as directed) 180 tablet 3 minocycline (MINOCIN, DYNACIN) 50 mg capsule Take 1 capsule by mouth once daily. As directed 90 capsule 3 lisinopril (ZESTRIL) 20 mg tablet Take 1 tablet by mouth once daily. 90 tablet 3 Cholecalciferol, Vitamin D3, 50 mcg (2,000 unit) cap Take 1 capsule by mouth once daily. 90 capsule 3 No current facility-administered medications for this visit. Pill bottles are not present. Adherence: denies missed doses. Rx coverage: [facility] / Plan: [employer] MEDICARE PPO / Product Type: PPO / Medications affordable? Yes PHARMACOTHERAPY PREVENTATIVE MEDS: On BEATA/ARB: Yes On Statin: No On ASA: No EXAM: There were no vitals taken for this visit. Last 3 Encounter BP Readings: Date: BP: 02/18/2025 134/62 12/31/2024 135/70 12/19/2024 100/51 Wt: 64.2 kg (141 lb 8.6 oz) BMI: 27.61 kg/(m2) LABS: Lab Results Component Value Date HBA1C 8.3 11/27/2024 HBA1C 7.5 12/06/2023 HBA1C 7.2 11/01/2022 HBA1C 7.0 07/13/2021 HBA1C 13.6 03/23/2021 HBA1C 6.5 06/08/2018 Glucose 179 11/27/2024 BUN 23 11/27/2024 Creatinine, Whole Blood (iSTAT) 0.67 11/27/2024 Sodium 140 11/27/2024 Potassium 4.4 11/27/2024 Chloride 104 11/27/2024 CO2 24 11/27/2024 Protein, Total 6.9 11/27/2024 Albumin 4.4 11/27/2024 (more content not included)... Normal [facility] HbA1c (Bld)on 02-27-2025 Average glucose Estimated from glycated hemoglobin (Bld) [Mass/Vol] 194 mg/dL Normal [facility] Comment on above: Order Comment: Graciela patton Type: BLOOD SPECIMENOrdering Facility: [facility] Address: [address] [place] [address] Result Comment: eAG: (Estimated average glucose) is a calculated value from HgbA1c and is textiles sales representative of the average blood glucose level in the last 2-3 month period. Performed By: #### 5 5454-3 ####[facility] [id number] [place] [address] [place] HbA1c (Bld) [Mass fraction] 8.4 % High 4.3-5.6 [facility] Comment on above: Order Comment: Graciela patton Type: BLOOD SPECIMENOrdering Facility: [facility] Address: [address] [place] [address] Result Comment: Amer ican Diabetes Association guidelines indicate that patients with HgbA1c in the range 5.7-6.4% are at increased risk for development of diabetes, and intervention by lifestyle modification may be beneficial. HgbA1c greater or equal to 6.5% is considered diagnostic of diabetes. Performed By: #### 5 5454-3 ####[facility] [id number] [address] [place] Surgery Specimen Level Philipp 02-19-2025 Surgery Specimen Level IV ---- Patient Age/Sex Location Account Attending Physician ---- ANGELICA SOSA 80/F LABSPEC [id number] Dr. Antelmo Gutierrez MD ---- Specimen: [id number] Received: 02/19/25 Status: JIM Hyman Num: [id number] Spec Type: Lesion Subm Dr: Dr. Antelmo Gutierrez MD HEADER OPERATION: Lesion removal left upper lid PRE-OP DIAGNOSIS: Possible papilloma TISSUE SUBMITTED: A- Left upper eyelid lesion ---- MICROSCOPIC DIAGNOSIS A. Eyelid, left upper, lesion, shave biopsy: * Atypical squamous proliferation arising in an eroded and inflamed fibroepithelial polyp, suspicious for a superficially invasive, well-differentiated squamous cell carcinoma. * The surgical margin is free in the planes of section examined (deeper sections examined). MICROSCOPIC DESCRIPTION Slides are reviewed. GROSS DESCRIPTION A. Received in formalin labeled with the patient's name and date of . Designated as left upper eyelid lesion is a 0.4 x 0.2 x <0.1 cm spencer skin shave devoid of orientation. There is a 0.4 x 0.4 x 0.2 cm spencer, raised and granular lesion comprising approximately 90% of the epidermal surface. The resection margin is inked black, the specimen is bisected (on the long axis) and entirely submitted in [address] [facility] 02/20/2025 CPT:22192 ---- Patient Age/Sex Location Account Attending Physician ---- ANGELICA SOSA 80/F LABSPEC [id number] Dr. Antelmo Gutierrez MD ---- Signed (signature on file) Dr. Love White MD 02/24/25 1320 ---- Normal [facility] Comment on above: Performed By: #### P KASH #### [facility] Laboratory [facility] [place], [address] OVon 02-18-2025 [facility] Office Visit (INTMWS ) ANGELICA SOSA ([id number]) [address] [facility] Date Time Provider Department 02/18/25 3:00 PM ARACELIS RIBEIRO INTMWS During your visit today, we recorded the following information about you: Pulse Blood pressure Weight Height 66/minute 134/62 64.2 kg 1.525 m Aracelis Ribeiro APRN.CNP 02/18/2025 4:04 PM Signed Angelica Sosa is a 80 year old [...] Flaherty MD as PCP - Becki Gonzalez [facility] as Pharmacist (Pharmacy) Aracelis Ribeiro APRN.SAMPLE FINISHER as Exam Proctor (Internal Medicine) Kiera Shepard, RN as Copper Plate Lithographer (Family Medicine) Amara Mauricio APRN.GEOGRAPHIC INFORMATION SYSTEMS ENGINEER as Exam Proctor (Internal Medicine) Outside specialists seen: Eye provider [...] lb 8.6 oz) SpO2 96% BMI 27.61 kg/m? Vision Screening: Follows with optometry/ophthalmolog y SUBJECTIVE Angelica Sosa is a 80 year [...] 1 capsule by mouth once daily. lancets (Flowify LimitedTOUCH DELICA PLUS LANCET) 33 gauge USE TO CHECK BLOOD SUGAR ONCE A DAY blood sugar diagnostic (Flowify LimitedTOUCH VERIO TEST STRIPS) test strip USE TO [...] Use Topics Alcohol use: No Drug use: (more content not included)... Normal [facility] CNNURSEon 2025 CNNURSE Nurse Visit (GENSWS) ANGELICA SOSA ([id number]) 1945 F T Date Time Provider Department 01/13/25 2:30 PM [facility] During your visit today, we recorded the following information about you: Anson York RN 2025 2:43 PM Signed The right neck (site) was assessed and 2 simple sutures were removed as ordered. Dressing was applied. Patient instructed on wound care and verbalized understanding. Pathology was reviewed by Dr. Cuello and patient was advised.Asnon York RN Allergies As of Date: 2025 [...] AFFECTED AREA SPARINGLY - blood sugar diagnostic ([employer] VERIO TEST STRIPS) test strip USE TO CHECK BLOOD SUGAR ONCE A DAY - lancets (Shoulder TapUCH DELICA PLUS LANCET) 33 gauge USE TO [...] malignant neoplasms, colo*12/19/2024 Encounter Status:Closed by ANSON YROK on 01/13/25 Normal [facility] CNOVon 01-06-2025 CNOV Office Visit (GENSWS ) ANGELICA SOSA ([id number]) 1945 F T Date Time Provider Department [...] to your office visit today with the [facility] General Surgeons. Instructions After SKIN EXCISION-SUTURES You [...] you should contact our office immediately @ [phone] and ask to be transferred to the General Surgery department. Lc Cuello MD 01/06/2025 3:23 PM Signed Preoperative diagnosis: Sebaceous cyst right neck Postoperative diagnosis: The same Procedure: Excision of a 2.5 cm sebaceous cyst of right neck Surgeon: Cuate Procedure: Right neck was sterilely prepped and [...] Primary Visit Diagnosis:Sebaceous cyst [L72.3] Order(s):SURGICAL PATHOLOGY [[id number]] Order #: [id number]. 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 Normal [facility] Pathology biopsy report Jesus (Tiss)on 01-06-2025 AP DISCLAIMER Normal [facility] Comment on above: Order Comment: Speci men Type: TISSUE SPECIMENOrdering Facility: [facility] Address: [address] [place] [address] Result Comment: Bhavik mckinney Developed Test (LDT) Disclaimer: Performance characteristics of immunohistochemical, immunofluorescent, and chromogenic in-situ hybridization tests have been determined by the performing laboratory within [facility]'s [facility] Pathology and Laboratory Medicine Department ([facility], [facility], [facility], [facility], [facility], [facility], or [facility]) in a manner consistent with CLIA requirements. One or more of these tests may not have been cleared or approved by the FDA. RT-PLM is regulated under CLIA as qualified to perform high-complexity testing. These tests are used for clinical purposes. These should not be regarded as investigational or for research. Positive and negative controls stain appropriately. Performed By: #### 6 6121-5 ####[facility] [id number] [place] [address] [place] CASE REPORT Normal [facility] Comment on above: Order Comment: Speci men Type: TISSUE SPECIMENOrdering Facility: [facility] Address: [address] [place] [address] Result Comment: Surg ica Pathology Report Case: [id number] Authorizing Provider: cL Cuello MD Collected: 01/06/2025 03:23 PM Ordering Location: General Surgery Received: 01/06/2025 03:52 PM Pathologist: Cele Antonio MD Specimen: Cyst, Skin, Sebaceous, Right neck Performed By: #### 6 6121-5 ####[facility] [id number] [address] [place] [address] [place] CLINICAL HISTORY Normal [facility] Comment on above: Order Comment: Speci men Type: TISSUE SPECIMENOrdering Facility: [facility] Address: [address] [place] [address] Result Comment: Cyst , Skin, Sebaceous Comment: Right neck Performed By: #### 6 6121-5 ####[facility] [id number] [address] [place] [address] [place] FINAL DIAGNOSIS Normal [facility] Comment on above: Order Comment: Speci men Type: TISSUE SPECIMENOrdering Facility: [facility] Address: [address] [place] [address] Result Comment: A. S kin, right neck, excision: - Epidermal inclusion cyst. MP/FAUZIA/bs 01/08/2025 at 1515 EDT Performed By: #### 6 6121-5 ####[facility] [id number] [address] [place] [address] [place] FINAL PERFORMING LAB Normal [facility] Comment on above: Order Comment: Speci men Type: TISSUE SPECIMENOrdering Facility: [facility] Address: [address] [place] [address] Result Comment: Diag nostic interpretation performed at: [facility], [address] [place] [address] [place] [address] CLIA# [id number] Software Implementation Project Manager: Bertrand Alfaro MD Performed By: #### 6 6121-5 ####[facility] [id number] [address] [place] [address] [place] GROSS DESCRIPTION Normal [facility] Comment on above: Order Comment: Speci men Type: TISSUE SPECIMENOrdering Facility: [facility] Address: [address] [place] [address] Result Comment: Yonatan. Niraj yst, Skin, Sebaceous Received in formalin is an irregular shaped segment of spencer-yellow, firm material measuring 2.2 x 2.1 x 1.7 cm. The specimen resembles a ruptured cyst. No skin is present. A textiles sales representative section is submitted in one cassette. [facility] January 06, 2025 9:53 PM Gross examination performed at [facility], [address] [place] [address], [place] [address] Performed By: #### 6 6121-5 ####[facility] [id number] [address] CNOVon 12-31-2024 CNOV Office Visit (GENSWS ) ANGELICA SOSA ([id number]) 1945 F T Date Time Provider Department [...] AFFECTED AREA SPARINGLY - blood sugar diagnostic (Flowify LimitedTOUCH VERIO TEST STRIPS) test strip USE TO CHECK BLOOD SUGAR ONCE A DAY - lancets (Flowify LimitedTOUCH DELICA PLUS LANCET) 33 gauge USE TO [...] for Encounter Date Provider Department Center 12/31/2024 [id number] CUELLOS Noble Steven Encounter Status:Closed by LC CUELLO on 12/31/24 [facility] CNOVon 12-30-2024 CNOV Office Visit ([facility] ) SHEILAANGELICA Rahman ([id number]) 1945 [facility] Date Time Provider Department 12/30/24 2:00 PM ZAHRAA DELACRUZ During your visit today, we recorded the following information about you: Zahraa Delacruz APRN.CNP 12/30/2024 2:00 PM Signed FOLLOW UP VISIT - ENDOSCOPY Angelica Rahman Byronjazmyn 1945 [id number] REFERRING PHYSICIAN: No referring provider defined for [...] Date Reviewed: 12/30/2024 Reviewed by: Zahraa Delacruz APRN.EMIGDIO - Fully Assessed Reason for Visit: Follow [...] AFFECTED AREA SPARINGLY - blood sugar diagnostic (Flowify LimitedTOUCH VERIO TEST STRIPS) test strip USE TO CHECK BLOOD SUGAR ONCE A DAY - lancets (Flowify LimitedTOUCH DELICA PLUS LANCET) 33 gauge USE TO [...] Status:Closed by ZAHRAA DELACRUZ on 12/30/24 Normal [facility] [id number] 12-19-2024 [id number] HNO ID: [id number] Author: BRIONNA VILLATORO RN Service: ? Author Type: Registered Nurse Type: [id number] Filed: 12/19/2024 08:50 Note Text: The patient received a copy of Colonoscopy discharge instructions that contain information for how to contact the physician who performed the procedure and when to seek medical care. Normal [facility] Colonoscopyon 12-19-2024 Colonoscopy [facility] Gastrointestinal Endoscopy Patient Name: Angelica Sosa Procedure [...] May 2018. Referring Physician: Emily Flaherty (Referring ) Medicines: Fentanyl 50 micrograms IV, Midazolam 3 [...] be scheduled. Procedure Code(s): --- Professional --- 83674, Colonoscopy, flexible; with biopsy, single or multiple G0500, Moderate sedation services provided by the same physician or other qualified health career services representative performing a gastrointestinal endoscopic service that sedation supports, requiring the presence of an independent trained observer to assist in the monitoring of the patient's level of consciousness and physiological status; initial 15 minutes of intra-service time; patient age 5 years or older (additional time may be reported with 15023, as appropriate) Diagnosis Code(s): --- Professional --- Z12.11, Encounter for screening for malignant neoplasm of colon D12.5, Benign neoplasm of sigmoid colon K64.8, Other hemorrhoids K57.30, Diverticulosis of large intestine without perforation or abscess without bleeding CPT copyright 2020 [employer]. All rights reserved. The codes documented in this report are preliminary and upon librarian review may be revised to meet current compliance requirements. Attending Participation: I personally performed the entire procedure. Scope In: 8:08:00 AM Scope Out: 8:19:48 AM MD Lc Padilla MD 12/19/2024 8 (more content not included)... Normal [facility] Colonoscopy Study observatio non 12-19-2024 [facility] Gastrointestinal Endoscopy Patient Name: Angelica Sosa Procedure [...] be scheduled. Procedure Code(s): --- Professional --- 88955, Colono (more content not included)... PROVATION [facility] Radiology Study observation (narrative) [facility] HISTORY PHYSICALon HISTORY PHYSICAL HNO ID: [id number] Author: LC CUELLO MD Service: General Surgery [...] skin thinning. She has not seen a charge entry for this issue in the past year [...] of both eyes Dr. Daniels follows at [facility] HYPERLIPIDEMIA NEC/NOS 10/17/2005 HYPERTENSION NOS 10/17/2005 [...] by mouth once daily. blood sugar diagnostic (Flowify LimitedTOUCH VERIO TEST STRIPS) test strip USE TO CHECK BLOOD SUGAR ONCE A DAY lancets (Flowify LimitedTOUCH DELICA PLUS LANCET) 33 gauge USE TO [...] without c (more content not included)... Normal [facility] Pathology biopsy report Jesus (Tiss)on 12-19-2024 AP DISCLAIMER Normal [facility] Comment on above: Order Comment: Speci men Type: TISSUE SPECIMENOrdering Facility: [facility] Address: [address] [place] [address] Result Comment: Bhavik mckinney Developed Test (LDT) Disclaimer: Performance characteristics of immunohistochemical, immunofluorescent, and chromogenic in-situ hybridization tests have been determined by the performing laboratory within [facility]'s [facility] Pathology and Laboratory Medicine Department ([facility], [facility], [facility], [facility], [facility], [facility], or [facility]) in a manner consistent with CLIA requirements. One or more of these tests may not have been cleared or approved by the FDA. RT-PLM is regulated under CLIA as qualified to perform high-complexity testing. These tests are used for clinical purposes. These should not be regarded as investigational or for research. Positive and negative controls stain appropriately. Performed By: #### 6 6121-5 ####[facility] [id number] [place] [address] [place] CASE REPORT Normal [facility] Comment on above: Order Comment: Speci men Type: TISSUE SPECIMENOrdering Facility: [facility] Address: [address] [place] [address] Result Comment: Surg ica Pathology Report Case: [id number] Authorizing Provider: Lc Cuello MD Collected: 12/19/2024 08:17 AM Ordering Location: Ambulatory Surgery Received: 12/19/2024 12:28 PM Pathologist: Leonard Lopez MD Specimen: Colon, Sigmoid, Polyp, polyp'S x3 Performed By: #### 6 6121-5 ####[facility] [id number] [address] OF [facility] FINAL DIAGNOSIS Normal [facility] Comment on above: Order Comment: Speci men Type: TISSUE SPECIMENOrdering Facility: [facility] Address: [address] [place] [address] Result Comment: A. S igmoid colon, polypectomy x 3: -Fragments of hyperplastic polyp at 1408 EDT Performed By: #### 6 6121-5 ####[facility] [id number] [address] [place] FINAL PERFORMING LAB Normal [facility] Comment on above: Order Comment: Speci men Type: TISSUE SPECIMENOrdering Facility: [facility] Address: [address] [place] [address] Result Comment: Diag nostic interpretation performed at: [facility], [address] [place] [address] CLIA# [id number] Software Implementation Project Manager: Bertrand Alfaro MD Performed By: #### 6 6121-5 ####[facility] [id number] [address] [place] GROSS DESCRIPTION Normal [facility] Comment on above: Order Comment: Speci men Type: TISSUE SPECIMENOrdering Facility: [facility] Address: [address] [place] [address] Result Comment: A. C olon, Sigmoid, Polyp Received in formalin are multiple pieces of spencer, soft tissue aggregating to 1.3 x 0.2 x 0.2 cm. Totally submitted in one cassette. Gross examination performed at [facility], [address] [place] [address] 12/19/2024 4:57 PM Performed By: #### 6 6121-5 ####[facility] [id number] [place] [id number] [place] 25(OH)D3 [facility] 20[facility] 25-hydroxyvitamin D3 [Mass/Vol] 20.3 ng/mL Low 31.0-80.0 [facility] Comment on above: Order Comment: Speci men Type: BLOOD SPECIMENOrdering Facility: [facility] Address: [address] [place] [address] Result Comment: Clas sification of 25 [place] Vitamin D status: Deficiency/Insufficiency: < or = 30 ng/ml. Sufficiency/Optimal Levels: 31-80 ng/mL Toxicity: > 100 ng/mL. Test performed by chemiluminescent immunoassay. Performed By: #### 1 989-3 ####[facility] [id number] [place] [address] [place] CBC panel Auto (Bld)on 11-27 Erythrocyte distribution width (RBC) [Ratio] 13.5 % Normal 11.5-15.0 [facility] Comment on above: Order Comment: Speci men Type: BLOOD SPECIMENOrdering Facility: [facility] Address: [address] [place] [address] Performed By: #### 5 8410-2 ####[facility] [id number] [place] [address] [place] Hematocrit (Bld) [Volume fraction] 41.4 % Normal 36.0-46.0 [facility] Comment on above: Order Comment: Speci men Type: BLOOD SPECIMENOrdering Facility: [facility] Address: [address] [place] [address] Performed By: #### 5 8410-2 ####[facility] [id number] [address] [address] [place] Hemoglobin (Bld) [Mass/Vol] 13.2 g/dL Normal 11.5-15.5 [facility] Comment on above: Order Comment: Speci men Type: BLOOD SPECIMENOrdering Facility: [facility] Address: [address] [place] [address] Performed By: #### 5 8410-2 ####[facility] [id number] [address] [place] MCH (RBC) [Entitic mass] 28.8 pg Normal 26.0-34.0 [facility] Comment on above: Order Comment: Speci men Type: BLOOD SPECIMENOrdering Facility: [facility] Address: [address] [place] [address] Performed By: #### 5 8410-2 ####[facility] [id number] [place] [address] [place] MCHC (RBC) [Mass/Vol] 31.9 g/dL Normal 30.5-36.0 [facility] Comment on above: Order Comment: Speci men Type: BLOOD SPECIMENOrdering Facility: [facility] Address: [address] [place] [address] Performed By: #### 5 8410-2 ####[facility] [id number] [place] [address] [place] MCV (RBC) [Entitic vol] 90.2 fL Normal 80.0-100.0 [facility] Comment on above: Order Comment: Speci men Type: BLOOD SPECIMENOrdering Facility: [facility] Address: [address] [place] [address] Performed By: #### 5 8410-2 ####[facility] [id number] [place] [address] [place] Nucleated RBC (Bld) [#/Vol] 10*3/uL Normal <0.01 [facility] Comment on above: Order Comment: Speci men Type: BLOOD SPECIMENOrdering Facility: [facility] Address: [address] [place] [address] Performed By: #### 5 8410-2 ####[facility] [id number] [place] [address] [place] Platelet mean volume (Bld) [Entitic vol] 9.6 fL Normal 9.0-12.7 [facility] Comment on above: Order Comment: Speci men Type: BLOOD SPECIMENOrdering Facility: [facility] Address: [address] [place] [address] Performed By: #### 5 8410-2 ####[facility] [id number] [address] [address] [place] Platelets (Bld) [#/Vol] 392 10*3/uL Normal 150-400 [facility] Comment on above: Order Comment: Speci men Type: BLOOD SPECIMENOrdering Facility: [facility] Address: [address] [place] [address] Performed By: #### 5 8410-2 ####[facility] [id number] [place] [id number] [place] RBC (Bld) [#/Vol] 4.59 10*6/uL Normal 3.90-5.20 [facility] Comment on above: Order Comment: Speci men Type: BLOOD SPECIMENOrdering Facility: [facility] Address: [address] [place] [address] Performed By: #### 5 8410-2 ####[facility] [id number] [place] [address] [place] WBC (Bld) [#/Vol] 10.22 10*3/uL Normal 3.70-11.00 [facility] Comment on above: Order Comment: Speci men Type: BLOOD SPECIMENOrdering Facility: [facility] Address: [address] [place] [address] Performed By: #### 5 8410-2 ####[facility] [id number] [address] [address] [place] Comprehensive metabolic 2000 panelon 11-27-2024 Albumin [Mass/Vol] 4.4 g/dL Normal 3.9-4.9 [facility] Comment on above: Order Comment: Speci men Type: BLOOD SPECIMENOrdering Facility: [facility] Address: [address] [place] [address] Performed By: #### 2 4323-8, 85013-2 ####[facility] [id number] [place] [address] [place] ALP [Catalytic activity/Vol] 88 U/L Normal 34-123 [facility] Comment on above: Order Comment: Speci men Type: BLOOD SPECIMENOrdering Facility: [facility] Address: [address] [place] [address] Performed By: #### 2 4323-8, 64642-7 ####[facility] [id number] [place] [address] [place] ALT [Catalytic activity/Vol] 18 U/L Normal 7-38 [facility] Comment on above: Order Comment: Speci men Type: BLOOD SPECIMENOrdering Facility: [facility] Address: [address] [place] [address] Performed By: #### 2 4323-8, 66232-9 ####[facility] [id number] [place] [address] [place] Anion gap [Moles/Vol] 12 mmol/L Normal 8-15 [facility] Comment on above: Order Comment: Speci men Type: BLOOD SPECIMENOrdering Facility: [facility] Address: [address] [place] [address] Performed By: #### 2 4323-8, 49149-6 ####[facility] [id number] [facility] [place] [id number] [place] AST [Catalytic activity/Vol] 19 U/L Normal 13-35 [facility] Comment on above: Order Comment: Speci men Type: BLOOD SPECIMENOrdering Facility: [facility] Address: [address] [place] [address] Performed By: #### 2 4323-8, 93609-5 ####[facility] [id number] [place] [address] [place] Bilirubin [Mass/Vol] 0.5 mg/dL Normal 0.2-1.3 [facility] Comment on above: Order Comment: Speci men Type: BLOOD SPECIMENOrdering Facility: [facility] Address: [address] [place] [address] Performed By: #### 2 4323-8, 70745-9 ####[facility] [id number] [place] [address] [place] Calcium [Mass/Vol] 9.5 mg/dL Normal 8.5-10.2 [facility] Comment on above: Order Comment: Speci men Type: BLOOD SPECIMENOrdering Facility: [facility] Address: [address] [place] [address] Performed By: #### 2 4323-8, 43518-0 ####[facility] [id number] [place] [address] [place] Chloride [Moles/Vol] 104 mmol/L Normal 98-107 [facility] Comment on above: Order Comment: Speci men Type: BLOOD SPECIMENOrdering Facility: [facility] Address: [address] [place] [address] Performed By: #### 2 4323-8, 73184-4 ####[facility] [id number] [place] [address] [place] CO2 [Moles/Vol] 24 mmol/L Normal 22-30 [facility] Comment on above: Order Comment: Speci men Type: BLOOD SPECIMENOrdering Facility: [facility] Address: [address] [place], [place] [address] Performed By: #### 2 4323-8, 92068-8 ####[facility] [id number] [place] [id number] [place] Creatinine [Mass/Vol] 0.67 mg/dL Normal 0.58-0.96 [facility] Comment on above: Order Comment: Graciela patton Type: BLOOD SPECIMENOrdering Facility: [facility] Address: [address] [place] [address] Performed By: #### 2 4323-8, 44304-1 ####[facility] [id number] [place] [address] [place] Creatinine and Glomerular filtration rate.predicted panel (S/P/Bld) 88 mL/min/1.73m??? Normal >=60 [facility] Comment on above: Order Comment: Graciela patton Type: BLOOD SPECIMENOrdering Facility: [facility] Address: [address] [place] [address] Result Comment: Jaylin mated Glomerular Filtration Rate [...] reflect actual GFR. Performed By: #### 2 4323-8, 69004-7 ####[facility] [id number] [place] [id number] [place] Glucose [Mass/Vol] 179 mg/dL High 74-99 [facility] Comment on above: Order Comment: Graciela patton Type: BLOOD SPECIMENOrdering Facility: [facility] Address: [address] [place] [address] Result Comment: The [place] Diabetes Association (ADA) provides guidance for cutoff [...] Standards of Medical Care in Diabetes 2016, [place] Diabetes Association. Diabetes Care. 2016.39(Suppl 1). Performed By: #### 2 4323-8, 47187-6 ####[facility] [id number] [address] [address] [place] Potassium [Moles/Vol] 4.4 mmol/L Normal 3.7-5.1 [facility] Comment on above: Order Comment: Speci men Type: BLOOD SPECIMENOrdering Facility: [facility] Address: [address] [place] [address] Performed By: #### 2 4323-8, 67477-3 ####[facility] [id number] [place] [address] [place] Protein [Mass/Vol] 6.9 g/dL Normal 6.3-8.0 [facility] Comment on above: Order Comment: Speci men Type: BLOOD SPECIMENOrdering Facility: [facility] Address: [address] [place] [id number] Performed By: #### 2 4323-8, 53227-0 ####[facility] [id number] [place] [address] [place] Sodium [Moles/Vol] 140 mmol/L Normal 136-144 [facility] Comment on above: Order Comment: Speci men Type: BLOOD SPECIMENOrdering Facility: [facility] Address: [address] [place] [id number] Performed By: #### 2 4323-8, 78803-4 ####[facility] [id number] [place] [address] [place] Urea nitrogen [Mass/Vol] 23 mg/dL High 7-21 [facility] Comment on above: Order Comment: Speci men Type: BLOOD SPECIMENOrdering Facility: [facility] Address: [address] [place] [id number] Performed By: #### 2 4323-8, 93246-9 ####[facility] [id number] [address] [place] HbA1c (Bld)on 11-27-2024 Average glucose Estimated from glycated hemoglobin (Bld) [Mass/Vol] 192 mg/dL Normal [facility] Comment on above: Order Comment: Graciela patton Type: BLOOD SPECIMENOrdering Facility: [facility] Address: [address] [place] [address] Result Comment: eAG: (Estimated average glucose) is a calculated value from HgbA1c and is textiles sales representative of the average blood glucose level in the last 2-3 month period. Performed By: #### 5 5454-3 ####[facility] [id number] [address] [place] HbA1c (Bld) [Mass fraction] 8.3 % High 4.3-5.6 [facility] Comment on above: Order Comment: Graciela patton Type: BLOOD SPECIMENOrdering Facility: [facility] Address: [address] [place] [address] Result Comment: Amer [place] Diabetes Association guidelines indicate that patients with HgbA1c in the range 5.7-6.4% are at increased risk for development of diabetes, and intervention by lifestyle modification may be beneficial. HgbA1c greater or equal to 6.5% is considered diagnostic of diabetes. Performed By: #### 5 5454-3 ####[facility] [id number] [place] [address] [facility] [place] Lipid 1996 panelon 5 Cholesterol [Mass/Vol] 184 mg/dL Normal <200 [facility] Comment on above: Order Comment: Graciela patton Type: BLOOD SPECIMENOrdering Facility: [facility] Address: [address] [place] [address] Result Comment: <200 mg/dL, Desirable 200-239 mg/dL, Borderline high >239 mg/dL, High Performed By: #### 2 4323-8, 60314-4 ####[facility] [id number] [address] [address] [facility] Cholesterol in HDL [Mass/Vol] 36 mg/dL Low >39 [facility] Comment on above: Order Comment: Graciela abdi Type: BLOOD SPECIMENOrdering Facility: [facility] Address: [address] [place] [address] Result Comment: 40-5 9 mg/dL, Acceptable >59 mg/dL, High: Negative risk factor for coronary heart disease <40 mg/dL, Low: Positive risk factor for coronary heart disease Performed By: #### 2 4323-8, 04539-0 ####[facility] [id number] [address] Cholesterol in LDL [Mass/Vol] 127 mg/dL High <100 [facility] Comment on above: Order Comment: Graciela abdi Type: BLOOD SPECIMENOrdering Facility: [facility] Address: [address] [place] [address] Result Comment: <100 mg/dL, Optimal 100-129 mg/dL, Near optimal/above optimal 130-159 mg/dL, Borderline high 160-189 mg/dL, High >189 mg/dL, Very high Secondary prevention optimal LDL Cholesterol levels are recommended to be < 70 mg/dL Performed By: #### 2 4323-8, 37526-9 ####[facility] [id number] [place] [id number] [facility] OF [place] Cholesterol in LDL/Cholesterol in HDL [Mass ratio] 3.53 {ratio} High <2.54 [facility] Comment on above: Order Comment: Fiordalizaabel patton Type: BLOOD SPECIMENOrdering Facility: [facility] Address: [address] [place] [address] Result Comment: Martín gallagher: 1. National Cholesterol Education Program ATP III Guideline At-A-Glance Quick Desk Reference: National Heart, Lung, and Blood [place]. National Institutes of Health. 2001: NIH Publication No. 01-3305. 2. An International Atherosclerosis Society position paper: global recommendations for the management of dyslipidemia: executive summary, Atherosclerosis. 2014: 232(2):410-413. Performed By: #### 2 4323-8, 47703-0 ####[facility] [id number] [address] [place] [address] [place] Cholesterol in VLDL [Mass/Vol] 21 mg/dL Normal <30 [facility] Comment on above: Order Comment: Speci men Type: BLOOD SPECIMENOrdering Facility: [facility] Address: [address] [place] [address] Performed By: #### 2 4323-8, 82422-4 ####[facility] [id number] [facility] [address] [place] [address] [place] Cholesterol non HDL [Mass/Vol] 148 mg/dL High <130 [facility] Comment on above: Order Comment: Speci men Type: BLOOD SPECIMENOrdering Facility: [facility] Address: [address] [place] [address] Result Comment: <130 mg/dL, Optimal 130-159 mg/dL, Near optimal/above optimal 160-189 mg/dL, Borderline high 190-219 mg/dL, High >219 mg/dL, Very high Secondary prevention optimal non HDL Cholesterol levels are recommended to be <100 mg/dL Performed By: #### 2 4323-8, 01908-0 ####[facility] [id number] [address] [place] [address] [place] Cholesterol.total/Ch olesterol in HDL [Mass ratio] 5.11 {ratio} High <5.10 [facility] Comment on above: Order Comment: Speci men Type: BLOOD SPECIMENOrdering Facility: [facility] Address: [address] [place] [id number] Performed By: #### 2 4323-8, 30929-1 ####[facility] [id number] [address] [place] [address] [place] FASTING TIME 12 hrs Normal [facility] Comment on above: Order Comment: Speci men Type: BLOOD SPECIMENOrdering Facility: [facility] Address: [address] [place] [address] Performed By: #### 2 4323-8, 45380-2 ####[facility] [id number] [place] [address] [place] Triglyceride [Mass/Vol] 107 mg/dL Normal <150 [facility] Comment on above: Order Comment: Speci men Type: BLOOD SPECIMENOrdering Facility: [facility] Address: [address] [place] [address] Result Comment: <150 mg/dL, Normal 150-199 mg/dL, Borderline high 200-499 mg/dL, High >499 mg/dL, Very high Performed By: #### 2 4323-8, 46340-9 ####[facility] [id number] [place] [id number] [place] CNOVon 11-11-2024 CNOV Office Visit (INTMWS ) ANGELICA SOSA ([id number]) [address] [facility] Date Time Provider Department 11/11/24 10:00 AM EMILY FLAHERTY INTMWS During your visit today, we recorded the following information about you: Pulse Blood pressure Weight 58/minute 126/66 65.2 kg Emily Flaherty MD 11/11/2024 11:59 AM Signed This note was created using Exagen Diagnosticsriter. Subjective Angelica Sosa is a 79 year [...] skin thinning. She has not seen a charge entry for this issue in the past year [...] of both eyes Dr. Daniels follows at [facility] HYPERLIPIDEMIA NEC/NOS 10/17/2005 HYPERTENSION NOS 10/17/2005 [...] by mouth once daily. blood sugar diagnostic ([employer] VERIO TEST STRIPS) test strip USE TO CHECK BLOOD SUGAR ONCE A DAY lancets (Flowify LimitedTOUCH DELICA PLUS LANCET) 33 gauge USE TO [...] Judgment normal. (more content not included)... Normal [facility] 07-31-2024 [facility] Telephone (INTMWS) ANGELICA SOSA ([id number]) 1945 [facility] Date Time Provider Department 11/20/EMILY TREVINO During your visit today, we recorded the following information about you: Alicia Templeton LPN 07/31/2024 10:04 AM Signed Electronic PA completed for cyclobenzaprine. This was approved. Approved Prior authorization approved Payer: WILLIAN Arce [phone] Approval Details Authorized from September 11, 2023 to October 29, 2024 Electronic appeal: Not supported Prior auth initiated by: e- [facility] #[id number] [place] [address] - [address] - [phone] [phone] View History Notes Time User Attachment Attachment received from payer. 07/31/2024 9:20 AM Mila Maciasauth In Document OBTAIN PA USING PA Phone # [phone] or TP Help Desk Phone:[phone] REQUIRES PRIOR AUTH. 07/31/2024 8:32 AM Gilberto Britton Incoming Retail Pharmacy From [facility] Benefits Open Encounter ANGELICA SOSAST BB CDH-N SSIMDXR (WILLIAN ARCE) Covered: Retail, Mail Order, Specialty Unknown: Long-Term Care BIN: [id number] : 1945 Group ID: [id number] PCN: [id number] Legal sex: F Group name: [facility] MED D/AMA PART B ONLY Address: [address] [place] [address] [place] [address] Medication Being Authorized cyclobenzaprine (FLEXERIL) 10 mg tablet Take 1 tablet by mouth at bedtime as needed for muscle spasm. Dispense: 30 tablet Refills: 1 Start: 07/04/2024 Class: Normal Diagnoses: Acute right-sided low back pain with right-sided sciatica This order has been released to its destination. To be filled at: e- [facility]/pharm[facility] #[id number] - [place] [address] - [address] - [phone] [phone] Pt notified via my chart. Allergies As of Date: 07/31/2024 Noted Allergy Reaction BEEF DERIVED (BOVINE) 10/17/2005 Comments: congestion FISH CONTAINING PRODUCTS 11/17/2017 9 - Itching PEANUT OIL 10/17/2005 Comments: uncertain PEANUTS 10/17/2005 Comments: not sure SHELLFISH DERIVED 10/11/2023 9 - Itching TYLENOL (ACETAMINOPHEN) 10/17/2005 Comments: hyperactivity Date Reviewed: 07/04/2024 Reviewed by: Amara Mauricio APRN.GEOGRAPHIC INFORMATION SYSTEMS ENGINEER - Fully Assessed Reason for Visit: Insurance Authorization [[id number]] Prescriptions as of 07/31/2024 - meloxicam (MOBIC) [...] BLOOD SUGAR ONCE A DAY - lancets (Flowify LimitedTOUCH DELICA PLUS LANCET) 33 gauge USE TO [...] Status:Closed by ALICIA TEMPLETON on 07/31/24 Normal [facility] SCREENINGon 07-15-2024 [facility] SCREENING * * *Final Report* * * DATE OF EXAM: Jul 15 2024 2:39PM GRISEL 0581 - [facility] SCREENING / PROCEDURE REASON: Screening mammogram for breast cancer * * * * Physician Interpretation * * * * RESULT: [facility] [address] [place] [place] [id number] HISTORY: Patient is 79 years old and [...] Flex Ochoa M.D. Electronically signed on: 07/16/2024 Exam Proctor: RITESH Transcribe Date/Time: Jul 15 2024 2:28P Dictated by: FLEX OCHOA MD This examination was interpreted and the report reviewed and electronically signed by: FLEX OCHOA MD on Jul 16 2024 3:10PM EST [id number] Normal [facility] CNOVon 07-04-2024 CNOV Office Visit (INTMWS ) ANGELICA SOSA ([id number]) 1945 F T Date Time Provider Department 07/04/24 12:00 PM AMARA MAURICIO INTMWS During your visit today, we recorded the following information about you: Pulse Respiration Blood pressure Weight 89/minute 16/minute 134/79 67.3 kg Amara Mauricio APRN.GEOGRAPHIC INFORMATION SYSTEMS ENGINEER 07/04/2024 2:01 PM Signed SUBJECTIVE: Diabetic Foot [...] of both eyes Dr. Daniels follows at [facility] HYPERLIPIDEMIA NEC/NOS 10/17/2005 HYPERTENSION NOS 10/17/2005 [...] Negative Ketones, Urine Negative 1+ (A) Specific [place], Ur 1.005 - 1.030 1.035 (H) Hemoglobin/Blood,Ur [...] 150 - (more content not included)... Normal [facility] 07-04-2024 [facility] Telephone (INTMWS) ANGELICA SOSA ([id number]) [address] [facility] Date Time Provider Department 07/04/24 EMILY FLAHERTY During your visit today, we recorded the [...] Date Reviewed: 06/07/2024 Reviewed by: Aracelis Ribeiro APRN.SAMPLE FINISHER - Fully Assessed Reason for Visit: Patient [...] mouth once daily. - blood sugar diagnostic (Flowify LimitedTOUCH VERIO TEST STRIPS) test strip USE TO CHECK BLOOD SUGAR ONCE A DAY - lancets (Shoulder TapUCH DELICA PLUS LANCET) 33 gauge USE TO [...] Encounter Status:Closed by KELLY SOTO on 07/04/24 [facility] CNOVon 06-07-2024 CNOV Office Visit (INTMWS ) ANGELICA SOSA ([id number]) [address] [facility] Date Time Provider Department 06/07/24 9:00 AM ARACELIS RIBEIRO INTALONDRA During your visit today, we recorded the following information about you: Pulse Blood pressure Weight 74/minute 154/72 66.6 kg Aracelis Ribeiro APRN.SAMPLE FINISHER 06/07/2024 9:28 AM Signed Angelica Josiah Sheila is a 79 year old female here [...] Team: Emily Flaherty MD as PCP - DepueBecki RPh as Pharmacist (Pharmacy) Outside specialists seen: complaint specialist, dermatology Medical/Family history review Reviewed and updated [...] dinner or as directed blood sugar diagnostic (Flowify LimitedTOUCH VERIO TEST STRIPS) test strip USE TO CHECK BLOOD SUGAR ONCE A DAY lancets (Flowify LimitedTOUCH DELICA PLUS LANCET) 33 gauge USE TO CHECK BLOOD SUGAR ONCE A DAY No current facility-administered medications for this visit. ALLERGIES Allergen Reactions Beef Derived (Bovin* congestion Fish Containing Pro* Itching Peanut Oil uncertain Peanuts not sure Shellfish Derived Itching Tylenol [Acetaminop* hyperactivity ACTIVE PROBLEM LIST Controlled Type 2 Diabetes Mellitus Without Complication, Without Long-Term Current Use of Insulin ([facility]) - 05/04/2021 Vitamin D Deficiency - [...] ear no (more content not included)... Normal [facility] ALBUMIN/CREATININE RATIO, UR INEon 04-19-2024 Albumin DL <= 20 mg/L (U) [Mass/Vol] 41.7 mg/L [facility] Albumin/Creatinine (U) [Mass ratio] 27 mg/g NINF - 30 mg/g [facility] Comment on above: Adult Male and Femal [...] [Mass/Vol] 153.1 mg/dL 20.0 - 300.0 mg/dL [facility] CBC panel Auto (Bld)on 12-05 Erythrocyte distribution width (RBC) [Ratio] 14.0 % 11.5 - 15.0 % [facility] Hematocrit (Bld) [Volume fraction] 43.0 % 36.0 - 46.0 % [facility] Hemoglobin (Bld) [Mass/Vol] 13.5 g/dL 11.5 - 15.5 g/dL [facility] Interpretation and review of laboratory results Normal [facility] MCH (RBC) [Entitic mass] 28.4 pg 26.0 - 34.0 pg [facility] MCHC (RBC) [Mass/Vol] 31.4 g/dL 30.5 - 36.0 g/dL [facility] MCV (RBC) [Entitic vol] 90.5 fL 80.0 - 100.0 fL [facility] Nucleated RBC (Bld) [#/Vol] NINF [facility] Platelet mean volume (Bld) [Entitic vol] 9.2 fL 9.0 - 12.7 fL [facility] Platelets (Bld) [#/Vol] 344 10*3/uL [facility] RBC (Bld) [#/Vol] 4.75 10*6/uL 3.90 - 5.2 0 m/uL [facility] WBC (Bld) [#/Vol] 8.71 10*3/uL [facility] REINIER SCREENINGon 07-13-2023 [facility] REINIER SCREENINGon 04-25-2022 [facility] Vital Signs Date Time Vital Sign Value Performing Clinician Facility 04-24-2025 13:49-0400 Body mass index (BMI) [Ratio] 27.48 kg/m2 Amara Mauricio APRN.GEOGRAPHIC INFORMATION SYSTEMS ENGINEER Work Phone: [facility] 04-24-2025 13:49-0400 Body weight 63.9 kg Amara Mauricio APRN.GEOGRAPHIC INFORMATION SYSTEMS ENGINEER Work Phone: [facility] 04-24-2025 13:49-0400 Diastolic blood pressure 78 mm[Hg] Amara Mauricio APRN.GEOGRAPHIC INFORMATION SYSTEMS ENGINEER Work Phone: [facility] 04-24-2025 13:49-0400 Heart rate 94 /min Amara Mauricio VOLUNTEER SERVICES COORDINATOR.GEOGRAPHIC INFORMATION SYSTEMS ENGINEER Work Phone: [facility] 04-24-2025 13:49-0400 Respiratory rate 16 /min Amara Mauricio VOLUNTEER SERVICES COORDINATOR.GEOGRAPHIC INFORMATION SYSTEMS ENGINEER Work Phone: [facility] 04-24-2025 13:49-0400 Systolic blood pressure 130 mm[Hg] Amara Mauricio VOLUNTEER SERVICES COORDINATOR.GEOGRAPHIC INFORMATION SYSTEMS ENGINEER Work Phone: [facility] 04-10-2025 13:44-0400 Diastolic blood pressure 61 mm[Hg] Amara Mauricio VOLUNTEER SERVICES COORDINATOR.GEOGRAPHIC INFORMATION SYSTEMS ENGINEER Work Phone: [facility] 04-10-2025 13:44-0400 Heart rate 67 /min Amara Mauricio VOLUNTEER SERVICES COORDINATOR.GEOGRAPHIC INFORMATION SYSTEMS ENGINEER Work Phone: [facility] 04-10-2025 13:44-0400 Respiratory rate 16 /min Amara Mauricio VOLUNTEER SERVICES COORDINATOR.GEOGRAPHIC INFORMATION SYSTEMS ENGINEER Work Phone: [facility] 04-10-2025 13:44-0400 Systolic blood pressure 103 mm[Hg] Amara Mauricio VOLUNTEER SERVICES COORDINATOR.GEOGRAPHIC INFORMATION SYSTEMS ENGINEER Work Phone: [facility] 04-08-2025 16:51-0400 Body temperature 98.1 [degF] Dr. Emily Flaherty MD Work Phone: [facility] 04-08-2025 16:51-0400 Diastolic blood pressure 78 mm[Hg] Dr. Emily Flaherty MD Work Phone: [facility] 04-08-2025 16:51-0400 Heart rate 77 /min Dr. Emily Flaherty MD Work Phone: [facility] 04-08-2025 16:51-0400 Respiratory rate 16 /min Dr. Emily Flaherty MD Work Phone: [facility] 04-08-2025 16:51-0400 SaO2% (BldA) [Mass fraction] 95 % Dr. Emily Flaherty MD Work Phone: [facility] 04-08-2025 16:51-0400 Systolic blood pressure 184 mm[Hg] Dr. Emily Flaherty MD Work Phone: 5(029)207-197006 [place] [address] 04-08-2025 14:54-0400 Body mass index (BMI) [Ratio] 27.1 kg/m2 Dr. Emily Flaherty MD Work Phone: 0(594)080-440306 [place] [address] 04-08-2025 14:54-0400 Body weight 65.[address] Emily Flaherty MD Work Phone: 8(366)068-610606 [place] [address] 04-08-2025 14:47-0400 Body height 154.[address] Emily Flaherty MD Work Phone: 8(467)901-336506 [place] [address] 04-03-2025 18:47-0400 Body temperature 97.6 [degF] Dr. Emily Flaherty MD Work Phone: 3(113)575-822606 [place] [address] 04-03-2025 18:47-0400 Diastolic blood pressure 76 mm[Hg] Dr. Emily Flaherty MD Work Phone: 8(566)722-402606 [place] [address] 04-03-2025 18:47-0400 Heart rate 75 /min Dr. Emily Flaherty MD Work Phone: 1(615)066-194906 [place] [address] 04-03-2025 18:47-0400 Respiratory rate 18 /min Dr. Emily Flaherty MD Work Phone: 9(325)349-734306 [place] [address] 04-03-2025 18:47-0400 SaO2% (BldA) [Mass fraction] 97 % Dr. Emily Flaherty MD Work Phone: 8(906)309-320906 [place] [address] 04-03-2025 18:47-0400 Systolic blood pressure 143 mm[Hg] Dr. Emily Flaherty MD Work Phone: 1(366)095-297006 [place] [address] 04-03-2025 16:55-0400 Body height 154.[address] Emily Flaherty MD Work Phone: 1(611)582-899506 [place] [address] 04-03-2025 16:55-0400 Body mass index (BMI) [Ratio] 27.4 kg/m2 Dr. Emily Flaherty MD Work Phone: [facility] 04-03-2025 16:55-0400 Body weight 65.[address] Emily Flaherty MD Work Phone: [facility] 02-18-2025 14:53-0400 Body height 152.5 cm Aracelis Vinod VOLUNTEER SERVICES COORDINATOR.SAMPLE FINISHER Work Phone: [facility] 02-18-2025 14:53-0400 Body mass index (BMI) [Ratio] 27.61 kg/m2 Aracelis Vinod VOLUNTEER SERVICES COORDINATOR.SAMPLE FINISHER Work Phone: [facility] 02-18-2025 14:53-0400 Body weight 64.2 kg Aracelis Vinod VOLUNTEER SERVICES COORDINATOR.SAMPLE FINISHER Work Phone: [facility] 02-18-2025 14:53-0400 Diastolic blood pressure 62 mm[Hg] Aracelis Vinod VOLUNTEER SERVICES COORDINATOR.SAMPLE FINISHER Work Phone: [facility] 02-18-2025 14:53-0400 Heart rate 66 /min Aracelis Vinod VOLUNTEER SERVICES COORDINATOR.SAMPLE FINISHER Work Phone: [facility] 02-18-2025 14:53-0400 SaO2% (BldA) [Mass fraction] 96 % Aracelis Vinod VOLUNTEER SERVICES COORDINATOR.SAMPLE FINISHER Work Phone: [facility] 02-18-2025 14:53-0400 Systolic blood pressure 134 mm[Hg] Aracelis Vinod VOLUNTEER SERVICES COORDINATOR.SAMPLE FINISHER Work Phone: [facility] 12-31-2024 13:16-0400 Body mass index (BMI) [Ratio] 26.43 kg/m2 Lc Cuello MD Work Phone: [facility] 12-31-2024 13:16-0400 Body weight 64.5 kg Lc Cuello MD Work Phone: [facility] 12-31-2024 13:16-0400 Diastolic blood pressure 70 mm[Hg] Lc Cuello MD Work Phone: [facility] 12-31-2024 13:16-0400 Heart rate 71 /min Lc Cuello MD Work Phone: [facility] 12-31-2024 13:16-0400 Respiratory rate 14 /min Lc Cuello MD Work Phone: [facility] 12-31-2024 13:16-0400 SaO2% (BldA) [Mass fraction] 96 % Lc Cuello MD Work Phone: [facility] 12-31-2024 13:16-0400 Systolic blood pressure 135 mm[Hg] Lc Cuello MD Work Phone: [facility] 12-19-2024 09:00-0400 Heart rate 58 /min Lc Cuello MD Work Phone: [facility] 12-19-2024 09:00-0400 Respiratory rate 16 /min Lc Cuello MD Work Phone: [facility] 12-19-2024 09:00-0400 SaO2% (BldA) [Mass fraction] 97 % Lc Cuello MD Work Phone: [facility] 12-19-2024 08:50-0400 Diastolic blood pressure 51 mm[Hg] Lc Cuello MD Work Phone: [facility] 12-19-2024 08:50-0400 Systolic blood pressure 100 mm[Hg] Lc Cuello MD Work Phone: [facility] 12-19-2024 07:34-0400 Body mass index (BMI) [Ratio] 26.72 kg/m2 Lc Cuello MD Work Phone: [facility] 12-19-2024 07:34-0400 Body temperature 97.81 [degF] Lc Cuello MD Work Phone: [facility] 12-19-2024 07:34-0400 Body weight 65.2 kg Lc Cuello MD Work Phone: [facility] 11-11-2024 10:36-0500 Body mass index (BMI) [Ratio] 26.72 kg/m2 Emily Flaherty MD Work Phone: [facility] 03-03-2025 10:36-0500 Body weight 65.2 kg Emily Flaherty MD Work Phone: [facility] 11-11-2024 10:36-0500 Diastolic blood pressure 66 mm[Hg] Emily Flaherty MD Work Phone: [facility] 11-11-2024 10:36-0500 Heart rate 58 /min Emily Flaherty MD Work Phone: [facility] 11-11-2024 10:36-0500 SaO2% (BldA) [Mass fraction] 97 % Emily Flaherty MD Work Phone: [facility] 11-11-2024 10:36-0500 Systolic blood pressure 126 mm[Hg] Emliy Flaherty MD Work Phone: [facility] 07-04-2024 12:08-0400 Body mass index (BMI) [Ratio] 27.58 kg/m2 Amara Mauricio VOLUNTEER SERVICES COORDINATOR.GEOGRAPHIC INFORMATION SYSTEMS ENGINEER Work Phone: [facility] 07-04-2024 12:08-0400 Body weight 67.3 kg Amara Mauricio VOLUNTEER SERVICES COORDINATOR.GEOGRAPHIC INFORMATION SYSTEMS ENGINEER Work Phone: [facility] 07-04-2024 12:08-0400 Diastolic blood pressure 79 mm[Hg] Amara Mauricio VOLUNTEER SERVICES COORDINATOR.GEOGRAPHIC INFORMATION SYSTEMS ENGINEER Work Phone: [facility] 07-04-2024 12:08-0400 Heart rate 89 /min Amara Mauricio VOLUNTEER SERVICES COORDINATOR.GEOGRAPHIC INFORMATION SYSTEMS ENGINEER Work Phone: [facility] 07-04-2024 12:08-0400 Respiratory rate 16 /min Amara Mauricio VOLUNTEER SERVICES COORDINATOR.GEOGRAPHIC INFORMATION SYSTEMS ENGINEER Work Phone: [facility] 07-04-2024 12:08-0400 Systolic blood pressure 134 mm[Hg] Amara Mauricio VOLUNTEER SERVICES COORDINATOR.GEOGRAPHIC INFORMATION SYSTEMS ENGINEER Work Phone: [facility] 06-07-2024 08:39-0400 Diastolic blood pressure 72 mm[Hg] Aracelis Ribeiro VOLUNTEER SERVICES COORDINATOR.SAMPLE FINISHER Work Phone: [facility] 06-07-2024 08:39-0400 Systolic blood pressure 154 mm[Hg] Aracelis Vinod VOLUNTEER SERVICES COORDINATOR.SAMPLE FINISHER Work Phone: [facility] 06-07-2024 08:37-0400 Body mass index (BMI) [Ratio] 27.29 kg/m2 Aracelis Vinod VOLUNTEER SERVICES COORDINATOR.SAMPLE FINISHER Work Phone: [facility] 06-07-2024 08:37-0400 Body weight 66.6 kg Aracelis Vinod VOLUNTEER SERVICES COORDINATOR.SAMPLE FINISHER Work Phone: [facility] 06-07-2024 08:37-0400 Heart rate 74 /min Aracelis Vinod VOLUNTEER SERVICES COORDINATOR.SAMPLE FINISHER Work Phone: [facility] 06-07-2024 08:37-0400 SaO2% (BldA) [Mass fraction] 97 % Aracelsi Vinod VOLUNTEER SERVICES COORDINATOR.SAMPLE FINISHER Work Phone: [facility] 11-14-2023 10:22-0500 Diastolic blood pressure 73 mm[Hg] Lakeisha Strange MD Work Phone: [facility] 11-14-2023 10:22-0500 Heart rate 73 /min Lakeisha Strange MD Work Phone: [facility] 11-14-2023 10:22-0500 Systolic blood pressure 142 mm[Hg] Lakeisha Strange MD Work Phone: [facility] 05-03-2023 15:14-0400 Body temperature 96.49 [degF] Emily Flaherty MD Work Phone: [facility] 05-03-2023 15:14-0400 Body weight 65.32 kg Emily Flaherty MD Work Phone: [facility] 05-03-2023 15:14-0400 Diastolic blood pressure 62 mm[Hg] Emily Flaherty MD Work Phone: [facility] 05-03-2023 15:14-0400 Heart rate 68 /min Emily Flaherty MD Work Phone: [facility] 05-03-2023 15:14-0400 Respiratory rate 18 /min Emily Flaherty MD Work Phone: [facility] 05-03-2023 15:14-0400 SaO2% (BldA) [Mass fraction] 99 % Emily Flaherty MD Work Phone: [facility] 05-03-2023 15:14-0400 Systolic blood pressure 120 mm[Hg] Emily Flaherty MD Work Phone: [facility] 04-18-2022 16:44-0400 Body weight 62.6 kg Emily Flaherty MD Work Phone: [facility] 04-18-2022 16:44-0400 Diastolic blood pressure 82 mm[Hg] Emily Flaherty MD Work Phone: [facility] 04-18-2022 16:44-0400 Heart rate 76 /min Emily Flaherty MD Work Phone: [facility] 04-18-2022 16:44-0400 SaO2% (BldA) [Mass fraction] 95 % Emily Flaherty MD Work Phone: [facility] 04-18-2022 16:44-0400 Systolic blood pressure 132 mm[Hg] Emily Flaherty MD Work Phone: [facility] 02-16-2022 17:19-0400 Body weight 60.78 kg Emily Flaherty MD Work Phone: [facility] 02-16-2022 17:19-0400 Diastolic blood pressure 90 mm[Hg] Emily Flaherty MD Work Phone: [facility] 02-16-2022 17:19-0400 Heart rate 76 /min Emily Flaherty MD Work Phone: [facility] 02-16-2022 17:19-0400 Respiratory rate 16 /min Emily Flaherty MD Work Phone: [facility] 02-16-2022 17:19-0400 Systolic blood pressure 160 mm[Hg] Emily Flaherty MD Work Phone: [facility] 10-05-2021 14:18-0500 Diastolic blood pressure 70 mm[Hg] Emily Flaherty MD Work Phone: [facility] 10-05-2021 14:18-0500 Systolic blood pressure 122 mm[Hg] Emily Flaherty MD Work Phone: [facility] 10-05-2021 13:30-0500 Body temperature 98.6 [degF] Emily Flaherty MD Work Phone: [facility] 10-05-2021 13:30-0500 Body weight 62.14 kg Emily Flaherty MD Work Phone: [facility] 10-05-2021 13:30-0500 Heart rate 64 /min Emily Flaherty MD Work Phone: [facility] 10-05-2021 13:30-0500 Respiratory rate 20 /min Emily Flaherty MD Work Phone: [facility] Encounters Encounter Date Encounter Type Care Provider Facility Start: 05-26-2025 End: 05-26-2025 ambulatory EMILY FLAHERTY Facility:[facility] Start: 04-24-2025 End: 04-24-2025 Subsequent hospital visit by physician [facility] Work Phone: Radiology Comment on above: Right leg pain [M79. 604] Start: 04-24-2025 End: 04-24-2025 ambulatory EMILY FLAHERTY Facility:[facility] Start: 04-24-2025 End: 04-24-2025 Office outpatient visit 15 minutes Amara Mauricio APRN.GEOGRAPHIC INFORMATION SYSTEMS ENGINEER Work Phone: [facility] [place] Comment on above: Right leg pain (Prim vamshi Dx); Fall, subsequent encounter; Right leg swelling; Popliteal cyst, right Start: 04-11-2025 End: 04-11-2025 Follow-up encounter Amara Mauricio APRN.GEOGRAPHIC INFORMATION SYSTEMS ENGINEER Work Phone: [facility] [place] Comment on above: ultrasound results Start: 04-10-2025 End: 04-10-2025 Subsequent hospital visit by physician [facility] Comment on above: Right leg pain [M79. 604] Start: 04-10-2025 End: 04-10-2025 Office outpatient visit 25 minutes Amara Mauricio APRNKathyGEOGRAPHIC INFORMATION SYSTEMS ENGINEER Work Phone: [facility] Comment on above: Fall, subsequent enc ounter (Primary Dx); Right leg pain; Right leg swelling; Laceration of occipital scalp, subsequent encounter; Encounter for staple removal; Contusion of right lower leg, initial encounter Start: 04-10-2025 End: 04-10-2025 ambulatory EMILY FLAHERTY Facility:[facility] Start: 04-08-2025 End: 04-08-2025 Emergency department patient visit Dr. Emily Flaherty MD Work Phone: -Emergency Department Work Phone: Start: 04-08-2025 End: 04-08-2025 ambulatory Emily Flaherty MD Work Phone: [facility] Comment on above: Leg Edema Start: 04-03-2025 End: 04-03-2025 Emergency department patient visit Dr. Emily Flaherty MD Work Phone: -Emergency Department Work Phone: Start: 03-03-2025 End: 03-03-2025 ambulatory Kiera Shepard RN Work Phone: [employer] Comment on above: Bi-Weekly Outreach ( Recurring) for Chronic Disease Management Start: 02-28-2025 End: 02-28-2025 E-mail encounter from caregiver Mala Delgado [facility] Work Phone: [facility] Start: 02-28-2025 End: 02-28-2025 Follow-up encounter Mala Delgado [facility] Work Phone: [facility] Start: 02-28-2025 End: 02-28-2025 Patient encounter procedure Mala Delgado [facility] Work Phone: [facility] Comment on above: A1c Results Start: 02-27-2025 End: 02-27-2025 Patient encounter procedure Mala Delgado [facility] Work Phone: [facility] Comment on above: Type 2 diabetes hasmukh itus without complication, without long- term current use of insulin (HCC) (Primary Dx) Start: 02-27-2025 End: 02-27-2025 ambulatory EMILY FLAHERTY Facility:[facility] Start: 02-20-2025 End: 02-20-[address] Emily Flaherty MD Work Phone: [facility] Work Phone: Start: 02-20-2025 End: 02-20-[address] Antelmo Gutierrez MD -Laboratory Specimen Work Phone: Start: 02-20-2025 End: 02-20-2025 ambulatory Antelmo Gutierrez Facility:[facility] Start: 02-18-2025 End: 02-18-2025 ambulatory ARACELIS RIBEIRO Facility:[facility] Start: 02-18-2025 End: 02-18-2025 Patient encounter procedure Aracelis Ribeiro VOLUNTEER SERVICES COORDINATOR.SAMPLE FINISHER Work Phone: [facility] [place] Comment on above: Medicare annual well ness visit, subsequent (Primary Dx); Type 2 diabetes mellitus with hyperlipidemia (HCC); Essential hypertension Start: 02-07-2025 End: 02-07-2025 ambulatory Hedy Sepulveda RN Work Phone: [employer] Comment on above: Primary Care Coordin ator- Other (Incoming call ) Bi-Weekly Outreach ( Recurring) for Chronic Disease Management Start: 02-05-2025 End: 02-06-2025 Refill Emily Flaherty MD Work Phone: [facility] [place] Comment on above: Refill Request Start: 01-24-2025 End: 01-24-2025 ambulatory Tara Young RN [employer] Comment on above: Initial enrollment [place] for Chronic Disease Management Start: 2025 End: 2025 Nursing evaluation of patient and report Nurse Gens [facility] Work Phone: General Surgery Comment on above: Visit for suture rem oval (Primary Dx) Start: 2025 End: 2025 [facility]ulatory [facility] Start: 01-06-2025 End: 01-06-2025 Patient encounter procedure Lc Cuello MD Work Phone: General Surgery Comment on above: Sebaceous cyst (Prim vamshi Dx) Start: 01-06-2025 End: 01-06-2025 ambulatory LC CUELLO Facility:[facility] Start: 12-31-2024 End: 12-31-2024 Patient encounter procedure Lc Cuello MD Work Phone: General Surgery Comment on above: Sebaceous cyst (Prim vamshi Dx) Start: 12-31-2024 End: 12-31-2024 ambulatory LC CUELLO Facility:[facility] Start: 12-30-2024 End: 12-30-2024 Patient encounter procedure Zahraa Drummondir VOLUNTEER SERVICES COORDINATOR.SAMPLE FINISHER Work Phone: General Surgery Comment on above: Hyperplastic polyp o f sigmoid colon (Primary Dx) Start: 12-30-2024 End: 12-30-2024 ambulatory ZAHRAA DELACRUZ Facility:[facility] Start: 12-25-2024 End: 12-25-2024 ambulatory Ngozi Foster [facility] Work Phone: Pharmacy Medicine Start: 12-25-2024 End: 12-25-2024 Patient encounter procedure Ngozi Foster [facility] Work Phone: Pharmacy Medicine Comment on above: Care Coordination (P tiffany Management Review for Pharmacist Referral for Diabetes Management) Start: 12-19-2024 End: 12-19-2024 ambulatory EMILY D EDWARAMPSB Facility:[facility] Start: 12-19-2024 End: 12-19-2024 Subsequent hospital visit [...] Surgery Start: 11-27-2024 End: 11-27-2024 ambulatory EMILY FLAHERTY Facility:[facility] Start: 11-11-2024 End: 11-11-2024 ambulatory EMILY FLAHERTY Facility:[facility] Start: 11-11-2024 End: 11-11-2024 Office outpatient visit 40 minutes Emily Flaherty MD Work Phone: [facility] [place] Comment on above: Controlled type 2 di abetes mellitus without complication, without long-term current use of insulin (HCC) (Primary Dx); Vitamin D deficiency; Mixed hyperlipidemia; Essential hypertension; Skin lesion of lower extremity; Special screening for malignant neoplasms, colon; Encounter for immunization Start: 07-31-2024 End: 07-31-2024 Telephone encounter Emily Flaherty MD Work Phone: [facility] [place] Comment on above: Insurance Authorizat ion Start: 07-15-2024 End: 07-15-2024 ambulatory EMILY FLAHERTY Facility:[facility] Start: 07-15-2024 End: 07-15-2024 Subsequent hospital visit by [facility] Comment on above: Screening mammogram for breast cancer [Z12.31] Start: 07-04-2024 End: 07-04-2024 Telephone encounter Emily Flaherty MD Work Phone: [facility] [place] Comment on above: Patient Update Start: 07-04-2024 End: 07-04-2024 ambulatory EMILY FLAHERTY Facility:[facility] Start: 07-04-2024 End: 07-04-2024 Office outpatient visit 15 minutes Amara Mauricio APRN.CNS Work Phone: [facility] Comment on above: Acute right-sided lo w back pain with right-sided sciatica (Primary Dx); Screening mammogram for breast cancer Start: 06-07-2024 End: 06-07-2024 ambulatory ARACELIS RIBEIRO Facility:[facility] Start: 06-07-2024 End: 06-07-2024 Patient encounter procedure Aracelis Ribeiro SAMPLE FINISHER Work Phone: [facility] [place] Comment on above: Medicare annual well ness visit, subsequent (Primary Dx); Controlled type 2 diabetes mellitus without complication, without long-term current use of insulin (HCC); Essential hypertension; Mixed hyperlipidemia; Vitamin D deficiency; Encounter for screening examination for other mental health and behavioral disorders Start: 04-19-2024 End: 05-04-2024 Telephone encounter Emily Flaherty MD Work Phone: [facility] [place] Start: 02-07-2024 Refill Emily colon MD Work Phone: [facility] [place] Comment on above: Refill Request Start: 12-06-2023 End: 12-06-2023 Office outpatient visit 25 minutes Emily Flaherty MD Work Phone: [facility] [place] Comment on above: Controlled type 2 di [...] 07-14-2023 Documentation procedure Mammog umm Coordinator [facility] Start: 07-14-2023 Letter encounter Mammography Coordinator [facility] Department Start: 07-13-2023 End: 07-13-2023 Subsequent hospital visit by physician Screen Mammo [facility] Mammogram Comment on above: Encounter for screen ing mammogram for breast cancer [Z12.31] Start: 05-03-2023 End: 05-03-2023 Office outpatient visit 25 minutes Emily Flaherty MD Work Phone: [facility] [place] Comment on above: Controlled type 2 di abetes mellitus without complication, without long-term current use of insulin (HCC) (Primary Dx); Mixed hyperlipidemia; Vitamin D deficiency; Primary hypertension Start: 2023 Refill Emily colon MD Work Phone: [facility] Comment on above: Refill Request Start: 12-30-2022 [...] 04-25-2022 Refill Emily Flaherty MD Work Phone: [facility] Comment on above: Refill Request Visit [...] Phone: [facility] Comment on above: Vaginal atrophy (Myla kylah [...] Date Procedure Procedure Detail Performing Clinician Start: 04-24-2025 Radiologic exam knee complete 4/more views Amara Mauricio APRN.GEOGRAPHIC INFORMATION SYSTEMS ENGINEER Work Phone: Start: 04-10-2025 Dup-scan xtr veins unilateral/limited study Amara Mauricio VOLUNTEER SERVICES COORDINATOR.GEOGRAPHIC INFORMATION SYSTEMS ENGINEER Work Phone: Start: 04-08-2025 Plain X-ray of tibia and fibula Dr. Emily Flaherty MD Work Phone: Start: 04-03-2025 CT of head without contrast Dr. Emily Flaherty MD Work Phone: Start: 12-19-2024 Colonoscopy flx dx w /collj spec when pfrmd Emily Flaherty MD Work Phone: Start: 12-19-2024 Colonoscopy Lc mendiola MD Work Phone: Start: 07-13-2023 Screening mammograph y bi 2-view breast inc cad Emily Flaherty MD Work Phone: Start: 04-25-2022 Screening mammograph y bi 2-view breast inc cad Emily Flaherty MD Work Phone: Start: 05-29-2018 Colonoscopy Emily tee MD Work Phone: Plan of Treatment Date Care Activity Detail Author Start: 04-03-2035 Urine microalbumin profile DTaP,Tdap,Td Vaccine (3 - Td or Tdap) [facility] Start: 12-19-2029 Screening for malign ant neoplasm of colon [facility] Start: 11-27-2025 Hepatitis B surface antibody level LDL Cholesterol [facility] Start: 11-25-2025 End: 11-25-2025 Patient encounter procedure 11/25/2025 1:20 PM EDT Office Visit [facility] [address] [place] [address] Emily Flaherty MD [address] [place] [address] Medicare Wellness Exam [facility] Comment on above: Medicare Wellness Ex am Start: 11-11-2025 Annual PCP Team Broadband Installer zhao Disease Visit Annual PCP Team Chronic Disease Visit [facility] Start: 11-11-2025 BP Controlled (<130/80) BP Controlle d (<130/80) [facility] Start: 11-11-2025 Shingrix Vaccine (2 of 3) Shingrix Vaccine (2 of 3) [facility] Comment on above: Postponed from 01/29 (Declined at this time) Start: 08-16-2025 Glaucoma screening Dilated Retinal E xam [facility] Start: 06-07-2025 Annual PCP Team Broadband Installer zhao Disease Visit Annual PCP Team Chronic Disease Visit [facility] Start: 06-07-2025 Anxiety Screening Anxiety Screening [facility] Start: 05-30-2025 Hemoglobin A1c measurement HbA1C [facility] Start: 05-29-2025 End: 05-29-2025 Patient encounter procedure 05/29/2025 1:00 PM EDT Office Visit Orthopaedics [address] [id number] Sara Dominguez PA-C [address] [place] [address] Fall, subsequent encounter [W19.XXXD]; Right leg pain [M79.604]; Right leg swelling [M79.89]; Popliteal cyst, right [M71.21] Orthopaedics Comment on above: Fall, subsequent enc ounter [W19.XXXD]; Right leg pain [M79.604]; Right leg swelling [M79.89]; Popliteal cyst, right [M71.21] Start: 05-26-2025 End: 05-26-2025 Patient encounter procedure 05/26/2025 10:00 AM EDT Office Visit [facility] [address] [place] [address] Emily Flaherty MD [address] [place] [address] 6 month follow up [facility] Comment on above: 6 month follow up Start: 05-12-[address] [facility] Start: 04-19-2025 Hepatitis B screening Urine Al bumin:Creatinine Ratio [facility] Start: 04-10-2025 End: 04-10-2025 Patient encounter procedure 04/10/2025 1:40 PM EDT Office Visit [facility] [address] [place] [address] Amara Mauricio, KATIE.GEOGRAPHIC INFORMATION SYSTEMS ENGINEER [address] [place] [address] 04/03 [facility] ER follow up / remove 7-8 sutures from scalp [facility] Comment on above: 04/03 [facility] ER follow u p / remove 7-8 sutures from scalp Start: 04-08-2025 [facility] Start: 04-03-2025 [facility] Start: 03-10-2025 Influenza vaccination Influenza Vacc ine (#1) [facility] Comment on above: Postponed from 05/12 (Declined at this time) Start: 02-27-2025 End: 05-29-2025 Hemoglobin A1c in Blood [facility] Work Phone: Comment on above: Expected: 02/27/2025 , Expires: 05/29/2025 Start: 02-27-2025 Hemoglobin A1c measurement HbA1C [facility] Start: 02-27-2025 End: 02-27-2025 Patient encounter procedure 02/27/2025 1:00 PM EDT Office Visit [facility] [address] [place] [address] [facility] [address] [place] [address] Goal: A1c < 8% [facility] Comment on above: Goal: A1c < 8% Start: 02-18-2025 End: 02-18-2025 Patient encounter procedure 02/18/2025 3:00 PM EDT Office Visit [facility] [address] [place] [address] Aracelis Ribeiro APRN.SAMPLE FINISHER [address] [place], [place] [address] 2024 Medicare Wellness Z00.00 [facility] Comment on above: 2024 Medicare Wellne ss Z00.00 Start: 01-23-2025 End: 01-23-2025 Patient encounter procedure 01/23/2025 1:00 PM EDT Office [facility] [address] [facility] [place] [address] Sandy Mala, Formerly [facility] [address] [place] [address] initial pharmD visit. T2DM. [facility] Comment on above: initial pharmD visit . T2DM. Start: 2025 End: 2025 Nursing evaluation of patient and report 2025 2:30 PM EDT Nurse Visit General Surgery [address] [place] [address] Wstr, Nurse Gens [facility] [address] [place] [address] Nurse visit suture removal General Surgery Comment on above: Nurse visit suture r emoval Start: 01-06-2025 End: 01-06-2025 Patient encounter procedure 01/06/2025 3:00 PM EDT Office Visit General Surgery [address] [place] [address] Lc Cuello MD [address] [place] [address] excision right neck cyst General Surgery Comment on above: excision right neck cyst Start: 12-30-2024 End: 12-30-2024 Patient encounter procedure General Surgery Comment on above: 12-19 colonoscopy fo llow up 12-19 colonoscopy fo llow up with Path. Hx updated. [facility] Start: 12-19-2024 End: 12-19-2024 Patient encounter procedure 12/19/2024 8:00 AM EDT Appointment Ambulatory Surgery [address] [place], [place] [id number] Lc Cuello MD [address] [place] [address] Special screening for malignant neoplasms, colon [Z12.11] Ambulatory Surgery Comment on above: Special screening fo r malignant neoplasms, colon [Z12.11] Start: 12-13-2024 End: 12-13-2024 Patient encounter procedure 12/13/2024 1:00 PM EDT Office Visit [facility] [address] [place] [address] Emily Flaherty MD [address] [place] [address] Yearly [facility] Comment on above: Yearly Start: 12-05-2024 Annual PCP Team Broadband Installer zhao Disease Visit Annual PCP Team Chronic Disease Visit [facility] Start: 12-05-2024 BP Controlled (<130/80) BP Controlle d (<130/80) [facility] Start: 12-05-2024 Hepatitis B surface antibody level LDL Cholesterol [facility] Start: 11-21-2024 End: 01-21-2025 Microalbumin/Creatinine [Mass Ratio] in Urine ALBUMIN/CREATININE RATIO, URINE Lab Routine Controlled type 2 diabetes mellitus without complication, without long-term current use of insulin (HCC) Expected: 11/21/2024 (Approximate), Expires: 01/21/2025 [facility] Work Phone: Comment on above: Expected: 11/21/2024 (Approximate), Expires: 01/21/2025 Start: 11-11-2024 End: 02-10-2025 Microalbumin/Creatinine [Mass Ratio] in Urine ALBUMIN/CREATININE RATIO, URINE Lab Routine Controlled type 2 diabetes mellitus without complication, without long-term current use of insulin (HCC) Essential hypertension Expected: 11/11/2024, Expires: 02/10/2025 [facility] Work Phone: Comment on above: Expected: 11/11/2024 , Expires: 02/10/2025 Start: 10-12-2024 Glaucoma screening Dilated Retinal E xam [facility] Start: 09-11-2024 Advance Directive Discussion Advance Directive Discussion [facility] Start: 07-15-2024 End: 07-15-2024 Patient encounter procedure 07/15/2024 2:30 PM EST Appointment Mammogram [address] [address] Screening mammogram for breast cancer [Z12.31] Mammogram Comment on above: Screening mammogram for breast cancer [Z12.31] Start: 06-07-2024 Hemoglobin A1c measurement HbA1C [facility] Start: 06-07-2024 End: 06-07-2024 Patient encounter procedure 06/07/2024 9:00 AM EDT Office Visit [facility] [address] [place] [address] Aracelis Ribeiro APRN.SAMPLE FINISHER [address] [place], [place] [address] 6 month follow up [facility] Comment on above: 6 month follow up Start: 05-12-2024 Covid-19 Vaccine () Covid-19 Vaccine () [facility] Start: 05-12-[address] [facility] Start: 05-03-2024 Annual PCP Team Broadband Installer zhao Disease Visit Annual PCP Team Chronic Disease Visit [facility] Start: 05-03-2024 BP Controlled (<130/80) BP Controlle d (<130/80) [facility] Start: 12-31-2023 ANNUAL PCP TEAM INTERLOCKER ZHAO DISEASE VISIT ANNUAL PCP TEAM CHRONIC DISEASE VISIT [facility] Start: 12-06-2023 End: 03-06-2024 ALBUMIN/CREAT RATIO RND UR ALBUMIN/CREAT RATIO RND UR Lab Routine Controlled type 2 diabetes mellitus without complication, without long-term current use of insulin (HCC) Expected: 12/06/2023, Expires: 03/06/2024 [facility] Work Phone: Comment on above: Expected: 12/06/2023 , Expires: 03/06/2024 Start: 11-01-2023 BP CONTROLLED (<130/80) BP CONTROLLE D (<130/80) [facility] Start: 10-12-2023 End: 12-12-2023 25-hydroxyvitamin D3 [Mass/volume] in Serum or Plasma VITAMIN D 25 HYDROXY Lab Routine Vitamin D deficiency Expected: 10/12/2023 (Approximate), Expires: 12/12/2023 [facility] Work Phone: Comment on above: Expected: 10/12/2023 (Approximate), Expires: 12/12/2023 Start: 10-12-2023 End: 12-12-2023 Comprehensive metabolic 2000 panel - Serum or Plasma COMP METABOLIC PANEL Lab Routine Controlled type 2 diabetes mellitus without complication, without long-term current use of insulin (HCC) Primary hypertension Expected: 10/12/2023 (Approximate), Expires: 12/12/2023 [facility] Work Phone: Comment on above: Expected: 10/12/2023 (Approximate), Expires: 12/12/2023 Start: 10-12-2023 End: 12-12-2023 Hemoglobin A1c in Blood HGB A1C Lab Routine Controlled type 2 diabetes mellitus without complication, without long-term current use of insulin (HCC) Expected: 10/12/2023 (Approximate), Expires: 12/12/2023 [facility] Work Phone: Comment on above: Expected: 10/12/2023 (Approximate), Expires: 12/12/2023 Start: 10-12-2023 End: 12-12-2023 Lipid 1996 panel - Serum or Plasma LIPID PANEL BASIC Lab Routine Mixed hyperlipidemia Expected: 10/12/2023 (Approximate), Expires: 12/12/2023 [facility] Work Phone: Comment on above: Expected: 10/12/2023 (Approximate), Expires: 12/12/2023 Start: 09-11-2023 Advance Directive Discussion Advance Directive Discussion [facility] Start: 05-29-2023 Screening for malign ant neoplasm of colon [facility] Start: 05-12-2023 Covid-19 Vaccine () Covid-19 Vaccine () [facility] Start: 05-12-[address] [facility] Start: 05-01-2023 Hemoglobin A1c measurement HbA1C [facility] Start: 05-01-2023 Hemoglobin A1c/Hemoglobin.total in Blood HBA1C [facility] Start: 04-18-2023 ANNUAL PCP TEAM INTERLOCKER ZHAO DISEASE VISIT ANNUAL PCP TEAM CHRONIC DISEASE VISIT [facility] Start: 04-18-2023 SHINGRIX VACCINE (2 of 3) SHINGRIX VACCINE (2 of 3) [facility] Comment on above: Postponed from 01/29 (Declined at this time) Start: 04-18-2023 Urine microalbumin profile DTAP,TDAP,TD (2 - Td or Tdap) [facility] Comment on above: Postponed from 11/24 (Declined at this time) Start: 03-01-2023 Covid-19 Vaccine (5 - Pfizer series) Covid-19 Vaccine (5 - Pfizer series) [facility] Start: 02-16-2023 ANNUAL PCP TEAM INTERLOCKER ZHAO DISEASE VISIT ANNUAL PCP TEAM CHRONIC DISEASE VISIT [facility] Start: 10-05-2022 ANNUAL PCP TEAM INTERLOCKER ZHAO DISEASE VISIT ANNUAL PCP TEAM CHRONIC DISEASE VISIT [facility] Start: 10-05-2022 BP CONTROLLED (<130/80) BP CONTROLLE D (<130/80) [facility] Start: 09-16-2022 Hepatitis C antibody , confirmatory test DILATED RETINAL EXAM [facility] Start: 09-11-2022 ADVANCE DIRECTIVE DISCUSSION ADVANCE DIRECTIVE DISCUSSION [facility] Start: 07-13-2022 Hepatitis B screening URINE AL BUMIN:CREATININE RATIO [facility] Start: 07-13-2022 Hepatitis B surface antibody level LDL CHOLESTEROL [facility] Start: 05-12-2022 [facility] Start: 04-04-2022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 02/07/2025 Kiera Shepard RN Complete Annual Medicare Wellness visit addressed 04/28/2025 02/07/2025 Kiera Shepard RN Complete/Scheduled Biannual PCP visit addressed 04/28/2025 02/07/2025 Kiera Shepard RN Complete/Scheduled HTN lab care gaps addressed 04/28/2025 02/07/2025 Kiera Shepard RN Complete/Scheduled Assessments CDM Assessment Medications: Do you have any questions about taking your medications or which medications you should be taking?: No Do you need any medication refills at [...] that you need to talk about today?: No ADLs No documentation this encounter Fall Risk No documentation this encounter SDOH No documentation this encounter Interventions No episode Disposition Based on boat dock operator, the following disposition is advised: No action needed Kiera Shepard RN March 03, 2025 4:09 [facility]06-23-2025 History of Present illness Narrative* Kiera Shepard RN - 03/03/2025 4:09 PM EDT Images from the original note were not included. CDM Care Path Telephonic Outreach Provider Action/ CDM Update -Spoke to Angelica who states she has too much going on right now and dont want any phone calls. She politely asked to not have anymore calls. Provided with H@H number. Patient identified by Name and Date of . Discussed care with patient. Program Details Chronic Disease Management Status: Declined Patient Declined - After Starting Program Effective Dates: 01/24/2025 - 03/03/2025 Responsible Staff: Kiera Shepard RN Support and Services: None active Program Goals Targets Target Due Completed Completed By Outcome General education provided (managing stress, where to go/how to contact, etc.) 02/24/2025 02/07/2025 Kiera Shepard RN Complete Intake assessments completed: ADLs, Fall Risk, SDOH 02/24/2025 02/07/2025 Kiera Shepard RN Complete Annual Medicare Wellness visit addressed 04/28/2025 02/07/2025 Kiera Shepard RN Complete/Scheduled Biannual PCP visit addressed 04/28/2025 02/07/2025 Kiera Shepard RN Complete/Scheduled HTN lab care gaps addressed 04/28/2025 02/07/2025 Kiera Shepard RN Complete/Scheduled Assessments CDM Assessment Medications: Do you have any questions about taking your medications or which medications you should be taking?:No Do you need any medication refills at [...] that you need to talk about today?: No ADLs No documentation this encounter Fall Risk No documentation this encounter SDOH No documentation this encounter Interventions No episode Disposition 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 She politely asked to not have anymore calls. Provided with H@H number. Patient identified by Name and Date of . Discussed care with patient. Program Details Chronic Disease Management Status: Declined Patient Declined - After Starting Program Effective Dates: 01/24/2025 - 03/03/2025 Responsible Staff: Kiera Shepard RN Support and Services: None active Program Goals Targets Target Due Completed Completed By Outcome General education provided (managing stress, where to go/how to contact, etc.) 02/24/2025 02/07/2025 Kiera Shepard RN Complete Intake assessments completed: ADLs, Fall Risk, SDOH 02/24/2025 02/07/2025 Kiera Shepard RN Complete Annual Medicare Wellness visit addressed 04/28/2025 02/07/2025 Kiera Shepard RN Complete/Scheduled Biannual PCP visit addressed 04/28/2025 02/07/2025 Kiera Shepard RN Complete/Scheduled HTN lab care gaps addressed 04/28/2025 02/07/2025 Kiera Shepard RN Complete/Scheduled Assessments CDM Assessment Medications: Do you have any questions about taking your medications or which medications you should be taking?: No Do you need any medication refills at [...] that you need to talk about today?: No ADLs No documentation this encounter Fall Risk No documentation this encounter SDOH No documentation this encounter Interventions No episode Disposition 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 on boat dock operator, the following disposition is advised: No action needed Kiera Shepard RN March 03, 2025 4:09 PM Allergies As of Date: 03/03/2025 Noted Allergy Reaction BEEF DERIVED (BOVINE) 10/17/2005 Comments: congestion FISH CONTAINING PRODUCTS 11/17/2017 9 - Itching SHELLFISH DERIVED 10/11/2023 9 - Itching TYLENOL (ACETAMINOPHEN) 10/17/2005 Comments: hyperactivity Date Reviewed: 02/18/2025 Reviewed by: Diana Zimmer LPN - Fully Assessed Prescriptions as of 03/03/2025 - metFORMIN ER (GLUCOPHAGE XR) 500 mg 24 hr tablet Take 1 tablet once daily - lancets ([employer] DELICA PLUS LANCET) 33 gauge USE TO CHECK BLOOD SUGAR ONCE A DAY - blood sugar diagnostic ([employer] VERIO TEST STRIPS) test strip USE TO CHECK BLOOD SUGAR ONCE A DAY - clobetasol (TEMOVATE) 0.05 % ointment APPLY DAILY NEEDED TO THE AFFECTED AREA SPARINGLY - minocycline (MINOCIN, DYNACIN) 50 mg capsule Take 1 capsule by mouth once daily. As directed - lisinopril (ZESTRIL) 20 mg tablet Take 1 tablet by mouth once daily. - Cholecalciferol, Vitamin D3, 50 mcg (2,000 unit) cap Take 1 capsule by mouth once daily. 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] 10/17/2005 LEUKOCYTOSIS NOS [D72.829] 08/20/2007 Disorder of bone and cartilage, unspecified [M8*09/24/2010 Osteopenia [M85.80] 11/06/2012 Vitamin D deficiency [E55.9] 09/23/2016 Controlled type 2 diabetes mellitus without com*05/04/2021 Special screening for malignant neoplasms, colo*12/19/2024 Encounter Status:Closed by KIERA SHEPARD on 03/03/25[facility] 02-27-2025 History of Present illness Narrative* Mala Delgado, [facility] - 02/27/2025 1:00 PM EDT Primary Care Pharmacy Visit CC (Reason for Consult): (E11.9) Type 2 diabetes mellitus without complication, without long-term current use of insulin (HCC) (primary encounter diagnosis) Goal(s): A1c <8% Last Collaborating Provider Visit: 02/18/25 with Aracelis Ribeiro CNP Angelica Sosa is a 80 year old female presenting for initial visit: This initial consult was conducted in person with the patient where the consult agreement was explained. The patient may declineor cancel the agreement at any time. After consideration, the patient consented to the pharmacy consult agreement and agreed to allow medications be collaboratively managed by a pharmacist. Last Pharmacy Visit: previously saw Becki Beth (05/13/21) for initial visit only HPI: Reports doing well Diagnosis of diabetes back in 2020 States she has problems with the metformin, has GI upset. Better tolerated on just one tablet daily Trying to walk more, even in the wintertime tries to walk in stores Denies any symptoms of hypoglycemia Denies any symptoms of hyperglycemia, had symptoms when first diagnosed States she has had increased level of stress lately; states her daughter was just diagnosed with breast cancer Discussed options and benefits vs risks for additional medications including GLP-1 agonists and SGLT2i; will hold off on adding new medication until updated A1c completed Current DM Medications: Metformin ER 500 mg twice daily - taking 1 tablet once daily (max tolerated dose) Previously Trialed DM Meds: None Diet Eating 2 meals/day Breakfast - goes to [employer], eggs and morrell, tater tots (small amount), occasionally has fruit Dinner (6p) - eats out a lot, last night had chicken thigh and potato, strawberries; pork chops often, does not eat beef or seafood Snack mid day - banana, strawberries, small amount of ice cream Beverages - black coffee (3 cups in AM), sugar free juice or sugar free tea or hot tea in winter, boogie unsweetened peach ice tea Exercise: Yes - walks every day, some days more than others especially in warmer weather, trying towalk up to a mile a day Caffeine: Yes GLYCEMIC CONTROL: Glucometer present at visit: Yes - One Touch Verio Hypoglycemia: No States BGs were down to 130-140s, a couple of months ago SMBGS (Fingersticks) Date Fasting AM 02/26 173 02/25 177 02/23 180 02/20 165 02/19 166 02/18 169 02/17 199 / 171 02/13 164 02/06 177 02/02 172 01/30 165 01/29 168 AVG 172 Past medical history reviewed. ALLERGIES Allergen Reactions Beef Derived (Bovin* congestion Fish Containing Pro* Itching Shellfish Derived Itching Tylenol [Acetaminop* hyperactivity Current Outpatient Medications Medication Sig Dispense Refill lancets (Flowify LimitedTOUCH DELICA PLUS LANCET) 33 gauge USE TO CHECK BLOOD SUGAR ONCE A DAY 100 each 11 blood sugar diagnostic (ONETOUCH VERIO TEST STRIPS) test strip USE TO CHECK BLOOD SUGAR ONCE A DAY 100 strip 11 clobetasol (TEMOVATE) 0.05 % ointment APPLY DAILY NEEDED TO THE AFFECTED AREA SPARINGLY 30 g 3 metFORMIN ER (GLUCOPHAGE XR) 500 mg 24 hr tablet Take 1 tablets with breakfast and 1 tablet with dinner or as directed (Patient taking differently: Take 500 mg by mouth daily with breakfast. Take 1 tablets with breakfast and 1 tablet with dinner or as directed) 180 tablet 3 minocycline (MINOCIN, DYNACIN) 50 mg capsule Take 1 capsule by mouth once daily. As directed 90 capsule 3 lisinopril (ZESTRIL) 20 mg tablet Take 1 tablet by mouth once daily. 90 tablet 3 Cholecalciferol, Vitamin D3, 50 mcg (2,000 unit) cap Take 1 capsule by mouth once daily. 90 capsule3 No current facility-administered medications for this visit. Pill bottles are not present. Adherence: denies missed doses. Rx coverage: Payor: [employer] MEDICARE / Plan: A[employer] MEDICARE PPO / Product Type: PPO / Medications affordable? Yes PHARMACOTHERAPY PREVENTATIVE MEDS: On BEATA/ARB: Yes On Statin: No On ASA: No EXAM: There were no vitals taken for this visit. Last 3 Encounter BP Readings: Date: BP: 02/18/2025 134/62 12/31/2024 135/70 12/19/2024 100/51 Wt: 64.2 kg (141 lb 8.6 oz) BMI: 27.61 kg/(m^2) LABS: Lab Results Component Value Date HBA1C 8.3 11/27/2024 HBA1C 7.5 12/06/2023 HBA1C 7.2 11/01/2022 HBA1C 7.0 07/13/2021 HBA1C 13.6 03/23/2021 HBA1C 6.5 06/08/2018 Glucose 179 11/27/2024 BUN 23 11/27/2024 Creatinine, Whole Blood (iSTAT) 0.67 11/27/2024 Sodium 140 11/27/2024 Potassium 4.4 11/27/2024 Chloride 104 11/27/2024 CO2 24 11/27/2024 Protein, Total 6.9 11/27/2024 Albumin 4.4 11/27/2024 Calcium 9.5 11/27/2024 Alkaline Phosphatase 88 11/27/2024 Bilirubin, Total 0.5 11/27/2024 AST 19 11/27/2024 ALT 18 11/27/2024 Lab Results Component Value Date CHOL 184 11/27/2024 CHOL 170 07/13/2021 CHOL 194 06/08/2018 LDL 127 11/27/2024 LDL 104 07/13/2021 LDL 124 06/08/2018 HDL 36 11/27/2024 HDL 40 07/13/2021 HDL 40 06/08/2018 TG 107 11/27/2024 TG 130 07/13/2021 TG 149 06/08/2018 Albumin/Creat Ratio (mg/g) Date Value 04/19/2024 27 eGFR-All Other Races (.) Date Value 07/13/2021 >60 Estimated Glomerular Filtration Rate (mL/min/1.73m ) Date Value 11/27/2024 88 ASSESSMENT/PLAN: 1. Type 2 diabetes mellitus without complication, without long-term current use of insulin (HCC) - ICD9: 250.00, ICD10: E11.9 - Control undetermined, due for labs - Continue current medications - updated metformin dose to reflect as patient taking (max tolerateddose) - Blood glucose monitoring on a once daily schedule - Counseled on healthy diet and regular exercise - Discussed diabetic education issues of diabetes complications and monitoring required, hypoglycemic/hyperglycemic symptoms, and medication-specific side effects and monitoring - Due for A1c Overdue Diabetes Health Maintenance: Health Maintenance - Diabetes Topic Date Due Diabetic Foot Exam Never done HbA1C 02/27/2025 Follow Up: Next PCP visit: 05/26/25 Next PharmD visit: TBD based on A1c results Mala Delgado, Paramjit, BCACP Primary Care Clinical Avid Editor I spent a total of 40 minutes on the date of the service which included preparing to see the patient, [id number] patient care, completing clinical documentation, counseling and educating the patient/family/caregiver, and ordering medications, tests, or procedures. documented in this encounterAvita [facility]06-19-[facility] Instructions* Patient Instructions* Mala Delgado RPh - 02/27/2025 1:00 PM EDT Get A1c done today and I will call you with the results to review documented in this encounterAvita Health [facility]06-19-2025 NoteHNO ID: [id number] Author: MALA DELGADO RPh Service: ? Author Type: Pharmacist Type: Progress Notes Filed: 02/27/2025 13:37 Note Text: Primary Care Pharmacy Visit CC (Reason for Consult): (E11.9) Type 2 diabetes mellitus without complication, without long-term current use of insulin (HCC) (primary encounter diagnosis) Goal(s): A1c <8% Last Collaborating Provider Visit: 02/18/25 with Aracelis Ribeiro CNP Angelica Sosa is a 80 year old female presenting for initial visit: This initial consult was conducted in person with the patient where the consult agreement was explained. The patient may decline or cancel the agreement at any time. After consideration, the patient consented to the pharmacy consult agreement and agreed to allow medications be collaboratively managed by a pharmacist. Last Pharmacy Visit: previously saw Becki Beth (05/13/21) for initial visit only HPI: Reports doing well Diagnosis of diabetes back in 2020 States she has problems with the metformin, has GI upset. Better tolerated on just one tablet daily Trying to walk more, even in the wintertime tries to walk in stores Denies any symptoms of hypoglycemia Denies any symptoms of hyperglycemia, had symptoms when first diagnosed States she has had increased level of stress lately; states her daughter was just diagnosed with breast cancer Discussed options and benefits vs risks for additional medications including GLP-1 agonists and SGLT2i; will hold off on adding new medication until updated A1c completed Current DM Medications: Metformin ER 500 mg twice daily - taking 1 tablet once daily (max tolerated dose) Previously Trialed DM Meds: None Diet Eating 2 meals/day Breakfast - goes to [employer], eggs and morrell, tater tots (small amount), occasionally has fruit Dinner (6p) - eats out a lot, last night had chicken thigh and potato, strawberries; pork chops often, does not eat beef or seafood Snack mid day - banana, strawberries, small amount of ice cream Beverages - black coffee (3 cups in AM), sugar free juice or sugar free tea or hot tea in winter, boogie unsweetened peach ice tea Exercise: Yes - walks every day, some days more than others especially in warmer weather, trying to walk up to a mile a day Caffeine: Yes GLYCEMIC CONTROL: Glucometer present at visit: Yes - One Touch Verio Hypoglycemia: No States BGs were down to 130-140s, a couple of months ago SMBGS (Fingersticks) Date Fasting AM 02/26 173 02/25 177 02/23 180 02/20 165 02/19 166 02/18 169 02/17 199 02/14 171 02/13 164 02/06 177 02/02 172 01/30 165 01/29 168 AVG 172 Past medical history reviewed. ALLERGIES Allergen Reactions Beef Derived (Bovin* congestion Fish Containing Pro* Itching Shellfish Derived Itching Tylenol [Acetaminop* hyperactivity Current Outpatient Medications Medication Sig Dispense Refill lancets (Flowify LimitedTOUCH DELICA PLUS LANCET) 33 gauge USE TO CHECK BLOOD SUGAR ONCE A DAY 100 each 11 blood sugar diagnostic (ONETOUCH VERIO TEST STRIPS) test strip USE TO CHECK BLOOD SUGAR ONCE A DAY 100 strip 11 clobetasol (TEMOVATE) 0.05 % ointment APPLY DAILY NEEDED TO THE AFFECTED AREA SPARINGLY 30 g 3 metFORMIN ER (GLUCOPHAGE XR) 500 mg 24 hr tablet Take 1 tablets with breakfast and 1 tablet with dinner or as directed (Patient taking differently: Take 500 mg by mouth daily with breakfast. Take 1 tablets with breakfast and 1 tablet with dinner or as directed) 180 tablet 3 minocycline (MINOCIN, DYNACIN) 50 mg capsule Take 1 capsule by mouth once daily. As directed 90 capsule 3 lisinopril (ZESTRIL) 20 mg tablet Take 1 tablet by mouth once daily. 90 tablet 3 Cholecalciferol, Vitamin D3, 50 mcg (2,000 unit) cap Take 1 capsule by mouth once daily. 90 capsule 3 No current facility-administered medications for this visit. Pill bottles are not present. Adherence: denies missed doses. Rx coverage: Payor: AET MEDICARE / Plan: AET MEDICARE PPO / Product Type: PPO / Medications affordable? Yes PHARMACOTHERAPY PREVENTATIVE MEDS: On BEATA/ARB: Yes On Statin: No On ASA: No EXAM: There were no vitals taken for this visit. Last 3 Encounter BP Readings: Date: BP: 02/18/2025 134/62 12/31/2024 135/70 12/19/2024 100/51 Wt: 64.2 kg (141 lb 8.6 oz) BMI: 27.61 kg/(m2) LABS: Lab Results Component Value Date HBA1C 8.3 11/27/2024 HBA1C 7.5 12/06/2023 HBA1C 7.2 11/01/2022 HBA1C 7.0 07/13/2021 HBA1C 13.6 03/23/2021 HBA1C 6.5 06/08/2018 Glucose 179 11/27/2024 BUN 23 11/27/2024 Creatinine, Whole Blood (iSTAT) 0.67 11/27/2024 Sodium 140 11/27/2024 Potassium 4.4 11/27/2024 Chloride 104 11/27/2024 CO2 24 11/27/2024 Protein, Total 6.9 11/27/2024 Albumin 4.4 11/27/2024 Calcium 9.5 11/27/2024 Alkaline Phosphatase 88 11/27/2024 Bilirubin, Total 0.5 11/27/2024 AST 19 11/27/2024 ALT 18 11/27/2024 Lab Results Component Value Date CHOL 184 11/27/2024 CHOL 170 07/13 (more content not included)...[facility] 02-18-2025 NoteHNO ID: [id number] Author: ARACELIS RIBEIRO APRN.SAMPLE FINISHER Service: ? Author Type: Nurse Practitioner Type: Progress Notes Filed: 02/18/2025 16:04 Note Text: Angelica Sosa is a 80 year old [...] Team: Emily Flaherty MD as PCP - IgnaciaBecki manley RPh as Pharmacist (Pharmacy) Aracelis Ribeiro APRN.SAMPLE FINISHER as Exam Proctor (Internal Medicine) Kiera Shepard RN as Copper Plate Lithographer (Family Medicine) Amara Mauricio APRN.GEOGRAPHIC INFORMATION SYSTEMS ENGINEER as Exam Proctor (Internal Medicine) Outside specialists seen: Eye provider [...] lb 8.6 oz) SpO2 96% BMI 27.61 kg/m? Vision Screening: Follows with optometry/ophthalmology SUBJECTIVE [...] 1 capsule by mouth once daily. lancets (Flowify LimitedTOUCH DELICA PLUS LANCET) 33 gauge USE TO CHECK BLOOD SUGAR ONCE A DAY blood sugar diagnostic (ONETOUCH VERIO TEST STRIPS) [...] Complication, Without Long-Term Current Use of Insulin ([facility]) - 05/04/2021 Vitamin D Deficiency - [...] 8.6 oz (64.2kg) SpO2 96% BMI 27.61 kg/(m2). Physical Exam Vitals and nursin (more content not included)...[facility] 02-18-2025 History of Present illness Narrative* Aracelis Ribeiro APRN.CNP - 02/18/2025 3:14 PM EDT Images from the original note were not [...] Flaherty MD as PCP - Becki Gonzalez RPh as Pharmacist (Pharmacy) Aracelis Ribeiro APRN.SAMPLE FINISHER as Exam Proctor (Internal Medicine) Kiera Shepard RN as Copper Plate Lithographer (Family Medicine) Amara Mauricio APRN.GEOGRAPHIC INFORMATION SYSTEMS ENGINEER as Exam Proctor (Internal Medicine) Outside specialists seen: Eye provider [...] 1 capsule by mouth once daily. lancets (Flowify LimitedTOUCH DELICA PLUS LANCET) 33 gauge USE TO CHECK BLOOD SUGAR ONCE A DAY blood sugar diagnostic (ONETOUCH VERIO TEST STRIPS) [...] Complication, Without Long-Term Current Use of Insulin ([facility]) - 05/04/2021 Vitamin D Deficiency - [...] from today's visit and in agreement with treatmentplan. Questions answered. Agrees to call the office [...] as well as compliance with taking medications. Age- appropriate health preventative measures were discussed.. Return if symptoms worsen or fail to improve, for Keep next scheduled appointment.. Aracelis Ribeiro APRN-EMIGDIO documented in this encounterAvita [facility]06-10-2025 Instructions* Patient Instructions* Aracelis Ribeiro APRN.CNP - 02/18/2025 3:14 PM [...] review all the medicines you take, even ehyn-exc-gcxwjec medicines. As you get older, the way medicines work in your body can change. Some medicines, or combinations of medicines, can make you sleepy or dizzy andcan cause you to fall. 3. Have your [...] have certain medical conditions. documented in this encounterAvita Health [facility]05-30-2025 History of Present illness Narrative* Kiera Shepard RN - 02/07/2025 2:22 PM EDT CDM ENROLLMENT Provider Action / FYI: Dr. Iveth Ball spoke to Angelica today and she is really having a hard time with taking metformin. In fact, she is only taking it once a day because of the side effect of diarrhea and she is not ableto control her bowels at times. She skips taking it when she has to go outside of the house in fearof having an accident. She would really like to stop taking it. She wants to know if there are other options? Please have office reach out to discuss your recommendations/suggestions. Thank you in advance. Mala [facility] and Becki [facility]- FYI for you as well. Sincerely, Kiera HERNANDEZ PCC Patient identified by name and date of . Discussed care with patient. Program Details Chronic Disease Management Status: Enrolled Effective Dates: 01/24/2025 - present Responsible Staff: Kiera Shepard RN Support and Services: Hypertension, Diabetes Assessments CDM Assessment Medications: Do you have any questions about taking your medications or which medications you should be taking?:Yes Do you need any medication refills at [...] were you homeless or living in a fdc (including now)?: No Transportation Needs In the [...] out before you got the money to buymore.: Never true Within the past 12 months, the food you bought just didn't last and you didn't have money to get more.: Never true Utilities In the past 12 months has the electric, gas, oil, or water [employer] threatened to shut off services in your [...] - Bi-Weekly Outreach (Recurring) Disposition Based on boat dock operator, the following disposition is advised: No action needed (routed a message toPCP) Kiera Shepard RN February 07, 2025 2:37 PM * Mala Delgado RPh - 02/07/2025 2:21 PM EDT Patient is scheduled for New pharmacy visit with me on 02/27/25 (patient no showed previous pharmacyvisit with me on 01/23). No earlier PharmD [...] Mala Delgado, PharmD, BCACP Primary Care Clinical Avid Editor documented in this encounterAvita Health System [facility]05-30-2025 NoteHNO ID: [id number] Author: KIERA SHEPARD RN Service: ? Author [...] your recommendations/suggestions. Thank you in advance. Mala [facility] and Becki [facility]- FYI for you as well. Sincerely, Kiera [...] were you homeless or living in a fdc (including now)?: No Transportation Needs In the [...] have money to get more.: Never true Mobile Shareholder In the past 12 months has the electric, gas, oil, or water [employer] threatened to shut off services in your [...] - Bi-Weekly Outreach (Recurring) Disposition Based on boat dock operator, the following disposition is advised: No action needed (routed a message to PCP) Kiera Shepard RN February 07, 2025 2:37 [facility]05-30-2025 NoteHNO ID: [id number] Author: MALA DELGADO rachell Service: ? Author Type: Pharmacist Type: Progress Notes Filed: 02/07/2025 15:18 Note Text: Patient is scheduled for New pharmacy visit with me on 02/27/25 (patient no showed previous pharmacy visit with al on 01/23). No earlier PharmD availability on [facility] or Becki's schedule prior to patient's upcoming [...] Mala Delgado, PharmD, BCACP Primary Care Clinical Pharmacy SpecialistC[facility]25 NoteHNO ID: [id number] Author: HEDY SEPULVEDA RN Service: ? Author [...] Call / Main Concern Returning call to Information Technology Intern Summary of Callers Concern I don't get to the phone in time usually but she can always leave a message. Action Taken / Plan Routed to Patient's Information Technology Intern Pcc status: stacia Sepulveda RN February 07, 2025 1:36 [facility] History of Present illness Narrative* Hedy Sepulveda RN - 02/07/2025 1:36 PM EDT Value Based Care Management Inbound Call Provider Action / FYI: Date of Call: 02/07/2025 Time of Call: 1:36 PM Caller Name: pt Caller relationship to the patient: Patient Patient identified by Name and Date of : Yes Reason for Call / Main Concern Returning call to Information Technology Intern Summary of Callers Concern I don't get to the phone in time usually but she can always leave a message. Action Taken / Plan Routed to Patient's Information Technology Intern Pcc status: stacia Sepulveda RN February 07, 2025 1:36 PM documented in this encounterAvita Health System [facility]05-30-2025 NotePatient Outreach ([facility]) ANGELICA SOSA ([id number]) 1945 F CHT Date Time Provider Department 02/07/25 KIERA SHEPARD [facility] During your visit today, we recorded the following information about you: Mala Delgado [facility] 02/07/2025 3:18 PM Signed Patient is scheduled for New pharmacy visit with al on 02/27/25 (patient no showed previous pharmacy [...] out of office next week. Mala Delgado, ElD, BCACP Primary Care Clinical Avid Editor Kiera Shepard, DAVID 02/07/2025 2:45 PM Signed CDM ENROLLMENT Provider Action / FYI: Dr. Flaherty- I spoke to Angelica today and she is [...] your recommendations/suggestions. Thank you in advance. Mala [facility] and Becki [facility]- FYI for you as well. Sincerely, Kiera [...] were you homeless or living in a fdc (including now)?: No Transportation Needs In the [...] In the past 12 months has the [place], gas, oil, or water [employer] threatened to shut off services in your [...] Medication Management - Intak (more content not included)...[facility]05-30-2025 Note Patient Outreach ([facility]) ANGELICA SOSA ([id number]) 1945 F T Date Time Provider Department 02/07/25 HEDY SEPULVEDA [facility] During your visit today, we recorded the [...] Call / Main Concern Returning call to Information Technology Intern Summary of Callers Concern I don't get to the phone in time usually but she can always leave a message. 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 [2563] Cmt: Incoming call Prescriptions as of 02/07/2025 [...] colo*12/19/2024 Encounter Status:Closed by HEDY SEPULVEDA on 02/07/25[facility] 02-05-2025 Telephone encounter Note* Telephone Encounter - Niya Durham - 02/05/2025 4:41 PM EDT Prescription Refill Information The patient has been [...] Niya Durham February 05, 2025 4:41 PM [facility]05-28-[facility] Miscellaneous Notes* Telephone Encounter - Niya Durham - 02/05/2025 4:41 PM EDT Prescription Refill Information The patient has been [...] 05, 2025 4:41 PM documented in this encounterAvita Health System [facility]05-19-2025 NoteHNO ID: [id number] Author: LAKEISHA STORM MA Service: ? Author Type: Cooling Tower Operator Type: Progress Notes Filed: 01/27/2025 08:45 Note [...] visit she missed yesterday with Mala Delgado [facility] Outcome: 1st attempt - Spoke to patient [...] Annual Wellness Visit Specialty Appointment 02/18/2025 in [facility] with ARACELIS RIBEIRO - 2024 Medicare Wellness Z00.00 02/27/2025 in [facility] with MALA DELGADO - Goal: A1c < 8%, Diabetes Management 05/26/2025 in [facility] with EMILY FLAHERTY - 6 month follow up 11/25/2025 in [facility] with EMILY FLAHERTY D - Medicare Wellness Exam Navigation Signature: Lakeisha Storm MA January 27, 2025 8:31 [facility]05-19-2025 NoteHNO ID: [id number] Author: LAKEISHA STORM MA Service: ? Author Type: Cooling Tower Operator Type: Progress Notes Filed: 01/27/2025 08:25 Note [...] Lakeisha Storm MA January 27, 2025 8:15 [facility]05-16-2025 NoteHNO ID: [id number] Author: NOHEMI BROWN MA Service: ? Author Type: Cooling Tower Operator Type: Progress Notes Filed: 01/24/2025 18:35 Note Text: POPULATION HEALTH NAVIGATION OUTREACH Action/FYI Hi there, [...] message on machine to return call - MyChart message sent to patient Reason for Outreach Community Monitoring/Network Navigator Pools AND Phone Line: CM Pool Care Gaps due: Follow-up Appointment KED Patient Contacted: Unable or unnecessary to reach patient: Left message MyChart message sent Navigation Signature: Nohemi Cunningham MA January 24, 2025 6:30 [facility]05-16-2025 History of Present illness Narrative* Nohemi Brown MA - 01/24/2025 6:30 PM EDT POPULATION HEALTH NAVIGATION OUTREACH Action/FYI Hi there, Are you able to reschedule a pharmacy visit for diabetes follow up? I am not sure if thisis something you are able to do but if so the pt. Is hoping to reschedule the visit she missed yesterday with Mala Delgado Rph. Thank you so very much! 2025 MWE noted to be scheduled KED: uACR Due (order in Epic) Call placed to patient to assist in scheduling - Left message on machine to return call - MyChart message sent to patient Reason for Outreach Community Monitoring/Network Navigator Pools & Phone Line: CM Pool Care Gaps due: Follow-up Appointment KED Patient Contacted: Unable or unnecessary to reach patient: Left message MyChart message sent Navigation Signature: Nohemi Cunningham MA January 24, 2025 6:30 PM * Tara Young RN - 01/24/2025 4:01 PM EDT CDM ENROLLMENT Provider Action / FYI: N/A Navigation Update Hi there, Are you able to reschedule a pharmacy visit for diabetes follow up? I am not sure if thisis something you are able to do but [...] 24, 2025 4:01 PM documented in this encounterAvita Health System [facility]05-16-2025 NoteHNO ID: [id number] Author: TARA YOUNG RN Service: ? Author [...] visit she missed yesterday with Mala Delgado [facility]. Thank you so very much! Patient identified [...] Tara Young RN January 24, 2025 4:01 [facility]05-16-2025 NotePatient Outreach ([facility]) ANGELICA SOSA ([id number]) 1945 F T Date Time Provider Department 01/24/25 TARA YOUNG During your visit today, we recorded the [...] visit she missed yesterday with Mala Delgado [facility]. Thank you so very much! Patient identified [...] message on machine to return call - MyChart message sent to patient Reason for Outreach Community Monitoring/Network Navigator Pools AND Phone Line: CM Pool Care Gaps due: Follow-up Appointment KED Patient Contacted: Unable or unnecessary to reach patient: Left message MyChart message sent Navigation Signature: Nohemi Cunnnigham MA January 24, 2025 6:30 PM Lakeisha [...] visit she missed yesterday with Mala Delgado [facility] Outcome: 1st attempt - Spoke to patient [...] Annual Wellness Visit Specialty Appointment 02/18/2025 in [facility] with ARACELIS RIBEIRO - 2024 Medicare Wellness Z00.00 02/27/2025 in [facility] (more content not included)...[facility] 2025 NoteHNO ID: [id number] Author: ANSON YORK RN Service: ? Author Type: Registered Nurse Type: Progress Notes Filed: 2025 14:43 Note Text: The right neck (site) was assessed and 2 simple sutures were removed as ordered. Dressing was applied. Patient instructed on wound care and verbalized understanding. Pathology was reviewed by Dr. Cuello and patient was advised.Anson York RNCleveland [facility]05-05-2025 History of Present illness Narrative* Anson York RN - 2025 2:26 PM EDT The right neck (site) was assessed and 2 simple sutures were removed as ordered. Dressing was applied. Patient instructed on wound care and verbalized understanding. Pathology was reviewed by Dr. Cuello and patient was advised.Anson York RN documented in this encounterAvita Health System [facility]04-28-2025 NoteHNO ID: [id number] Author: LC CUELLO MD Service: ? Author Type: Physician Type: Progress Notes Filed: 01/06/2025 15:23 Note Text: Preoperative diagnosis: Sebaceous cyst right neck Postoperative diagnosis: The same Procedure: Excision of a 2.5 cm sebaceous cyst of right neck Surgeon: Cuate Procedure: Right neck was sterilely prepped and [...] applied and the patient tolerated the procedure well.[facility]04-28-2025 History of Present illness Narrative* Lc Cuello MD - 01/06/2025 3:21 PM EDT Preoperative diagnosis: Sebaceous cyst right neck Postoperative diagnosis: The same Procedure: Excision of a 2.5 cm sebaceous cyst of right neck Surgeon: Cuate Procedure: Right neck was sterilely prepped and [...] and the patient tolerated the procedure well. * Pooja Shaw LPN - 01/06/2025 2:58 PM EDT UNIVERSAL PROTOCOL / SAFETY CHECKLIST Procedure to [...] surrogate. Pooja Shaw LPN documented in this encounterAvita Health System [facility]04-28-2025 Instructions* Patient Instructions* Pooja Shaw LPN - 01/06/2025 3:01 PM EDT The following instructions are important for you related to your office visit today with the [facility] General Surgeons. Instructions After SKIN EXCISION-SUTURES You [...] you should contact our office immediately @ [phone] and ask to be transferred to the General Surgery department. documented in this encounterAvita Health System Gal[facility] Hospital04-28-2025 NoteHNO ID: [id number] Author: POOJA SHAW LPN Service: ? Author [...] to the patient or surrogate. Pooja Shaw [facility]04-22-2025 NoteHNO ID: [id number] Author: LC CUELLO MD Service: ? Author [...] with 2 simple interrupted sutures of 5-0 nylonC[facility] Clinic [facility]04-22-2025 History of Present illness Narrative* Lc Cuello MD - 12/31/2024 1:32 PM EDT Subjective: Patient is a 79-year-old white female [...] sutures of 5-0 nylon documented in this encounterAvita Health System [facility]04-21-2025 History of Present illness Narrative* Zahraa Delacruz APRN.SAMPLE FINISHER - 12/30/2024 2:00 PM EDT FOLLOW UP VISIT - ENDOSCOPY Angelica Sosa 1945 [id number] REFERRING PHYSICIAN: No referring provider defined for this encounter. Angelica Ssoa is a patient I am following for screening colonoscopy. Dr. Cuello performed lowerendoscopy on 12/19/2024. The patient was found to [...] with the patient, and the patient has hadthe opportunity to ask questions and have questions [...] as needed for worsening/no improvement. Zahraa Delacruz APRN.SAMPLE FINISHER documented in this encounterAvita Health System [facility]04-21-2025 NoteHNO ID: [id number] Author: ZAHRAA DELACRUZ APRN.EMIGDIO Service: ? Author Type: Nurse Practitioner Type: Progress Notes Filed: 12/30/2024 14:00 Note Text: FOLLOW UP VISIT - ENDOSCOPY Angelica Sosa 1945 [id number] REFERRING PHYSICIAN: No referring provider defined for [...] or as needed for worsening/no improvement. Zahraa Dealcruz APRN.EMIGDIOCleveland Clinic [facility]04-18-2025 NoteHNO ID: [id number] Author: ARACELIS RIBEIRO APRN.EMIGDIO Service: ? Author Type: Nurse Practitioner Type: Progress Notes Filed: 12/27/2024 08:13 Note Text: Noted.[facility]04-16-2025 History of Present illness Narrative * Ngozi Foster RPh - 12/25/2024 3:42 PM EDT Primary Care Pharmacy Panel Management This patient has been identified through Specialty Integration/Value-Based Operations Diabetes Registry Review by the primary care pharmacy team. Please contact patient and schedule a pharmacy in-person or phone visit for diabetes management. Please use New Pharmacy, New Pharmacy Phone call, or Video Primary New visit types. ^Contacted patient discuss consult agreement/services, and to schedule initial appointment. Patientprefers in-office visits. Initial appointment was scheduled for 01/23/25. Patient was educated to come prepared with medications and recent blood sugar readings, if checking these at home. Verbalized understanding. Thank you, Ngozi Foster PharmD, BCACP documented in this encounterAvita Health System Galion Hospital04-16-2025 NoteHNO ID: [id number] Author: NGOZI FOSTER RPh Service: ? Author [...] Verbalized understanding. Thank you, Ngozi Foster PharmD, BCACPCleveland Clinic [facility]04-16-2025 NotePatient Outreach (PMSTOW) ANGELICA SOSA ([id number]) 1945 [facility] Date Time Provider Department 12/25/24 NGOZI FOSTER PMSTOW During your visit today, we recorded the following information about you: Ngozi Foster [facility] 12/25/2024 3:52 PM Signed Primary Care Pharmacy [...] understanding. Thank you, Ngozi Foster, PharmD, BCACP Aracelis Ribeiro APRN.SAMPLE FINISHER 12/27/2024 8:13 AM Signed Noted. Allergies As of Date: 12/25/2024 Noted Allergy Reaction BEEF DERIVED (BOVINE) 10/17/2005 Comments: congestion FISH CONTAINING PRODUCTS 11/17/2017 9 - Itching PEANUT OIL 10/17/2005 Comments: uncertain PEANUTS 10/17/2005 Comments: not sure SHELLFISH DERIVED 10/11/2023 9 - Itching TYLENOL (ACETAMINOPHEN) 10/17/2005 Comments: hyperactivity Date Reviewed: 12/19/2024 Reviewed by: Brionna Villatoro RN - Fully Assessed Reason for Visit: Care Coordination [7735] Cmt: Panel Management Review for Pharmacist Referral for Diabetes Management Primary Visit Diagnosis:Type 2 diabetes mellitus without complication, without long-term current use of insulin (HCC) [E11.9] Order(s):CONSULT TO PHARMACY [443203] Order #: [id number]: 1 Prescriptions as of 12/27/2024 - minocycline [...] AFFECTED AREA SPARINGLY - blood sugar diagnostic (Shoulder TapUCH VERIO TEST STRIPS) test strip USE TO CHECK BLOOD SUGAR ONCE A DAY - lancets (Shoulder TapUCH DELICA PLUS LANCET) 33 gauge USE TO [...] colo*12/19/2024 Encounter Status:Closed by NGOZI FOSTER on 12/25/24[facility] 12-19-2024 Note* Discharge Instr - Nursing - Brionna Villatoro RN - 12/19/2024 8:50 AM EDT The patient received a copy of Colonoscopy discharge instructions that contain information for how to contact the physician who performed the procedure and when to seek medical care. [facility]04-10-2025 Miscellaneous Notes* Discharge Instr - Nursing - Brionna Villatoro RN - 12/19/2024 8:50 AM EDT The patient received a copy of Colonoscopy discharge instructions that contain information for how to contact the physician who performed the procedure and when to seek medical care. documented in this encounterAvita Health System [facility]04-10-2025 History and physical note * Lc Cuello MD - 12/19/2024 8:00 AM EDT Images from the original note were not [...] history of DM, presenting for evaluation of glycemiccontrol and a chronic pruritic lesion on the leg. Angelica reports difficulty tolerating metformin due to gastrointestinal side effects, specifically diarrhea, when taking more than 500 mg daily. She currently takes 500 mg once daily at bedtime and notes that higher doses exacerbate gastrointestinal symptoms. She monitors her blood glucose levels re gularly and brought her glucose meter to the [...] as itchy and sometimes scaly. She has triedvarious topical treatments, including calamine lotion and ice packs, to alleviate the itching. She has clobetasol at home but has used it sparingly due to concerns about skin thinning. She has not seen a charge entry for this issue in the past year [...] complication, without long-term current use of insulin ([facility]) 05/04/2021 DEPRESSIVE DISORDER NEC 10/17/2005 Glaucoma of both eyes Dr. Daniels follows at [facility] HYPERLIPIDEMIA NEC/NOS 10/17/2005 HYPERTENSION NOS 10/17/2005 [...] by mouth once daily. blood sugar diagnostic (Flowify LimitedTOUCH VERIO TEST STRIPS) test strip USE TO CHECK BLOOD SUGAR ONCE A DAY lancets (Flowify LimitedTOUCH DELICA PLUS LANCET) 33 gauge USE TO [...] 160s to 180s, slightly above the target of<150 mg/dL. - Last HbA1c in November of [...] moisture. - Patient to follow up with charge entry Dr. Townsend for further evaluation and management. [...] does not wish to receive additional doses atthis time. - Postponed Shingrix vaccine as patient has previously completed the two-dose series. I spent a total of 42 minutes on the date of the service which included oxou-mj-abky patient care, completing clinical documentation, obtaining and/or [...] has been reviewed and the patient has beenexamined. The contents accurately reflect the patient's condition with the following additions or revisions since the H&P was completed. Examination indicates no changes. This H&P can be found in the attached. SIGNATURE: Lc Cuello III, MD PATIENT NAME: Angelica Sosa DATE: December 19, 2024 TIME: 7:56 AM [facility]04-10-2025 History and physical note* Lc Cuello MD - 12/19/2024 8:00 AM EDT Images from the original note were not [...] history of DM, presenting for evaluation of glycemiccontrol and a chronic pruritic lesion on the leg. Angelica reports difficulty tolerating metformin due to gastrointestinal side effects, specifically diarrhea, when taking more than 500 mg daily. She currently takes 500 mg once daily at bedtime and notes that higher doses exacerbate gastrointestinal symptoms. She monitors her blood glucose levels re gularly and brought her glucose meter to the [...] as itchy and sometimes scaly. She has triedvarious topical treatments, including calamine lotion and ice packs, to alleviate the itching. She has clobetasol at home but has used it sparingly due to concerns about skin thinning. She has not seen a charge entry for this issue in the past year [...] of both eyes Dr. Daniels follows at [facility] HYPERLIPIDEMIA NEC/NOS 10/17/2005 HYPERTENSION NOS 10/17/2005 [...] 160s to 180s, slightly above the target of<150 mg/dL. - Last HbA1c in November of [...] moisture. - Patient to follow up with charge entry Dr. Townsend for further evaluation and management. # Special screening for malignant neoplasms, colon (Z12.11) - Last colonoscopy was in 2017; due for repeat screening. - Family history [...] does not wish to receive additional doses atthis time. - Postponed Shingrix vaccine as patient has previously completed the two-dose series. I spent a total of 42 minutes on the date of the service which included bese-cd-gsjn patient care, completing clinical documentation, obtaining and/or [...] has been reviewed and the patient has beenexamined. The contents accurately reflect the patient's condition with the following additions or revisions since the H&P was completed. Examination indicates no changes. This H&P can be found in the attached. SIGNATURE: Lc Cuello III, MD PATIENT NAME: Angelica Sosa DATE: December 19, 2024 TIME: 7:56 AM documented in this encounterAvita Health System Gal[facility]03-03-2025 Instructions* Patient Instructions* Emily Flaherty MD - 11/11/2024 11:45 AM EST - Refill prescriptions for Minocycline, Lisinopril, and Vitamin D at [facility]. - Continue taking Metformin 500 [...] moisturized. - Schedule an appointment with your charge entry. - Use olive oil in your diet [...] please call: Dr. Reddy or Dr. Barksdale [phone] Tammie Degroot [phone] Dr. Avendano [phone] [facility] nurses [phone] documented in this encounterAvita Health System [facility] Hospital03-03-2025 NoteHNO ID: [id number] Author: EMILY FLAHERTY MD Service: ? Author Type: Physician Type: Progress Notes Filed: 11/11/2024 11:59 Note Text: This note was created using threadsyter. Subjective Angelica Sosa is a 79 year [...] skin thinning. She has not seen a charge entry for this issue in the past year [...] complication, without long-term current use of insulin ([facility]) 05/04/2021 DEPRESSIVE DISORDER NEC 10/17/2005 Glaucoma of both eyes Dr. Daniels follows at [facility] HYPERLIPIDEMIA NEC/NOS 10/17/2005 HYPERTENSION NOS 10/17/2005 [...] by mouth once daily. blood sugar diagnostic (Flowify LimitedTOUCH VERIO TEST STRIPS) test strip USE TO CHECK BLOOD SUGAR ONCE A DAY lancets (Flowify LimitedTOUCH DELICA PLUS LANCET) 33 gauge USE TO [...] diabetes mellitus wit (more content not included)... [facility]03-03-2025 History of Present illness Narrative* Emily Flaherty MD - 11/11/2024 11:17 AM EST Images from the original note were not included. This note was created using [employer]. Subjective Angelica Sosa is a 79 year [...] history of DM, presenting for evaluation of glycemiccontrol and a chronic pruritic lesion on the leg. Angelica reports difficulty tolerating metformin due to gastrointestinal side effects, specifically diarrhea, when taking more than 500 mg daily. She currently takes 500 mg once daily at bedtime and notes that higher doses exacerbate gastrointestinal symptoms. She monitors her blood glucose levels re gularly and brought her glucose meter to the [...] as itchy and sometimes scaly. She has triedvarious topical treatments, including calamine lotion and ice packs, to alleviate the itching. She has clobetasol at home but has used it sparingly due to concerns about skin thinning. She has not seen a charge entry for this issue in the past year [...] complication, without long-term current use of insulin ([facility]) 05/04/2021 DEPRESSIVE DISORDER NEC 10/17/2005 Glaucoma of both eyes Dr. Daniels follows at [facility] HYPERLIPIDEMIA NEC/NOS 10/17/2005 HYPERTENSION NOS 10/17/2005 [...] by mouth once daily. blood sugar diagnostic (Flowify LimitedTOUCH VERIO TEST STRIPS) test strip USE TO CHECK BLOOD SUGAR ONCE A DAY lancets (Flowify LimitedTOUCH DELICA PLUS LANCET) 33 gauge USE TO [...] 160s to 180s, slightly above the target of<150 mg/dL. - Last HbA1c in November of [...] moisture. - Patient to follow up with charge entry Dr. Townsend for further evaluation and management. [...] does not wish to receive additional doses atthis time. - Postponed Shingrix vaccine as patient has previously completed the two-dose series. I spent a total of 42 minutes on the date of the service which included dwdg-kc-nvff patient care, completing clinical documentation, obtaining and/or reviewing separately obtained history, performing a medically appropriate examination, counseling and educating the patient/family/caregiver, ordering medications, tests, or procedures, and independently interpreting results (not separately reported). Emily Flaherty MD documented in this encounterAvita Health System Gal[facility] Hospital11-20-2024 Telephone encounter Note * Telephone Encounter - Alicia Templeton LPN - 07/31/2024 9:53 AM EST Images from the original note were not included. Electronic PA completed for cyclobenzaprine. This was approved. Approved Prior authorization approved Payer: WILLIAN Arce [phone] Approval Details Authorized from September 11, 2023 to October 29, 2024 Electronic appeal: Not supported Prior auth initiated by: e- [id number] [place] [address] - [address] - [phone] [phone] View History Notes Time User Attachment Attachment received from payer. 07/31/2024 9:20 AM Cchs, Rx Priorauth In Document OBTAIN PA USING PA Phone # [phone] or TP Help Desk Phone:[phone] REQUIRES PRIOR AUTH. 07/31/2024 8:32 AM [facility] From [employer] Benefits Open Encounter ANGELICA SOSAST BB CDH-N SSIMDXR (WILLIAN ARCE) Covered: Retail, Mail Order, Specialty Unknown: Long-Term Care BIN: [id number] : 1945 Group ID: [id number] PCN: [id number] Legal sex: F Group name: [facility] EG MED D/AMA PART B ONLY Address: [address] [place] [address] [place] [address] Medication Being Authorized cyclobenzaprine (FLEXERIL) 10 mg tablet Take 1 tablet by mouth at bedtime as needed for muscle spasm. Dispense: 30 tablet Refills: 1 Start: 07/04/2024 Class: Normal Diagnoses: Acute right-sided low back pain with right-sided sciatica This order has been released to its destination. To be filled at: e- [id number] [place] [address] - [address] - [phone] [phone] Pt notified via my chart. [facility]11-20-2024 Miscellaneous Notes* Telephone Encounter - Alicia Templeton LPN - 07/31/2024 9:53 AM EST Images from the original note were not included. Electronic PA completed for cyclobenzaprine. This was approved. Approved Prior authorization approved Payer: WILLIAN Arce [phone] Approval Details Authorized from September 11, 2023 to October 29, 2024 Electronic appeal: Not supported Prior auth initiated by: e- [id number] [place] [address] - [address] - [phone] [phone] View History Notes Time User Attachment Attachment received from payer. 07/31/2024 9:20 AM Cchs, Rx Priorauth In Document OBTAIN PA USING PA Phone # [phone] or TP Help Desk Phone:[phone] REQUIRES PRIOR AUTH. 07/31/2024 8:32 AM [facility] From [employer] Open Encounter ANGELICA SOSAST BB CDH-N SSIMDXR (WILLIAN ARCE) Covered: Retail, Mail Order, Specialty Unknown: Long-Term Care BIN: [id number] : 1945 Group ID: [id number] PCN: [id number] Legal sex: F Group name: [facility] MED D/AMA PART B ONLY Address: [address] [place] [address] [place] [address] Medication Being Authorized cyclobenzaprine (FLEXERIL) 10 mg tablet Take 1 tablet by mouth at bedtime as needed for muscle spasm. Dispense: 30 tablet Refills: 1 Start: 07/04/2024 Class: Normal Diagnoses: Acute right-sided low back pain with right-sided sciatica This order has been released to its destination. To be filled at: e- [id number] - [place] [address] - [address] - [phone] [phone] Pt notified via my chart. documented in this encounterAvita Health System Galion Hospital11-04-2024 History of Present illness Narrative* Tegan Wilks Mammo Tech - 07/15/2024 2:30 PM EST Radiology Service Progress Note PATIENT NAME: Angelica Sosa DATE OF SERVICE: July 15, 2024 TIME: 2:56 PM PATIENT IDENTITY VERIFICATION COMPLETED USING TWO (2) IDENTIFIERS: Name and Date of confirmedby patient verbally. FALL SCREENING: Has the patient had 2 falls in the last year or 1 fall with injury or currently using an Ambulatory Assistive Device (Walker, Cane, Wheelchair, Crutches, etc.)? No PATIENT GENDER DATA: Female. status: : No status: NO. PATIENT RELEVANT IMPLANT DATA REVIEWED: Not Applicable PATIENT PRESENTS WITH AN IMPLANTABLE OR ATTACHED EMU FARMER: No RADIOLOGY DEPARTMENT: Mammography PERIPHERAL IV DATA: Not applicable SIGNED BY: Ryan Coppola July 15, 2024 2:56 PM documented in this encounterAvita Health System [facility] Hospital11-04-2024 NoteHNO ID: [id number] Author: TEGAN WILKS Mammo Tech Service: ? Author Type: Material Handler Type: Progress Notes Filed: 07/15/2024 14:58 Note [...] PATIENT PRESENTS WITH AN IMPLANTABLE OR ATTACHED EMU FARMER: No RADIOLOGY DEPARTMENT: Mammography PERIPHERAL IV DATA: Not applicable SIGNED BY: Ryan Coppola July 15, 2024 2:56 PMCMemorial [facility]10-24-20[facility] Instructions* Patient Instructions* Amara Mauricio APRN.GEOGRAPHIC INFORMATION SYSTEMS ENGINEER - 07/04/2024 12:43 PM EDT Take meloxicam once daily for the next several days to two weeks daily until back pain is improved then may just take as needed. Take Flexeril at bedtime for back pain as needed, may make you very drowsy Let us know if you are not feeling improved documented in this encounterAvita Health System Gal[facility] Hospital10-24-2024 NoteHNO ID: [id number] Author: AMARA MAURICIO APRN.GEOGRAPHIC INFORMATION SYSTEMS ENGINEER Service: ? Author Type: Nurse Specialist Type: Progress Notes Filed: 07/04/2024 14:01 Note Text: SUBJECTIVE: Diabetic Foot Exam Never done Shingrix Vaccine(2 of 3) due on 01/29/2009 DTaP,Tdap,Td Vaccine(2 - Td or Tdap) due on 11/24/2018 RSV Vaccine(1 - 1-dose 75+ series) Never done BP Controlled (<130/80) due on 07/28/2021 Covid-19 Vaccine() due on 05/12/2024 HbA1C due on 06/07/2024 [...] by mouth once daily. blood sugar diagnostic (Shoulder TapUCH VERIO TEST STRIPS) test strip USE TO CHECK BLOOD SUGAR ONCE A DAY lancets (Flowify LimitedTOUCH DELICA PLUS LANCET) 33 gauge USE TO CHECK BLOOD SUGAR ONCE A DAY 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 LICHEN SCLEROSIS Controlled type 2 diabetes mellitus without complication, without long-term current use of insulin (HCC) 05/04/2021 DEPRESSIVE DISORDER NEC 10/17/2005 Glaucoma of both eyes Dr. Daniels follows at [facility] HYPERLIPIDEMIA NEC/NOS 10/17/2005 HYPERTENSION NOS 10/17/2005 [...] Negative Ketones, Urine Negative 1+ (A) Specific [place], Ur 1.005 - 1.030 1.035 (H) Hemoglobin/Blood,Ur [...] IU/mL <5.0 Insulin Antibody, (more content not included)...[facility] 07-04-2024 History of Present illness Narrative* Amara Mauricio APRN.GEOGRAPHIC INFORMATION SYSTEMS ENGINEER - 07/04/2024 12:32 PM EDT SUBJECTIVE: Diabetic Foot Exam Never done Shingrix [...] CHECK BLOOD SUGAR ONCE A DAY lancets (Flowify LimitedTOUCH DELICA PLUS LANCET) 33 gauge USE TO CHECK BLOOD SUGAR ONCE A DAY 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 LICHEN SCLEROSIS Controlled type 2 diabetes mellitus without complication, without long-term current use of insulin (HCC) 05/04/2021 DEPRESSIVE DISORDER NEC 10/17/[address] eyes [address] Daniels follows at [facility] HYPERLIPIDEMIA NEC/NOS 10/17/2005 HYPERTENSION NOS 10/17/2005 [...] Negative Ketones, Urine Negative 1+ (A) Specific [place], Ur 1.005 - 1.030 1.035 (H) Hemoglobin/Blood,Ur [...] monthly BSE - REINIER SCREENING Amara Mauricio APRN.KYRIE Medical Decision Making: Problems: Low: Acute, uncomplicated illness or injury Data: Unique test(s) ordered: 2 Risk: Moderate: Drug management Medical Decision Making Level: 3 - Low documented in this encounterAvita Health System [facility] Hospital10-24-2024 Telephone encounter Note * Telephone Encounter - Kelly Soto RN - 07/04/2024 8:47 AM EDT Patient calls and states that she has had issues with sciatica pain in the past. Patient asking if there is anything else she can do for the pain besides taking Advil. Advised patient that she shouldset up appointment with provider so that provider can assess her back pain. Patient voiced understanding. Patient scheduled today with Amara 07/04/2024. Kelly Soto RN [facility]10-24-2024 Miscellaneous Notes* Telephone Encounter - Kelly Soto RN - 07/04/2024 8:47 AM EDT Patient calls and states that she has had issues with sciatica pain in the past. Patient asking if there is anything else she can do for the pain besides taking Advil. Advised patient that she shouldset up appointment with provider so that provider can assess her back pain. Patient voiced understanding. Patient scheduled today with Amara 07/04/2024. Kelly Soto RN documented in this encounterAvita Health System [facility]09-27-2024 NoteHNO ID: [id number] Author: ARACELIS RIBEIRO APRN.[facility] Service: ? Author Type: Nurse Practitioner Type: [...] Team: Emily Flaherty MD as PCP - [facility] Pharmacist (Pharmacy) Outside specialists seen: complaint specialist, dermatology Medical/Family history review Reviewed and updated [...] Complication, Without Long-Term Current Use of Insulin ([facility]) - 05/04/2021 Vitamin D Deficiency - [...] No JVD. Trachea: Tr (more content not included)...[facility]09-27-2024 History of Present illness Narrative* Vinod, Aracelis, VOLUNTEER SERVICES COORDINATOR.SAMPLE FINISHER - 06/07/2024 8:43 AM EDT Images from the original note were not [...] Team: Emily Flaherty MD as PCP - IgnaciaBecki manley RPh as Pharmacist (Pharmacy) Outside specialists seen: complaint specialist, dermatology Medical/Family history review Reviewed and updated [...] dinner or as directed blood sugar diagnostic (Flowify LimitedTOUCH VERIO TEST STRIPS) test strip USE TO CHECK BLOOD SUGAR ONCE A DAY lancets (Flowify LimitedTOUCH DELICA PLUS LANCET) 33 gauge USE TO CHECK BLOOD SUGAR ONCE A DAY No current facility-administered medications for this visit. ALLERGIES Allergen Reactions Beef Derived (Bovin* congestion Fish Containing Pro* Itching Peanut Oil uncertain Peanuts not sure Shellfish Derived Itching Tylenol [Acetaminop* hyperactivity ACTIVE PROBLEM LIST Controlled Type 2 Diabetes Mellitus Without Complication, Without Long-Term Current Use of Insulin ([facility]) - 05/04/2021 Vitamin D Deficiency - [...] from today's visit and in agreement with treatmentplan. Questions answered. Agrees to call the office [...] as well as compliance with taking medications. Age- appropriate health preventative measures were discussed. Return if symptoms worsen or fail to improve, for Keep next scheduled appointment.. Aracelis Ribeiro APRN-EMIGDIO documented in this encounterAvita Health System Gal[facility]09-27-2024 Instructions* Patient Instructions* Aracelis Ribeiro APRN.CNP - 06/07/2024 8:43 AM EDT Screening schedule The following prevention plan is recommended: Diabetic Foot Exam Never done Anxiety Screening Never done Shingrix Vaccine(2 of 3) due on 01/29/2009 DTaP,Tdap,Td Vaccine(2 - Td or Tdap) due on 11/24/2018 RSV Vaccine(1 - 1-dose 75+ series) Never done Advance Directive Discussion due on 09/11/2023 Covid-19 Vaccine(2023- season) due on 05/12/2024 HbA1C [...] review all the medicines you take, even izfv-cge-wnldgaa medicines. As you get older, the way medicines work in your body can change. Some medicines, or combinations of medicines, can make you sleepy or dizzy andcan cause you to fall. 3. Have your [...] have certain medical conditions. documented in this encounterAvita Health System [facility]08-24-2024 Telephone encounter Note * Telephone Encounter - Emily Flaherty MD - 05/04/2024 1:24 AM EDT Lab within normal limits [facility]08-24-2024 Miscellaneous Notes* Telephone Encounter - Emily Flaherty MD - 05/04/2024 1:24 AM EDT Lab within normal limits * Telephone Encounter - Diana Zimmer LPN - 04/30/2024 10:09 AM EDT Urine results have been processed. * Telephone Encounter - Emily Flaherty MD - 04/19/2024 6:16 PM EDT Noted. Emily Flaherty MD * Telephone Encounter - Meaghan Galvan LPN - 04/19/2024 1:19 PM EDT Urine presently in process. Meaghan Galvan LPN * Telephone Encounter - Emily Flaherty MD - 04/19/2024 12:14 PM EDT Filed order I also filed standing orders so may get labs every 6 months given diagnosis of diabetes. * Telephone Encounter - Meaghan Galvan LPN - 04/19/2024 12:10 PM EDT Order needing to be files as soon as possible. Forwarded pending order to Dr Flaherty. Meaghan Galvan LPN * Telephone Encounter - Meaghan Galvan LPN - 04/19/2024 11:54 AM EDT Patient brought urine sample to lab, the alb/crea order had been cancelled. Order pending so lab can accept the urine. Meaghan Galvan LPN documented in this encounterAvita Health System [facility]08-20-2024 Telephone encounter Note * Telephone Encounter - Diana Zimmer LPN - 04/30/2024 10:09 AM EDT Urine results have been processed. [facility]08-09-2024 Telephone encounter Note* Telephone Encounter - Emily Flaherty MD - 04/19/2024 6:16 PM EDT Noted. Emily Flaherty MD [facility]08-09-2024 Telephone encounter Note* Telephone Encounter - Meaghan Galvan LPN - 04/19/2024 1:19 PM EDT Urine presently in process. Meaghan Galvan LPN [facility]08-09-2024 Telephone encounter Note* Telephone Encounter - Emily Flaherty MD - 04/19/2024 12:14 PM EDT Filed order I also filed standing orders so may get labs every 6 months given diagnosis of diabetes. [facility]08-09-20[facility] Telephone encounter Note* Telephone Encounter - Meaghan Galvan LPN - 04/19/2024 12:10 PM EDT Order needing to be files as soon as possible. Forwarded pending order to Dr Flaherty. Meaghan Galvan LPN [facility]08-09-2024 Telephone encounter Note* Telephone Encounter - Meaghan Galvan LPN - 04/19/2024 11:54 AM EDT Patient brought urine sample to lab, the alb/crea order had been cancelled. Order pending so lab can accept the urine. Meaghan Galvan LPN [facility]05-30-2024 Telephone encounter Note* Telephone Encounter - Emily Flaherty MD - 02/08/2024 1:31 AM EDT The following approved medication requests have been transmitted electronically. Requested Prescriptions Signed Prescriptions Disp Refills clobetasol (TEMOVATE) 0.05 % ointment 30 g 3 Sig: APPLY DAILY NEEDED TO THE AFFECTED AREA SPARINGLY Authorizing Provider: EMILY FLAHERTY MD [facility]05-30-2024 Miscellaneous Notes* Telephone Encounter - Emily Flaherty MD - 02/08/2024 1:31 AM EDT The following approved medication requests have been transmitted electronically. Requested Prescriptions Signed Prescriptions Disp Refills clobetasol (TEMOVATE) 0.05 % ointment 30 g 3 Sig: APPLY DAILY NEEDED TO THE AFFECTED AREA SPARINGLY Authorizing Provider: EMILY FLAHERTY MD * Telephone Encounter - Diana Zimmer LPN - 02/07/2024 4:39 PM EDT Patient has a current script for the test strips at the pharmacy accordingly to our records. * Telephone Encounter - Yanelis Lincoln - 02/07/2024 3:07 PM EDT Prescription Refill Information The patient has been [...] 07, 2024 3:10 PM documented in this encounterAvita Health System [facility] Hospital05-29-2024 Telephone encounter Note * Telephone Encounter - Diana Zimmer LPN - 02/07/2024 4:39 PM EDT Patient has a current script for the test strips at the pharmacy accordingly to our records. [facility]-29-[facility] Telephone encounter Note* Telephone Encounter - Yanelis Lincoln - 02/07/2024 3:07 PM EDT Prescription Refill Information The patient has been [...] Yanelis Paez February 07, 2024 3:10 PM [facility]03-27-[facility] History of Present illness Narrative* Emily Flaherty MD - 12/06/2023 9:02 AM EDT This note was created using Exagen Diagnosticsriter. Subjective Angelica Sosa is a 78 year [...] complication, without long-term current use of insulin ([facility]) 05/04/2021 DEPRESSIVE DISORDER NEC 10/17/[address] of [address] eyes Dr. Daniels follows at [facility] HYPERLIPIDEMIA NEC/NOS 10/17/2005 HYPERTENSION NOS 10/17/2005 [...] then increase to daily as tolerated lancets (ONETOUCH DELICA PLUS LANCET) 33 gauge [...] sleep. Emily Flaherty MD documented in this encounterAvita Health System [facility] Hospital03-05-2024 Instructions* Patient Instructions* Diana Jerez RN - 11/14/2023 12:43 PM [...] adhesive removal. You can remove adhesive with soap,water, or alcohol pad. Clean with gentle soap [...] to manage their pain after surgery with Kscb-nbf-Kktxrcs (OTC) medications such as Tylenol (acetaminophen) and Motrin/A dvil (ibuprofen). If you have a condition that [...] days after surgery to help reduce your painand swelling. After the first two days, you may use a heating pad or warm compress on your incisions and surrounding area. If you have received a graft, please *DO NOT* apply ice directly onto the graft site. How will I alternate my regular strength sxyi-sbc-rzrithk pain medication? You will take a dose [...] We recommend that you follow this schedule utufjp-cal-gxkeu for at least 3 days after surgery, [...] heavy alcohol intake (more than two standard drinksper day for men and one standard drink [...] 72 hours following surgery Return to referring charge entry for skin checks every 6 months Wear sunscreen If sutures are still present in 10 days, cleanse with hydrogen peroxide PHONE NUMBERS: [place]: [phone], [phone], or [phone] (Monday-Monday, 8am-5pm) For emergencies only: On-call number: [phone] and ask for the communications superintendent dermatology surgery fellow documented in this encounterAvita Health System [facility]03-05-2024 History of Present illness Narrative* Lakeisha Strange MD - 11/14/2023 10:15 AM EST MOHS MICROGRAPHIC OPERATIVE REPORT SERVICE DATE: 11/14/2023 SERVICE TIME: 10:09 AM LOCATION: { [place]:[facility],[id number] REFERRING PROVIDER: Alessia Townsend [address] [place] [id number] PROCEDURE START TIME: 10:28 AM PROCEDURE END [...] in the EMR. Patient used mirror(s) to identifysite(s). Patient verbalized agreement of surgical site(s). Site(s) [...] at Bedside: Inside pathology report # [id number], Date of Biopsy: 10/11/2023, and Biopsy Performed By: Dr. Townsend Pre-op Size: 1.1 cm - 2 cm, (1.2cm X 0.9cm) Indication for Mohs: Anatomic Location where lesion is prone to recur and Type of tumor Location: Area H: (Mask Areas of the Face - Includes Central Face, Eyelids, Inner/Outer Canthi, Eyebrows, Nose, Chin, Lips, Ears, Periauricular Skin and Hoahaoism) Preparation: Chlorhexidine LAYER A The patient was positioned, prepped with alcohol and draped in the usual manner. Anesthesia was obtained with local infiltration. The clinically apparent tumor was then debulked with a curette. A 1-2mm rim of tissue was marked circumferentially around the defect. The area thus outlined was exciseddeep to the subcutis. Hemostasis was achieved with electrocautery. The specimen was oriented, subdivided into 2 sections, chromacoded and submitted for horizontal frozen sections. The patient tolerated the procedure well and no complications were noted. Upon review of the horizontal frozen sections for Layer A, residual BCC was identified in pieces A1(A2 negative) Depth of Invasion:epidermis Perineural invasion: No [...] second intention healing, the wound was closed witha primary linear closure. 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 Post-op Defect Size: 1.8 x 1.7 cm INTERMEDIATE CLOSURE: Requiring skin and subcutaneous fat. The beveled edge of the Mohs defect was surgically removed. The wound edges were undermined in all directions to decrease the tension of thewound and facilitate skin edge apposition. Meticulous hemostasis [...] WITH VERBAL UNDERSTANDING: Yes PATIENT DISCHARGED TO WIRE LATHER/NAME: self FOLLOW UP: PRN The documentation for this note was completed by Diana Jerez RN acting as scribe for Lakeisha Coronado MD. November 14, 2023 12:57 PM. I/primary [...] operative note independently gathered by the clinical support worker and the remaining scribed note accurately describes my personal service to the patient. I/primary surgeon/proceduralist reviewed the specimen(s) and worked as the pathologist. Lakeisha Strange MD November 27, 2023 Lakeisha Strange MD documented in this encounterAvita Health System [facility]02-08-2024 Miscellaneous Notes* Telephone Encounter - Alessia Townsend MD - 10/19/2023 11:56 AM EST Please advise pt to get tretinoin through [facility]. It is affordable. * Telephone Encounter - Edel Maldonado LPN - 10/19/2023 9:30 AM EST Prior Auth for Tretinoin cream was denied. Milia does not meet the requirements for approval. Edel Maldonado LPN documented in this encounterAvita Health System [facility]11-03-2023 Miscellaneous Notes* Letter - Coordinator, Mammography - 07/14/2023 8:14 AM EDT July 14, 2023 PID: [id number] Angelica Sosa [facility] [place] [address] Dear Ms. Sosa, We are pleased to [...] dense breast tissue in addition to other riskfactors. Early detection of cancer is very important. We also understand recommendations regarding breast cancer screening are controversial. Please discuss with your primary care provider which strategy is best for you and whether a mammogram is right for you. Your imaging studies and report will be kept on file at [facility] as part of your permanent medical record and are available for your continuing care. Thank you for allowing us to help in meeting your health care needs. Sincerely, Dr. Campos Interpreting Radiologist [facility] (Normal over 40) documented in this encounterAvita Health System [facility] Hospital11-02-2023 History of Present illness Narrative* Meka Sweet Mammo Tech - 07/13/2023 12:50 PM EDT Radiology Service Progress Note PATIENT NAME: Angelica Sosa DATE OF SERVICE: July 13, 2023 TIME: 12:32 PM PATIENT IDENTITY VERIFICATION COMPLETED USING TWO (2) IDENTIFIERS: Name and Date of confirmedby patient verbally. FALL SCREENING: Has the patient had 2 falls in the last year or 1 fall with injury or currently using an Ambulatory Assistive Device (Walker, Cane, Wheelchair, Crutches, etc.)? No PATIENT GENDER DATA: Female. status: : No status: NO. PATIENT RELEVANT IMPLANT DATA REVIEWED: Not Applicable RADIOLOGY DEPARTMENT: Mammography PERIPHERAL IV DATA: Not applicable SIGNED BY: Catalino Leoo Tech July 13, 2023 12:32 PM documented in this encounterAvita Health System Gal[facility] Hospital08-23-2023 History of Present illness Narrative* Emily Flaherty MD - 05/03/2023 3:54 PM EDT This note was created using Exagen Diagnosticsriter. Subjective Angelica Sosa is a 78 year [...] of both eyes Dr. Daniels follows at [facility] HYPERLIPIDEMIA NEC/NOS 10/17/2005 HYPERTENSION NOS 10/17/2005 [...] the date of the service which included fuxm-ei-eqcb patient care, completing clinical documentation, performing a medically appropriate examination, counseling and educating the patient/family/caregiver, and ordering medications, tests, or procedures. Emily Flaherty MD documented in this encounterAvita Health System [facility]05-05-2023 Miscellaneous Notes* Telephone Encounter - Luzmaria Johnson Pss - 2023 3:39 PM EDT Patient wants to know if this can be sent before the weekend. [facility] told her they requested it multiple times, but go no response from us. I advised her we didn't receive anything from the pharmacy. * Telephone Encounter - Luzmaria Johnson [facility] - 2023 3:39 PM EDT Patient has been identified by name and date of : Yes Requested Prescriptions Pending Prescriptions Disp Refills clobetasol (TEMOVATE) 0.05 % ointment 30 g 3 Sig: APPLY DAILY NEEDED TO THE AFFECTED AREA SPARINGLY RX INSTRUCTIONS: Patient aware RX will be sent to pharmacy. No need to notify patient. Luzmaria Johnson [facility] documented in this encounterAvita Health System [facility] Hospital04-21-2023 History of Present illness Narrative* Emily Flaherty MD - 12/30/2022 4:30 PM EDT This note was created using Exagen Diagnosticsriter. Subjective Angelica Sosa is a 77 year old female. Patient presents with: Established Patient Medication Follow-up SUBJECTIVE: Angelica Sosa is a 77 year old year old lady here today for medication follow up appointment forreview of medical conditions. Frustrated with metformin--higher dose [...] of both eyes Dr. Daniels follows at [facility] HYPERLIPIDEMIA NEC/NOS 10/17/2005 HYPERTENSION NOS 10/17/2005 [...] fine. Emily Flaherty MD documented in this encounterAvita Health System [facility]11-04-2022 Miscellaneous Notes* Telephone Encounter - Cele Paez - 07/15/2022 11:25 AM EDT Patient has been identified by name and [...] Insulin: No Please review and advise. Cele Paez documented in this encounterAvita Health System Gal[facility] Hospital08-15-2022 History of Present illness Narrative* Meka Sweet PageSciencemargaret Orellana - 04/25/2022 1:30 PM EDT Radiology Service Progress Note PATIENT NAME: Angelica Sosa DATE OF SERVICE: April 25, 2022 TIME: 1:52 PM PATIENT IDENTITY VERIFICATION COMPLETED USING TWO (2) IDENTIFIERS: Name and Date of confirmedby patient verbally. FALL SCREENING: Has the patient had 2 falls in the last year or 1 fall with injury or currently using an Ambulatory Assistive Device (Walker, Cane, Wheelchair, Crutches, etc.)? No PATIENT GENDER DATA: Female. status: : No status: NO. PATIENT RELEVANT IMPLANT DATA REVIEWED: Not Applicable RADIOLOGY DEPARTMENT: Mammography PERIPHERAL IV DATA: Not applicable SIGNED BY: Meka Sweet [facility] April 25, 2022 1:52 PM documented in this encounterAvita Health System Gal[facility] Hospital08-15-2022 Miscellaneous Notes* Telephone Encounter - Alicia Templeton LPN - 04/25/2022 11:29 AM EDT Last see pcp 04/18/22 Next appt is due in Oct with fasting labs. * Telephone Encounter - Iesha Jacinto [facility] - 04/25/2022 11:06 AM EDT Patient has been identified by name and date of : Yes Requested Prescriptions Pending Prescriptions Disp Refills blood sugar diagnostic (BLOOD GLUCOSE TEST) test strip 100 Strip 11 Sig: Test blood sugar(s) 1 times daily. Dx: Type 2 DM - Uncontrolled E11.65 Insulin: No RX INSTRUCTIONS: Patient aware RX will be sent to pharmacy. No need to notify patient. [employer] [facility] documented in this encounterAvita Health System Gal[facility] Hospital08-15-2022 Miscellaneous Notes* Telephone Encounter - Lisbet Medellin Ma - 04/25/2022 11:29 AM EDT Patient due for 6 month follow-up around 10/19/22.Prefers not a Monday and after 10AM. Left message for patient to call office Can schedule with Amara Mauricio in [address] Flaherty at first available in documented in this encounterAvita Health System Galion Hospital08-08-2022 History of Present illness Narrative* Emily Flaherty MD - 04/18/2022 4:20 PM EDT This note was created using Exagen Diagnosticsriter. Subjective Angelica Sosa is a 77 year old female. Patient presents with: F/U 6 months SUBJECTIVE: Angelica Sosa is a 77 year old year old lady here today for 6 month follow up appointment for review of medical conditions. Doing well from DM standpoint. Sugars at home have been fine. Eats well. Cooks sugar free mcduffie pie. Declines statin. Noted lost her COVID vaccine card--will get from [facility]. Noted that has had exposure but not gotten ill. 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 LICHEN SCLEROSIS Controlled type 2 diabetes mellitus without complication, without long-term current use of insulin (HCC) 05/04/2021 DEPRESSIVE DISORDER NEC 10/17/[address] Glaucoma of both eyes Dr. Daniels follows at [facility] HYPERLIPIDEMIA NEC/NOS 10/17/2005 HYPERTENSION NOS 10/17/2005 [...] NONFASTING Emily Flaherty MD documented in this encounterAvita Health System Galion Hospital06-08-2022 History of Present illness Narrative* Emily Flaherty MD - 02/16/2022 5:48 PM EDT Images from the original note were not included. This note was created using [employer]. Subjective Angelica Sosa is a 77 year [...] of both eyes Dr. Daniels follows at [facility] HYPERLIPIDEMIA NEC/NOS 10/17/2005 HYPERTENSION NOS 10/17/2005 [...] BP Cuff Size: Regular Adult) Pulse 76 Resp16 Wt 60.8 kg (134 lb) BMI 24.91 kg/m Physical Exam Genitourinary: Comments: Vulva area with changes consistent with lichen sclerosus Assessment and Plan Encounter Diagnosis ICD-10-CM 1. Vaginal atrophy N95.2 2. Lichen sclerosus et atrophicus L90.0 Discussed treatment Vaginal lubricants Make sure to treat lichen sclerosus. Further evaluation and treatment as indicated. Emily Flaherty MD documented in this encounterAvita Health System Galion Hospital01-25-2022 History of Present illness Narrative* Emily Flaherty MD - 10/05/2021 1:37 PM EST This note was created using [employer]. Subjective Angelica Sosa is a 76 year [...] use of insulin (HCC) E11.9 HGB A1C BASIC METABOLIC PNL COMP [...] of hypoglycemic symptoms, diet, medications- side effects andneed for compliance and importance of exercise with [...] edited 12/14/21 07:49 EDT by Amara Mauricio APRN.GEOGRAPHIC INFORMATION SYSTEMS ENGINEER documented in this encounterMount [facility]* Diagnosis Controlled type 2 diabetes mellitus without complication, without long-term current use of insulin ([facility])- Primary Essential hypertension Unspecified essential hypertension Vitamin D deficiency Unspecified vitamin D deficiency Mixed hyperlipidemia Glaucoma, unspecified glaucoma type, unspecified laterality documented in this encounter [facility] note* Diagnosis Vaginal atrophy- Primary 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 documented in this encounter [facility]* Diagnosis Uncontrolled type 2 diabetes mellitus with hyperglycemia (HCC) documented in this encounter [facility]* Diagnosis Visit for screening mammogram Other screening mammogram documented in this encounter [facility]* Diagnosis Controlled type 2 diabetes mellitus without complication, without long-term current use of insulin (HCC)- Primary Vitamin D deficiency Unspecified vitamin D deficiency Essential hypertension Unspecified essential hypertension documented in this encounter [facility]* Diagnosis Uncontrolled type 2 diabetes mellitus with hyperglycemia (HCC) documented in this encounter [facility]* Diagnosis Controlled type 2 diabetes mellitus without complication, without long-term current use of insulin (HCC)- Primary documented in this encounter [facility]* Diagnosis Controlled type 2 diabetes mellitus without complication, without long-term current use of insulin (HCC)- Primary Mixed hyperlipidemia Vitamin D deficiency Unspecified vitamin D deficiency Primary hypertension Unspecified essential hypertension documented in this encounter [facility]* Diagnosis Encounter for screening mammogram for breast cancer documented in this encounter [facility]* Diagnosis Basal cell carcinoma of face Basal cell carcinoma of skin of other and unspecified parts of face documented in this encounter [facility]* Diagnosis Controlled type 2 diabetes mellitus without complication, without long-term current use of insulin (HCC)- Primary Mixed hyperlipidemia Primary hypertension Unspecified essential hypertension Vitamin D deficiency Unspecified vitamin D deficiency Encounter for immunization Need for other specified prophylactic vaccination against single bacterial disease documented in this encounter [facility] Diagnosis Uncontrolled type 2 diabetes mellitus with hyperglycemia (HCC) documented in this encounter [facility]* Diagnosis Controlled type 2 diabetes mellitus without complication, without long-term current use of insulin (HCC)- Primary Essential hypertension Unspecified essential hypertension Mixed hyperlipidemia Vitamin D deficiency Unspecified vitamin D deficiency documented in this encounter [facility]* Diagnosis Medicare annual wellness visit, subsequent- Primary Routine general medical examination at a health care facility Controlled type 2 diabetes mellitus without complication, without long-term current use of insulin (HCC) Essential hypertension Unspecified essential hypertension Mixed hyperlipidemia Vitamin D deficiency Unspecified vitamin D deficiency Encounter for screening examination for other mental health and behavioral disorders [facility] Diagnosis Acute right-sided low back pain with right-sided sciatica- Primary Screening mammogram for breast cancer [facility]* Diagnosis Screening mammogram for breast cancer [facility] this [facility]* Diagnosis Controlled type 2 diabetes mellitus without complication, without long-term current use of insulin (HCC)- Primary Vitamin D deficiency Unspecified vitamin D deficiency Mixed hyperlipidemia Essential hypertension Unspecified essential hypertension Skin lesion of lower extremity Special screening for malignant neoplasms, colon Encounter for immunization Need for other specified prophylactic vaccination against single bacterial disease documented in this encounter [facility] note* Diagnosis Encounter for screening for malignant neoplasm of colon- Primary Special screening for malignant neoplasms, colon Special screening for malignant neoplasms, colon documented [facility] this encounter [facility]* Diagnosis Type 2 diabetes mellitus without complication, without long-term current use of insulin (HCC)- Primary [facility]* Diagnosis Hyperplastic polyp of sigmoid colon- Primary documented in this encounter [facility] note* Diagnosis Sebaceous cyst- Primary [facility]* Diagnosis Sebaceous cyst- Primary [facility] this [facility]* Diagnosis Visit for suture removal- Primary Encounter for removal of sutures documented [facility] this [facility]* Diagnosis Medicare annual wellness visit, subsequent- Primary Routine general medical examination at a health care facility Type 2 diabetes mellitus with hyperlipidemia (HCC) Essential hypertension Unspecified essential hypertension documented in this encounter [facility] noteNo assessment information availableWUniversity [facility]als [facility] Work Phone: Evaluation note* Diagnosis Type 2 diabetes mellitus without complication, without long-term current use of insulin (HCC)- Primary documented in this encounter [facility] note* Diagnosis Fall, subsequent encounter- Primary Right leg pain Pain in limb Right leg swelling Swelling of limb Laceration of occipital scalp, subsequent encounter Encounter for staple removal Encounter for removal of sutures Contusion of right lower leg, initial encounter Right leg pain Pain in limb Right leg swelling Swelling of limb [facility]* Diagnosis Right leg pain Pain in limb Right leg swelling Swelling of limb documented [facility] this [facility]* Diagnosis Right leg pain- Primary Pain in limb Fall, subsequent encounter Right leg swelling Swelling of limb Popliteal cyst, right Right leg pain Pain in limb Right leg swelling Swelling of limb [facility] Diagnosis Right leg pain Pain in limb Right leg swelling Swelling of limb [facility] Dis[facility] instructionsAdditional Instructions Your ultrasound did not show any evidence of blood clots. Your x-ray was normal. Elevate your leg as high as possible as we discussed. Rotate Tylenol and ibuprofen [id number] for pain control when you do this you can take something every 3 hours max dose Tylenol in 24 hours 4000 mg max dose of ibuprofen in 24 hours 3200 mg. Return with any other concerns.[facility] Work Phone: Reason for referral (narrative)* Diagnostic Procedure Only (Routine) - Closed Specialty Diagnoses / Procedures Referred By Nory pearce Referred To Contact [facility] Diagnoses Visit for screening mammogram Procedures REINIER SCREENING SCREENING MAMMOGRAPHY BI 2-VIEW BREAST INC Emily Rodriguez MD [address] [place] [address] [facility] [address] [address] Referral ID Status Reason Start Date Expiration Date V isits Requested Visits Authorized [id number] Closed Auto-Generate d Referral 04/06/2022 05/06/2023 1 1 [facility] for referral (narrative)* Diagnostic Procedure Only (Routine) - Closed Specialty Diagnoses / Procedures Referred By Nory pearce Referred To Contact [facility] Diagnoses Encounter for screening mammogram for breast cancer Procedures REINIER SCREENING SCREENING MAMMOGRAPHY BI 2-VIEW BREAST INC Emily Rodriguez MD [address] [place] [address] [facility] [address] [address] Referral ID Status Reason Start Date Expiration Date V isits Requested Visits Authorized [id number] Closed Auto-Generate d Referral 06/29/2023 07/26/2024 1 1 [facility] for referral (narrative)* Diagnostic Procedure Only (Routine) - Authorized Specialty Diagnoses / Procedures Referred By Contac t Referred To Contact [facility] Diagnoses Screening mammogram for breast cancer Procedures REINIER SCREENING SCREENING MAMMOGRAPHY BI 2-VIEW BREAST INC CAD Amara Mauricio APRN.GEOGRAPHIC INFORMATION SYSTEMS ENGINEER [address] [place] [address] [facility] [address] [place] [address] Referral ID Status Reason Start Date Expiration Date Visits Requested Visits Authorized [id number] Authorized Auto-Generat ed Referral 4 08/03/2025 1 1 * Physical Therapy (Routine) - Pending Review Specialty Diagnoses / Procedures Referred By Sonac t Referred To Contact [facility] Diagnoses Acute right-sided low back pain with right-sided sciatica Procedures CONSULT TO PHYSICAL THERAPY PHYSICAL THERAPY EVALUATION HIGH COMPLEX 45 MINS Amara Mauricio APRN.GEOGRAPHIC INFORMATION SYSTEMS ENGINEER [address] [place] [address] [facility] [place] [address] [place] [address] Referral ID Status Reason Start Date Expiration Date Visits Requested Visits Authorized [id number] Pending Review Auto-Generat ed Referral 4 07/04/2025 1 1 * Diagnostic Procedure Only (Routine) - New Request Specialty Diagnoses / Procedures Referred By Nory t Referred To Contact [facility] Diagnoses Acute right-sided low back pain with right-sided sciatica Procedures XR LUMBAR GENERAL 3V AP/LAT/L5-S1 RADEX SPINE LUMBOSACRAL 2/3 VIEWS Amara Mauricio APRN.GEOGRAPHIC INFORMATION SYSTEMS ENGINEER [address] [place] [address] [place] [address] Referral ID Status Reason Start Date Expiration Date Visits Requested Visits Authorized [id number] New Request Auto-Generat ed Referral 4 08/03/2025 1 1 [facility] for referral (narrative)No reason for referral information availableWUniversity Hospitals [facility] Work Phone: Reason for visit Narrative* Diagnostic Procedure Only (Routine) - Closed Specialty Diagnoses / Procedures Referred By Contac t Referred To Contact [facility] Diagnoses Visit for screening mammogram Procedures REINIER SCREENING SCREENING MAMMOGRAPHY BI 2-VIEW BREAST INC Emily Rodriguez MD [address] [place] [address] [facility] [address] [place] [id number] Referral ID Status Reason Start Date Expiration Date V isits Requested Visits Authorized [id number] Closed Auto-Generate d Referral 04/06/2022 05/06/2023 1 1 [facility] for visit Narrative* Diagnostic Procedure Only (Routine) - Closed Specialty Diagnoses / Procedures Referred By Nory t Referred To Contact [facility] Diagnoses Encounter for screening mammogram for breast cancer Procedures REINIER SCREENING SCREENING MAMMOGRAPHY BI 2-VIEW BREAST INC Emily Rodriguez MD [address] [place] [address] [facility] [address] [address] Referral ID Status Reason Start Date Expiration Date V isits Requested Visits Authorized [id number] Closed Auto-Generate d Referral 06/29/2023 07/26/2024 1 1 [facility] for visit Narrative* Diagnostic Procedure Only (Routine) - Closed Specialty Diagnoses / Procedures Referred By Nory t Referred To Contact [facility] Diagnoses Screening mammogram for breast cancer Procedures REINIER SCREENING SCREENING MAMMOGRAPHY BI 2-VIEW BREAST INC CAD Amara Mauricio, VOLUNTEER SERVICES COORDINATOR.GEOGRAPHIC INFORMATION SYSTEMS ENGINEER [address] [place] [address] [facility] [address] [address] Referral ID Status Reason Start Date Expiration Date V isits Requested Visits Authorized [id number] Closed Auto-Generate d Referral 07/04/2024 08/03/2025 1 1 [facility] for visit Narrative* Outpatient Procedure (Routine) - Closed Specialty Diagnoses / Procedures Referred By Contac t Referred To Contact [facility] Diagnoses Special screening for malignant neoplasms, colon Procedures COLONOSCOPY SCREENING COLONOSCOPY FLX DX W/COLLJ SPEC WHEN Emily Khoury MD [address] [place] [address] Phone: tel: fax: [facility] [address] [place] [address] Referral ID Status Reason Start Date Expiration Date V isits Requested Visits Authorized [id number] Closed Auto-Generate d Referral 11/11/2024 11/11/2025 1 1 [facility] for visit Narrative* Diagnostic Procedure Only (Urgent) - Closed Specialty Diagnoses / Procedures Referred By Contac t Referred To Contact [facility] Diagnoses Right leg pain Right leg swelling Procedures US DVT LOWER RIGHT DUP-SCAN XTR VEINS UNILATERAL/LIMITED STUDY Amara Mauricio, VOLUNTEER SERVICES COORDINATOR.GEOGRAPHIC INFORMATION SYSTEMS ENGINEER [address] [place] [address] Phone: tel: fax: [place] [address] Referral ID Status Reason Start Date Expiration Date V isits Requested Visits Authorized [id number] Closed Auto-Generate d Referral 04/10/2025 05/10/2026 1 1 [facility] for visit Narrative* Diagnostic Procedure Only (Urgent) - Closed Specialty Diagnoses / Procedures Referred By Contac t Referred To Contact [facility] Diagnoses Right leg pain Right leg swelling Procedures XR KNEE GENERAL 4V AP BOTH/PA BOTH/LAT/MERC RIGHT RADIOLOGIC EXAM KNEE COMPLETE 4/MORE VIEWS Amara Mauricio, VOLUNTEER SERVICES COORDINATOR.GEOGRAPHIC INFORMATION SYSTEMS ENGINEER [address] [place] [address] Phone: tel: fax: [place] [address] Referral ID Status Reason Start Date Expiration Date V isits Requested Visits Authorized [id number] Closed Auto-Generate d Referral 04/24/2025 05/24/2026 1 1 [facility] Advance Directives No Advanced Directives Records FoundDocuments on File Type Date 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 No April 03, 2025 5:03pm Advance Directive Response Recorded Date/ Time Do you have a Healthcare Power of Product Safety Specialist? No April 08, 2025 2:54pm Do you have a Healthcare Power of Product Safety Specialist? No April 03, 2025 5:03pm Chief Complaint and Reason for Visit Chief Complaint Admit Date LESION REMOVAL LEFT UPPER LID February 20, 2025 7:13am Chief Complaint Admit Date LESION REMOVAL LEFT UPPER LID February 20, 2025 7:13am fall April 03, 2025 4:47 pm Chief Complaint Admit Date LESION REMOVAL LEFT UPPER LID February 20, 2025 7:13am fall April 03, 2025 4:47 pm LOWER EXTREMITY April 08, 2025 2:46 pm Summary Purpose Family History No Family History Records FoundNo Family History Records FoundNo Family History Records Found Additional Source Comments Source Comments (unrecognize d section and content) In the event this informatio n is protected by the Federal Confidentiality of Alcohol and Drug Abuse Patient Records regulations: The Federal rules restrict any use of the information to criminally investigate or prosecute any alcohol or drug abuse patient.[facility] the event this information is protected by the Federal Confidentiality of Alcohol and Drug Abuse Patient Records regulations: The Federal rules restrict any use of the information to criminally investigate or prosecute any alcohol or drug abuse patient.[facility] HospitalIn the event this information is protected by the Federal Confidentiality of Alcohol and Drug Abuse Patient Records regulations: The Federal rules restrict any use of the information to criminally investigate or prosecute any alcohol or drug abuse patient.[facility] HospitalIn the event this information is protected by the Federal Confidentiality of Alcohol and Drug Abuse Patient Records regulations: The Federal rules restrict any use of the information to criminally investigate or prosecute any alcohol or drug abuse patient.[facility] HospitalIn the event this information is protected by the Federal Confidentiality of Alcohol and Drug Abuse Patient Records regulations: The Federal rules restrict any use of the information to criminally investigate or prosecute any alcohol or drug abuse patient.[facility] HospitalIn the event this information is protected by the Federal Confidentiality of Alcohol and Drug Abuse Patient Records regulations: The Federal rules restrict any use of the information to criminally investigate or prosecute any alcohol or drug abuse patient.[facility] HospitalIn the event this information is protected by the Federal Confidentiality of Alcohol and Drug Abuse Patient Records regulations: The Federal rules restrict any use of the information to criminally investigate or prosecute any alcohol or drug abuse patient.[facility] HospitalIn the event this information is protected by the Federal Confidentiality of Alcohol and Drug Abuse Patient Records regulations: The Federal rules restrict any use of the information to criminally investigate or prosecute any alcohol or drug abuse patient.[facility] HospitalIn the event this information is protected by the Federal Confidentiality of Alcohol and Drug Abuse Patient Records regulations: The Federal rules restrict any use of the information to criminally investigate or prosecute any alcohol or drug abuse patient.[facility] HospitalIn the event this information is protected by the Federal Confidentiality of Alcohol and Drug Abuse Patient Records regulations: The Federal rules restrict any use of the information to criminally investigate or prosecute any alcohol or drug abuse patient.[facility] HospitalIn the event this information is protected by the Federal Confidentiality of Alcohol and Drug Abuse Patient Records regulations: The Federal rules restrict any use of the information to criminally investigate or prosecute any alcohol or drug abuse patient.[facility] HospitalIn the event this information is protected by the Federal Confidentiality of Alcohol and Drug Abuse Patient Records regulations: The Federal rules restrict any use of the information to criminally investigate or prosecute any alcohol or drug abuse patient.[facility] Hospital[facility] the event this information is protected by the Federal Confidentiality of Alcohol and Drug Abuse Patient Records regulations: The Federal rules restrict any use of the information to criminally investigate or prosecute any alcohol or drug abuse patient.[facility] HospitalIn the event this information is protected by the Federal Confidentiality of Alcohol and Drug Abuse Patient Records regulations: The Federal rules restrict any use of the information to criminally investigate or prosecute any alcohol or drug abuse patient.[facility] HospitalIn the event this information is protected by the Federal Confidentiality of Alcohol and Drug Abuse Patient Records regulations: The Federal rules restrict any use of the information to criminally investigate or prosecute any alcohol or drug abuse patient.[facility] HospitalIn the event this information is protected by the Federal Confidentiality of Alcohol and Drug Abuse Patient Records regulations: The Federal rules restrict any use of the information to criminally investigate or prosecute any alcohol or drug abuse patient.[facility] HospitalIn the event this information is protected by the Federal Confidentiality of Alcohol and Drug Abuse Patient Records regulations: The Federal rules restrict any use of the information to criminally investigate or prosecute any alcohol or drug abuse patient.[facility] HospitalIn the event this information is protected by the Federal Confidentiality of Alcohol and Drug Abuse Patient Records regulations: The Federal rules restrict any use of the information to criminally investigate or prosecute any alcohol or drug abuse patient.[facility] HospitalIn the event this information is protected by the Federal Confidentiality of Alcohol and Drug Abuse Patient Records regulations: The Federal rules restrict any use of the information to criminally investigate or prosecute any alcohol or drug abuse patient.[facility] HospitalIn the event this information is protected by the Federal Confidentiality of Alcohol and Drug Abuse Patient Records regulations: The Federal rules restrict any use of the information to criminally investigate or prosecute any alcohol or drug abuse patient.[facility] HospitalIn the event this information is protected by the Federal Confidentiality of Alcohol and Drug Abuse Patient Records regulations: The Federal rules restrict any use of the information to criminally investigate or prosecute any alcohol or drug abuse patient.[facility] HospitalIn the event this information is protected by the Federal Confidentiality of Alcohol and Drug Abuse Patient Records regulations: The Federal rules restrict any use of the information to criminally investigate or prosecute any alcohol or drug abuse patient.[facility] HospitalIn the event this information is protected by the Federal Confidentiality of Alcohol and Drug Abuse Patient Records regulations: The Federal rules restrict any use of the information to criminally investigate or prosecute any alcohol or drug abuse patient.[facility] HospitalIn the event this information is protected by the Federal Confidentiality of Alcohol and Drug Abuse Patient Records regulations: The Federal rules restrict any use of the information to criminally investigate or prosecute any alcohol or drug abuse patient.[facility] HospitalIn the event this information is protected by the Federal Confidentiality of Alcohol and Drug Abuse Patient Records regulations: The Federal rules restrict any use of the information to criminally investigate or prosecute any alcohol or drug abuse patient.[facility] HospitalIn the event this information is protected by the Federal Confidentiality of Alcohol and Drug Abuse Patient Records regulations: The Federal rules restrict any use of the information to criminally investigate or prosecute any alcohol or drug abuse patient.[facility] HospitalIn the event this information is protected by the Federal Confidentiality of Alcohol and Drug Abuse Patient Records regulations: The Federal rules restrict any use of the information to criminally investigate or prosecute any alcohol or drug abuse patient.[facility] HospitalIn the event this information is protected by the Federal Confidentiality of Alcohol and Drug Abuse Patient Records regulations: The Federal rules restrict any use of the information to criminally investigate or prosecute any alcohol or drug abuse patient.[facility] HospitalIn the event this information is protected by the Federal Confidentiality of Alcohol and Drug Abuse Patient Records regulations: The Federal rules restrict any use of the information to criminally investigate or prosecute any alcohol or drug abuse patient.[facility] HospitalIn the event this information is protected by the Federal Confidentiality of Alcohol and Drug Abuse Patient Records regulations: The Federal rules restrict any use of the information to criminally investigate or prosecute any alcohol or drug abuse patient.[facility] HospitalIn the event this information is protected by the Federal Confidentiality of Alcohol and Drug Abuse Patient Records regulations: The Federal rules restrict any use of the information to criminally investigate or prosecute any alcohol or drug abuse patient.[facility] HospitalIn the event this information is protected by the Federal Confidentiality of Alcohol and Drug Abuse Patient Records regulations: The Federal rules restrict any use of the information to criminally investigate or prosecute any alcohol or drug abuse patient.[facility] HospitalIn the event this information is protected by the Federal Confidentiality of Alcohol and Drug Abuse Patient Records regulations: The Federal rules restrict any use of the information to criminally investigate or prosecute any alcohol or drug abuse patient.[facility] HospitalIn the event this information is protected by the Federal Confidentiality of Alcohol and Drug Abuse Patient Records regulations: The Federal rules restrict any use of the information to criminally investigate or prosecute any alcohol or drug abuse patient.[facility] HospitalIn the event this information is protected by the Federal Confidentiality of Alcohol and Drug Abuse Patient Records regulations: The Federal rules restrict any use of the information to criminally investigate or prosecute any alcohol or drug abuse patient.[facility] HospitalIn the event this information is protected by the Federal Confidentiality of Alcohol and Drug Abuse Patient Records regulations: The Federal rules restrict any use of the information to criminally investigate or prosecute any alcohol or drug abuse patient.[facility] HospitalIn the event this information is protected by the Federal Confidentiality of Alcohol and Drug Abuse Patient Records regulations: The Federal rules restrict any use of the information to criminally investigate or prosecute any alcohol or drug abuse patient.[facility] HospitalIn the event this information is protected by the Federal Confidentiality of Alcohol and Drug Abuse Patient Records regulations: The Federal rules restrict any use of the information to criminally investigate or prosecute any alcohol or drug abuse patient.[facility] the event this information is protected by the Federal Confidentiality of Alcohol and Drug Abuse Patient Records regulations: The Federal rules restrict any use of the information to criminally investigate or prosecute any alcohol or drug abuse patient.[facility] the event this information is protected by the Federal Confidentiality of Alcohol and Drug Abuse Patient Records regulations: The Federal rules restrict any use of the information to criminally investigate or prosecute any alcohol or drug abuse patient.[facility] HospitalIn the event this information is protected by the Federal Confidentiality of Alcohol and Drug Abuse Patient Records regulations: The Federal rules restrict any use of the information to criminally investigate or prosecute any alcohol or drug abuse patient.[facility] the event this information is protected by the Federal Confidentiality of Alcohol and Drug Abuse Patient Records regulations: The Federal rules restrict any use of the information to criminally investigate or prosecute any alcohol or drug abuse patient.[facility] HospitalIn the event this information is protected by the Federal Confidentiality of Alcohol and Drug Abuse Patient Records regulations: The Federal rules restrict any use of the information to criminally investigate or prosecute any alcohol or drug abuse patient.[facility] HospitalIn the event this information is protected by the Federal Confidentiality of Alcohol and Drug Abuse Patient Records regulations: The Federal rules restrict any use of the information to criminally investigate or prosecute any alcohol or drug abuse patient.[facility] HospitalIn the event this information is protected by the Federal Confidentiality of Alcohol and Drug Abuse Patient Records regulations: The Federal rules restrict any use of the information to criminally investigate or prosecute any alcohol or drug abuse patient.[facility] Reason for Visit (unrecogniz ed section and [...] cell carcinoma of face Procedures MOHS OFFICE/OUTPATIENT [facility] MDM 60 MINUTES Alessia Townsend MD [address] [place] [address] Referral ID Status Reason Start Date Expiration Date V isits Requested Visits Authorized [id number] Closed PCP Requested Referral 10/13/2023 10/12/2024 1 [...] Comments Consult Lump to rt neck re gion has been present for a long time Reason Onset Date Comments Refill Request 02/05/2025 Reason Onset Date Comments Copper Plate Lithographer- Other 02/07/2025 Incoming call Reason Comments Medicare Wellness Exam Having trouble co ntrolling sugar levels states this morning it was 199 and averaging 160-170 Rash on arms and legs onl y Reason Comments Diabetes Reason Comments Leg Edema Reason Comments ED Follow-up 7-9 shazia to be re moved from back of scalp. ER on 04/03/25 and 04/08/25 Reason Onset Date Comments ultrasound results 04/11/2025 Reason Comments Knee Pain R knee pain/swelling Care Teams (unrecognized sec tion and content) Medical Art Therapist Relationship Specialty Start Date End Date Emily Flaherty MD [address] [place] [address] PCP - General 07/05/02 Becki Beth, Formerly [facility] [address] [facility] [place] [address] Pharmacist Pharmacy 05/13/21 Medical Art Therapist Relationship Specialty Start Date End Date Emily Flaherty MD [address] [facility] [place] [address] PCP - General 07/05/02 Becki Beth, Formerly [facility] [address] [facility] [place] [address] Pharmacist Pharmacy 05/13/21 Medical Art Therapist Relationship Specialty Start Date End Date Emily Flaherty MD [address] [facility] [address] PCP - General 07/05/02 Becki Beth, Formerly [facility] [address] [facility] [place] [address] Pharmacist Pharmacy 05/13/21 Medical Art Therapist Relationship Specialty Start Date End Date Emily Flaherty MD [address] [facility] [address] PCP - General 07/05/02 Becki Beth, Formerly [facility] [address] [facility] [address] Pharmacist Pharmacy 05/13/21 Medical Art Therapist Relationship Specialty Start Date End Date Emily Flaherty MD [address] [facility] [address] PCP - General 07/05/02 Becki Beth, Formerly [facility] [address] [facility] [address] Pharmacist Pharmacy 05/13/21 Medical Art Therapist Relationship Specialty Start Date End Date Emily Flaherty MD [address] [facility] [address] PCP - General 07/05/02 Ignacia, Becki, Formerly [facility] [address] [facility] [address] Pharmacist Pharmacy 05/13/21 Medical Art Therapist Relationship Specialty Start Date End Date Emily Flaherty MD [address] [facility] [address] PCP - General 07/05/02 IgnaciaWanda manleyily, Formerly [facility] [address] [facility] [address] Pharmacist Pharmacy 05/13/21 Medical Art Therapist Relationship Specialty Start Date End Date Emily Flaherty MD [address] [facility] [place] [address] PCP - General 07/05/02 DepueBecki manley, Formerly [facility] [address] [facility] [address] Pharmacist Pharmacy 05/13/21 Medical Art Therapist Relationship Specialty Start Date End Date Emily Flaherty MD [address] [facility] [address] PCP - General 07/05/02 Ignacia, Becki, Formerly [facility] [address] [facility] [address] Pharmacist Pharmacy 05/13/21 Medical Art Therapist Relationship Specialty Start Date End Date Emily Flaherty MD [address] [facility] [place] [address] PCP - General 07/05/02 Ignacia, Becki, Formerly [facility] [address] [facility] [place] [address] Pharmacist Pharmacy 05/13/21 Medical Art Therapist Relationship Specialty Start Date End Date Emily Flaherty MD [address] [facility] [place] [address] PCP - General 07/05/02 Becki Beth, Formerly [facility] [address] [facility] [place] [address] Pharmacist Pharmacy 05/13/21 Medical Art Therapist Relationship Specialty Start Date End Date Emily Flaherty MD [address] [facility] [place] [address] PCP - General 07/05/02 Becki Beth, Formerly [facility] [address] [facility] [place] [address] Pharmacist Pharmacy 05/13/21 Medical Art Therapist Relationship Specialty Start Date End Date Emily Flaherty MD [address] [facility] [place] [address] PCP - General 07/05/02 Becki Beth, Formerly [facility] [address] [facility] [place] [address] Pharmacist Pharmacy 05/13/21 Medical Art Therapist Relationship Specialty Start Date End Date Emily Flaherty MD [address] [facility] [place] [address] PCP - General 07/05/02 Becki Beth, Formerly [facility] [address] [facility] [place] [address] Pharmacist Pharmacy 05/13/21 Medical Art Therapist Relationship Specialty Start Date End Date Emily Flaherty MD [address] [facility] [place] [address] PCP - General 07/05/02 Becki Beth, Formerly [facility] [address] [facility] [address] Pharmacist Pharmacy 05/13/21 Medical Art Therapist Relationship Specialty Start Date End Date Emily Flaherty MD [address] [facility] [place] [address] PCP - General 07/05/02 IgnaciaBecki manley, Formerly [facility] [address] [facility] [place] [address] Pharmacist Pharmacy 05/13/21 Medical Art Therapist Relationship Specialty Start Date End Date Emily Flaherty MD [address] [facility] [place] [address] PCP - General 07/05/02 DepueBecki manley, Formerly [facility] [address] [facility] [place] [address] Pharmacist Pharmacy 05/13/21 Medical Art Therapist Relationship Specialty Start Date End Date Emily Flaherty MD [address] [facility] [place] [address] PCP - General 07/05/02 Becki Beth, Formerly [facility] [address] [facility] [place] [address] Pharmacist Pharmacy 05/13/21 Medical Art Therapist Relationship Specialty Start Date End Date Emily Flaherty MD [address] [facility] [place] [address] PCP - General 07/05/02 Becki Beth, Formerly [facility] [address] [facility] [place] [address] Pharmacist Pharmacy 05/13/21 Medical Art Therapist Relationship Specialty Start Date End Date Emily Flaherty MD [address] [facility] [place] [address] PCP - General 07/05/02 [facility] [address] [address] Pharmacist Pharmacy 05/13/21 Amara Mauricio, VOLUNTEER SERVICES COORDINATOR.GEOGRAPHIC INFORMATION SYSTEMS ENGINEER [address] [address] Exam [facility] 08/19/24 Aracelis Ribeiro, VOLUNTEER SERVICES COORDINATOR.SAMPLE FINISHER [address] [address] [address] Ex[facility] 08/19/24 Medical Art Therapist Relationship Specialty Start Date End Date Emily Flaherty MD [address] [place] [address] PCP - General 07/05/02 [facility] [address] [address] [place] [address] Pharmacist Pharmacy 05/13/21 Amara Mauricio, VOLUNTEER SERVICES COORDINATOR.GEOGRAPHIC INFORMATION SYSTEMS ENGINEER [address] [place] [address] Exam [facility] 08/19/24 Aracelis Ribeiro, VOLUNTEER SERVICES COORDINATOR.SAMPLE FINISHER [address] [address] Exam [facility] 12/03/24 Medical Art Therapist Relationship Specialty Start Date End Date Emily Flaherty MD [address] [address] PCP - General 07/05/02 Becki Beth Formerly [facility] [address] [place] [address] Pharmacist Pharmacy 05/13/21 Amara Mauricio, VOLUNTEER SERVICES COORDINATOR.GEOGRAPHIC INFORMATION SYSTEMS ENGINEER [address] [place] [address] Exam [facility] 08/19/24 Aracelis Ribeiro VOLUNTEER SERVICES COORDINATOR.SAMPLE FINISHER [address] [address] Exam [facility] 12/03/24 Medical Art Therapist Relationship Specialty Start Date End Date Emily Flaherty MD [address] [place] [address] PCP - General 07/05/02 [facility] [address] [address] Pharmacist Pharmacy 05/13/21 Amara Mauricio, VOLUNTEER SERVICES COORDINATOR.GEOGRAPHIC INFORMATION SYSTEMS ENGINEER [address] [place] [address] Exam [facility] 08/19/24 Aracelis Ribeiro, VOLUNTEER SERVICES COORDINATOR.SAMPLE FINISHER [address] [address] Exam [facility] 12/03/24 Medical Art Therapist Relationship Specialty Start Date End Date Emily Flaherty MD [address] [address] PCP - General 07/05/02 Becki Beth, Formerly [facility] [address] [address] Pharmacist Pharmacy 05/13/21 Amara Mauricio, VOLUNTEER SERVICES COORDINATOR.GEOGRAPHIC INFORMATION SYSTEMS ENGINEER [address] [place] [address] Exam [facility] 08/19/24 Aracelis Ribeiro APRN.SAMPLE FINISHER [address] [place] [address] Exam [facility] 12/03/24 Medical Art Therapist Relationship Specialty Start Date End Date Emily Flaherty MD [address] [place] [address] PCP - General 07/05/02 Becki Beth Formerly [facility] [address] [place] [address] Pharmacist Pharmacy 05/13/21 Amara Mauricio APRN.GEOGRAPHIC INFORMATION SYSTEMS ENGINEER [address] [place] [address] Exam [facility] 08/19/24 Aracelis Ribeiro APRN.SAMPLE FINISHER [address] [place] [address] Exam [facility] 12/03/24 Medical Art Therapist Relationship Specialty Start Date End Date Emily Flaherty MD [address] [place] [address] PCP - General 07/05/02 [facility] [address] [place] [address] Pharmacist Pharmacy 05/13/21 Amara Mauricio APRN.GEOGRAPHIC INFORMATION SYSTEMS ENGINEER [address] [place] [address] Exam [facility] 08/19/24 Aracelis Ribeiro APRN.SAMPLE FINISHER [address] [place] [address] Exam [facility] 12/03/24 Medical Art Therapist Relationship Specialty Start Date End Date Emily Flaherty MD [address] [place] [address] PCP - General 07/05/02 [facility] [address] [address] Pharmacist Pharmacy 05/13/21 Amara Mauricio, VOLUNTEER SERVICES COORDINATOR.GEOGRAPHIC INFORMATION SYSTEMS ENGINEER [address] [place] [address] Exam [facility] 08/19/24 Aracelis Ribeiro VOLUNTEER SERVICES COORDINATOR.SAMPLE FINISHER [address] [place] [address] Exam [facility] 12/03/24 Medical Art Therapist Relationship Specialty Start Date End Date Emily Flaherty MD [address] [place] [address] PCP - General 07/05/02 [facility] [address] [address] Pharmacist Pharmacy 05/13/21 Amara Mauricio, VOLUNTEER SERVICES COORDINATOR.GEOGRAPHIC INFORMATION SYSTEMS ENGINEER [address] [place] [address] Exam [facility] 08/19/24 Aracelis Ribeiro VOLUNTEER SERVICES COORDINATOR.SAMPLE FINISHER [address] [place] [address] Exam [facility] 12/03/24 Medical Art Therapist Relationship Specialty Start Date End Date Emily Flaherty MD [address] [place] [address] PCP - General 07/05/02 [facility] [address] [place] [address] Pharmacist Pharmacy 05/13/21 Aracelis Ribeiro VOLUNTEER SERVICES COORDINATOR.SAMPLE FINISHER [address] [place] [address] Exam [facility] 12/03/24 Kiera Shepard RN Copper Plate Lithographer Family Medicine 01/16/25 Amara Mauricio, VOLUNTEER SERVICES COORDINATOR.GEOGRAPHIC INFORMATION SYSTEMS ENGINEER [address] [place] [address] Exam [facility] 01/29/25 Medical Art Therapist Relationship Specialty Start Date End Date Emily Flaherty MD [address] [place] [address] PCP - General 07/05/02 [facility] [address] [place] [address] Pharmacist Pharmacy 05/13/21 Aracelis Riebiro VOLUNTEER SERVICES COORDINATOR.SAMPLE FINISHER [address] [place] [address] Exam [facility] 12/03/24 Kiera Shepard RN Copper Plate Lithographer Family Medicine 01/16/25 Amara Mauricio, VOLUNTEER SERVICES COORDINATOR.GEOGRAPHIC INFORMATION SYSTEMS ENGINEER [address] [place] [address] Exam [facility] 01/29/25 Medical Art Therapist Relationship Specialty Start Date End Date Emily Flaherty MD [address] [place] [address] PCP - General 07/05/02 [facility] [address] [place] [address] Pharmacist Pharmacy 05/13/21 Aracelis Ribeiro VOLUNTEER SERVICES COORDINATOR.SAMPLE FINISHER [address] [place] [address] Exam [facility] 12/03/24 Kiera Shepard RN Copper Plate Lithographer Family Medicine 01/16/25 Amara Mauricio, VOLUNTEER SERVICES COORDINATOR.GEOGRAPHIC INFORMATION SYSTEMS ENGINEER [address] [facility] [place] [address] Exam [facility] 01/29/25 Medical Art Therapist Relationship Specialty Start Date End Date Emily Flaherty MD [address] [address] PCP - General 07/05/02 [facility] [address] [place] [address] Pharmacist Pharmacy 05/13/21 Aracelis Ribeiro VOLUNTEER SERVICES COORDINATOR.SAMPLE FINISHER [address] [place] [address] Exam [facility] 12/03/24 Kiera Shepard RN Copper Plate Lithographer Family Medicine 01/16/25 Amara Mauricio, VOLUNTEER SERVICES COORDINATOR.GEOGRAPHIC INFORMATION SYSTEMS ENGINEER [address] [facility] [place] [address] Exam [facility] 01/29/25 Team Status: Active Member Role Status Dates Dr. Emily Flaherty MD Family Provider Active Dr. Emily Flaherty MD Primary Care Provider Active Team Status: Inactive Member Role Status Dates Dr. Emily Flaherty MD Primary Care Provider Active Start: February 20, 2025 End: February 20, 2025 Dr. Antelmo Gutierrez MD Attending Provider Active Start: February 20, 2025 End: February 20, 2025 Dr. Antelmo Gutierrez MD Referring Provider Active Start: February 20, 2025 End: February 20, 2025 Medical Art Therapist Relationship Specialty Start Date End Date Emily Flaherty MD [address] [facility] [place] [address] PCP - General 07/05/02 Aracelis Ribeiro VOLUNTEER SERVICES COORDINATOR.SAMPLE FINISHER [address] [facility] [place] [address] Exam [facility] 12/03/24 Kiera Shepard RN Copper Plate Lithographer Family Medicine 01/16/25 Amara Mauricio, VOLUNTEER SERVICES COORDINATOR.GEOGRAPHIC INFORMATION SYSTEMS ENGINEER [address] [facility] [place] [address] [facility] 01/29/25 Medical Art Therapist Relationship Specialty Start Date End Date Emily Flaherty MD [address] [facility] [place] [address] PCP - General 07/05/02 Aracelis Ribeiro VOLUNTEER SERVICES COORDINATOR.SAMPLE FINISHER [address] [facility] [place] [address] Exam [facility] 12/03/24 Kiera Shepard RN Copper Plate Lithographer Family Medicine 01/16/25 Amara Mauricio, VOLUNTEER SERVICES COORDINATOR.GEOGRAPHIC INFORMATION SYSTEMS ENGINEER [address] [facility], [place] [address] Exam [facility] 01/29/25 Medical Art Therapist Relationship Specialty Start Date End Date Emily Flaherty MD [address] [place], [place] [address] PCP - General 07/05/02 Aracelis Ribeiro, VOLUNTEER SERVICES COORDINATOR.SAMPLE FINISHER [address] [place], [place] [address] Exam [facility] 12/03/24 Kiera Shepard, RN Copper Plate Lithographer Family Medicine 01/16/2502/10 Amara Mauricio, VOLUNTEER SERVICES COORDINATOR.GEOGRAPHIC INFORMATION SYSTEMS ENGINEER [address] [place], [place] [address] [facility] 01/29/25 Team Status: Active Member Role/Relationship Status Dates Dr. Emily Flaherty MD Primary Care Provider Active Team Status: Inactive Member Role/Relationship Status Dates Dr. Emily Flaherty MD Primary Care Provider Active Start: February 20, 2025 End: February 20, 2025 Dr. Antelmo Gutierrez MD Attending Provider Active Start: February 20, 2025 End: February 20, 2025 Dr. Antelmo Gutierrez MD Referring Provider Active Start: February 20, 2025 End: February 20, 2025 Team Status: Inactive Member Role/Relationship Status Dates Dr. Emily Flaherty MD Primary Care Provider Active Start: April 03, 2025 End: April 03, 2025 Dr. Jayson Jackson MD Emergency Provider Active Sta rt: April 03, 2025 End: April 03, 2025 Team Status: Inactive Member Role/Relationship Status Dates Dr. Emily Flaherty MD Primary Care Provider Active Start: April 08, 2025 End: April 08, 2025 Dr. Alber Boone DO Emergency Provider Active Start: April 08, 2025 End: April 08, 2025 Medical Art Therapist Relationship Specialty Start Date End Date Emily Flaherty MD [address] [place] [address] PCP - General 07/05/02 Aracelis Ribeiro APRN.SAMPLE FINISHER [address] [facility] [place] [address] Exam [facility] 12/03/24 Amara Mauricio, VOLUNTEER SERVICES COORDINATOR.GEOGRAPHIC INFORMATION SYSTEMS ENGINEER [address] [facility] [address] Exam [facility] 01/29/25 Medical Art Therapist Relationship Specialty Start Date End Date Emily Flaherty MD [address] [facility] [address] PCP - General 07/05/02 Aracelis Ribeiro VOLUNTEER SERVICES COORDINATOR.SAMPLE FINISHER [address] [facility] [address] Exam [facility] 12/03/24 Amara Mauricio, VOLUNTEER SERVICES COORDINATOR.GEOGRAPHIC INFORMATION SYSTEMS ENGINEER [address] [place] [address] Ex[facility] 01/29/25 Medical Art Therapist Relationship Specialty Start Date End Date Emily Flaherty MD [address] [place] [address] PCP - General 07/05/02 Aracelis Ribeiro APRN.SAMPLE FINISHER [address] [facility] [address] Exam [facility] 12/03/24 Amara Mauricio, VOLUNTEER SERVICES COORDINATOR.GEOGRAPHIC INFORMATION SYSTEMS ENGINEER [address] [place] [address] Exam [facility] 01/29/25 Medical Art Therapist Relationship Specialty Start Date End Date Emily Flaherty MD [address] [place] [address] PCP - General 07/05/02 Aracelis Ribeiro VOLUNTEER SERVICES COORDINATOR.SAMPLE FINISHER [address] [place] [address] Exam [facility] 12/03/24 Amara Mauricio, VOLUNTEER SERVICES COORDINATOR.GEOGRAPHIC INFORMATION SYSTEMS ENGINEER [address] [place] [address] Exam [facility] 01/29/25 Medical Art Therapist Relationship Specialty Start Date End Date Emily Flaherty MD [address] [place] [address] PCP - General 07/05/02 Aracelis Ribeiro VOLUNTEER SERVICES COORDINATOR.SAMPLE FINISHER [address] [place] [address] Exam [facility] 12/03/24 Amara Mauircio, VOLUNTEER SERVICES COORDINATOR.GEOGRAPHIC INFORMATION SYSTEMS ENGINEER [address] [place] [address] [facility] 01/29/25 Goals (unrecognized section and content) Goals may be documented in a n alternate sectionGoals may be documented in an alternate sectionGoals may be documented in an alternate section INFORMATION SOURCE (unrecogn ized section and content) DATE CREATED AUTHOR 04/10/2025 [facility] DATE CREATED AUTHOR 'S ORGANIZ ATION 04/13/2025 [facility] DATE CREATED AUTHOR 'S ORGANIZ ATION 05/27/2025 [facility] FOR RECORDS PERTAINING TO PATIENTS WHO ARE [...] BE BASED ON THE PRIMARY CLINICAL RECORDS. [facility] [employer] [facility]. provides no warranty or guarantee of the accuracy or completeness of information in this document.
--- NOTE | 2025-06-06 17:03 | PCM.HP.STD ---
HPI - General General Date of Admission: 06/06/25 Date of Service: 06/06/25 Chief Complaint: Transient left hand numbness HPI Narrative ANGELICA MARTINEZ, is a 80-year-old female history of diabetes, hypertension who presented to [facility] ED 06/06/2025 for left hand numbness. Reportedly she has been fatigued all day and then for several seconds she developed numbness to the left hand that quickly resolved and is asymptomatic at this time other than the fatigue. Friend at bedside also reports she did not seem to be quite herself. In the ED patient afebrile, heart rate 101 and blood pressure 191/98, respiratory rate 16 and pulse ox 98% on room air. Blood glucose 190. CBC overall unremarkable, BMP with a bicarb of 20.5, BUN of 25 and creatinine 0.82, troponin of 12, mag of 2, UA not suggestive of UTI. CT head no acute abnormalities. CTA head and neck no LVO. Chest x-ray no acute process. Hospitalist contacted for admission for TIA rule out. Patient evaluated at bedside, she reports that earlier she felt fatigued and off and then she had several seconds around 2 PM where her left hand went completely numb, friend also thought she was not acting quite like herself so they brought her to the ED. At time of evaluation patient reports she feels like she is back to her normal self, denies any headache or changes in vision, denies any other focal weakness or sensory changes. No other new or acute complaints. [facility] Medical History Anxiety Heart murmur Hypertension Shingles Diabetes mellitus Home Medications ?Medication ?Instructions ?Recorded ?Last Taken ?Type cholecalciferol (vitamin D3) 50 50 mcg PO DAILY 04/08/25 04/08/25 History mcg (2,000 unit) capsule latanoprost 0.005 % eye drops 1 drp ophthalmic (eye) DAILY 04/08/25 04/07/25 History lisinopril 20 mg tablet 20 mg PO DAILY 04/08/25 04/08/25 History metformin 500 mg tablet,extended 500 mg PO DAILY 04/08/25 04/07/25 History release 24 hr minocycline 50 mg capsule 50 mg PO DAILY 04/08/25 04/07/25 History timolol maleate 0.5 % eye drops 1 drp ophthalmic (eye) BID 04/08/25 04/08/25 History Allergy/AdvReac Type Severity Reaction Status Date / Time Beef Containing Products Allergy Nausea/Vom/ Verified 06/06/25 12:14 Diarrhea Fish Containing Products Allergy Itching Verified 06/06/25 12:14 lactase (From Dairy Aid) Allergy Nausea/Vom/ Verified 06/06/25 12:14 Diarrhea acetaminophen (From Tylenol) AdvReac Other Verified 06/06/25 12:14 Social History Smoking Status: Never smoker ROS ROS Narrative General: Denies fever/chills HENT: Denies headache, denies stuffy nose, denies sore throat EYES: Denies changes in vision Resp: Denies cough, denies shortness of breath Cardiac: Denies chest pain GI: Denies abdominal pain, some intermittent problems diarrhea that she reports is due to her metformin denies nausea/vomiting : Denies changes in urination Extremity: Denies swelling MSK: Denies weakness Neuro: Denies any numbness/tingling at present, left hand numbness was transient and resolved after seconds Heme: Denies any bleeding or bruising Skin: Denies rashes Psychiatric: No complaints voiced Vital Signs Vital Signs Vital Signs: 06/06/25 12:12 06/06/25 14:14 06/06/25 16:00 Temperature 98.2 F Temperature Source Oral Pulse Rate 101 H 68 72 Respiratory Rate 16 18 18 Blood Pressure 191/98 H 169/78 H 183/81 H Blood Pressure Mean 129 108 115 Pulse Ox 98 95 100 Oxygen Delivery Method Room Air Room Air Room Air 06/06/25 16:27 Temperature 97.9 F Temperature Source Pulse Rate 88 Respiratory Rate 18 Blood Pressure 183/81 H Blood Pressure Mean 115 Pulse Ox 99 Oxygen Delivery Method Physical Exam Narrative General: Alert, oriented, no apparent distress HEENT: Atraumatic, normocephalic Eyes: Anicteric, normal conjunctiva, extraocular movements intact though difficult to get patient to follow finger, pupils equal Neck: Supple Respiratory: Clear to auscultation bilaterally, normal respiratory effort Cardiovascular: Regular rate and rhythm GI: Soft, nontender, nondistended Extremities: No edema Musculoskeletal: Strength 5 out of 5 in right upper extremity, 5 - out of 5 left upper extremity, 5 out of 5 right lower extremity, 5 out of 5 left lower extremity Neuro: 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, also seem to have some difficulty with [id number] with left hand, only seem to have some difficulties with following commands however patient reports hearing aids and she is very hard of hearing so it seems that this may have been partially or entirely the reason, otherwise cranial nerves II through XII intact, Skin: No rashes appreciated Psych: Cooperative Results Lab / Micro Data 06/06/25 13:00 06/06/25 13:00 Labs: Laboratory Results - last 24 hr 06/06/25 13:00: WBC 9.4, RBC 4.70, Hgb 13.4, Hct 40.9, MCV 87.0, MCH 28.5, MCHC 32.8, RDW Std Deviation 41.2, RDW Coeff of Michael 13.0, Plt Count 366, MPV 9.5, Immature Gran % (Auto) 0.400, Neut % (Auto) 68.9, Lymph % (Auto) 18.6 L, [place] % (Auto) 7.3, Eos % (Auto) 4.4, Baso % (Auto) 0.4, Absolute Neuts (auto) 6.5, Absolute Lymphs (auto) 1.75, Nucleated RBC % 0.5, Sodium 138, Potassium 4.0, Chloride 103, Carbon Dioxide 20.5 L, Anion Gap 15, BUN 25 H, Creatinine 0.82, Est GFR (MDRD) Non-Af 72, BUN/Creatinine Ratio 30.0 H, Glucose 187 H, Calcium 9.5, Magnesium 2.0, Troponin T High Sens 12 06/06/25 13:01: POC Glucose 190 H 06/06/25 14:51: Urine Color Yellow, Urine Clarity Clear, Urine pH 6.0, Ur Specific Deposit 1.025, Urine Protein 30 H, Urine Glucose (UA) 250 H, Urine Ketones 15 H, Urine Occult Blood 25 H, Urine Nitrite Negative, Urine Bilirubin Negative, Urine Urobilinogen Normal, Ur Leukocyte Esterase 500 H, Urine RBC 0 SEEN, Urine WBC 50-100 SEEN, Ur Squamous Epith Cells 0-5 SEEN, Urine Bacteria 0 SEEN, Urine Mucus 0 SEEN Imaging Radiology Impression Brain CT 06/06/25 13:19 IMPRESSION: No acute intracranial abnormalities. Reading Location: [facility] Head/Neck CTA 06/06/25 13:19 IMPRESSION: No hemodynamically significant stenosis in the head and neck. No aneurysm. Reading Location: [facility] Chest X-Ray 06/06/25 15:20 IMPRESSION: Partially visualized kidneys show residual contrast material within the collecting systems. Generalized osteopenia is seen. No acute osseous change is evident. No evidence of cardiomegaly. A mildly calcified aorta is seen. Lungs are mildly hyperinflated with increased interstitial markings, consistent with chronic lung disease. No findings pulmonary edema are seen. No acute pneumonic process is noted. No pleural effusion or pneumothorax is seen. Reading Location: [address] Assessment & Plan Assessment/Plan (1) Numbness of left hand: PLAN: Plan # Brief left hand numbness -Admit to tele -CT head w/ no acute process -CTA head and neck no acute process -MRI ordered -NIH q4hr -asa, statin -Echo -PT/OT/Speech eval -Teleneuro consult ordered -Hold BP medications to allow for permissive hypertension for 24 hours unless SBP greater than 220 or DBP greater than 120 or until stroke is ruled out -TSH and A1c in the a.m. #Type 2 diabetes mellitus -Glucose checks and sliding scale insulin -Hold home metformin #Hypertension - Allowing for permissive hypertension as above, hold lisinopril #DVT ppx: SCDs Genevieve Adams MD Charges/Coding Visit Charges Inpatient E&M: 98564 Init Hosp L1
[2025-06-06 17:33] LABS: Troponin T High Sens 2 HR 17 ng/L (<=14)
--- NOTE | 2025-06-06 18:27 | ECHOD_ITS ---
Reason For Study Reason For Study: TIA/Stroke Procedure This was a 2D Doppler, Color Flow transthoracic echocardiogram. Exam performed portable in patient room. Left Ventricle Normal left ventricle. The estimated ejection fraction is 65-70 %. Right Ventricle Normal right ventricle. Normal systolic function. Atria The left atrium is mildly enlarged. Normal right atrium. Mitral Valve There is moderate to severe mitral annular calcification. Mild (1+) mitral valve insufficiency. Tricuspid Valve Normal tricuspid valve. Aortic Valve Mild diffuse aortic valve calcification. Pulmonic Valve The pulmonic valve is not well visualized. Great Vessels The aortic root is not well visualized. Pericardium/Pleural No pericardial effusion. MMode/2D Measurements & Calculations LVIDd: 3.6 cm IVSd: 1.4 cm Ao root diam: 3.0 cm LVIDs: 1.7 cm LVPWd: 1.4 cm RVDd: 3.8 cm FS: 53.5 % LAV(MOD-bp): 44.2 ml LVAd ap4: 17.0 cm2 SV(MOD-sp4): 31.8 ml LAV(MOD-bp) Indexed: 26.9 ml/m2 LVLd ap4: 5.9 cm SI(MOD-sp4): 19.3 ml/m2 LAV(MOD-sp2): 39.3 ml EDV(MOD-sp4): 41.2 ml LAV(MOD-sp4): 36.6 ml EDV(sp4-el): 41.8 ml LVAs ap4: 7.3 cm2 LVLs ap4: 5.0 cm ESV(MOD-sp4): 9.4 ml ESV(sp4-el): 9.2 ml EF(MOD-sp4): 77.1 % EF(sp4-el): 77.9 % SV(sp4-el): 32.6 ml LA A4 area: 16.1 cm2 LA dimension(2D): 4.4 cm RA A4 area: 12.4 cm2 TAPSE: 2.2 cm Time Measurements MV dec time: 0.25 sec Doppler Measurements & Calculations MV E max mitch: 123.2 cm/sec Lat Peak E' Mitch: 7.5 cm/sec Med Peak E' Mitch: 6.1 cm/sec MV A max mitch: 104.0 cm/sec E/E' lat: 16.5 E/E' med: 20.4 MV E/A: 1.2 MV V2 max: 151.1 cm/sec Ao V2 max: 145.0 cm/sec MV max P.1 mmHg MV dec slope: 500.7 cm/sec2 Ao max P.4 mmHg MV V2 mean: 88.9 cm/sec Ao V2 mean: 99.0 cm/sec MV mean P.7 mmHg Ao mean P.5 mmHg MV V2 VTI: 43.0 cm Ao V2 VTI: 31.8 cm AV (velocity ratio): 0.80 LV V1 max: 125.2 cm/sec PA V2 max: 101.6 cm/sec TR max mitch: 165.8 cm/sec LV V1 max P.3 mmHg TR max P.0 mmHg LV V1 mean P.2 mmHg LV V1 mean: 98.4 cm/sec LV V1 VTI: 25.5 cm ECHO/Echo Complete Interpretation Summary The estimated ejection fraction is 65-70 %. Moderate to severe mitral annular calcification/MAC More prominent in the posterior Mild MR No previous echo to compare Ordering Physician: Genevieve Adams Referring Physician: Belén Pratt Performed By: Yanelis Estrella, JANAE, RVT
--- OUTSIDE RECORDS SUMMARY | 2025-06-06 18:44 | XMS RPT_ITS | CCD ---
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 Comment on above: Order Comment: Speci men Type: TISSUE SPECIMENOrdering Facility: [facility] Address: [address] [place] [address] Result Comment: Surg ica Pathology Report Case: [id number] Authorizing Provider: Lc Cuello MD Collected: 12/19/2024 08:17 AM Ordering Location: Ambulatory Surgery Received: 12/19/2024 12:28 PM Pathologist: Leonard Lopez MD Specimen: Colon, Sigmoid, Polyp, polyp'S x3 Performed By: #### 6 6121-5 ####[facility] [id number] [address] OF [facility] FINAL DIAGNOSIS Normal [facility] Comment on above: Order Comment: Speci men Type: TISSUE SPECIMENOrdering Facility: [facility] Address: [address] [place] [address] Result Comment: A. S igmoid colon, polypectomy x 3: -Fragments of hyperplastic polyp at 1408 EDT Performed By: #### 6 6121-5 ####[facility] [id number] [address] [place] FINAL PERFORMING LAB Normal [facility] Comment on above: Order Comment: Speci men Type: TISSUE SPECIMENOrdering Facility: [facility] Address: [address] [place] [address] Result Comment: Diag nostic interpretation performed at: [facility], [address] [place] [address] CLIA# [id number] President [place]: Bertrand Alfaro MD Performed By: #### 6 6121-5 ####[facility] [id number] [address] [place] GROSS DESCRIPTION Normal [facility] Comment on above: Order Comment: Speci men Type: TISSUE SPECIMENOrdering Facility: [facility] Address: [address] [place] [address] Result Comment: A. C olon, Sigmoid, Polyp Received in formalin are multiple pieces of spencer, soft tissue aggregating to 1.3 x 0.2 x 0.2 cm. Totally submitted in one cassette. Gross examination performed at [facility], [address] [place] [address] 12/19/2024 4:57 PM Performed By: #### 6 6121-5 ####[facility] [id number] [place] [address] [place] [facility] 25-hydroxyvitamin D3 [Mass/Vol] 20.3 ng/mL Low 31.0-80.0 [facility] Comment on above: Order Comment: Speci men Type: BLOOD SPECIMENOrdering Facility: [facility] Address: [address] [place] [address] Result Comment: Clas sification of 25 OH Vitamin D status: Deficiency/Insufficiency: < or = 30 ng/ml. Sufficiency/Optimal Levels: 31-80 ng/mL Toxicity: > 100 ng/mL. Test performed by chemiluminescent immunoassay. Performed By: #### 1 989-3 ####[facility]IA [id number] [place] [address] [place] CBC panel Auto (Bld)on 11-27 Erythrocyte distribution width (RBC) [Ratio] 13.5 % Normal 11.5-15.0 [facility] Comment on above: Order Comment: Speci men Type: BLOOD SPECIMENOrdering Facility: [facility] Address: [address] [place] [address] Performed By: #### 5 8410-2 ####[facility]IA [id number] [place] [address] [place] Hematocrit (Bld) [Volume fraction] 41.4 % Normal 36.0-46.0 [facility] Comment on above: Order Comment: Speci men Type: BLOOD SPECIMENOrdering Facility: [facility] Address: [address] [place] [address] Performed By: #### 5 8410-2 ####[facility]IA [id number] [address] [address] [place] Hemoglobin (Bld) [Mass/Vol] 13.2 g/dL Normal 11.5-15.5 [facility] Comment on above: Order Comment: Speci men Type: BLOOD SPECIMENOrdering Facility: [facility] Address: [address] [place] [address] Performed By: #### 5 8410-2 ####[facility]IA [id number] [address] [place] MCH (RBC) [Entitic mass] 28.8 pg Normal 26.0-34.0 [facility] Comment on above: Order Comment: Speci men Type: BLOOD SPECIMENOrdering Facility: [facility] Address: [address] [place] [address] Performed By: #### 5 8410-2 ####[facility]IA [id number] [place] [address] [place] MCHC (RBC) [Mass/Vol] 31.9 g/dL Normal 30.5-36.0 [facility] Comment on above: Order Comment: Speci men Type: BLOOD SPECIMENOrdering Facility: [facility] Address: [address] [place] [address] Performed By: #### 5 8410-2 ####[facility]IA [id number] [place] [address] [place] MCV (RBC) [Entitic vol] 90.2 fL Normal 80.0-100.0 [facility] Comment on above: Order Comment: Speci men Type: BLOOD SPECIMENOrdering Facility: [facility] Address: [address] [place] [address] Performed By: #### 5 8410-2 ####[facility]IA [id number] [place] [address] [place] Nucleated RBC (Bld) [#/Vol] 10*3/uL Normal <0.01 [facility] Comment on above: Order Comment: Speci men Type: BLOOD SPECIMENOrdering Facility: [facility] Address: [address] [place] [address] Performed By: #### 5 8410-2 ####[facility] [id number] [place] [address] [place] Platelet mean volume (Bld) [Entitic vol] 9.6 fL Normal 9.0-12.7 [facility] Comment on above: Order Comment: Speci men Type: BLOOD SPECIMENOrdering Facility: [facility] Address: [address] [place] [address] Performed By: #### 5 8410-2 ####[facility] [id number] [address] [address] [place] Platelets (Bld) [#/Vol] 392 10*3/uL Normal 150-400 [facility] Comment on above: Order Comment: Speci men Type: BLOOD SPECIMENOrdering Facility: [facility] Address: [address] [place] [address] Performed By: #### 5 8410-2 ####[facility] [id number] [place] [address] [place] RBC (Bld) [#/Vol] 4.59 10*6/uL Normal 3.90-5.20 [facility] Comment on above: Order Comment: Speci men Type: BLOOD SPECIMENOrdering Facility: [facility] Address: [address] [place] [address] Performed By: #### 5 8410-2 ####[facility] [id number] [place] [address] [place] WBC (Bld) [#/Vol] 10.22 10*3/uL Normal 3.70-11.00 [facility] Comment on above: Order Comment: Speci men Type: BLOOD SPECIMENOrdering Facility: [facility] Address: [address] [place] [address] Performed By: #### 5 8410-2 ####[facility] [id number] [address] [address] [place] Comprehensive metabolic 2000 panelon 11-27-2024 Albumin [Mass/Vol] 4.4 g/dL Normal 3.9-4.9 [facility] Comment on above: Order Comment: Speci men Type: BLOOD SPECIMENOrdering Facility: [facility] Address: [address] [place] [address] Performed By: #### 2 4323-8, 30064-3 ####[facility] [id number] [place] [address] [place] ALP [Catalytic activity/Vol] 88 U/L Normal 34-123 [facility] Comment on above: Order Comment: Speci men Type: BLOOD SPECIMENOrdering Facility: [facility] Address: [address] [place] [address] Performed By: #### 2 4323-8, 41870-6 ####[facility] [id number] [place] [address] [place] ALT [Catalytic activity/Vol] 18 U/L Normal 7-38 [facility] Comment on above: Order Comment: Speci men Type: BLOOD SPECIMENOrdering Facility: [facility] Address: [address] [place] [address] Performed By: #### 2 4323-8, 65743-1 ####[facility] [id number] [place] [address] [place] Anion gap [Moles/Vol] 12 mmol/L Normal 8-15 [facility] Comment on above: Order Comment: Speci men Type: BLOOD SPECIMENOrdering Facility: [facility] Address: [address] [place] [address] Performed By: #### 2 4323-8, 13468-6 ####[facility] [id number] [facility] [place] [address] [place] AST [Catalytic activity/Vol] 19 U/L Normal 13-35 [facility] Comment on above: Order Comment: Speci men Type: BLOOD SPECIMENOrdering Facility: [facility] Address: [address] [place] [address] Performed By: #### 2 4323-8, 06918-6 ####[facility] [id number] [place] [address] [place] Bilirubin [Mass/Vol] 0.5 mg/dL Normal 0.2-1.3 [facility] Comment on above: Order Comment: Speci men Type: BLOOD SPECIMENOrdering Facility: [facility] Address: [address] [place] [address] Performed By: #### 2 4323-8, 82612-4 ####[facility] [id number] [place] [address] [place] Calcium [Mass/Vol] 9.5 mg/dL Normal 8.5-10.2 [facility] Comment on above: Order Comment: Speci men Type: BLOOD SPECIMENOrdering Facility: [facility] Address: [address] [place] [address] Performed By: #### 2 4323-8, 11619-8 ####[facility] [id number] [place] [address] [place] Chloride [Moles/Vol] 104 mmol/L Normal 98-107 [facility] Comment on above: Order Comment: Speci men Type: BLOOD SPECIMENOrdering Facility: [facility] Address: [address] [place] [address] Performed By: #### 2 4323-8, 40413-6 ####[facility] [id number] [place] [address] [place] CO2 [Moles/Vol] 24 mmol/L Normal 22-30 [facility] Comment on above: Order Comment: Speci men Type: BLOOD SPECIMENOrdering Facility: [facility] Address: [address] [place], [place] [address] Performed By: #### 2 4323-8, 87110-6 ####[facility] [id number] [place] [address] [place] Creatinine [Mass/Vol] 0.67 mg/dL Normal 0.58-0.96 [facility] Comment on above: Order Comment: Graciela patton Type: BLOOD SPECIMENOrdering Facility: [facility] Address: [address] [place] [address] Performed By: #### 2 4323-8, 04224-9 ####[facility] [id number] [place] [address] [place] Creatinine and Glomerular filtration rate.predicted panel (S/P/Bld) 88 mL/min/1.73m??? Normal >=60 [facility] Comment on above: Order Comment: Graciela patton Type: BLOOD SPECIMENOrdering Facility: [facility] Address: [address] [place] [address] Result Comment: Jaylin mated Glomerular Filtration Rate [...] actual GFR. Performed By: #### 2 4323-8, 28047-5 ####[facility] [id number] [place] [address] [place] Glucose [Mass/Vol] 179 mg/dL High 74-99 [facility] Comment on above: Order Comment: Graciela patton Type: BLOOD SPECIMENOrdering Facility: [facility] Address: [address] [place] [address] Result Comment: The [place] Diabetes Association (ADA) provides guidance for cutoff [...] Standards of Medical Care in Diabetes 2016, [place] [employer] Association. Diabetes Care. 2016.39(Suppl 1). Performed By: #### 2 4323-8, 38906-5 ####[facility] LABIA [id number] [address] [address] [place] Potassium [Moles/Vol] 4.4 mmol/L Normal 3.7-5.1 [facility] Comment on above: Order Comment: Speci men Type: BLOOD SPECIMENOrdering Facility: [facility] Address: [address] [place] [address] Performed By: #### 2 4323-8, 42083-0 ####[facility]IA [id number] [place] [address] [place] Protein [Mass/Vol] 6.9 g/dL Normal 6.3-8.0 [facility] Comment on above: Order Comment: Speci men Type: BLOOD SPECIMENOrdering Facility: [facility] Address: [address] [place] [address] Performed By: #### 2 4323-8, 61567-0 ####[facility]IA [id number] [place] [address] [place] Sodium [Moles/Vol] 140 mmol/L Normal 136-144 [facility] Comment on above: Order Comment: Speci men Type: BLOOD SPECIMENOrdering Facility: [facility] Address: [address] [place] [address] Performed By: #### 2 4323-8, 83878-0 ####[facility]IA [id number] [place] [address] [place] Urea nitrogen [Mass/Vol] 23 mg/dL High 7-21 [facility] Comment on above: Order Comment: Speci men Type: BLOOD SPECIMENOrdering Facility: [facility] Address: [address] [place] [address] Performed By: #### 2 4323-8, 90830-7 ####[facility] [id number] [address] [place] HbA1c (Bld)on 11-27-2024 Average glucose Estimated from glycated hemoglobin (Bld) [Mass/Vol] 192 mg/dL Normal [facility] Comment on above: Order Comment: Graciela patton Type: BLOOD SPECIMENOrdering Facility: [facility] Address: [address] [place] [address] Result Comment: eAG: (Estimated average glucose) is a calculated value from HgbA1c and is small business sales representative of the average blood glucose level in the last 2-3 month period. Performed By: #### 5 5454-3 ####[facility]IA [id number] [address] [place] HbA1c (Bld) [Mass fraction] 8.3 % High 4.3-5.6 [facility] Comment on above: Order Comment: Graciela patton Type: BLOOD SPECIMENOrdering Facility: [facility] Address: [address] [place] [address] Result Comment: Amer [place] Diabetes Association guidelines indicate that patients with HgbA1c in the range 5.7-6.4% are at increased risk for development of diabetes, and intervention by lifestyle modification may be beneficial. HgbA1c greater or equal to 6.5% is considered diagnostic of diabetes. Performed By: #### 5 5454-3 ####[facility]IA [id number] [place] [address] [facility] [place] Lipid 1996 panelon 5 Cholesterol [Mass/Vol] 184 mg/dL Normal <200 [facility] Comment on above: Order Comment: Graciela patton Type: BLOOD SPECIMENOrdering Facility: [facility] Address: [address] [place] [address] Result Comment: <200 mg/dL, Desirable 200-239 mg/dL, Borderline high >239 mg/dL, High Performed By: #### 2 4323-8, 62530-7 ####[facility] [id number] [address] [address] [facility] Cholesterol in HDL [Mass/Vol] 36 mg/dL Low >39 [facility] Comment on above: Order Comment: Graciela abdi Type: BLOOD SPECIMENOrdering Facility: [facility] Address: [address] [place] [address] Result Comment: 40-5 9 mg/dL, Acceptable >59 mg/dL, High: Negative risk factor for coronary heart disease <40 mg/dL, Low: Positive risk factor for coronary heart disease Performed By: #### 2 4323-8, 00658-1 ####[facility]IA [id number] [address] Cholesterol in LDL [Mass/Vol] 127 mg/dL High <100 [facility] Comment on above: Order Comment: Graciela abdi Type: BLOOD SPECIMENOrdering Facility: [facility] Address: [address] [place] [address] Result Comment: <100 mg/dL, Optimal 100-129 mg/dL, Near optimal/above optimal 130-159 mg/dL, Borderline high 160-189 mg/dL, High >189 mg/dL, Very high Secondary prevention optimal LDL Cholesterol levels are recommended to be < 70 mg/dL Performed By: #### 2 4323-8, 38946-0 ####[facility] [id number] [place] [address] [facility] [place] Cholesterol in LDL/Cholesterol in HDL [Mass ratio] 3.53 {ratio} High <2.54 [facility] Comment on above: Order Comment: Fiordalizaabel patton Type: BLOOD SPECIMENOrdering Facility: [facility] Address: [address] [place] [address] Result Comment: Martín gallagher: 1. National Cholesterol Education Program ATP III Guideline At-A-Glance Quick Desk Reference: National Heart, Lung, and Blood [place]. National Institutes of Health. 2001: NIH Publication No. 01-3305. 2. An International Atherosclerosis Society position paper: global recommendations for the management of dyslipidemia: executive summary, Atherosclerosis. 2014: 232(2):410-413. Performed By: #### 2 4323-8, 97848-3 ####[facility] [id number] [address] [place] [address] [place] Cholesterol in VLDL [Mass/Vol] 21 mg/dL Normal <30 [facility] Comment on above: Order Comment: Speci men Type: BLOOD SPECIMENOrdering Facility: [facility] Address: [address] [place] [address] Performed By: #### 2 4323-8, 41252-9 ####[facility] [id number] [facility] [address] [place] [address] [place] Cholesterol non HDL [Mass/Vol] 148 mg/dL High <130 [facility] Comment on above: Order Comment: Speci men Type: BLOOD SPECIMENOrdering Facility: [facility] Address: [address] [place] [address] Result Comment: <130 mg/dL, Optimal 130-159 mg/dL, Near optimal/above optimal 160-189 mg/dL, Borderline high 190-219 mg/dL, High >219 mg/dL, Very high Secondary prevention optimal non HDL Cholesterol levels are recommended to be <100 mg/dL Performed By: #### 2 4323-8, 04043-6 ####[facility] [id number] [address] [place] [address] [place] Cholesterol.total/Ch olesterol in HDL [Mass ratio] 5.11 {ratio} High <5.10 [facility] Comment on above: Order Comment: Speci men Type: BLOOD SPECIMENOrdering Facility: [facility] Address: [address] [place] [id number] Performed By: #### 2 4323-8, 74120-4 ####[facility] [id number] [address] [place] [address] [place] FASTING TIME 12 hrs Normal [facility] Comment on above: Order Comment: Speci men Type: BLOOD SPECIMENOrdering Facility: [facility] Address: [address] [place] [address] Performed By: #### 2 4323-8, 34529-6 ####[facility] [id number] [place] [address] [place] Triglyceride [Mass/Vol] 107 mg/dL Normal <150 [facility] Comment on above: Order Comment: Speci men Type: BLOOD SPECIMENOrdering Facility: [facility] Address: [address] [place] [address] Result Comment: <150 mg/dL, Normal 150-199 mg/dL, Borderline high 200-499 mg/dL, High >499 mg/dL, Very high Performed By: #### 2 4323-8, 50006-9 ####[facility] [id number] [place] [id number] [place] CNOVon 11-11-2024 CNOV Office Visit (INTMWS ) ANGELICA SOSA ([id number]) 1945 F [facility] Date Time Provider Department 11/11/24 10:00 AM EMILY FLAHERTY INTMWS During your visit today, we recorded the following information about you: Pulse Blood pressure Weight 58/minute 126/66 65.2 kg Emily Flaherty MD 11/11/2024 11:59 AM Signed This note was created using gogamingoriter. Subjective Angelica Sosa is a 79 year [...] skin thinning. She has not seen a hand slitter for this issue in the past year [...] of both eyes Dr. Daniels follows at [facility] HYPERLIPIDEMIA NEC/NOS 10/17/2005 HYPERTENSION NOS 10/17/2005 [...] by mouth once daily. blood sugar diagnostic ([employer] VERIO TEST STRIPS) test strip USE TO CHECK BLOOD SUGAR ONCE A DAY lancets (ScaladoTOUCH DELICA PLUS LANCET) 33 gauge USE TO [...] Judgment normal. (more content not included)... Normal [facility] 07-31-2024 [facility] Telephone (INTMWS) ANGELICA SOSA ([id number]) 1945 [facility] Date Time Provider Department 11/20/EMILY TREVINO During your visit today, we recorded the following information about you: Alicia Templeton LPN 07/31/2024 10:04 AM Signed Electronic PA completed for cyclobenzaprine. This was approved. Approved Prior authorization approved Payer: WILLIAN Arce [phone] Approval Details Authorized from September 11, 2023 to October 29, 2024 Electronic appeal: Not supported Prior auth initiated by: [facility]- [id number] [place] [address] - [address] - [phone] [phone] View History Notes Time User Attachment Attachment received from payer. 07/31/2024 9:20 AM Mila Maciasauth In Document OBTAIN PA USING PA Phone # [phone] or TP Help Desk Phone:[phone] REQUIRES PRIOR AUTH. 07/31/2024 8:32 AM Gilberto Britton Incoming Retail Pharmacy From [facility] Benefits Open Encounter ANGELICA SOSAST BB CDH-N [id number] (WILLIAN ARCE) Covered: Retail, Mail Order, Specialty Unknown: Long-Term Care BIN: [id number] : 1945 Group ID: [id number] PCN: [id number] Legal sex: F Group name: [facility] MED D/AMA PART B ONLY Address: [address] [place] [address] [place] [address] Medication Being Authorized cyclobenzaprine (FLEXERIL) 10 mg tablet Take 1 tablet by mouth at bedtime as needed for muscle spasm. Dispense: 30 tablet Refills: 1 Start: 07/04/2024 Class: Normal Diagnoses: Acute right-sided low back pain with right-sided sciatica This order has been released to its destination. To be filled at: [facility]- [id number] [place] [address] - [address] - [phone] [phone] Pt notified via my chart. Allergies As of Date: 07/31/2024 Noted Allergy Reaction BEEF DERIVED (BOVINE) 10/17/2005 Comments: congestion FISH CONTAINING PRODUCTS 11/17/2017 9 - Itching PEANUT OIL 10/17/2005 Comments: uncertain PEANUTS 10/17/2005 Comments: not sure SHELLFISH DERIVED 10/11/2023 9 - Itching TYLENOL (ACETAMINOPHEN) 10/17/2005 Comments: hyperactivity Date Reviewed: 07/04/2024 Reviewed by: Amara Mauricio APRN.COMPASS OPERATOR - Fully Assessed Reason for Visit: Insurance Authorization [[id number]] Prescriptions as of 07/31/2024 - meloxicam (MOBIC) [...] BLOOD SUGAR ONCE A DAY - lancets (ScaladoTOUCH DELICA PLUS LANCET) 33 gauge USE TO [...] Status:Closed by ALICIA TEMPLETON on 07/31/24 Normal [facility] SCREENINGon 07-15-2024 [facility] S[facility] * * *Final Report* * * DATE OF EXAM: Jul 15 2024 2:39PM GRISEL [id number] - [facility] SCREENING / PROCEDURE REASON: Screening mammogram for breast cancer * * * * Physician Interpretation * * * * RESULT: [facility] [address] [id number] HISTORY: Patient is 79 years old and [...] Flex Ochoa M.D. Electronically signed on: 07/16/2024 Transplant Surgeon: RITESH Transcribe Date/Time: Jul 15 2024 2:28P Dictated by: FLEX OCHOA MD This examination was interpreted and the report reviewed and electronically signed by: FLEX OCHOA MD on Jul 16 2024 3:10PM EST [id number] Normal [facility] CNOVon 07-04-2024 CNOV Office Visit (INTMWS ) ANGELICA SOSA ([id number]) 1945 F T Date Time Provider Department 07/04/24 12:00 PM AMARA MAURICIO INTMWS During your visit today, we recorded the following information about you: Pulse Respiration Blood pressure Weight 89/minute 16/minute 134/79 67.3 kg Amara Mauricio APRN.COMPASS OPERATOR 07/04/2024 2:01 PM Signed SUBJECTIVE: Diabetic Foot [...] of both eyes Dr. Daniels follows at [facility] HYPERLIPIDEMIA NEC/NOS 10/17/2005 HYPERTENSION NOS 10/17/2005 [...] Negative Ketones, Urine Negative 1+ (A) Specific [place], Ur 1.005 - 1.030 1.035 (H) Hemoglobin/Blood,Ur [...] 150 - (more content not included)... Normal [facility] 07-04-2024 INGRID Telephone (INTMWS) ANGELICA SOSA ([id number]) 1945 F [facility] Date Time Provider Department 07/04/24 EMILY FLAHERTY [...] Date Reviewed: 06/07/2024 Reviewed by: Aracelis Ribeiro APRN.LEAD JAVA DEVELOPER ARCHITECT - Fully Assessed Reason for Visit: Patient [...] mouth once daily. - blood sugar diagnostic (ScaladoTOUCH VERIO TEST STRIPS) test strip USE TO CHECK BLOOD SUGAR ONCE A DAY - lancets (BigRepUCH DELICA PLUS LANCET) 33 gauge USE TO [...] Encounter Status:Closed by KELLY SOTO on 07/04/24 [facility] CNOVon 06-07-2024 CNOV Office Visit (INTMWS ) ANGELICA SOSA ([id number]) 1945 F [facility] Date Time Provider Department 06/07/24 9:00 AM ARACELIS RIBEIRO INTALONDRA During your visit today, we recorded the following information about you: Pulse Blood pressure Weight 74/minute 154/72 66.6 kg Aracelis Ribeiro APRN.LEAD JAVA DEVELOPER ARCHITECT 06/07/2024 9:28 AM Signed Angelica Josiah Sheila [...] Team: Emily Flaherty MD as PCP - RosenhaynBecki RPh as Pharmacist (Pharmacy) Outside specialists seen: education program specialist, dermatology Medical/Family history review Reviewed and [...] dinner or as directed blood sugar diagnostic (ScaladoTOUCH VERIO TEST STRIPS) test strip USE TO CHECK BLOOD SUGAR ONCE A DAY lancets (ScaladoTOUCH DELICA PLUS LANCET) 33 gauge USE TO CHECK BLOOD SUGAR ONCE A DAY No current facility-administered medications for this visit. ALLERGIES Allergen Reactions Beef Derived (Bovin* congestion Fish Containing Pro* Itching Peanut Oil uncertain Peanuts not sure Shellfish Derived Itching Tylenol [Acetaminop* hyperactivity ACTIVE PROBLEM LIST Controlled Type 2 Diabetes Mellitus Without Complication, Without Long-Term Current Use of Insulin ([facility]) - 05/04/2021 Vitamin D Deficiency - 09/23/2016 [...] ear no (more content not included)... Normal [facility] ALBUMIN/CREATININE RATIO, UR INEon 04-19-2024 Albumin DL <= 20 mg/L (U) [Mass/Vol] 41.7 mg/L [facility] Albumin/Creatinine (U) [Mass ratio] 27 mg/g NINF - 30 mg/g [facility] Comment on above: Adult Male and Femal [...] [Mass/Vol] 153.1 mg/dL 20.0 - 300.0 mg/dL [facility] CBC panel Auto (Bld)on 12-05 Erythrocyte distribution width (RBC) [Ratio] 14.0 % 11.5 - 15.0 % [facility] Hematocrit (Bld) [Volume fraction] 43.0 % 36.0 - 46.0 % [facility] Hemoglobin (Bld) [Mass/Vol] 13.5 g/dL 11.5 - 15.5 g/dL [facility] Interpretation and review of laboratory results Normal [facility] MCH (RBC) [Entitic mass] 28.4 pg 26.0 - 34.0 pg [facility] MCHC (RBC) [Mass/Vol] 31.4 g/dL 30.5 - 36.0 g/dL [facility] MCV (RBC) [Entitic vol] 90.5 fL 80.0 - 100.0 fL [facility] Nucleated RBC (Bld) [#/Vol] NINF [facility] Platelet mean volume (Bld) [Entitic vol] 9.2 fL 9.0 - 12.7 fL [facility] Platelets (Bld) [#/Vol] 344 10*3/uL [facility] RBC (Bld) [#/Vol] 4.75 10*6/uL 3.90 - 5.2 0 m/uL [facility] WBC (Bld) [#/Vol] 8.71 10*3/uL [facility] REINIER SCREENINGon 07-13-2023 [facility] REINIER SCREENINGon 04-25-2022 [facility] Vital Signs Date Time Vital Sign Value Performing Clinician Facility 04-24-2025 13:49-0400 Body mass index (BMI) [Ratio] 27.48 kg/m2 Amara Mauricio APRN.COMPASS OPERATOR Work Phone: [facility] 04-24-2025 13:49-0400 Body weight 63.9 kg Amara Mauricio APRN.COMPASS OPERATOR Work Phone: [facility] 04-24-2025 13:49-0400 Diastolic blood pressure 78 mm[Hg] Amara Mauricio APRN.COMPASS OPERATOR Work Phone: [facility] 04-24-2025 13:49-0400 Heart rate 94 /min Amara Mauricio FLOOR SANDING MACHINE OPERATOR.COMPASS OPERATOR Work Phone: [facility] 04-24-2025 13:49-0400 Respiratory rate 16 /min Amara Mauricio FLOOR SANDING MACHINE OPERATOR.COMPASS OPERATOR Work Phone: [facility] 04-24-2025 13:49-0400 Systolic blood pressure 130 mm[Hg] Amara Mauricio FLOOR SANDING MACHINE OPERATOR.COMPASS OPERATOR Work Phone: [facility] 04-10-2025 13:44-0400 Diastolic blood pressure 61 mm[Hg] Amara Mauricio FLOOR SANDING MACHINE OPERATOR.COMPASS OPERATOR Work Phone: [facility] 04-10-2025 13:44-0400 Heart rate 67 /min Amara Mauricio FLOOR SANDING MACHINE OPERATOR.COMPASS OPERATOR Work Phone: [facility] 04-10-2025 13:44-0400 Respiratory rate 16 /min Amara Mauricio FLOOR SANDING MACHINE OPERATOR.COMPASS OPERATOR Work Phone: [facility] 04-10-2025 13:44-0400 Systolic blood pressure 103 mm[Hg] Amara Mauricio FLOOR SANDING MACHINE OPERATOR.COMPASS OPERATOR Work Phone: [facility] 04-08-2025 16:51-0400 Body temperature 98.1 [degF] Dr. Emily Flaherty MD Work Phone: [facility] 04-08-2025 16:51-0400 Diastolic blood pressure 78 mm[Hg] Dr. Emily Flaherty MD Work Phone: [facility] 04-08-2025 16:51-0400 Heart rate 77 /min Dr. Emily Flaherty MD Work Phone: [facility] 04-08-2025 16:51-0400 Respiratory rate 16 /min Dr. Emily Flaherty MD Work Phone: [facility] 04-08-2025 16:51-0400 SaO2% (BldA) [Mass fraction] 95 % Dr. Emily Flaherty MD Work Phone: [facility] 04-08-2025 16:51-0400 Systolic blood pressure 184 mm[Hg] Dr. Emily Flaherty MD Work Phone: 0(173)869-814156 [place] [address] 04-08-2025 14:54-0400 Body mass index (BMI) [Ratio] 27.1 kg/m2 Dr. Emily Flaherty MD Work Phone: 3(313)812-382756 [place] [address] 04-08-2025 14:54-0400 Body weight 65.[address] Emily Flaherty MD Work Phone: 4(421)960-079056 [place] [address] 04-08-2025 14:47-0400 Body height 154.[address] Emily Flaherty MD Work Phone: 2(529)301-637056 [place] [address] 04-03-2025 18:47-0400 Body temperature 97.6 [degF] Dr. Emily Flaherty MD Work Phone: 0(444)227-730956 [place] [address] 04-03-2025 18:47-0400 Diastolic blood pressure 76 mm[Hg] Dr. Emily Flaherty MD Work Phone: 8(626)857-748556 [place] [address] 04-03-2025 18:47-0400 Heart rate 75 /min Dr. Emily Flaherty MD Work Phone: 3(547)929-286056 [place] [address] 04-03-2025 18:47-0400 Respiratory rate 18 /min Dr. Emily Flaherty MD Work Phone: 4(751)807-412656 [place] [address] 04-03-2025 18:47-0400 SaO2% (BldA) [Mass fraction] 97 % Dr. Emily Flaherty MD Work Phone: 5(240)558-886656 [place] [address] 04-03-2025 18:47-0400 Systolic blood pressure 143 mm[Hg] Dr. Emily Flaherty MD Work Phone: 1(935)731-810356 [place] [address] 04-03-2025 16:55-0400 Body height 154.[address] Emily Flaherty MD Work Phone: 9(180)345-252856 [place] [address] 04-03-2025 16:55-0400 Body mass index (BMI) [Ratio] 27.4 kg/m2 Dr. Emily Flaherty MD Work Phone: [facility] 04-03-2025 16:55-0400 Body weight 65.[address] Emily Flaherty MD Work Phone: [facility] 02-18-2025 14:53-0400 Body height 152.5 cm Aracelis Vinod FLOOR SANDING MACHINE OPERATOR.LEAD JAVA DEVELOPER ARCHITECT Work Phone: [facility] 02-18-2025 14:53-0400 Body mass index (BMI) [Ratio] 27.61 kg/m2 Aracelis Vinod FLOOR SANDING MACHINE OPERATOR.LEAD JAVA DEVELOPER ARCHITECT Work Phone: [facility] 02-18-2025 14:53-0400 Body weight 64.2 kg Aracelis Vinod FLOOR SANDING MACHINE OPERATOR.LEAD JAVA DEVELOPER ARCHITECT Work Phone: [facility] 02-18-2025 14:53-0400 Diastolic blood pressure 62 mm[Hg] Aracelis Vinod FLOOR SANDING MACHINE OPERATOR.LEAD JAVA DEVELOPER ARCHITECT Work Phone: [facility] 02-18-2025 14:53-0400 Heart rate 66 /min Aracelis Vinod FLOOR SANDING MACHINE OPERATOR.LEAD JAVA DEVELOPER ARCHITECT Work Phone: [facility] 02-18-2025 14:53-0400 SaO2% (BldA) [Mass fraction] 96 % Aracelis Vinod FLOOR SANDING MACHINE OPERATOR.LEAD JAVA DEVELOPER ARCHITECT Work Phone: [facility] 02-18-2025 14:53-0400 Systolic blood pressure 134 mm[Hg] Aracelis Vinod FLOOR SANDING MACHINE OPERATOR.LEAD JAVA DEVELOPER ARCHITECT Work Phone: [facility] 12-31-2024 13:16-0400 Body mass index (BMI) [Ratio] 26.43 kg/m2 Lc Cuello MD Work Phone: [facility] 12-31-2024 13:16-0400 Body weight 64.5 kg Lc Cuello MD Work Phone: [facility] 12-31-2024 13:16-0400 Diastolic blood pressure 70 mm[Hg] Lc Cuello MD Work Phone: [facility] 12-31-2024 13:16-0400 Heart rate 71 /min Lc Cuello MD Work Phone: [facility] 12-31-2024 13:16-0400 Respiratory rate 14 /min Lc Cuello MD Work Phone: [facility] 12-31-2024 13:16-0400 SaO2% (BldA) [Mass fraction] 96 % Lc Cuello MD Work Phone: [facility] 12-31-2024 13:16-0400 Systolic blood pressure 135 mm[Hg] Lc Cuello MD Work Phone: [facility] 12-19-2024 09:00-0400 Heart rate 58 /min Lc Cuello MD Work Phone: [facility] 12-19-2024 09:00-0400 Respiratory rate 16 /min Lc Cuello MD Work Phone: [facility] 12-19-2024 09:00-0400 SaO2% (BldA) [Mass fraction] 97 % Lc Cuello MD Work Phone: [facility] 12-19-2024 08:50-0400 Diastolic blood pressure 51 mm[Hg] Lc Cuello MD Work Phone: [facility] 12-19-2024 08:50-0400 Systolic blood pressure 100 mm[Hg] Lc Cuello MD Work Phone: [facility] 12-19-2024 07:34-0400 Body mass index (BMI) [Ratio] 26.72 kg/m2 Lc Cuello MD Work Phone: [facility] 12-19-2024 07:34-0400 Body temperature 97.81 [degF] Lc Cuello MD Work Phone: [facility] 12-19-2024 07:34-0400 Body weight 65.2 kg Lc Cuello MD Work Phone: [facility] 11-11-2024 10:36-0500 Body mass index (BMI) [Ratio] 26.72 kg/m2 Emily Flaherty MD Work Phone: [facility] 03-03-2025 10:36-0500 Body weight 65.2 kg Emily Flaherty MD Work Phone: [facility] 11-11-2024 10:36-0500 Diastolic blood pressure 66 mm[Hg] Emily Flaherty MD Work Phone: [facility] 11-11-2024 10:36-0500 Heart rate 58 /min Emily Flaherty MD Work Phone: [facility] 11-11-2024 10:36-0500 SaO2% (BldA) [Mass fraction] 97 % Emily Flaherty MD Work Phone: [facility] 11-11-2024 10:36-0500 Systolic blood pressure 126 mm[Hg] Emily Flaherty MD Work Phone: [facility] 07-04-2024 12:08-0400 Body mass index (BMI) [Ratio] 27.58 kg/m2 Amara Mauricio FLOOR SANDING MACHINE OPERATOR.COMPASS OPERATOR Work Phone: [facility] 07-04-2024 12:08-0400 Body weight 67.3 kg Amara Mauricio FLOOR SANDING MACHINE OPERATOR.COMPASS OPERATOR Work Phone: [facility] 07-04-2024 12:08-0400 Diastolic blood pressure 79 mm[Hg] Amara Mauricio FLOOR SANDING MACHINE OPERATOR.COMPASS OPERATOR Work Phone: [facility] 07-04-2024 12:08-0400 Heart rate 89 /min Amara Mauricio FLOOR SANDING MACHINE OPERATOR.COMPASS OPERATOR Work Phone: [facility] 07-04-2024 12:08-0400 Respiratory rate 16 /min Amara Mauricio FLOOR SANDING MACHINE OPERATOR.COMPASS OPERATOR Work Phone: [facility] 07-04-2024 12:08-0400 Systolic blood pressure 134 mm[Hg] Amara Mauricio FLOOR SANDING MACHINE OPERATOR.COMPASS OPERATOR Work Phone: [facility] 06-07-2024 08:39-0400 Diastolic blood pressure 72 mm[Hg] Aracelis Ribeiro FLOOR SANDING MACHINE OPERATOR.LEAD JAVA DEVELOPER ARCHITECT Work Phone: [facility] 06-07-2024 08:39-0400 Systolic blood pressure 154 mm[Hg] Aracelis Vinod FLOOR SANDING MACHINE OPERATOR.LEAD JAVA DEVELOPER ARCHITECT Work Phone: [facility] 06-07-2024 08:37-0400 Body mass index (BMI) [Ratio] 27.29 kg/m2 Aracelis Vinod FLOOR SANDING MACHINE OPERATOR.LEAD JAVA DEVELOPER ARCHITECT Work Phone: [facility] 06-07-2024 08:37-0400 Body weight 66.6 kg Aracelis Vinod FLOOR SANDING MACHINE OPERATOR.LEAD JAVA DEVELOPER ARCHITECT Work Phone: [facility] 06-07-2024 08:37-0400 Heart rate 74 /min Aracelis Vinod FLOOR SANDING MACHINE OPERATOR.LEAD JAVA DEVELOPER ARCHITECT Work Phone: [facility] 06-07-2024 08:37-0400 SaO2% (BldA) [Mass fraction] 97 % Aracelis Vinod FLOOR SANDING MACHINE OPERATOR.LEAD JAVA DEVELOPER ARCHITECT Work Phone: [facility] 11-14-2023 10:22-0500 Diastolic blood pressure 73 mm[Hg] Lakeisha Strange MD Work Phone: [facility] 11-14-2023 10:22-0500 Heart rate 73 /min Lakeisha Strange MD Work Phone: [facility] 11-14-2023 10:22-0500 Systolic blood pressure 142 mm[Hg] Lakeisha Strange MD Work Phone: [facility] 05-03-2023 15:14-0400 Body temperature 96.49 [degF] Emily Flaherty MD Work Phone: [facility] 05-03-2023 15:14-0400 Body weight 65.32 kg Emily Flaherty MD Work Phone: [facility] 05-03-2023 15:14-0400 Diastolic blood pressure 62 mm[Hg] Emily Flaherty MD Work Phone: [facility] 05-03-2023 15:14-0400 Heart rate 68 /min Emily Flaherty MD Work Phone: [facility] 05-03-2023 15:14-0400 Respiratory rate 18 /min Emily Flaherty MD Work Phone: [facility] 05-03-2023 15:14-0400 SaO2% (BldA) [Mass fraction] 99 % Emily Flaherty MD Work Phone: [facility] 05-03-2023 15:14-0400 Systolic blood pressure 120 mm[Hg] Emily Flaherty MD Work Phone: [facility] 04-18-2022 16:44-0400 Body weight 62.6 kg Emily Flaherty MD Work Phone: [facility] 04-18-2022 16:44-0400 Diastolic blood pressure 82 mm[Hg] Emily Flaherty MD Work Phone: [facility] 04-18-2022 16:44-0400 Heart rate 76 /min Emily Flaherty MD Work Phone: [facility] 04-18-2022 16:44-0400 SaO2% (BldA) [Mass fraction] 95 % Emily Flaherty MD Work Phone: [facility] 04-18-2022 16:44-0400 Systolic blood pressure 132 mm[Hg] Emily Flaherty MD Work Phone: [facility] 02-16-2022 17:19-0400 Body weight 60.78 kg Emily Flaherty MD Work Phone: [facility] 02-16-2022 17:19-0400 Diastolic blood pressure 90 mm[Hg] Emily Flaherty MD Work Phone: [facility] 02-16-2022 17:19-0400 Heart rate 76 /min Emily Flaherty MD Work Phone: [facility] 02-16-2022 17:19-0400 Respiratory rate 16 /min Emily Flaherty MD Work Phone: [facility] 02-16-2022 17:19-0400 Systolic blood pressure 160 mm[Hg] Emily Flaherty MD Work Phone: [facility] 10-05-2021 14:18-0500 Diastolic blood pressure 70 mm[Hg] Emily Flaherty MD Work Phone: [facility] 10-05-2021 14:18-0500 Systolic blood pressure 122 mm[Hg] Emily Flaherty MD Work Phone: [facility] 10-05-2021 13:30-0500 Body temperature 98.6 [degF] Emily Flaherty MD Work Phone: [facility] 10-05-2021 13:30-0500 Body weight 62.14 kg Emily Flaherty MD Work Phone: [facility] 10-05-2021 13:30-0500 Heart rate 64 /min Emily Flaherty MD Work Phone: [facility] 10-05-2021 13:30-0500 Respiratory rate 20 /min Emily Flaherty MD Work Phone: [facility] Encounters Encounter Date Encounter Type Care Provider Facility Start: 05-26-2025 End: 05-26-2025 ambulatory EMILY FLAHERTY Facility:[facility] Start: 04-24-2025 End: 04-24-2025 Subsequent hospital visit by physician [facility] Work Phone: Radiology Comment on above: Right leg pain [M79. 604] Start: 04-24-2025 End: 04-24-2025 ambulatory EMILY FLAHERTY Facility:[facility] Start: 04-24-2025 End: 04-24-2025 Office outpatient visit 15 minutes Amara Mauricio APRN.COMPASS OPERATOR Work Phone: [facility] [place] Comment on above: Right leg pain (Prim vamshi Dx); Fall, subsequent encounter; Right leg swelling; Popliteal cyst, right Start: 04-11-2025 End: 04-11-2025 Follow-up encounter Amara Mauricio APRN.COMPASS OPERATOR Work Phone: [facility] [place] Comment on above: ultrasound results Start: 04-10-2025 End: 04-10-2025 Subsequent hospital visit by physician [facility] Comment on above: Right leg pain [M79. 604] Start: 04-10-2025 End: 04-10-2025 Office outpatient visit 25 minutes Amara Mauricio APRNKathyCOMPASS OPERATOR Work Phone: [facility] [place] Comment on above: Fall, subsequent enc ounter (Primary Dx); Right leg pain; Right leg swelling; Laceration of occipital scalp, subsequent encounter; Encounter for staple removal; Contusion of right lower leg, initial encounter Start: 04-10-2025 End: 04-10-2025 ambulatory EMILY FLAHERTY Facility:[facility] Start: 04-08-2025 End: 04-08-2025 Emergency department patient [...] 03-03-2025 ambulatory Kiera Shepard RN Work Phone: Client Integration Manager Management Comment on above: Bi-Weekly Outreach ( Recurring) for Chronic Disease Management Start: 02-28-2025 End: 02-28-2025 E-mail encounter from caregiver Mala Delgado [facility] Work Phone: [facility] Start: 02-28-2025 End: 02-28-2025 Follow-up encounter Mala Delgado [facility] Work Phone: [facility] Start: 02-28-2025 End: 02-28-2025 Patient encounter procedure Mala Delgado [facility] Work Phone: [facility] Comment on above: A1c Results Start: 02-27-2025 End: 02-27-2025 Patient encounter procedure Mala Delgado [facility] Work Phone: [facility] Comment on above: Type 2 diabetes hasmukh itus without complication, without long- term current use of insulin (HCC) (Primary Dx) Start: 02-27-2025 End: 02-27-2025 ambulatory EMILY FLAHERTY Facility:[facility] Start: 02-20-2025 End: 02-20-[address] Emily Flaherty MD Work Phone: [facility] Work Phone: Start: 02-20-2025 End: 02-20-[address] Antelmo Gutierrez MD -Laboratory Specimen Work Phone: Start: 02-20-2025 End: 02-20-2025 ambulatory Antelmo Gutierrez Facility:[facility] Start: 02-18-2025 End: 02-18-2025 ambulatory ARACELIS RIBEIRO Facility:[facility] Start: 02-18-2025 End: 02-18-2025 Patient encounter procedure Aracelis Ribeiro FLOOR SANDING MACHINE OPERATOR.LEAD JAVA DEVELOPER ARCHITECT Work Phone: [facility] [place] Comment on above: Medicare annual well ness visit, subsequent (Primary Dx); Type 2 diabetes mellitus with hyperlipidemia (HCC); Essential hypertension Start: 02-07-2025 End: 02-07-2025 ambulatory Hedy Sepulveda RN Work Phone: Client Integration Manager Management Comment on above: Primary Care Coordin ator- Other (Incoming call ) Bi-Weekly Outreach ( Recurring) for Chronic Disease Management Start: 02-05-2025 End: 02-06-2025 Refill Emily Flaherty MD Work Phone: [facility] [place] Comment on above: Refill Request Start: 01-24-2025 End: 01-24-2025 ambulatory Tara Young RN Client Integration Manager Management Comment on above: Initial enrollment o [place] for Chronic Disease Management Start: 2025 End: 2025 Nursing evaluation of patient and report Nurse Gens [facility] Work Phone: General Surgery Comment on above: Visit for suture rem oval (Primary Dx) Start: 2025 End: 2025 [facility] Start: 01-06-2025 End: 01-06-2025 Patient encounter procedure Lc Cuello MD Work Phone: General Surgery Comment on above: Sebaceous cyst (Prim vamshi Dx) Start: 01-06-2025 End: 01-06-2025 ambulatory LC CUELLO Facility:[facility] Start: 12-31-2024 End: 12-31-2024 Patient encounter procedure Lc Cuello MD Work Phone: General Surgery Comment on above: Sebaceous cyst (Prim vamshi Dx) Start: 12-31-2024 End: 12-31-2024 ambulatory LC CUELLO Facility:[facility] Start: 12-30-2024 End: 12-30-2024 Patient encounter procedure Zahraa Drummondir FLOOR SANDING MACHINE OPERATOR.LEAD JAVA DEVELOPER ARCHITECT Work Phone: General Surgery Comment on above: Hyperplastic polyp o f sigmoid colon (Primary Dx) Start: 12-30-2024 End: 12-30-2024 ambulatory ZAHRAA DELACRUZ Facility:[facility] Start: 12-25-2024 End: 12-25-2024 ambulatory Ngozi Foster [facility] Work Phone: Pharmacy Medicine Start: 12-25-2024 End: 12-25-2024 Patient encounter procedure Ngozi Foster [facility] Work Phone: Pharmacy Medicine Comment on above: Care Coordination (P tiffany Management Review for Pharmacist Referral for Diabetes Management) Start: 12-19-2024 End: 12-19-2024 ambulatory EMILY D EDWARAMPSB Facility:[facility] Start: 12-19-2024 End: 12-19-2024 Subsequent hospital [...] Start: 11-27-2024 End: 11-27-2024 ambulatory EMILY FLAHERTY Facility:[facility] Start: 11-11-2024 End: 11-11-2024 ambulatory EMILY FLAHERTY Facility:[facility] Start: 11-11-2024 End: 11-11-2024 Office outpatient visit 40 minutes Emily Flaherty MD Work Phone: [facility] [place] Comment on above: Controlled type 2 di abetes mellitus without complication, without long-term current use of insulin (HCC) (Primary Dx); Vitamin D deficiency; Mixed hyperlipidemia; Essential hypertension; Skin lesion of lower extremity; Special screening for malignant neoplasms, colon; Encounter for immunization Start: 07-31-2024 End: 07-31-2024 Telephone encounter Emily Flaherty MD Work Phone: [facility] [place] Comment on above: Insurance Authorizat ion Start: 07-15-2024 End: 07-15-2024 ambulatory EMILY FLAHERTY Facility:[facility] Start: 07-15-2024 End: 07-15-2024 Subsequent [facility] Comment on above: Screening mammogram for breast cancer [Z12.31] Start: 07-04-2024 End: 07-04-2024 Telephone encounter Emily Flaherty MD Work Phone: [facility] [place] Comment on above: Patient Update Start: 07-04-2024 End: 07-04-2024 ambulatory EMILY FLAHERTY Facility:[facility] Start: 07-04-2024 End: 07-04-2024 Office outpatient visit 15 minutes Amara Mauricio APRN.CNS Work Phone: [facility] [place] Comment on above: Acute right-sided lo w back pain with right-sided sciatica (Primary Dx); Screening mammogram for breast cancer Start: 06-07-2024 End: 06-07-2024 ambulatory ARACELIS RIBEIRO Facility:[facility] Start: 06-07-2024 End: 06-07-2024 Patient encounter procedure Aracelis Ribeiro LEAD JAVA DEVELOPER ARCHITECT Work Phone: [facility] [place] Comment on above: Medicare annual well ness visit, subsequent (Primary Dx); Controlled type 2 diabetes mellitus without complication, without long-term current use of insulin (HCC); Essential hypertension; Mixed hyperlipidemia; Vitamin D deficiency; Encounter for screening examination for other mental health and behavioral disorders Start: 04-19-2024 End: 05-04-2024 Telephone encounter Emily Flaherty MD Work Phone: [facility] [place] Start: 02-07-2024 Refill Emily colon MD Work Phone: [facility] [place] Comment on above: Refill Request Start: 12-06-2023 End: 12-06-2023 Office outpatient visit 25 minutes Emily Flaherty MD Work Phone: [facility] [place] Comment on above: Controlled type 2 di [...] 07-14-2023 Documentation procedure Mammog umm Coordinator [facility] Start: 07-14-2023 Letter encounter Mammography Coordinator [facility] Department Start: 07-13-2023 End: 07-13-2023 Subsequent hospital visit by physician Screen Mammo [facility] Mammogram Comment on above: Encounter for screen ing mammogram for breast cancer [Z12.31] Start: 05-03-2023 End: 05-03-2023 Office outpatient visit 25 minutes Emily Flaherty MD Work Phone: [facility] [place] Comment on above: Controlled type 2 di [...] 04-25-2022 Refill Emily Flaherty MD Work Phone: [facility] Comment on above: Refill Request Visit for [...] exam knee complete 4/more views Amara Mauricio APRN.COMPASS OPERATOR Work Phone: Start: 04-10-2025 Dup-scan xtr veins unilateral/limited study Amara Mauricio FLOOR SANDING MACHINE OPERATOR.COMPASS OPERATOR Work Phone: Start: 04-08-2025 Plain X-ray of [...] DTaP,Tdap,Td Vaccine (3 - Td or Tdap) [facility] Start: 12-19-2029 Screening for malign ant neoplasm of colon [facility] Start: 11-27-2025 Hepatitis B surface antibody level LDL Cholesterol [facility] Start: 11-25-2025 End: 11-25-2025 Patient encounter procedure 11/25/2025 1:20 PM EDT Office Visit [facility] [address] [place] [address] Emily Flaherty MD [address] [place] [address] Medicare Wellness Exam [facility] Comment on above: Medicare Wellness Ex am Start: 11-11-2025 Annual PCP Team Senior Android Developer zhao Disease Visit Annual PCP Team Chronic Disease Visit [facility] Start: 11-11-2025 BP Controlled (<130/80) BP Controlle d (<130/80) [facility] Start: 11-11-2025 Shingrix Vaccine (2 of 3) Shingrix Vaccine (2 of 3) [facility] Comment on above: Postponed from 01/29 (Declined at this time) Start: 08-16-2025 Glaucoma screening Dilated Retinal E xam [facility] Start: 06-07-2025 Annual PCP Team Senior Android Developer zhao Disease Visit Annual PCP Team Chronic Disease Visit [facility] Start: 06-07-2025 Anxiety Screening Anxiety Screening [facility] Start: 05-30-2025 Hemoglobin A1c measurement HbA1C [facility] Start: 05-29-2025 End: 05-29-2025 Patient encounter procedure 05/29/2025 1:00 PM EDT Office Visit Orthopaedics [address] [id number] Sara Dominguez PA-C [address] [place] [address] Fall, subsequent encounter [W19.XXXD]; Right leg pain [M79.604]; Right leg swelling [M79.89]; Popliteal cyst, right [M71.21] Orthopaedics Comment on above: Fall, subsequent enc ounter [W19.XXXD]; Right leg pain [M79.604]; Right leg swelling [M79.89]; Popliteal cyst, right [M71.21] Start: 05-26-2025 End: 05-26-2025 Patient encounter procedure 05/26/2025 10:00 AM EDT Office Visit [facility] [address] [place] [address] Emily Flaherty MD [address] [place] [address] 6 month follow up [facility] Comment on above: 6 month follow up Start: 05-12-2025 Influenza vaccination C [facility] Start: 04-19-2025 Hepatitis B screening Urine Al bumin:Creatinine Ratio [facility] Start: 04-10-2025 End: 04-10-2025 Patient encounter procedure 04/10/2025 1:40 PM EDT Office Visit [facility] [address] [place] [address] Amara Mauricio, KATIE.COMPASS OPERATOR [address] [place] [address] 04/03 [facility] ER follow up / remove 7-8 sutures from scalp [facility] [place] Comment on above: 04/03 [facility] ER follow u p / remove 7-8 sutures from scalp Start: 04-08-2025 [facility] Start: 04-03-2025 [facility] Start: 03-10-2025 Influenza vaccination Influenza Vacc ine (#1) [facility] Comment on above: Postponed from 05/12 (Declined at this time) Start: 02-27-2025 End: 05-29-2025 Hemoglobin A1c in Blood [facility] Work Phone: Comment on above: Expected: 02/27/2025 , Expires: 05/29/2025 Start: 02-27-2025 Hemoglobin A1c measurement HbA1C [facility] Start: 02-27-2025 End: 02-27-2025 Patient encounter procedure 02/27/2025 1:00 PM EDT Office Visit [facility] [address] [place] [address] [facility] [address] [place] [address] Goal: A1c < 8% [facility] Comment on above: Goal: A1c < 8% Start: 02-18-2025 End: 02-18-2025 Patient encounter procedure 02/18/2025 3:00 PM EDT Office Visit [facility] [address] [place] [address] Aracelis Ribeiro APRN.LEAD JAVA DEVELOPER ARCHITECT [address] [place], [place] [address] 2024 Medicare Wellness Z00.00 [facility] [place] Comment on above: 2024 Medicare Wellne ss Z00.00 Start: 01-23-2025 End: 01-23-2025 Patient encounter procedure 01/23/2025 1:00 PM EDT Office [facility] [address] [facility] [place] [address] Sandy Mala, [facility] [address] [place] [address] initial pharmD visit. T2DM. [facility] Comment on above: initial pharmD visit . T2DM. Start: 2025 End: 2025 Nursing evaluation of patient and report 2025 2:30 PM EDT Nurse Visit General Surgery [address] [place] [address] Wstr, Nurse Gens [facility] [address] [place] [address] Nurse visit suture removal General Surgery Comment on above: Nurse visit suture r emoval Start: 01-06-2025 End: 01-06-2025 Patient encounter procedure 01/06/2025 3:00 PM EDT Office Visit General Surgery [address] [place] [address] Lc Cuello MD [address] [place] [address] excision right neck cyst General Surgery Comment on above: excision right neck cyst Start: 12-30-2024 End: 12-30-2024 Patient encounter procedure General Surgery Comment on above: 12-19 colonoscopy fo llow up 12-19 colonoscopy fo llow up with Path. Hx updated. [facility] Start: 12-19-2024 End: 12-19-2024 Patient encounter procedure 12/19/2024 8:00 AM EDT Appointment Ambulatory Surgery [address] [place], [place] [address] cL Cuello MD [address] [place] [address] Special screening for malignant neoplasms, colon [Z12.11] Ambulatory Surgery Comment on above: Special screening fo r malignant neoplasms, colon [Z12.11] Start: 12-13-2024 End: 12-13-2024 Patient encounter procedure 12/13/2024 1:00 PM EDT Office Visit [facility] [address] [place] [address] Emily Flaherty MD [address] [place] [address] Yearly [facility] [place] Comment on above: Yearly Start: 12-05-2024 Annual PCP Team Senior Android Developer zhao Disease Visit Annual PCP Team Chronic Disease Visit [facility] Start: 12-05-2024 BP Controlled (<130/80) BP Controlle d (<130/80) [facility] Start: 12-05-2024 Hepatitis B surface antibody level LDL Cholesterol [facility] Start: 11-21-2024 End: 01-21-2025 Microalbumin/Creatinine [Mass Ratio] in Urine ALBUMIN/CREATININE RATIO, URINE Lab Routine Controlled type 2 diabetes mellitus without complication, without long-term current use of insulin (HCC) Expected: 11/21/2024 (Approximate), Expires: 01/21/2025 [facility] Work Phone: Comment on above: Expected: 11/21/2024 (Approximate), Expires: 01/21/2025 Start: 11-11-2024 End: 02-10-2025 Microalbumin/Creatinine [Mass Ratio] in Urine ALBUMIN/CREATININE RATIO, URINE Lab Routine Controlled type 2 diabetes mellitus without complication, without long-term current use of insulin (HCC) Essential hypertension Expected: 11/11/2024, Expires: 02/10/2025 [facility] Work Phone: Comment on above: Expected: 11/11/2024 , Expires: 02/10/2025 Start: 10-12-2024 Glaucoma screening Dilated Retinal E xam [facility] Start: 09-11-2024 Advance Directive Discussion Advance Directive Discussion [facility] Start: 07-15-2024 End: 07-15-2024 Patient encounter procedure 07/15/2024 2:30 PM EST Appointment Mammogram [address] [place] [address] Screening mammogram for breast cancer [Z12.31] Mammogram Comment on above: Screening mammogram for breast cancer [Z12.31] Start: 06-07-2024 Hemoglobin A1c measurement HbA1C [facility] Start: 06-07-2024 End: 06-07-2024 Patient encounter procedure 06/07/2024 9:00 AM EDT Office Visit [facility] [place] [address] [place] [address] Aracelis Ribeiro APRN.LEAD JAVA DEVELOPER ARCHITECT [address] [place], [place] [address] 6 month follow up [facility] [place] Comment on above: 6 month follow up Start: 05-12-2024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 and Nczuy-BOZBC-LC, Leg Lutyfx-RZLVS-MR documented in this encounter [facility] 04-08-2025 Discharge summary Note Date/Time April 08, 2025 4:41pm [facility] Medical Records Department [address] [place] [id number] Emergency Department Summary 04/08/25 MR#: [id number] Acct: [id number] Name: ANGELICA SOSA Rep #:[id number] : 1945 80 From: Alber Boone DO [...] do not get any x-raysof her leg. [facility] Medical History Anxiety Heart murmur Hypertension Shingles [...] Patient follow commands that she was at [facility] years 2024 Skin: See musculoskeletal Const [...] ice, elevate and rotate Tylenol and ibuprofen pvtwhj-ckt-uxsbv for pain control. She is advised to return with worsening symptoms and concerns. She is agreeable to plan all question concerns answered she was discharged home in stable condition. Radiography Diagnostic Testing: Clinical Impression(s) from Imaging Studies Tibia/Fibula X-Ray 04/08/25 15:24 IMPRESSION: Unremarkable examination. Reading Location: [id number] Discharge Plan Triage Chief Complaint: Lower Extremity [...] as we discussed. Rotate Tylenol and ibuprofen psezwz-rhn-lktmg for pain control when you do this you can take something every 3 hours max dose Tylenol in 24 hours 4000 mg max dose of ibuprofen in 24 hours 3200 mg. Return with any other concerns. Print Language: Sammarinese Disposition Disposition: Home, Self Care What to do if you have Problems For any increased pain, shortness of breath, bleeding, nausea or vomiting, chestpain, or any unexpected problems, contact your Primary Care Provider. Call [facility] ([phone]) or report to the closest Emergency Room. Call 911 if necessary. 04/08/25 1641 <Electronically signed by Alber Boone DO> Cosigner Signature (if applicable): CC: Dr. Emily Flaherty MD ~ Signed [facility] Work Phone: 1(567) 193-280207-24-2025 Discharge summary [facility] Medical Records Department [address] [place] [address] Emergency Department Summary 04/03/25 MR#: [id number] Acct: [id number] Name: ANGELICA SOSA Rep #:[id number] : 1945 80 From: Jayson Jackson MD [...] extremities and denies leg pain with walking. [facility] Medical History (Updated 04/03/25 @ 18:09 by [...] Method Room Air Room Air Room Air [facility] Narrative Medical decision making narrative: Differential: Closed [...] IMPRESSION: No acute intracranial process. Reading Location: [id number] MDM MDM Narrative Medical decision making narrative: [...] IMPRESSION: No acute intracranial process. Reading Location: [facility] Procedures Lacerations Y-shaped occipital scalp laceration: Length: 2.36 in Depth: Sub Q Prep: Shure-Clens Laceration repair: Irrigated, Lidocaine and Wound explored Number of Sutures/[place]over: 8 Comment: shazia Discharge Plan Triage Chief [...] with your primary care doctor. Print Language: Sammarinese Disposition Disposition: Home, Self Care What to do if you have Problems For any increased pain, shortness of breath, bleeding, nausea or vomiting, chestpain, or any unexpected problems, contact your Primary Care Provider. Call [facility] ([phone]) or report tothe closest Emergency Room. Call 911 if necessary. 04/03/25 9454 Cosigner Signature (if applicable): 04/03/25 7244 CC: Dr. Emily Flaherty MD ~ Signed [facility]07-24-2025 Radiology Diagnostic study note [facility] Imaging Services [address] [place] [address] Brain/Head without Contrast MR#: [id number] Acct: [id number] Name: ANGELICA SOSA Rep #: [id number] : 1945 F 80 From: Heidi Cornell MD PCP: Dr. Emily Flaherty MD Status: RE G ER Study:Brain/Head without Contrast Date of Exa m: 04/03/25 Exam# [id number] Ordering Dr: Prisca Ribera PROCEDURE: BRAIN/HEAD WITHOUT [...] IMPRESSION: No acute intracranial process. Reading Location: [facility] CC: Dr. Emily Flaherty MD; FRANCESCO Concepcion ~ Transplant Surgeon: Signed [facility]07-24-2025 Discharge summary Author Jayson Jackson [facility] Note Date/Time April 03, 2025 6:32 pm [facility] Medical Records Department [address] [place] [address] Emergency Department Summary 04/03/25 MR#: [id number] Acct: [id number] Name: ANGELICA SOSA Rep #:[id number] : 1945 80 From: Jayson Jackson MD [...] <FRANCESCO Concepcion - Last Filed: 04/03/25 18:24> [facility] Medical History (Updated 04/03/25 @ 18:09 by [...] Room Air Room Air Room Air <Dr. Jayson Jackson MD - Last Filed: [...] IMPRESSION: No acute intracranial process. Reading Location: [id number] <Dr. Jayson Jackson MD - Last Filed: 04/03/25 18:32> [facility] MDM Narrative Medical decision making narrative: Differential: [...] IMPRESSION: No acute intracranial process. Reading Location: [facility] Procedures <FRANCESCO Concepcion - Last Filed: 04/03/25 [...] with your primary care doctor. Print Language: Sammarinese Disposition Disposition: Home, Self Care What to do if you have Problems For any increased pain, shortness of breath, bleeding, nausea or vomiting, chestpain, or any unexpected problems, contact your Primary Care Provider. Call [facility] ([phone]) or report to the closest Emergency Room. Call 911 if necessary. 04/03/25 1832 <Electronically signed by Jayson Jackson MD> Cosigner Signature (if applicable): 04/03/25 1824 <Electronically signed by Prisca MAYA> CC: Dr. Emily Flaherty MD ~ Signed [facility] Work Phone: 1(892) 350-156107-24-2025 Hospital Discharge instructionsAdditional Instructions CT scan of your brain showed no broken bones or internal bleeding. Because of the shazia on your scalp laceration that you need removed in 7 to 10 days. You can ice the area as tolerated and take ibuprofen every 6 hours as needed for pain. You will likely feel more sore tomorrow. Follow-up with your primary care doctor.[facility] Work Phone: 1(190) 674-583206-23-2025 NoteHNO ID: [id number] Author: KIERA SHEPARD, RN Service: ? Author [...] encounter Interventions No episode Disposition Based on local delivery driver, the following disposition is advised: No action needed Kiera Shepard RN March 03, 2025 4:09 [facility]06-23-2025 History of Present illness Narrative* [...] encounter Interventions No episode Disposition Based on local delivery driver, the following disposition is advised: No action needed Kiera Shepard RN March 03, 2025 4:09 PM [facility] NotePatient Outreach ([facility]) SHEILAANGELICA Rahman ([id number]) 1945 F T Date Time Provider Department [...] encounter Interventions No episode Disposition Based on local delivery driver, the following disposition is advised: No action [...] Take 1 tablet once daily - lancets ([employer] DELICA PLUS LANCET) 33 gauge USE TO CHECK BLOOD SUGAR ONCE A DAY - blood sugar diagnostic ([employer] VERIO TEST STRIPS) test strip USE TO [...] colo*12/19/2024 Encounter Status:Closed by KIERA SHEPARD on 03/03/25[facility] 02-27-[facility] History of Present illness Narrative* Mala Delgado, [facility] - 02/27/2025 1:00 PM EDT Primary Care [...] Outpatient Medications Medication Sig Dispense Refill lancets (ScaladoTOUCH DELICA PLUS LANCET) 33 gauge USE TO [...] Adherence: denies missed doses. Rx coverage: Payor: [employer] MEDICARE / Plan: [employer] MEDICARE PPO / [...] Mala Delgado, Paramjit, BCACP Primary Care Clinical Tube Coverer I spent a total of 40 minutes on the date of the service which included preparing to see the patient, icxa-pb-tovr patient care, completing clinical documentation, counseling and educating the patient/family/caregiver, and ordering medications, tests, or procedures. [facility] Instructions* Patient Instructions* Mala Delgado RPh - 02/27/2025 1:00 PM EDT Get A1c done today and I will call you with the results to review documented in this [facility]06-[facility]-2025 NoteHNO ID: [id number] Author: MALA DELGADO RPh Service: ? Author [...] Outpatient Medications Medication Sig Dispense Refill lancets (ScaladoTOUCH DELICA PLUS LANCET) 33 gauge USE TO [...] 11/27/2024 CHOL 170 07/13 (more content not included)...[facility] 02-18-2025 NoteHNO ID: [id number] Author: ARACELIS RIBEIRO APRN.LEAD JAVA DEVELOPER ARCHITECT Service: ? Author Type: Nurse Practitioner Type: [...] manley RPh as Pharmacist (Pharmacy) Aracelis Ribeiro APRN.LEAD JAVA DEVELOPER ARCHITECT as Production Machinist (Internal Medicine) Kiera Shepard RN as Glass Washer And Carrier (Family Medicine) Amara Mauricio APRN.COMPASS OPERATOR as Production Machinist (Internal Medicine) Outside specialists seen: Eye provider [...] 1 capsule by mouth once daily. lancets (ScaladoTOUCH DELICA PLUS LANCET) 33 gauge USE TO [...] Complication, Without Long-Term Current Use of Insulin ([facility]) - 05/04/2021 Vitamin D Deficiency - 09/23/2016 [...] Exam Vitals and nursin (more content not included)...[facility] 02-18-2025 History of Present illness Narrative* [...] Gonzalez RPh as Pharmacist (Pharmacy) Aracelis Ribeiro APRN.LEAD JAVA DEVELOPER ARCHITECT as Production Machinist (Internal Medicine) Kiera Shepard RN as Glass Washer And Carrier (Family Medicine) Amara Mauricio APRN.COMPASS OPERATOR as Production Machinist (Internal Medicine) Outside specialists seen: Eye provider [...] 1 capsule by mouth once daily. lancets (ScaladoTOUCH DELICA PLUS LANCET) 33 gauge USE TO [...] Complication, Without Long-Term Current Use of Insulin ([facility]) - 05/04/2021 Vitamin D Deficiency - 09/23/2016 [...] appointment.. Aracelis Ribeiro APRN-EMIGDIO [facility] Instructions* Patient Instructions* Aracelis Ribeiro APRN.CNP - [...] review all the medicines you take, even duif-ali-juoguyw medicines. As you get older, the way [...] have certain medical conditions. [facility] History of Present illness Narrative* Kiera Shepard [...] your recommendations/suggestions. Thank you in advance. Mala [facility] and Becki [facility]- FYI for you as well. Sincerely, Kiera [...] were you homeless or living in a alf (including now)?: No Transportation Needs In the [...] has the electric, gas, oil, or water [employer] threatened to shut off services in your [...] - Bi-Weekly Outreach (Recurring) Disposition Based on local delivery driver, the following disposition is advised: No action [...] Mala Delgado, PharmD, BCACP Primary Care Clinical Tube Coverer documented in this encounter[facility]05-30-2025 NoteHNO ID: [id number] Author: KIERA SHEPARD RN Service: ? Author [...] your recommendations/suggestions. Thank you in advance. Mala [facility] and Becki [facility]- FYI for you as well. Sincerely, Kiera [...] were you homeless or living in a alf (including now)?: No Transportation Needs In the [...] have money to get more.: Never true [employer] In the past 12 months has the electric, gas, oil, or water [employer] threatened to shut off services in your [...] - Bi-Weekly Outreach (Recurring) Disposition Based on local delivery driver, the following disposition is advised: No action needed (routed a message to PCP) Kiera Shepard RN February 07, 2025 2:37 [facility]05-30-2025 NoteHNO ID: [id number] Author: MALA DELGADO rachell Service: ? Author Type: Pharmacist Type: Progress Notes Filed: 02/07/2025 15:18 Note Text: Patient is scheduled for New pharmacy visit with me on 02/27/25 (patient no showed previous pharmacy visit with [facility] on 01/23). No earlier PharmD availability on [facility] or Becki's schedule prior to patient's [...] Delgado, PharmD, BCACP Primary Care Clinical Pharmacy SpecialistMer[facility] NoteHNO ID: [id number] Author: HEDY SEPULVEDA RN Service: ? Author [...] Call / Main Concern Returning call to Lead Software Qa Engineer Summary of Callers Concern I don't get to the phone in time usually but she can always leave a message. Action Taken / Plan Routed to Patient's Lead Software Qa Engineer Pcc status: stacia Sepulveda RN February 07, 2025 1:36 [facility] History of Present illness Narrative* Hedy Sepulveda RN - 02/07/2025 1:36 PM EDT Value Based Care Management Inbound Call Provider Action / FYI: Date of Call: 02/07/2025 Time of Call: 1:36 PM Caller Name: pt Caller relationship to the patient: Patient Patient identified by Name and Date of : Yes Reason for Call / Main Concern Returning call to Lead Software Qa Engineer Summary of Callers Concern I don't get to the phone in time usually but she can always leave a message. Action Taken / Plan Routed to Patient's Lead Software Qa Engineer Pcc status: stacia Sepulveda RN February 07, 2025 1:36 PM documented in this encounterUk [facility]05-30-2025 NotePatient Outreach ([facility]) ANGELICA SOSA ([id number]) 1945 F CHT Date Time Provider Department 02/07/25 KIERA SHEPARD [facility] During your visit today, we recorded the following information about you: Mala Delgado [facility] 02/07/2025 3:18 PM Signed Patient is scheduled for New pharmacy visit with [facility] on 02/27/25 (patient no showed previous pharmacy [...] Mala Delgado, ElD, BCACP Primary Care Clinical Tube Coverer Kiera Shepard, DAVID 02/07/2025 2:45 PM Signed [...] your recommendations/suggestions. Thank you in advance. Mala [facility] and Becki [facility]- FYI for you as well. Sincerely, Kiera [...] were you homeless or living in a alf (including now)?: No Transportation Needs In the [...] In the past 12 months has the [employer], gas, oil, or water [employer] threatened to shut off services in your [...] Medication Management - Intak (more content not included)...[facility]05-30-2025 Note Patient Outreach ([facility]) ANGELICA SOSA ([id number]) 1945 F T Date Time Provider Department 02/07/25 HEDY SEPULVEDA [facility] During your visit today, we recorded the [...] Call / Main Concern Returning call to Lead Software Qa Engineer Summary of Callers Concern I don't get to the phone in time usually but she can always leave a message. Action Taken / Plan Routed to Patient's Lead Software Qa Engineer Pcc status: stacia Sepulveda RN February 07, 2025 1:36 PM Allergies As of Date: 02/07/2025 Noted Allergy Reaction BEEF DERIVED (BOVINE) 10/17/2005 Comments: congestion FISH CONTAINING PRODUCTS 11/17/2017 9 - Itching SHELLFISH DERIVED 10/11/2023 9 - Itching TYLENOL (ACETAMINOPHEN) 10/17/2005 Comments: hyperactivity Date Reviewed: 01/06/2025 Reviewed by: Pooja Shaw LPN - Fully Assessed Reason for Visit: 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 [[id number]] Cmt: Incoming call Prescriptions as of 02/07/2025 [...] colo*12/19/2024 Encounter Status:Closed by HEDY SEPULVEDA on 02/07/25[facility] 02-05-2025 Telephone encounter Note* Telephone Encounter [...] Niya Durham February 05, 2025 4:41 PM [facility]05-28-2025 Miscellaneous Notes* Telephone Encounter - Niya Durham [...] 05, 2025 4:41 PM documented in this encounterUk [facility]05-19-2025 NoteHNO ID: [id number] Author: LAKEISHA STORM MA Service: ? Author Type: Enameler Type: Progress Notes Filed: 01/27/2025 08:45 Note [...] visit she missed yesterday with Mala [facility] Outcome: 1st attempt - Spoke to patient [...] Annual Wellness Visit Specialty Appointment 02/18/2025 in [facility] with ARACELIS RIBEIRO - 2024 Medicare Wellness Z00.00 02/27/2025 in [facility] with MALA DELGADO - Goal: A1c < 8%, Diabetes Management 05/26/2025 in [facility] with EMILY FLAHERTY - 6 month follow up 11/25/2025 in [facility] with EMILY FLAHERTY D - Medicare Wellness Exam Navigation Signature: Lakeisha Storm MA January 27, 2025 8:31 [facility]05-19-2025 NoteHNO ID: [id number] Author: LAKEISHA STORM MA Service: ? Author Type: Enameler Type: Progress Notes Filed: 01/27/2025 08:25 Note [...] Lakeisha Storm MA January 27, 2025 8:15 [facility]05-16-2025 NoteHNO ID: [id number] Author: NOHEMI BROWN MA Service: ? Author Type: Enameler Type: Progress Notes Filed: 01/24/2025 18:35 Note [...] Nohemi Cunningham MA January 24, 2025 6:30 [facility]05-16-2025 History of Present illness Narrative* [...] 24, 2025 4:01 PM documented in this encounter[facility]05-16-2025 NoteHNO ID: [id number] Author: TARA YOUNG RN Service: ? Author [...] visit she missed yesterday with Mala Delgado [facility]. Thank you so very much! Patient identified [...] Tara Young RN January 24, 2025 4:01 [facility]05-16-2025 NotePatient Outreach (AMBCMG) ANGELICA SOSA ([id number]) 1945 F T Date Time Provider Department [...] visit she missed yesterday with Mala Delgado [facility]. Thank you so very much! Patient identified [...] visit she missed yesterday with Mala Delgado [facility] Outcome: 1st attempt - Spoke to patient [...] Annual Wellness Visit Specialty Appointment 02/18/2025 in [facility] with ARACELIS RIBEIRO - 2024 Medicare Wellness Z00.00 02/27/2025 in [facility] (more content not included)...[facility] 2025 NoteHNO ID: [id number] Author: ANSON YORK RN Service: ? Author Type: Registered Nurse Type: Progress Notes Filed: 2025 14:43 Note Text: The right neck (site) was assessed and 2 simple sutures were removed as ordered. Dressing was applied. Patient instructed on wound care and verbalized understanding. Pathology was reviewed by Dr. Cuello and patient was advised.Anson York RNMer[facility]05-05-2025 History of Present illness Narrative* Anson York RN - 2025 2:26 PM EDT The right neck (site) was assessed and 2 simple sutures were removed as ordered. Dressing was applied. Patient instructed on wound care and verbalized understanding. Pathology was reviewed by Dr. Cuello and patient was advised.Anson York RN documented in this encounterUk [facility]04-28-2025 NoteHNO ID: [id number] Author: LC CUELLO MD Service: ? Author [...] applied and the patient tolerated the procedure well.[facility]04-28-2025 History of Present illness Narrative* Lc [...] surrogate. Pooja Shaw LPN documented in this encounterUk Healthcare04-28-2025 Instructions* Patient Instructions* Pooja Shaw LPN - 01/06/2025 3:01 PM EDT The following instructions are important for you related to your office visit today with the [facility] General Surgeons. Instructions After SKIN [...] you should contact our office immediately @ [phone] and ask to be transferred to the General Surgery department. documented in this encounterUk Healthcare04-28-2025 NoteHNO ID: [id number] Author: POOJA SHAW LPN Service: ? Author [...] to the patient or surrogate. Pooja Shaw [facility]04-22-2025 NoteHNO ID: [id number] Author: LC CUELLO MD Service: ? Author [...] with 2 simple interrupted sutures of 5-0 nylonMer[facility] Health [facility]04-22-2025 History of Present illness Narrative* Lc [...] sutures of 5-0 nylon documented in this encounterUk [facility]04-21-2025 History of Present illness Narrative* Zahraa Delacruz APRN.LEAD JAVA DEVELOPER ARCHITECT - 12/30/2024 2:00 PM EDT FOLLOW UP VISIT - ENDOSCOPY Angelica Sosa 1945 [id number] REFERRING PHYSICIAN: No referring provider defined for [...] as needed for worsening/no improvement. Zahraa Delacruz APRN.LEAD JAVA DEVELOPER ARCHITECT documented in this encounterUk Healthcare04-21-2025 NoteHNO ID: [id number] Author: ZAHRAA DELACRUZ APRN.EMIGDIO Service: ? Author Type: Nurse Practitioner Type: Progress Notes Filed: 12/30/2024 14:00 Note Text: FOLLOW UP VISIT - ENDOSCOPY Angelica Sosa 1945 [id number] REFERRING PHYSICIAN: No referring provider defined for [...] as needed for worsening/no improvement. Zahraa Delacruz APRN.EMIGDIOMer[facility]04-18-2025 NoteHNO ID: [id number] Author: ARACELIS RIBEIRO APRN.EMIGDIO Service: ? Author Type: Nurse Practitioner Type: Progress Notes Filed: 12/27/2024 08:13 Note Text: Noted.[facility]04-16-2025 History of Present illness Narrative * [...] Ngozi Foster PharmD, BCACP documented in this encounterUk Healthcare04-16-2025 NoteHNO ID: [id number] Author: NGOZI FOSTER RPh Service: ? Author [...] Verbalized understanding. Thank you, Ngozi Foster PharmD, BCACPMer[facility]04-16-2025 NotePatient Outreach (PMSTOW) ANGELICA SOSA ([id number]) 1945 [facility] Date Time Provider Department 12/25/24 NGOZI FOSTER PMSTOW During your visit today, we recorded the following information about you: Ngozi Foster [facility] 12/25/2024 3:52 PM Signed Primary Care Pharmacy [...] you, Ngozi Foster, PharmD, BCACP Aracelis Ribeiro APRN.LEAD JAVA DEVELOPER ARCHITECT 12/27/2024 8:13 AM Signed Noted. Allergies As of Date: 12/25/2024 Noted Allergy Reaction BEEF DERIVED (BOVINE) 10/17/2005 Comments: congestion FISH CONTAINING PRODUCTS 11/17/2017 9 - Itching PEANUT OIL 10/17/2005 Comments: uncertain PEANUTS 10/17/2005 Comments: not sure SHELLFISH DERIVED 10/11/2023 9 - Itching TYLENOL (ACETAMINOPHEN) 10/17/2005 Comments: hyperactivity Date Reviewed: 12/19/2024 Reviewed by: Brionna Villatoro RN - Fully Assessed Reason for Visit: Care Coordination [1039] Cmt: Panel Management Review for Pharmacist Referral for Diabetes Management Primary Visit Diagnosis:Type 2 diabetes mellitus without complication, without long-term current use of insulin (HCC) [E11.9] Order(s):CONSULT TO PHARMACY [734726] Order #: [id number]: 1 Prescriptions as of 12/27/2024 - minocycline [...] AFFECTED AREA SPARINGLY - blood sugar diagnostic (BigRepUCH VERIO TEST STRIPS) test strip USE TO CHECK BLOOD SUGAR ONCE A DAY - lancets (BigRepUCH DELICA PLUS LANCET) 33 gauge USE TO [...] malignant neoplasms, colo*12/19/2024 Encounter Status:Closed by NGOZI FSOTER on 12/25/24[facility] Note* Discharge Instr - Nursing - Brionna Villatoro RN - 12/19/2024 8:50 AM EDT The patient received a copy of Colonoscopy discharge instructions that contain information for how to contact the physician who performed the procedure and when to seek medical care. [facility]04-10-2025 Miscellaneous Notes* Discharge Instr - Nursing - Brionna Villatoro RN - 12/19/2024 8:50 AM EDT The patient received a copy of Colonoscopy discharge instructions that contain information for how to contact the physician who performed the procedure and when to seek medical care. documented in this encounterUk [facility]04-10-2025 History and physical note * Lc Cuello [...] skin thinning. She has not seen a hand slitter for this issue in the past year [...] complication, without long-term current use of insulin ([facility]) 05/04/2021 DEPRESSIVE DISORDER NEC 10/17/2005 Glaucoma of both eyes Dr. Daniels follows at [facility] HYPERLIPIDEMIA NEC/NOS 10/17/2005 HYPERTENSION NOS 10/17/2005 [...] by mouth once daily. blood sugar diagnostic (ScaladoTOUCH VERIO TEST STRIPS) test strip USE TO CHECK BLOOD SUGAR ONCE A DAY lancets (ScaladoTOUCH DELICA PLUS LANCET) 33 gauge USE TO [...] moisture. - Patient to follow up with hand slitter Dr. Townsend for further evaluation and management. [...] the date of the service which included hanm-fj-mkcq patient care, completing clinical documentation, obtaining and/or [...] DATE: December 19, 2024 TIME: 7:56 AM [facility]04-10-2025 History and physical note* Lc Cuello MD [...] skin thinning. She has not seen a hand slitter for this issue in the past year [...] of both eyes Dr. Daniels follows at [facility] HYPERLIPIDEMIA NEC/NOS 10/17/2005 HYPERTENSION NOS 10/17/2005 [...] moisture. - Patient to follow up with hand slitter Dr. Townsend for further evaluation and management. [...] the date of the service which included cbve-vn-cgcv patient care, completing clinical documentation, obtaining and/or [...] 2024 TIME: 7:56 AM documented in this encounterUk Healthcare03-03-2025 Instructions* Patient Instructions* Emily Flaherty MD - 11/11/2024 11:45 AM EST - Refill prescriptions for Minocycline, Lisinopril, and Vitamin D at [facility]. - Continue taking Metformin 500 mg once [...] moisturized. - Schedule an appointment with your hand slitter. - Use olive oil in your diet [...] please call: Dr. Reddy or Dr. Barksdale [phone] Tammie Degroot [phone] Dr. Avendano [phone] [facility] nurses [phone] documented in this encounterUk Healthcare03-03-2025 NoteHNO ID: [id number] Author: EMILY FLAHERTY MD Service: ? Author Type: Physician Type: Progress Notes Filed: 11/11/2024 11:59 Note Text: This note was created using [employer]. Subjective Angelica Sosa is a 79 year [...] skin thinning. She has not seen a hand slitter for this issue in the past year [...] complication, without long-term current use of insulin ([facility]) 05/04/2021 DEPRESSIVE DISORDER NEC 10/17/2005 Glaucoma of both eyes Dr. Daniels follows at [facility] HYPERLIPIDEMIA NEC/NOS 10/17/2005 HYPERTENSION NOS 10/17/2005 [...] by mouth once daily. blood sugar diagnostic (ScaladoTOUCH VERIO TEST STRIPS) test strip USE TO CHECK BLOOD SUGAR ONCE A DAY lancets (ScaladoTOUCH DELICA PLUS LANCET) 33 gauge USE TO [...] diabetes mellitus wit (more content not included)... [facility]03-03-2025 History of Present illness Narrative* Emily Flahetry MD - 11/11/2024 11:17 AM EST Images from the original note were not included. This note was created using [employer]. Subjective Angelica Sosa is a 79 year [...] skin thinning. She has not seen a hand slitter for this issue in the past year [...] complication, without long-term current use of insulin ([facility]) 05/04/2021 DEPRESSIVE DISORDER NEC 10/17/2005 Glaucoma of both eyes Dr. Daniels follows at [facility] HYPERLIPIDEMIA NEC/NOS 10/17/2005 HYPERTENSION NOS 10/17/2005 [...] by mouth once daily. blood sugar diagnostic (ScaladoTOUCH VERIO TEST STRIPS) test strip USE TO CHECK BLOOD SUGAR ONCE A DAY lancets (ScaladoTOUCH DELICA PLUS LANCET) 33 gauge USE TO [...] moisture. - Patient to follow up with hand slitter Dr. Townsend for further evaluation and management. [...] the date of the service which included lryf-sd-lcrp patient care, completing clinical documentation, obtaining and/or reviewing separately obtained history, performing a medically appropriate examination, counseling and educating the patient/family/caregiver, ordering medications, tests, or procedures, and independently interpreting results (not separately reported). Emily Flaherty MD documented in this encounterUk [facility]11-20-2024 Telephone encounter Note * Telephone Encounter - Alicia Templeton LPN - 07/31/2024 9:53 AM EST Images from the original note were not included. Electronic PA completed for cyclobenzaprine. This was approved. Approved Prior authorization approved Payer: WILLIAN Arce [phone] Approval Details Authorized from September 11, 2023 to October 29, 2024 Electronic appeal: Not supported Prior auth initiated by: e- [id number] [place] [address] - [phone] - [phone] [phone] View History Notes Time User Attachment Attachment received from payer. 07/31/2024 9:20 AM Cchs, Rx Priorauth In Document OBTAIN PA USING PA Phone # [phone] or TP Help Desk Phone:[phone] REQUIRES PRIOR AUTH. 07/31/2024 8:32 AM [facility] From [employer] Open Encounter ANGELICA SOSAST BB CDH-N SSIMDXR (WILLIAN ARCE) Covered: Retail, Mail Order, Specialty Unknown: Long-Term Care BIN: [id number] : 1945 Group ID: [id number] PCN: [id number] Legal sex: F Group name: [facility] EG MED D/AMA PART B ONLY Address: [address] [place] [address] [place] [address] Medication Being Authorized cyclobenzaprine (FLEXERIL) 10 mg tablet Take 1 tablet by mouth at bedtime as needed for muscle spasm. Dispense: 30 tablet Refills: 1 Start: 07/04/2024 Class: Normal Diagnoses: Acute right-sided low back pain with right-sided sciatica This order has been released to its destination. To be filled at: e- [id number] [place] [address] - [phone] - [phone] [phone] Pt notified via my chart. [facility]11-20-2024 Miscellaneous Notes* Telephone Encounter - Alicia Templeton LPN - 07/31/2024 9:53 AM EST Images from the original note were not included. Electronic PA completed for cyclobenzaprine. This was approved. Approved Prior authorization approved Payer: WILLIAN Arce [phone] Approval Details Authorized from September 11, 2023 to October 29, 2024 Electronic appeal: Not supported Prior auth initiated by: e- [id number] [place] [address] - [phone] - [phone] [phone] View History Notes Time User Attachment Attachment received from payer. 07/31/2024 9:20 AM Cchs, Rx Priorauth In Document OBTAIN PA USING PA Phone # [phone] or TP Help Desk Phone:[phone] REQUIRES PRIOR AUTH. 07/31/2024 8:32 AM Reba, [facility] From [employer] Open Encounter ANGELICA SOSAST BB CDH-N SSIMDXR (WILLIAN ARCE) Covered: Retail, Mail Order, Specialty Unknown: Long-Term Care BIN: [id number] : 1945 Group ID: [id number] PCN: [id number] Legal sex: F Group name: [facility] EG MED D/AMA PART B ONLY Address: [address] [place] [address] [place] [address] Medication Being Authorized cyclobenzaprine (FLEXERIL) 10 mg tablet Take 1 tablet by mouth at bedtime as needed for muscle spasm. Dispense: 30 tablet Refills: 1 Start: 07/04/2024 Class: Normal Diagnoses: Acute right-sided low back pain with right-sided sciatica This order has been released to its destination. To be filled at: e- [id number] - [place] [address] - [phone] - [phone] [phone] Pt notified via my chart. documented in this encounterUk [facility]11-04-2024 History of Present illness Narrative* Tegan Wilks [...] PATIENT PRESENTS WITH AN IMPLANTABLE OR ATTACHED PARCEL POST CLERK: No RADIOLOGY DEPARTMENT: Mammography PERIPHERAL IV DATA: Not applicable SIGNED BY: Ryan Coppola July 15, 2024 2:56 PM documented in this encounterUk Healthcare11-04-2024 NoteHNO ID: [id number] Author: TEGAN WILKS Mammo Tech Service: ? Author Type: Grain Elevator Man Type: Progress Notes Filed: 07/15/2024 14:58 Note [...] PATIENT PRESENTS WITH AN IMPLANTABLE OR ATTACHED PARCEL POST CLERK: No RADIOLOGY DEPARTMENT: Mammography PERIPHERAL IV DATA: Not applicable SIGNED BY: Ryan Coppola July 15, 2024 2:56 PMCMercy [facility]10-24-[facility] Instructions* Patient Instructions* Amara Mauricio APRN.COMPASS OPERATOR - 07/04/2024 12:43 PM EDT Take meloxicam once daily for the next several days to two weeks daily until back pain is improved then may just take as needed. Take Flexeril at bedtime for back pain as needed, may make you very drowsy Let us know if you are not feeling improved documented in this encounterUk Healthcare10-24-2024 NoteHNO ID: [id number] Author: AMARA MAURICIO APRN.COMPASS OPERATOR Service: ? Author Type: Nurse Specialist Type: [...] by mouth once daily. blood sugar diagnostic (BigRepUCH VERIO TEST STRIPS) test strip USE TO CHECK BLOOD SUGAR ONCE A DAY lancets (ScaladoTOUCH DELICA PLUS LANCET) 33 gauge USE TO CHECK BLOOD SUGAR ONCE A DAY 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 LICHEN SCLEROSIS Controlled type 2 diabetes mellitus without complication, without long-term current use of insulin (HCC) 05/04/2021 DEPRESSIVE DISORDER NEC 10/17/2005 Glaucoma of both eyes Dr. Daniels follows at [facility] HYPERLIPIDEMIA NEC/NOS 10/17/2005 HYPERTENSION NOS 10/17/2005 [...] Negative Ketones, Urine Negative 1+ (A) Specific Arimo, Ur 1.005 - 1.030 1.035 (H) Hemoglobin/Blood,Ur [...] IU/mL <5.0 Insulin Antibody, (more content not included)...[facility] 07-04-2024 History of Present illness Narrative* Amara Mauricio APRN.COMPASS OPERATOR - 07/04/2024 12:32 PM EDT SUBJECTIVE: Diabetic [...] CHECK BLOOD SUGAR ONCE A DAY lancets (ScaladoTOUCH DELICA PLUS LANCET) 33 gauge USE TO CHECK BLOOD SUGAR ONCE A DAY 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 LICHEN SCLEROSIS Controlled type 2 diabetes mellitus without complication, without long-term current use of insulin (HCC) 05/04/2021 DEPRESSIVE DISORDER NEC 10/17/2005 Glaucoma of both eyes Dr. Daniels follows at [facility] HYPERLIPIDEMIA NEC/NOS 10/17/2005 HYPERTENSION NOS 10/17/2005 [...] Negative Ketones, Urine Negative 1+ (A) Specific Arimo, Ur 1.005 - 1.030 1.035 (H) Hemoglobin/Blood,Ur [...] Level: 3 - Low documented in this encounterUk Healthcare10-24-2024 Telephone encounter Note * Telephone Encounter - [...] today with Amara 07/04/2024. Kelly Soto RN [facility]10-24-2024 Miscellaneous Notes* Telephone Encounter - Kelly Soto [...] 07/04/2024. Kelly Soto RN documented in this encounterUk Healthcare09-27-2024 NoteHNO ID: [id number] Author: ARACELIS RIBEIRO APRN.[facility] Service: ? Author Type: Nurse Practitioner Type: [...] Team: Emily Flaherty MD [facility]CP [facility] Pharmacist (Pharmacy) Outside specialists seen: education program specialist, dermatology Medical/Family history review Reviewed and [...] Complication, Without Long-Term Current Use of Insulin ([facility]) - 05/04/2021 Vitamin D Deficiency - 09/23/2016 [...] No JVD. Trachea: Tr (more content not included)...[facility]09-27-2024 History of Present illness Narrative* Vinod, Aracelis, FLOOR SANDING MACHINE OPERATOR.LEAD JAVA DEVELOPER ARCHITECT - 06/07/2024 8:43 AM EDT Images from [...] RPh as Pharmacist (Pharmacy) Outside specialists seen: education program specialist, dermatology Medical/Family history review Reviewed and [...] dinner or as directed blood sugar diagnostic (ScaladoTOUCH VERIO TEST STRIPS) test strip USE TO CHECK BLOOD SUGAR ONCE A DAY lancets (ScaladoTOUCH DELICA PLUS LANCET) 33 gauge USE TO CHECK BLOOD SUGAR ONCE A DAY No current facility-administered medications for this visit. ALLERGIES Allergen Reactions Beef Derived (Bovin* congestion Fish Containing Pro* Itching Peanut Oil uncertain Peanuts not sure Shellfish Derived Itching Tylenol [Acetaminop* hyperactivity ACTIVE PROBLEM LIST Controlled Type 2 Diabetes Mellitus Without Complication, Without Long-Term Current Use of Insulin ([facility]) - 05/04/2021 Vitamin D Deficiency - 09/23/2016 [...] appointment.. Aracelis Ribeiro APRN-EMIGDIO documented in this encounterUk Healthcare09-27-2024 Instructions* Patient Instructions* Aracelis Ribeiro APRN.CNP - [...] review all the medicines you take, even ecfb-fey-oklxdfx medicines. As you get older, the way [...] have certain medical conditions. documented in this encounterUk Healthcare08-24-2024 Telephone encounter Note * Telephone Encounter - Emily Flaherty MD - 05/04/2024 1:24 AM EDT Lab within normal limits [facility]08-24-2024 Miscellaneous Notes* Telephone Encounter - Emily Flaherty [...] urine. Meaghan Galvan LPN documented in this encounterUk Healthcare08-20-2024 Telephone encounter Note * Telephone Encounter - Diana Zimmer LPN - 04/30/2024 10:09 AM EDT Urine results have been processed. [facility]08-09-2024 Telephone encounter Note* Telephone Encounter - Emily Flaherty MD - 04/19/2024 6:16 PM EDT Noted. Emily Flaherty MD [facility]08-09-2024 Telephone encounter Note* Telephone Encounter - Meaghan Galvan LPN - 04/19/2024 1:19 PM EDT Urine presently in process. Meaghan Galvan LPN [facility]08-09-2024 Telephone encounter Note* Telephone Encounter - Emily Flaherty MD - 04/19/2024 12:14 PM EDT Filed order I also filed standing orders so may get labs every 6 months given diagnosis of diabetes. [facility]08-09-2024 Telephone encounter Note* Telephone Encounter - Meaghan Galvan LPN - 04/19/2024 12:10 PM EDT Order needing to be files as soon as possible. Forwarded pending order to Dr Flaherty. Meaghan Galvan LPN [facility]08-09-2024 Telephone encounter Note* Telephone Encounter - Meaghan Galvan LPN - 04/19/2024 11:54 AM EDT Patient brought urine sample to lab, the alb/crea order had been cancelled. Order pending so lab can accept the urine. Meaghan Galvan LPN [facility]05-30-2024 Telephone encounter Note* Telephone Encounter - Emily Flaherty MD - 02/08/2024 1:31 AM EDT The following approved medication requests have been transmitted electronically. Requested Prescriptions Signed Prescriptions Disp Refills clobetasol (TEMOVATE) 0.05 % ointment 30 g 3 Sig: APPLY DAILY NEEDED TO THE AFFECTED AREA SPARINGLY Authorizing Provider: EMILY FLAHERTY MD [facility]05-30-2024 Miscellaneous Notes* Telephone Encounter - Emily Flaherty [...] 07, 2024 3:10 PM documented in this encounterUk Healthcare05-29-2024 Telephone encounter Note * Telephone Encounter - Diana Zimmer LPN - 02/07/2024 4:39 PM EDT Patient has a current script for the test strips at the pharmacy accordingly to our records. [facility]05-29-2024 Telephone encounter Note* Telephone Encounter - Yanelis [...] Yanelis Paez February 07, 2024 3:10 PM [facility]03-27-2024 History of Present illness Narrative* Emily Flaherty MD - 12/06/2023 9:02 AM EDT This note was created using [employer]. Subjective Angelica Sosa is a 78 year [...] complication, without long-term current use of insulin ([facility]) 05/04/2021 DEPRESSIVE DISORDER NEC 10/17/2005 Glaucoma of both eyes Dr. Daniels follows at [facility] HYPERLIPIDEMIA NEC/NOS 10/17/2005 HYPERTENSION NOS 10/17/2005 [...] sleep. Emily Flaherty MD documented in this encounterUk Healthcare03-05-2024 Instructions* Patient Instructions* Diana Jerez RN - [...] to manage their pain after surgery with Cqjt-exo-Ngnjkjj (OTC) medications such as Tylenol (acetaminophen) and [...] How will I alternate my regular strength zanc-jxm-tajdvdo pain medication? You will take a dose [...] We recommend that you follow this schedule obaxhx-zer-cqdbf for at least 3 days after surgery, [...] 72 hours following surgery Return to referring hand slitter for skin checks every 6 months Wear sunscreen If sutures are still present in 10 days, cleanse with hydrogen peroxide PHONE NUMBERS: [place]: [phone], [phone], or [phone] (Monday-Monday, 8am-5pm) For emergencies only: On-call number: [phone] and ask for the formulation chemist dermatology surgery fellow documented in this encounterUk Healthcare03-05-2024 History of Present illness Narrative* Lakeisha Strange MD - 11/14/2023 10:15 AM EST MOHS MICROGRAPHIC OPERATIVE REPORT SERVICE DATE: 11/14/2023 SERVICE TIME: 10:09 AM LOCATION: { [place]:[facility],[id number] REFERRING PROVIDER: Alessia Townsend [address] [place] [id number] PROCEDURE START TIME: 10:28 AM PROCEDURE END TIME: 12:42 PM SURGEON: Dr. aLkeisha Strange FELLOW: Dr. Giuseppe Ohara REGISTERED NURSE: [...] at Bedside: Inside pathology report # [id number], Date of Biopsy: 10/11/2023, and Biopsy Performed By: Dr. Townsend Pre-op Size: 1.1 cm - 2 cm, (1.2cm X 0.9cm) Indication for Mohs: Anatomic Location where lesion is prone to recur and Type of tumor Location: Area H: (Mask Areas of the Face - Includes Central Face, Eyelids, Inner/Outer Canthi, Eyebrows, Nose, Chin, Lips, Ears, Periauricular Skin and Lutheran) Preparation: Chlorhexidine LAYER A The patient was [...] WITH VERBAL UNDERSTANDING: Yes PATIENT DISCHARGED TO COMMERCIAL FIELD INSPECTOR/NAME: self FOLLOW UP: PRN The documentation for [...] operative note independently gathered by the clinical network desktop support specialist and the remaining scribed note accurately describes my personal service to the patient. I/primary surgeon/proceduralist reviewed the specimen(s) and worked as the pathologist. Lakeisha Strange MD November 27, 2023 Lakeisha Strange MD documented in this encounterUk Healthcare02-08-2024 Miscellaneous Notes* Telephone Encounter - Alessia Townsend MD - 10/19/2023 11:56 AM EST Please advise pt to get tretinoin through [facility]. It is affordable. * Telephone Encounter - Edel Maldonado LPN - 10/19/2023 9:30 AM EST Prior Auth for Tretinoin cream was denied. Milia does not meet the requirements for approval. Edel Maldonado LPN documented in this encounterUk Healthcare11-03-2023 Miscellaneous Notes* Letter - Coordinator, Mammography - 07/14/2023 8:14 AM EDT July 14, 2023 PID: [id number] Angelica Sosa [facility] [place] [address] Dear Ms. Sosa, We are pleased to [...] report will be kept on file at [facility] as part of your permanent medical record and are available for your continuing care. Thank you for allowing us to help in meeting your health care needs. Sincerely, Dr. Campos Interpreting Radiologist [facility] (Normal over 40) documented in this encounterUk Healthcare11-02-2023 History of Present illness Narrative* Meka Sweet [...] 13, 2023 12:32 PM documented in this encounterUk Healthcare08-23-2023 History of Present illness Narrative* Emily Flaherty MD - 05/03/2023 3:54 PM EDT This note was created using gogamingoriter. Subjective Angelica Sosa is a 78 year [...] of both eyes Dr. Daniels follows at [facility] HYPERLIPIDEMIA NEC/NOS 10/17/2005 HYPERTENSION NOS 10/17/2005 [...] the date of the service which included [id number] patient care, completing clinical documentation, performing a medically appropriate examination, counseling and educating the patient/family/caregiver, and ordering medications, tests, or procedures. Emily Flaherty MD documented in this encounterUk Healthcare05-05-2023 Miscellaneous Notes* Telephone Encounter - Luzmaria Johnson Pss - 2023 3:39 PM EDT Patient wants to know if this can be sent before the weekend. [facility] told her they requested it multiple times, but go no response from us. I advised her we didn't receive anything from the pharmacy. * Telephone Encounter - Luzmaria Johnson [facility] - 2023 3:39 PM EDT Patient has been identified by name and date of : Yes Requested Prescriptions Pending Prescriptions Disp Refills clobetasol (TEMOVATE) 0.05 % ointment 30 g 3 Sig: APPLY DAILY NEEDED TO THE AFFECTED AREA SPARINGLY RX INSTRUCTIONS: Patient aware RX will be sent to pharmacy. No need to notify patient. Luzmaria Johnson [facility] documented in this encounterUk Healthcare04-21-2023 History of Present illness Narrative* Emily Flaherty MD - 12/30/2022 4:30 PM EDT This note was created using gogamingoriter. Subjective Angelica Sosa is a 77 year [...] of both eyes Dr. Daniels follows at [facility] HYPERLIPIDEMIA NEC/NOS 10/17/2005 HYPERTENSION NOS 10/17/2005 [...] fine. Emily Flaherty MD documented in this encounterUk Healthcare11-04-2022 Miscellaneous Notes* Telephone Encounter - Cele Paez [...] and advise. Cele Paez documented in this encounterUk Healthcare08-15-2022 History of Present illness Narrative* Meka Sweet Teles[employer]margaret Orellana - 04/25/2022 1:30 PM EDT Radiology [...] DATA: Not applicable SIGNED BY: Meka Sweet [employer] April 25, 2022 1:52 PM documented in this encounterUk Healthcare08-15-2022 Miscellaneous Notes* Telephone Encounter - Alicia Templeton [...] to pharmacy. No need to notify patient. [employer] documented in this encounterUk Healthcare08-15-2022 Miscellaneous Notes* Telephone Encounter - Lisbet Medellin Ma - 04/25/2022 11:29 AM EDT Patient due for 6 month follow-up around 10/19/22.Prefers not a Monday and after 10AM. Left message for patient to call office Can schedule with Amara Mauricio in [address] Flaherty at first available in documented in this encounterUk Healthcare08-08-2022 History of Present illness Narrative* Emily Flaherty MD - 04/18/2022 4:20 PM EDT This note was created using gogamingoriter. Subjective Angelica Sosa is a 77 year [...] lost her COVID vaccine card--will get from [facility]. Noted that has had exposure but not gotten ill. 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 LICHEN SCLEROSIS Controlled type 2 diabetes mellitus without complication, without long-term current use of insulin (HCC) 05/04/2021 DEPRESSIVE DISORDER NEC 10/17/2005 Glaucoma of both eyes Dr. Daniels follows at [facility] HYPERLIPIDEMIA NEC/NOS 10/17/2005 HYPERTENSION NOS 10/17/2005 [...] NONFASTING Emily Flaherty MD documented in this encounterUk Healthcare06-08-2022 History of Present illness Narrative* Emily Flaherty MD - 02/16/2022 5:48 PM EDT Images from the original note were not included. This note was created using [employer]. Subjective Angelica Sosa is a 77 year [...] of both eyes Dr. Daniels follows at [facility] HYPERLIPIDEMIA NEC/NOS 10/17/2005 HYPERTENSION NOS 10/17/2005 [...] indicated. Emily Flaherty MD documented in this encounterUk Healthcare01-25-2022 History of Present illness Narrative* Emily Flaherty MD - 10/05/2021 1:37 PM EST This note was created using [employer]. Subjective Angelica Sosa is a 76 year [...] edited 12/14/21 07:49 EDT by Amara Mauricio APRN.COMPASS OPERATOR [facility] Diagnosis Controlled type 2 diabetes mellitus without complication, without long-term current use of insulin ([facility]LY [facility])- Primary Essential hypertension Unspecified essential hypertension Vitamin D deficiency Unspecified vitamin D deficiency Mixed hyperlipidemia Glaucoma, unspecified glaucoma type, unspecified laterality documented in this encounter [facility]* Diagnosis Vaginal atrophy- Primary 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 documented in [facility] encounter [facility]* Diagnosis Uncontrolled type 2 diabetes mellitus with hyperglycemia (HCC) documented in this encounter [facility]* Diagnosis Visit for screening mammogram Other screening mammogram documented in this encounter [facility]* Diagnosis Controlled type 2 diabetes mellitus without complication, without long-term current use of insulin (HCC)- Primary Vitamin D deficiency Unspecified vitamin D deficiency Essential hypertension Unspecified essential hypertension documented in [facility] encounter [facility]* Diagnosis Uncontrolled type 2 diabetes mellitus with hyperglycemia (HCC) documented in this encounter [facility]* Diagnosis Controlled type 2 diabetes mellitus without complication, without long-term current use of insulin (HCC)- Primary documented in [facility]* Diagnosis Controlled type 2 diabetes mellitus without complication, without long-term current use of insulin (HCC)- Primary Mixed hyperlipidemia Vitamin D deficiency Unspecified vitamin D deficiency Primary hypertension Unspecified essential hypertension [facility]* Diagnosis Encounter for screening mammogram for breast cancer documented in this encounter [facility]* Diagnosis Basal cell carcinoma of face Basal cell carcinoma of skin of other and unspecified parts of face documented in this [facility]* Diagnosis Controlled type 2 diabetes mellitus without complication, without long-term current use of insulin (HCC)- Primary Mixed hyperlipidemia Primary hypertension Unspecified essential hypertension Vitamin D deficiency Unspecified vitamin D deficiency Encounter for immunization Need for other specified prophylactic vaccination against single bacterial disease documented [facility]* Diagnosis Uncontrolled type 2 diabetes mellitus with hyperglycemia (HCC) documented in [facility] encounter [facility]* Diagnosis Controlled type 2 diabetes mellitus without complication, without long-term current use of insulin (HCC)- Primary Essential hypertension Unspecified essential hypertension Mixed hyperlipidemia Vitamin D deficiency Unspecified vitamin D deficiency [facility]* Diagnosis Medicare annual wellness visit, subsequent- Primary Routine general medical examination at a health care facility Controlled type 2 diabetes mellitus without complication, without long-term current use of insulin (HCC) Essential hypertension Unspecified essential hypertension Mixed hyperlipidemia Vitamin D deficiency Unspecified vitamin D deficiency Encounter for screening examination for other mental health and behavioral disorders [facility] Diagnosis Acute right-sided low back pain with right-sided sciatica- Primary Screening mammogram for breast cancer documented [facility]* Diagnosis Screening mammogram for breast cancer [facility]* Diagnosis Controlled type 2 diabetes mellitus without complication, without long-term current use of insulin (HCC)- Primary Vitamin D deficiency Unspecified vitamin D deficiency Mixed hyperlipidemia Essential hypertension Unspecified essential hypertension Skin lesion of lower extremity Special screening for malignant neoplasms, colon Encounter for immunization Need for other specified prophylactic vaccination against single bacterial disease documented in this encounter [facility]* Diagnosis Encounter for screening for malignant neoplasm of colon- Primary Special screening for malignant neoplasms, colon Special screening for malignant neoplasms, colon documented in this encounter [facility]* Diagnosis Type 2 diabetes mellitus without complication, without long-term current use of insulin (HCC)- Primary [facility]* Diagnosis Hyperplastic polyp of sigmoid colon- Primary documented in this [facility]* Diagnosis Sebaceous cyst- Primary [facility]* Diagnosis Sebaceous cyst- Primary [facility]* Diagnosis Visit for suture removal- Primary Encounter for removal of sutures [facility]* Diagnosis Medicare annual wellness visit, subsequent- Primary Routine general medical examination at a health care facility Type 2 diabetes mellitus with hyperlipidemia (HCC) Essential hypertension Unspecified essential hypertension documented in [facility] noteNo assessment information availableWParma Community General [facility] Work Phone: Evaluation note* Diagnosis Type 2 diabetes mellitus without complication, without long-term current use of insulin (HCC)- Primary documented in this encounter [facility]* Diagnosis Fall, subsequent encounter- Primary Right leg pain Pain in limb Right leg swelling Swelling of limb Laceration of occipital scalp, subsequent encounter Encounter for staple removal Encounter for removal of sutures Contusion of right lower leg, initial encounter Right leg pain Pain in limb Right leg swelling Swelling of limb [facility]* Diagnosis Right leg pain Pain in limb Right leg swelling Swelling of limb [facility]* Diagnosis Right leg pain- Primary Pain in limb Fall, subsequent encounter Right leg swelling Swelling of limb Popliteal cyst, right Right leg pain Pain in limb Right leg swelling Swelling of limb documented in this encounter [facility]* Diagnosis Right leg pain Pain in limb Right leg swelling Swelling of limb [facility] Discharge instructionsAdditional Instructions Your ultrasound did not show any evidence of blood clots. Your x-ray was normal. Elevate your leg as high as possible as we discussed. Rotate Tylenol and ibuprofen [id number] for pain control when you do this you can take something every 3 hours max dose Tylenol in 24 hours 4000 mg max dose of ibuprofen in 24 hours 3200 mg. Return with any other concerns.[facility] Work Phone: Reason for referral (narrative)* Diagnostic Procedure Only (Routine) - Closed Specialty Diagnoses / Procedures Referred By Nory pearce Referred To Contact [facility] Diagnoses Visit for screening mammogram Procedures REINIER SCREENING SCREENING MAMMOGRAPHY BI 2-VIEW BREAST INC Emily Rodriguez MD [address] [place] [address] [facility] [address] [place] [address] Referral ID Status Reason Start Date Expiration Date V isits Requested Visits Authorized [id number] Closed Auto-Generate d Referral 04/06/2022 05/06/2023 1 1 [facility] for referral (narrative)* Diagnostic Procedure Only (Routine) - Closed Specialty Diagnoses / Procedures Referred By Nory pearce Referred To Contact [facility] Diagnoses Encounter for screening mammogram for breast cancer Procedures REINIER SCREENING SCREENING MAMMOGRAPHY BI 2-VIEW BREAST INC Emily Rodriguez MD [address] [place] [address] [facility] [address] [place] [address] Referral ID Status Reason Start Date Expiration Date V isits Requested Visits Authorized [id number] Closed Auto-Generate d Referral 06/29/2023 07/26/2024 1 1 [facility] for referral (narrative)* Diagnostic Procedure Only (Routine) - Authorized Specialty Diagnoses / Procedures Referred By Contac t Referred To Contact [facility] Diagnoses Screening mammogram for breast cancer Procedures REINIER SCREENING SCREENING MAMMOGRAPHY BI 2-VIEW BREAST INC CAD Amara Mauricio APRN.COMPASS OPERATOR [address] [place] [address] [facility] [address] [place] [address] Referral ID Status Reason Start Date Expiration Date Visits Requested Visits Authorized [id number] Authorized Auto-Generat ed Referral 4 08/03/2025 1 1 * Physical Therapy (Routine) - Pending Review Specialty Diagnoses / Procedures Referred By Sonac t Referred To Contact [facility] Diagnoses Acute right-sided low back pain with right-sided sciatica Procedures CONSULT TO PHYSICAL THERAPY PHYSICAL THERAPY EVALUATION HIGH COMPLEX 45 MINS Amara Mauricio APRN.COMPASS OPERATOR [address] [place] [address] [facility] [place] [address] [place] [address] Referral ID Status Reason Start Date Expiration Date Visits Requested Visits Authorized [id number] Pending Review Auto-Generat ed Referral 4 07/04/2025 1 1 * Diagnostic Procedure Only (Routine) - New Request Specialty Diagnoses / Procedures Referred By Nory t Referred To Contact [facility] Diagnoses Acute right-sided low back pain with right-sided sciatica Procedures XR LUMBAR GENERAL 3V AP/LAT/L5-S1 RADEX SPINE LUMBOSACRAL 2/3 VIEWS Amara Mauricio APRN.COMPASS OPERATOR [address] [place] [address] [place] [address] Referral ID Status Reason Start Date Expiration Date Visits Requested Visits Authorized [id number] New Request Auto-Generat ed Referral 4 08/03/2025 1 1 [facility] for referral (narrative)No reason for referral information availableWParma Community General Hospital Work Phone: Reason for visit Narrative* Diagnostic Procedure Only (Routine) - Closed Specialty Diagnoses / Procedures Referred By Contac t Referred To Contact [facility] Diagnoses Visit for screening mammogram Procedures REINIER SCREENING SCREENING MAMMOGRAPHY BI 2-VIEW BREAST INC Emily Rodriguez MD [address] [place] [address] [facility] [address] [place] [phone] Referral ID Status Reason Start Date Expiration Date V isits Requested Visits Authorized [id number] Closed Auto-Generate d Referral 04/06/2022 05/06/2023 1 1 [facility] for visit Narrative* Diagnostic Procedure Only (Routine) - Closed Specialty Diagnoses / Procedures Referred By Nory t Referred To Contact [facility] Diagnoses Encounter for screening mammogram for breast cancer Procedures REINIER SCREENING SCREENING MAMMOGRAPHY BI 2-VIEW BREAST INC Emily Rodriguez MD [address] [place] [address] [facility] [address] [place] [address] Referral ID Status Reason Start Date Expiration Date V isits Requested Visits Authorized [id number] Closed Auto-Generate d Referral 06/29/2023 07/26/2024 1 1 [facility] for visit Narrative* Diagnostic Procedure Only (Routine) - Closed Specialty Diagnoses / Procedures Referred By Nory t Referred To Contact [facility] Diagnoses Screening mammogram for breast cancer Procedures REINIER SCREENING SCREENING MAMMOGRAPHY BI 2-VIEW BREAST INC CAD Amara Mauricio, FLOOR SANDING MACHINE OPERATOR.COMPASS OPERATOR [address] [place] [address] [facility] [address] [place] [address] Referral ID Status Reason Start Date Expiration Date V isits Requested Visits Authorized [id number] Closed Auto-Generate d Referral 07/04/2024 08/03/2025 1 1 [facility] for visit Narrative* Outpatient Procedure (Routine) - Closed Specialty Diagnoses / Procedures Referred By Contac t Referred To Contact [facility] Diagnoses Special screening for malignant neoplasms, colon Procedures COLONOSCOPY SCREENING COLONOSCOPY FLX DX W/COLLJ SPEC WHEN Emily Khoury MD [address] [place] [address] Phone: tel: fax: [facility] [address] [place] [address] Referral ID Status Reason Start Date Expiration Date V isits Requested Visits Authorized [id number] Closed Auto-Generate d Referral 11/11/2024 11/11/2025 1 1 [facility] for visit Narrative* Diagnostic Procedure Only (Urgent) - Closed Specialty Diagnoses / Procedures Referred By Contac t Referred To Contact [facility] Diagnoses Right leg pain Right leg swelling Procedures US DVT LOWER RIGHT DUP-SCAN XTR VEINS UNILATERAL/LIMITED STUDY Amara Mauricio, FLOOR SANDING MACHINE OPERATOR.COMPASS OPERATOR [address] [place] [address] Phone: tel: fax: [place] [address] Referral ID Status Reason Start Date Expiration Date V isits Requested Visits Authorized [id number] Closed Auto-Generate d Referral 04/10/2025 05/10/2026 1 1 [facility] for visit Narrative* Diagnostic Procedure Only (Urgent) - Closed Specialty Diagnoses / Procedures Referred By Contac t Referred To Contact [facility] Diagnoses Right leg pain Right leg swelling Procedures XR KNEE GENERAL 4V AP BOTH/PA BOTH/LAT/MERC RIGHT RADIOLOGIC EXAM KNEE COMPLETE 4/MORE VIEWS Amara Mauricio, FLOOR SANDING MACHINE OPERATOR.COMPASS OPERATOR [address] [place] [address] Phone: tel: fax: [place] [address] Referral ID Status Reason Start Date Expiration Date V isits Requested Visits Authorized [id number] Closed Auto-Generate d Referral 04/24/2025 05/24/2026 1 1 [facility] Advance Directives No Advanced Directives Records FoundDocuments on File Type Date Recorded 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 No April 03, 2025 5:03pm Advance Directive Response Recorded Date/ Time Do you have a Healthcare Power of Fuel Tank Sealer And Tester? No April 08, 2025 2:54pm Do you have a Healthcare Power of Fuel Tank Sealer And Tester? No April 03, 2025 5:03pm Chief Complaint [...] or prosecute any alcohol or drug abuse patient.[facility] HealthcareIn the event this information is protected by the Federal Confidentiality of Alcohol and Drug Abuse Patient Records regulations: The Federal rules restrict any use of the information to criminally investigate or prosecute any alcohol or drug abuse patient.[facility] HealthcareIn the event this information is protected by the Federal Confidentiality of Alcohol and Drug Abuse Patient Records regulations: The Federal rules restrict any use of the information to criminally investigate or prosecute any alcohol or drug abuse patient.[facility] HealthcareIn the event this information is protected by the Federal Confidentiality of Alcohol and Drug Abuse Patient Records regulations: The Federal rules restrict any use of the information to criminally investigate or prosecute any alcohol or drug abuse patient.[facility] HealthcareIn the event this information is protected by the Federal Confidentiality of Alcohol and Drug Abuse Patient Records regulations: The Federal rules restrict any use of the information to criminally investigate or prosecute any alcohol or drug abuse patient.[facility] HealthcareIn the event this information is protected by the Federal Confidentiality of Alcohol and Drug Abuse Patient Records regulations: The Federal rules restrict any use of the information to criminally investigate or prosecute any alcohol or drug abuse patient.[facility] HealthcareIn the event this information is protected by the Federal Confidentiality of Alcohol and Drug Abuse Patient Records regulations: The Federal rules restrict any use of the information to criminally investigate or prosecute any alcohol or drug abuse patient.[facility] HealthcareIn the event this information is protected by the Federal Confidentiality of Alcohol and Drug Abuse Patient Records regulations: The Federal rules restrict any use of the information to criminally investigate or prosecute any alcohol or drug abuse patient.[facility] HealthcareIn the event this information is protected by the Federal Confidentiality of Alcohol and Drug Abuse Patient Records regulations: The Federal rules restrict any use of the information to criminally investigate or prosecute any alcohol or drug abuse patient.[facility] HealthcareIn the event this information is protected by the Federal Confidentiality of Alcohol and Drug Abuse Patient Records regulations: The Federal rules restrict any use of the information to criminally investigate or prosecute any alcohol or drug abuse patient.[facility] HealthcareIn the event this information is protected by the Federal Confidentiality of Alcohol and Drug Abuse Patient Records regulations: The Federal rules restrict any use of the information to criminally investigate or prosecute any alcohol or drug abuse patient.Uk HealthcareIn the event this information is protected by the Federal Confidentiality of Alcohol and Drug Abuse Patient Records regulations: The Federal rules restrict any use of the information to criminally investigate or prosecute any alcohol or drug abuse patient.[facility] HealthcareIn the event this information is protected by the Federal Confidentiality of Alcohol and Drug Abuse Patient Records regulations: The Federal rules restrict any use of the information to criminally investigate or prosecute any alcohol or drug abuse patient.[facility] HealthcareIn the event this information is protected by the Federal Confidentiality of Alcohol and Drug Abuse Patient Records regulations: The Federal rules restrict any use of the information to criminally investigate or prosecute any alcohol or drug abuse patient.[facility] HealthcareIn the event this information is protected by the Federal Confidentiality of Alcohol and Drug Abuse Patient Records regulations: The Federal rules restrict any use of the information to criminally investigate or prosecute any alcohol or drug abuse patient.[facility] HealthcareIn the event this information is protected by the Federal Confidentiality of Alcohol and Drug Abuse Patient Records regulations: The Federal rules restrict any use of the information to criminally investigate or prosecute any alcohol or drug abuse patient.[facility] HealthcareIn the event this information is protected by the Federal Confidentiality of Alcohol and Drug Abuse Patient Records regulations: The Federal rules restrict any use of the information to criminally investigate or prosecute any alcohol or drug abuse patient.[facility] HealthcareIn the event this information is protected by the Federal Confidentiality of Alcohol and Drug Abuse Patient Records regulations: The Federal rules restrict any use of the information to criminally investigate or prosecute any alcohol or drug abuse patient.[facility] HealthcareIn the event this information is protected by the Federal Confidentiality of Alcohol and Drug Abuse Patient Records regulations: The Federal rules restrict any use of the information to criminally investigate or prosecute any alcohol or drug abuse patient.[facility] HealthcareIn the event this information is protected by the Federal Confidentiality of Alcohol and Drug Abuse Patient Records regulations: The Federal rules restrict any use of the information to criminally investigate or prosecute any alcohol or drug abuse patient.[facility] HealthcareIn the event this information is protected by the Federal Confidentiality of Alcohol and Drug Abuse Patient Records regulations: The Federal rules restrict any use of the information to criminally investigate or prosecute any alcohol or drug abuse patient.[facility] HealthcareIn the event this information is protected by the Federal Confidentiality of Alcohol and Drug Abuse Patient Records regulations: The Federal rules restrict any use of the information to criminally investigate or prosecute any alcohol or drug abuse patient.[facility] HealthcareIn the event this information is protected by the Federal Confidentiality of Alcohol and Drug Abuse Patient Records regulations: The Federal rules restrict any use of the information to criminally investigate or prosecute any alcohol or drug abuse patient.[facility] HealthcareIn the event this information is protected by the Federal Confidentiality of Alcohol and Drug Abuse Patient Records regulations: The Federal rules restrict any use of the information to criminally investigate or prosecute any alcohol or drug abuse patient.[facility] HealthcareIn the event this information is protected by the Federal Confidentiality of Alcohol and Drug Abuse Patient Records regulations: The Federal rules restrict any use of the information to criminally investigate or prosecute any alcohol or drug abuse patient.[facility] HealthcareIn the event this information is protected by the Federal Confidentiality of Alcohol and Drug Abuse Patient Records regulations: The Federal rules restrict any use of the information to criminally investigate or prosecute any alcohol or drug abuse patient.[facility] HealthcareIn the event this information is protected by the Federal Confidentiality of Alcohol and Drug Abuse Patient Records regulations: The Federal rules restrict any use of the information to criminally investigate or prosecute any alcohol or drug abuse patient.[facility] HealthcareIn the event this information is protected by the Federal Confidentiality of Alcohol and Drug Abuse Patient Records regulations: The Federal rules restrict any use of the information to criminally investigate or prosecute any alcohol or drug abuse patient.[facility] HealthcareIn the event this information is protected by the Federal Confidentiality of Alcohol and Drug Abuse Patient Records regulations: The Federal rules restrict any use of the information to criminally investigate or prosecute any alcohol or drug abuse patient.[facility] HealthcareIn the event this information is protected by the Federal Confidentiality of Alcohol and Drug Abuse Patient Records regulations: The Federal rules restrict any use of the information to criminally investigate or prosecute any alcohol or drug abuse patient.[facility] HealthcareIn the event this information is protected by the Federal Confidentiality of Alcohol and Drug Abuse Patient Records regulations: The Federal rules restrict any use of the information to criminally investigate or prosecute any alcohol or drug abuse patient.Uk HealthcareIn the event this information is protected by the Federal Confidentiality of Alcohol and Drug Abuse Patient Records regulations: The Federal rules restrict any use of the information to criminally investigate or prosecute any alcohol or drug abuse patient.[facility] HealthcareIn the event this information is protected by the Federal Confidentiality of Alcohol and Drug Abuse Patient Records regulations: The Federal rules restrict any use of the information to criminally investigate or prosecute any alcohol or drug abuse patient.[facility] HealthcareIn the event this information is protected by the Federal Confidentiality of Alcohol and Drug Abuse Patient Records regulations: The Federal rules restrict any use of the information to criminally investigate or prosecute any alcohol or drug abuse patient.[facility] HealthcareIn the event this information is protected by the Federal Confidentiality of Alcohol and Drug Abuse Patient Records regulations: The Federal rules restrict any use of the information to criminally investigate or prosecute any alcohol or drug abuse patient.[facility] HealthcareIn the event this information is protected by the Federal Confidentiality of Alcohol and Drug Abuse Patient Records regulations: The Federal rules restrict any use of the information to criminally investigate or prosecute any alcohol or drug abuse patient.[facility] HealthcareIn the event this information is protected by the Federal Confidentiality of Alcohol and Drug Abuse Patient Records regulations: The Federal rules restrict any use of the information to criminally investigate or prosecute any alcohol or drug abuse patient.[facility] HealthcareIn the event this information is protected by the Federal Confidentiality of Alcohol and Drug Abuse Patient Records regulations: The Federal rules restrict any use of the information to criminally investigate or prosecute any alcohol or drug abuse patient.[facility] the event this information is protected by the Federal Confidentiality of Alcohol and Drug Abuse Patient Records regulations: The Federal rules restrict any use of the information to criminally investigate or prosecute any alcohol or drug abuse patient.[facility] HealthcareIn the event this information is protected by the Federal Confidentiality of Alcohol and Drug Abuse Patient Records regulations: The Federal rules restrict any use of the information to criminally investigate or prosecute any alcohol or drug abuse patient.[facility] HealthcareIn the event this information is protected by [...] or prosecute any alcohol or drug abuse patient.[facility] HealthcareIn the event this information is protected by the Federal Confidentiality of Alcohol and Drug Abuse Patient Records regulations: The Federal rules restrict any use of the information to criminally investigate or prosecute any alcohol or drug abuse patient.[facility] HealthcareIn the event this information is protected by the Federal Confidentiality of Alcohol and Drug Abuse Patient Records regulations: The Federal rules restrict any use of the information to criminally investigate or prosecute any alcohol or drug abuse patient.[facility] HealthcareIn the event this information is protected by the Federal Confidentiality of Alcohol and Drug Abuse Patient Records regulations: The Federal rules restrict any use of the information to criminally investigate or prosecute any alcohol or drug abuse patient.[facility] Reason for Visit (unrecogniz ed section and [...] carcinoma of face Procedures MOHS OFFICE/OUTPATIENT [facility] MDM 60 MINUTES Alessia Townsend MD [address] [place] [address] Referral ID Status Reason Start Date Expiration Date V isits Requested Visits Authorized [id number] Closed PCP Requested Referral 10/13/2023 10/12/2024 1 [...] Refill Request 02/05/2025 Reason Onset Date Comments 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 02/07/2025 Incoming call Reason Comments Medicare [...] Care Teams (unrecognized sec tion and content) Sushi Chef Relationship Specialty Start Date End Date Emily Flaherty MD [address] [place] [address] PCP - General 07/05/02 Becki Beth, [facility] [address] [place] [address] Pharmacist Pharmacy 05/13/21 Sushi Chef Relationship Specialty Start Date End Date Emily Flaherty MD [address] [place] [address] PCP - General 07/05/02 Becki Beth, [facility] [address] [place] [address] Pharmacist Pharmacy 05/13/21 Sushi Chef Relationship Specialty Start Date End Date Emily Flaherty MD [address] [place] [address] PCP - General 07/05/02 Becki Beth, [facility] [address] [place] [address] Pharmacist Pharmacy 05/13/21 Sushi Chef Relationship Specialty Start Date End Date Emily Flaherty MD [address] [place] [address] PCP - General 07/05/02 Becki Beth, [facility] [address] [place] [address] Pharmacist Pharmacy 05/13/21 Sushi Chef Relationship Specialty Start Date End Date Emily Flaherty MD [address] [place] [address] PCP - General 07/05/02 Becki Beth, [facility] [address] [place] [address] Pharmacist Pharmacy 05/13/21 Sushi Chef Relationship Specialty Start Date End Date Emily Flaherty MD [address] [place] [address] PCP - General 07/05/02 Ignacia, Becki, [facility] [address] [place] [address] Pharmacist Pharmacy 05/13/21 Sushi Chef Relationship Specialty Start Date End Date Emily Flaherty MD [address] [place] [address] PCP - General 07/05/02 IgnaciaWanda manleyily, [facility] [address] [place] [address] Pharmacist Pharmacy 05/13/21 Sushi Chef Relationship Specialty Start Date End Date Emily Flaherty MD [address] [place] [address] PCP - General 07/05/02 RosenhaynBecki manley, [facility] [address] [place] [address] Pharmacist Pharmacy 05/13/21 Sushi Chef Relationship Specialty Start Date End Date Emily Flaherty MD [address] [place] [address] PCP - General 07/05/02 Ignacia, Becki, [facility] [address] [place] [address] Pharmacist Pharmacy 05/13/21 Sushi Chef Relationship Specialty Start Date End Date Emily Flaherty MD [address] [facility] [place] [address] PCP - General 07/05/02 Ignacia, Becki, [facility] [address] [place] [place] [address] Pharmacist Pharmacy 05/13/21 Sushi Chef Relationship Specialty Start Date End Date Emily Flaherty MD [address] [facility] [place] [address] PCP - General 07/05/02 Becki Beth, [facility] [address] [facility] [place] [address] Pharmacist Pharmacy 05/13/21 Sushi Chef Relationship Specialty Start Date End Date Emily Flaherty MD [address] [facility] [place] [address] PCP - General 07/05/02 Becki Beth, [facility] [address] [facility] [place] [address] Pharmacist Pharmacy 05/13/21 Sushi Chef Relationship Specialty Start Date End Date Emily Flaherty MD [address] [facility] [place] [address] PCP - General 07/05/02 Becki Beth, [facility] [address] [facility] [place] [address] Pharmacist Pharmacy 05/13/21 Sushi Chef Relationship Specialty Start Date End Date Emily Flaherty MD [address] [facility] [place] [address] PCP - General 07/05/02 Becki Beth, [facility] [address] [facility] [place] [address] Pharmacist Pharmacy 05/13/21 Sushi Chef Relationship Specialty Start Date End Date Emily Flaherty MD [address] [facility] [place] [address] PCP - General 07/05/02 Becki Beth, [facility] [address] [place] [address] Pharmacist Pharmacy 05/13/21 Sushi Chef Relationship Specialty Start Date End Date Emily Flaherty MD [address] [facility] [place] [address] PCP - General 07/05/02 IgnaciaBecki manley, [facility] [address] [facility] [place] [address] Pharmacist Pharmacy 05/13/21 Sushi Chef Relationship Specialty Start Date End Date Eimly Flaherty MD [address] [facility] [place] [address] PCP - General 07/05/02 RosenhaynBecki manley, [facility] [address] [facility] [place] [address] Pharmacist Pharmacy 05/13/21 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 Chef Relationship Specialty Start Date End Date Emily Flaherty MD [address] [facility] [place] [address] PCP - General 07/05/02 Becki Beth, [facility] [address] [facility] [place] [address] Pharmacist Pharmacy 05/13/21 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 Chef Relationship Specialty Start Date End Date Emily Flaherty MD [address] [facility] [place] [address] PCP - General 07/05/02 Becki Beth, [facility] [address] [facility] [place] [address] Pharmacist Pharmacy 05/13/21 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 Chef Relationship Specialty Start Date End Date Emily Flaherty MD [address] [place] [address] PCP - General 07/05/02 [facility] [address] [address] Pharmacist Pharmacy 05/13/21 Amara Mauricio, FLOOR SANDING MACHINE OPERATOR.COMPASS OPERATOR [address] [address] Production Machinist Internal Medicine 08/19/24 Aracelis Ribeiro, FLOOR SANDING MACHINE OPERATOR.LEAD JAVA DEVELOPER ARCHITECT [address] [address] Production Machinist Internal Medicine 08/19/24 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 Chef Relationship Specialty Start Date End Date Emily Flaherty MD [address] [place] [address] PCP - General 07/05/02 [facility] [address] [address] Pharmacist Pharmacy 05/13/21 Amara Mauricio, FLOOR SANDING MACHINE OPERATOR.COMPASS OPERATOR [address] [place] [address] Production Machinist Internal Medicine 08/19/24 Aracelis Ribeiro, FLOOR SANDING MACHINE OPERATOR.LEAD JAVA DEVELOPER ARCHITECT [address] [address] Production Machinist Internal Medicine 12/03/24 Sushi Chef Relationship Specialty Start Date End Date Emily Flaherty MD [address] [address] PCP - General 07/05/02 Becki Beth [facility] [address] [place] [address] Pharmacist Pharmacy 05/13/21 Amara Mauricio, FLOOR SANDING MACHINE OPERATOR.COMPASS OPERATOR [address] [place] [address] Production Machinist Internal Medicine 08/19/24 Aracelis Ribeiro FLOOR SANDING MACHINE OPERATOR.LEAD JAVA DEVELOPER ARCHITECT [address] [address] Production Machinist Internal Medicine 12/03/24 Sushi Chef Relationship Specialty Start Date End Date Emily Flaherty MD [address] [place] [address] PCP - General 07/05/02 [facility] [address] [address] Pharmacist Pharmacy 05/13/21 Amara Mauricio, FLOOR SANDING MACHINE OPERATOR.COMPASS OPERATOR [address] [place] [address] Production Machinist Internal Medicine 08/19/24 Aracelis Ribeiro, FLOOR SANDING MACHINE OPERATOR.LEAD JAVA DEVELOPER ARCHITECT [address] [place] [address] Production Machinist Internal Medicine 12/03/24 Sushi Chef Relationship Specialty Start Date End Date Emily Flaherty MD [address] [address] PCP - General 07/05/02 Becki Beth, [facility] [address] [place] [address] Pharmacist Pharmacy 05/13/21 Amara Mauricio, FLOOR SANDING MACHINE OPERATOR.COMPASS OPERATOR [address] [place] [address] Production Machinist Internal Medicine 08/19/24 Aracelis Ribeiro APRN.LEAD JAVA DEVELOPER ARCHITECT [address] [place] [address] Production Machinist Internal Medicine 12/03/24 Sushi Chef Relationship Specialty Start Date End Date Emily Flaherty MD [address] [place] [address] PCP - General 07/05/02 Becki Beth [facility] [address] [place] [address] Pharmacist Pharmacy 05/13/21 Amara Mauricio APRN.COMPASS OPERATOR [address] [place] [address] Production Machinist Internal Medicine 08/19/24 Aracelis Ribeiro APRN.LEAD JAVA DEVELOPER ARCHITECT [address] [place] [address] Production Machinist Internal Medicine 12/03/24 Sushi Chef Relationship Specialty Start Date End Date Emily Flaherty MD [address] [place] [address] PCP - General 07/05/02 [facility] [address] [place] [address] Pharmacist Pharmacy 05/13/21 Amara Mauricio APRN.COMPASS OPERATOR [address] [place] [address] Production Machinist Internal Medicine 08/19/24 Aracelis Ribeiro APRN.LEAD JAVA DEVELOPER ARCHITECT [address] [place] [address] Production Machinist Internal Medicine 12/03/24 Sushi Chef Relationship Specialty Start Date End Date Emily Flaherty MD [address] [place] [address] PCP - General 07/05/02 [facility]Becki [facility] [address] [address] Pharmacist Pharmacy 05/13/21 Amara Mauricio, FLOOR SANDING MACHINE OPERATOR.COMPASS OPERATOR [address] [place] [address] Production Machinist Internal Medicine 08/19/24 Aracelis Ribeiro FLOOR SANDING MACHINE OPERATOR.LEAD JAVA DEVELOPER ARCHITECT [address] [place] [address] Production Machinist Internal Medicine 12/03/24 Sushi Chef Relationship Specialty Start Date End Date Emily Flaherty MD [address] [place] [address] PCP - General 07/05/02 [facility] [address] [address] Pharmacist Pharmacy 05/13/21 Amara Mauricio, FLOOR SANDING MACHINE OPERATOR.COMPASS OPERATOR [address] [place] [address] Production Machinist Internal Medicine 08/19/24 Aracelis Ribeiro FLOOR SANDING MACHINE OPERATOR.LEAD JAVA DEVELOPER ARCHITECT [address] [place] [address] Production Machinist Internal Medicine 12/03/24 Sushi Chef Relationship Specialty Start Date End Date Emily Flaherty MD [address] [place] [address] PCP - General 07/05/02 [facility] [address] [place] [address] Pharmacist Pharmacy 05/13/21 Aracelis Ribeiro FLOOR SANDING MACHINE OPERATOR.LEAD JAVA DEVELOPER ARCHITECT [address] [place] [address] Production Machinist Internal Medicine 12/03/24 Kiera Shepard RN [facility] 01/16/25 Amara Mauricio, FLOOR SANDING MACHINE OPERATOR.COMPASS OPERATOR [address] [place] [address] Production Machinist Internal Medicine 01/29/25 Sushi Chef Relationship Specialty Start Date End Date Emily Flaherty MD [address] [place] [address] PCP - General 07/05/02 [facility] [address] [place] [address] Pharmacist Pharmacy 05/13/21 Aracelis Ribeiro FLOOR SANDING MACHINE OPERATOR.LEAD JAVA DEVELOPER ARCHITECT [address] [place] [address] Production Machinist Internal Medicine 12/03/24 Kiera Shepard RN [facility] 01/16/25 Amara Mauricio, FLOOR SANDING MACHINE OPERATOR.COMPASS OPERATOR [address] [place] [address] Production Machinist Internal Medicine 01/29/25 Sushi Chef Relationship Specialty Start Date End Date Emily Flaherty MD [address] [place] [address] PCP - General 07/05/02 [facility] [address] [place] [address] Pharmacist Pharmacy 05/13/21 Aracelis Ribeiro FLOOR SANDING MACHINE OPERATOR.LEAD JAVA DEVELOPER ARCHITECT [address] [place] [address] Production Machinist Internal Medicine 12/03/24 Kiera Shepard RN [facility] 01/16/25 Amara Mauricio, FLOOR SANDING MACHINE OPERATOR.COMPASS OPERATOR [address] [facility] [place] [address] Production Machinist Internal Medicine 01/29/25 Sushi Chef Relationship Specialty Start Date End Date Emily Flaherty MD [address] [place] [address] PCP - General 07/05/02 [facility] [address] [place] [address] Pharmacist Pharmacy 05/13/21 Aracelis Ribeiro FLOOR SANDING MACHINE OPERATOR.LEAD JAVA DEVELOPER ARCHITECT [address] [place] [address] Production Machinist Internal Medicine 12/03/24 Kiera Shepard RN [facility] 01/16/25 Amara Mauricio, FLOOR SANDING MACHINE OPERATOR.COMPASS OPERATOR [address] [facility] [place] [address] Production Machinist Internal Medicine 01/29/25 Team Status: Active Member [...] February 20, 2025 End: February 20, 2025 Sushi Chef Relationship Specialty Start Date End Date Emily Flaherty MD [address] [facility] [place] [address] PCP - General 07/05/02 Aracelis Ribeiro FLOOR SANDING MACHINE OPERATOR.LEAD JAVA DEVELOPER ARCHITECT [address] [facility] [place] [address] Production Machinist Internal Medicine 12/03/24 Kiera Shepard RN [facility] 01/16/25 Amara Mauricio, FLOOR SANDING MACHINE OPERATOR.COMPASS OPERATOR [address] [facility] [place] [address] [facility] Internal Medicine 01/29/25 Sushi Chef Relationship Specialty Start Date End Date Emily Flaherty MD [address] [facility] [place] [address] PCP - General 07/05/02 Aracelis Ribeiro FLOOR SANDING MACHINE OPERATOR.LEAD JAVA DEVELOPER ARCHITECT [address] [place] [place] [address] Production Machinist Internal Medicine 12/03/24 Kiera Shepard RN [facility] 01/16/25 Amara Mauricio, FLOOR SANDING MACHINE OPERATOR.COMPASS OPERATOR [address] [facility], [place] [address] Production Machinist Internal Medicine 01/29/25 Sushi Chef Relationship Specialty Start Date End Date Emily Flaherty MD [address] [place], [place] [address] PCP - General 07/05/02 Aracelis Ribeiro, FLOOR SANDING MACHINE OPERATOR.LEAD JAVA DEVELOPER ARCHITECT [address] [place], [place] [address] Production Machinist Internal Medicine 12/03/24 Kiera Shepard, RN [facility] 01/16/2502/10 Amara Mauricio, FLOOR SANDING MACHINE OPERATOR.COMPASS OPERATOR [address] [place], [place] [address] Production Machinist Internal Medicine 01/29/25 Team Status: Active Member [...] April 08, 2025 End: April 08, 2025 Sushi Chef Relationship Specialty Start Date End Date Emily Flaherty MD [address] [place] [address] PCP - General 07/05/02 Aracelis Ribeiro APRN.LEAD JAVA DEVELOPER ARCHITECT [address] [facility] [place] [address] Production Machinist Internal Medicine 12/03/24 Amara Mauricio, FLOOR SANDING MACHINE OPERATOR.COMPASS OPERATOR [address] [place] [address] Production Machinist Internal Medicine 01/29/25 Sushi Chef Relationship Specialty Start Date End Date Emily Flaherty MD [address] [place] [address] PCP - General 07/05/02 Aracelis Ribeiro FLOOR SANDING MACHINE OPERATOR.LEAD JAVA DEVELOPER ARCHITECT [address] [place] [address] Production Machinist Internal Medicine 12/03/24 Amara Mauricio, FLOOR SANDING MACHINE OPERATOR.COMPASS OPERATOR [address] [place] [address] Production Machinist Internal Medicine 01/29/25 Sushi Chef Relationship Specialty Start Date End Date Emily Flaherty MD [address] [place] [address] PCP - General 07/05/02 Aracelis Ribeiro APRN.LEAD JAVA DEVELOPER ARCHITECT [address] [place] [address] Production Machinist Internal Medicine 12/03/24 Amara Mauricio, FLOOR SANDING MACHINE OPERATOR.COMPASS OPERATOR [address] [place] [address] Production Machinist Internal Medicine 01/29/25 Sushi Chef Relationship Specialty Start Date End Date Emily Flaherty MD [address] [place] [address] PCP - General 07/05/02 Aracelis Ribeiro FLOOR SANDING MACHINE OPERATOR.LEAD JAVA DEVELOPER ARCHITECT [address] [place] [address] Production Machinist Internal Medicine 12/03/24 Amara Mauricio, FLOOR SANDING MACHINE OPERATOR.COMPASS OPERATOR [address] [place] [address] Production Machinist Internal Medicine 01/29/25 Sushi Chef Relationship Specialty Start Date End Date Emily Flaherty MD [address] [place] [address] PCP - General 07/05/02 Aracelis Ribeiro FLOOR SANDING MACHINE OPERATOR.LEAD JAVA DEVELOPER ARCHITECT [address] [place] [address] Production Machinist Internal Medicine 12/03/24 Amara Mauricio, FLOOR SANDING MACHINE OPERATOR.COMPASS OPERATOR [address] [place] [address] [facility] Internal Medicine 01/29/25 Goals (unrecognized section and content) Goals may be documented in a n alternate sectionGoals may be documented in an alternate sectionGoals may be documented in an alternate section INFORMATION SOURCE (unrecogn ized section and content) DATE CREATED AUTHOR 04/10/2025 [facility] DATE CREATED AUTHOR 'S ORGANIZ ATION 04/13/2025 [facility] DATE CREATED AUTHOR 'S ORGANIZ ATION 05/27/2025 [facility] FOR RECORDS PERTAINING TO PATIENTS WHO [...] BE BASED ON THE PRIMARY CLINICAL RECORDS. [facility] [employer] [facility]. provides no warranty or guarantee of the accuracy or completeness of information in this document.
[2025-06-06] MEDS: Timolol 0.5% 5ML OPTH.BTL 1 DRP OPHTHALMIC (20:48)
[2025-06-06] MEDS: 0.9% Saline Lock 10 ML Syringe IV ×2 (20:49→23:19)
--- NOTE | 2025-06-06 21:02 | NURSING ---
Pt pulled off and is refusing continuous pulse ox. Pt educated on its use and importance yet continues to refuse.
--- NOTE | 2025-06-06 23:48 | PCM.HOSP.N ---
Hospitalist Note Notified by nrsg that she is refusing to participate in her care/ NIH assessments. Discussed w/pt importance of neurological assessments to monitor symptoms. She was treated with ondansetron for an emesis and only wants to sleep, does not want to be bothered with anything else.
--- NOTE | 2025-06-06 23:53 | NURSING ---
Pt refusing to participate in NIHSS assessment or answer any questions stating that I am sleeping, get out of my room. Pt also getting increasingly more agitated with staff throughout the evening. Notified Massiel Mcginnis NP of pts refusal of NIHSS.
[2025-06-07 03:30] VITALS: BP 140/110; PULSE 112; RESP 16; TEMP 37.1; O2SAT 98
[2025-06-07 05:37] LABS: Hematocrit 36.9 % (37-47); Hemoglobin 12.3 g/dL (12.0-15.0); Immature Granulocytes Count 0.050 X10^3/uL (0.0-0.0); Mean Corp Hgb Conc 33.3 g/dL (32-36); Mean Corpuscular Volume 86.4 fL (81-99); Mean Platelet Vol. 9.2 fl (6.2-12.0); NRBC Flagged by Analyzer 0 % (0-5); Platelet Count 331 K/mm3 (150-450); RBC Distribution Width CV 13.0 % (11.6-14.6); RBC Distribution Width SD 40.5 fl (35.1-43.9); Red Blood Count 4.27 M/mm3 (4.2-5.4); White Blood Count 11.6 K/mm3 (4.4-11.0)
[2025-06-07 06:33] LABS: Anion Gap 13 (5-15); BUN 17 mg/dL (4-19); BUN/Creat Ratio 26.2 RATIO (10-20); Calcium,Total 9.0 mg/dL (7.6-11.0); Carbon Dioxide 20.0 mmol/L (21.0-32.0); Chloride 101 mmol/L (98-108); Estimated Creatinine Clearance 46.15 ml/min (50-250); Glucose 171 mg/dL (70-99); Potassium 3.5 mmol/L (3.3-5.1)
[2025-06-07 06:55] VITALS: O2SAT 95
[2025-06-07 07:30] VITALS: BP 185/72; PULSE 76; RESP 16; TEMP 36.7; O2SAT 98
[2025-06-07 07:52] LABS: Cholesterol 187 mg/dL (<=200); Low Density Lipoprotein Calc. 128 mg/dL; Triglycerides 120 mg/dL; Very Low Density Lipoprotein 24 mg/dL (5-40); cholesterol:hdl ratio screen 5.31
--- NOTE | 2025-06-07 08:36 | PN.HOSP_ITS ---
Reason for Visit Chief Complaint: Transient left hand numbness Subjective Subjective States that her left hand numbness is resolved. Objective Data Objective Data Vital Signs: Vital Signs Temp Pulse Resp BP Pulse Ox O2 Del Method 37.1 C 112 H 16 140/110 H 98 Room Air 06/07/25 03:30 06/07/25 03:30 06/07/25 03:30 06/07/25 03:30 06/07/25 03:30 06/07/25 03:36 Oxygen Delivery Method Room Air Weight: 60.81 kg Body Mass Index (BMI) 25.3 Intake & Output: Intake and Output for Last 24 Hours 06/05/25 06/06/25 06/07/25 23:59 23:59 23:59 Intake Total 1500 / 1500 280 / 280 Balance 1500 / 1500 280 / 280 Lab / Micro Data 06/07/25 05:03 06/07/25 05:03 Labs: Laboratory Results - last 24 hr 06/06/25 13:00: WBC 9.4, RBC 4.70, Hgb 13.4, Hct 40.9, MCV 87.0, MCH 28.5, MCHC 32.8, RDW Std Deviation 41.2, RDW Coeff of Michael 13.0, Plt Count 366, MPV 9.5, Immature Gran % (Auto) 0.400, Neut % (Auto) 68.9, Lymph % (Auto) 18.6 L, [place] % (Auto) 7.3, Eos % (Auto) 4.4, Baso % (Auto) 0.4, Absolute Neuts (auto) 6.5, Absolute Lymphs (auto) 1.75, Nucleated RBC % 0.5, Sodium 138, Potassium 4.0, Chloride 103, Carbon Dioxide 20.5 L, Anion Gap 15, BUN 25 H, Creatinine 0.82, Est GFR (MDRD) Non-Af 72, BUN/Creatinine Ratio 30.0 H, Glucose 187 H, Calcium 9.5, Magnesium 2.0, Troponin T High Sens 12 06/06/25 13:01: POC Glucose 190 H 06/06/25 14:51: Urine Color Yellow, Urine Clarity Clear, Urine pH 6.0, Ur Specific [place] 1.025, Urine Protein 30 H, Urine Glucose (UA) 250 H, Urine Ketones 15 H, Urine Occult Blood 25 H, Urine Nitrite Negative, Urine Bilirubin Negative, Urine Urobilinogen Normal, Ur Leukocyte Esterase 500 H, Urine RBC 0 SEEN, Urine WBC 50-100 SEEN, Ur Squamous Epith Cells 0-5 SEEN, Urine Bacteria 0 SEEN, Urine Mucus 0 SEEN 06/06/25 16:15: Troponin T Hi Sens 2 Hr 17 H 06/06/25 20:43: POC Glucose 159 H 06/07/25 05:03: WBC 11.6 H, RBC 4.27, Hgb 12.3, Hct 36.9 L, MCV 86.4, MCH 28.8, MCHC 33.3, RDW Std Deviation 40.5, RDW Coeff of Michael 13.0, Plt Count 331, MPV 9.2, Immature Gran % (Auto) 0.400, Neut % (Auto) 77.5 H, Lymph % (Auto) 15.2 L, [place] % (Auto) 6.2, Eos % (Auto) 0.4, Baso % (Auto) 0.3, Absolute Neuts (auto) 8.9 H, Absolute Lymphs (auto) 1.76, Nucleated RBC % 0, Sodium 134, Potassium 3.5, Chloride 101, Carbon Dioxide 20.0 L, Anion Gap 13, BUN 17, Creatinine 0.64 L, Estim Creat Clear Calc 46.15 L, Est GFR (MDRD) Non-Af 89, BUN/Creatinine Ratio 26.2 H, Glucose 171 H, Hemoglobin A1c 8.8 H, Calcium 9.0, Triglycerides 120, Cholesterol 187, LDL Cholesterol, Calc 128, VLDL Cholesterol 24, HDL Cholesterol 35 L, Cholesterol/HDL Ratio 5.31, TSH 0.205 L 06/07/25 06:19: POC Glucose 149 H Radiography Diagnostic Testing: Radiology Impression Brain CT 06/06/25 13:19 IMPRESSION: No acute intracranial abnormalities. Reading Location: [facility] Head/Neck CTA 06/06/25 13:19 IMPRESSION: No hemodynamically significant stenosis in the head and neck. No aneurysm. Reading Location: [facility] Chest X-Ray 06/06/25 15:20 IMPRESSION: Partially visualized kidneys show residual contrast material within the collecting systems. Generalized osteopenia is seen. No acute osseous change is evident. No evidence of cardiomegaly. A mildly calcified aorta is seen. Lungs are mildly hyperinflated with increased interstitial markings, consistent with chronic lung disease. No findings pulmonary edema are seen. No acute pneumonic process is noted. No pleural effusion or pneumothorax is seen. Reading Location: [address] Physical Exam Const alert and oriented x3 Constitutional Narrative: In chair. Afebrile. Patient holding her cell phone with her left hand. 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 Echo pending. * Seen by neurology recommends aspirin, statin to keep LDL 70 or less. If echo unremarkable for 30-day event monitor. Type 2 diabetes mellitus * Glucose checks and sliding scale insulin * Hold home metformin Low TSH: Check free T4 Hypertension * Allowing for permissive hypertension as above, hold lisinopril DVT ppx: SCDs Patient was sitting in a chair and looking her phone. After I introduced myself she continue to do something on her cell phone and was casually answering questions but establishing no eye contact while she was on her phone. This lasted about a minute. Then I was telling her some information about the findings, including the stroke. After which she stated that she need me to repeat what I said after her stroke. I told her I could not recall the specifics as I was when I was talking to her to which she then replied and condescending tone did you have a stroke?. She continue to have condescending comments towards me to which leading me to leave her room. Charges/Coding Visit Charges Inpatient E&M: 53647 Subs Hosp L1 NIHSS NIHSS Nursing Documentation NIHSS Nursing Documentation: NIH Stroke Scale Start: 06/06/25 13:51 Freq: Status: Discharge Protocol: Activity Type Activity Date Activity User E-sign Co-sign Detail Recorded Client Recorded Date Recorded By Document 06/06/25 12:50 MARCY desktiop 06/06/25 13:52 MARCY 06/06/25 12:50 NIH Stroke Scale [NIHSS] A score of 0 is normal or asymptomatic . Total possible score is 42. Inpatient: RN or Physician to activate a stroke alert for onset of new stroke symptoms or with NIHSS increase >/= 3 points. Following change in neurological status, NIHSS will be performed per physician order or more frequently PRN. -1a. Level of Consciousness 0 - Alert; keenly responsive -1b. LOC Questions 0 - Answers BOTH questions correctly -1c. LOC Commands 0 - Performs BOTH tasks correctly -2. Best Gaze 0 - Normal -3. Visual 0 - No visual loss -4. Facial Palsy 0 - Normal symmetrical movements -5a. Left Arm 0 - No drift; arm holds 90 ( or 45) degrees for full 10 seconds -5b. Right Arm 0 - No drift; arm holds 90 ( or 45) degrees for full 10 seconds -6a. Left Leg 0 - No drift; leg holds 30- degree position for full 5 seconds -6b. Right Leg 0 - No drift; leg holds 30- degree position for full 5 seconds -7. Limb Ataxia 0 - Absent -8. Sensory 0 - Normal; no sensory loss -9. Best Language 0 - No aphasia; normal -10. Dysarthria 0 - Normal -11. Extinction and Inattention 0 - No abnormality -Total 0 Query Text:A score of 0 is normal or asymptomatic. Total possible score is 42 . ED: Notify Physician for NIHSS increase by > / = 3 points. Inpatient: RN or Physician to activate a stroke alert for NIHSS increase of > / = 3 points. NIHSS: Ischemic Stroke/TIA Start: 06/06/25 18:27 Text: For PCU Patients: NIH and Neuro Check every 4 Status: Active hours, PRN and with change in RN caregiver. Freq: [id number] Protocol: Activity Type Activity Date Activity User E-sign Co-sign Detail Recorded Client Recorded Date Recorded By Document 06/07/25 03:30 MG [id number] 06/07/25 03:33 MG 06/07/25 03:30 -1a. Level of Consciousness 0 - Alert; keenly responsive -1b. LOC Questions 0 - Answers BOTH questions correctly -1c. LOC Commands 0 - Performs BOTH tasks correctly -2. Best Gaze 0 - Normal -3. Visual 0 - No visual loss -4. Facial Palsy 0 - Normal symmetrical movements -5a. Left Arm 0 - No drift; arm holds 90 ( or 45) degrees for full 10 seconds -5b. Right Arm 0 - No drift; arm holds 90 ( or 45) degrees for full 10 seconds -6a. Left Leg 0 - No drift; leg holds 30- degree position for full 5 seconds -6b. Right Leg 0 - No drift; leg holds 30- degree position for full 5 seconds -7. Limb Ataxia 0 - Absent -8. Sensory 0 - Normal; no sensory loss -9. Best Language 0 - No aphasia; normal -10. Dysarthria 0 - Normal -11. Extinction and Inattention 0 - No abnormality -Total 0 Query Text:A score of 0 is normal or asymptomatic. Total possible score is 42 . ED: Notify Physician for NIHSS increase by > / = 3 points. Inpatient: RN or Physician to activate a stroke alert for NIHSS increase of > / = 3 points. Coma Scale [Assess] -Eye Opening Spontaneous -Motor Obeys Commands -Verbal Oriented [Total] -Coma Scale Total 15
[2025-06-07] MEDS: Latanoprost 0.005% 1 Bottle 1 DRP OPHTHALMIC (08:51)
[2025-06-07] MEDS: Timolol 0.5% 5ML OPTH.BTL 1 DRP OPHTHALMIC (08:51)
--- NOTE | 2025-06-07 09:28 | STROKE.CONS ---
Assessment and Plan: Stroke Assessment/Plan ANGELICA MARTINEZ is a 80 F with a history of diabetes, hypertension who presented to [facility] ED 06/06/2025 for left hand numbness. Not a TNK or MT candidate Neurological examination shows intact examination. 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 Spent 72 min in evaluation and management HPI Consult Data Date of Consult: 06/07/25 HPI Narrative HPI Narrative: ANGELICA MARTINEZ, is a 80 F with history of diabetes, hypertension who presented to [facility] ED 06/06/2025 for left hand numbness. Reportedly she has been fatigued all day and then for several seconds she developed numbness to the left hand that quickly resolved and is asymptomatic at this time other than the fatigue. Friend at bedside also reports she did not seem to be quite herself. No weakness, slurred speech, facial droop. In the ED patient afebrile, heart rate 101 and blood pressure 191/98, respiratory rate 16 and pulse ox 98% on room air. Blood glucose 190. CT head no acute abnormalities. CTA head and neck no LVO. Chest x-ray no acute process. [facility] Medical History Anxiety Heart murmur Hypertension Shingles Diabetes mellitus Home Medications ?Medication ?Instructions ?Recorded ?Last Taken ?Type cholecalciferol (vitamin D3) 50 50 mcg PO DAILY 04/08/25 04/08/25 History mcg (2,000 unit) capsule latanoprost 0.005 % eye drops 1 drp ophthalmic (eye) DAILY 04/08/25 04/07/25 History lisinopril 20 mg tablet 20 mg PO DAILY 04/08/25 04/08/25 History metformin 500 mg tablet,extended 500 mg PO DAILY 04/08/25 04/07/25 History release 24 hr minocycline 50 mg capsule 50 mg PO DAILY 04/08/25 04/07/25 History timolol maleate 0.5 % eye drops 1 drp ophthalmic (eye) BID 04/08/25 04/08/25 History Allergy/AdvReac Type Severity Reaction Status Date / Time Beef Containing Products Allergy Nausea/Vom/ Verified 06/06/25 12:14 Diarrhea Fish Containing Products Allergy Itching Verified 06/06/25 12:14 lactase (From Dairy Aid) Allergy Nausea/Vom/ Verified 06/06/25 12:14 Diarrhea acetaminophen (From Tylenol) AdvReac Other Verified 06/06/25 12:14 Social History Smoking Status: Never smoker Vital Signs Vital Signs Vital Signs: 06/06/25 12:12 06/06/25 14:14 06/06/25 16:00 Temperature 98.2 F Temperature Source Oral Pulse Rate 101 H 68 72 Pulse Strength Respiratory Rate 16 18 18 Respiratory Effort Respiratory Depth Respiratory Pattern Blood Pressure 191/98 H 169/78 H 183/81 H Blood Pressure Mean 129 108 115 Blood Pressure Source Blood Pressure Position Blood Pressure Location Pulse Ox 98 95 100 Oxygen Delivery Method Room Air Room Air Room Air 06/06/25 16:27 06/06/25 18:28 06/06/25 20:00 Temperature 97.9 F 98.1 F 98.9 F Temperature Source Oral Oral Pulse Rate 88 75 84 Pulse Strength Respiratory Rate 18 18 18 Respiratory Effort Respiratory Depth Respiratory Pattern Blood Pressure 183/81 H 146/67 H 186/99 H Blood Pressure Mean 115 93 128 Blood Pressure Source Monitor Monitor Blood Pressure Position Sitting Semi-Fowlers Blood Pressure Location Left Arm Pulse Ox 99 100 99 Oxygen Delivery Method Room Air Room Air 06/06/25 20:23 06/06/25 20:25 06/06/25 21:03 Temperature Temperature Source Pulse Rate Pulse Strength Normal (2+) Respiratory Rate Respiratory Effort Normal Non-Labored Respiratory Depth Normal Respiratory Pattern Normal Blood Pressure Blood Pressure Mean Blood Pressure Source Blood Pressure Position Blood Pressure Location Pulse Ox 99 Oxygen Delivery Method Room Air Room Air 06/06/25 23:25 06/07/25 03:30 06/07/25 03:36 Temperature 99.3 F H 98.7 F Temperature Source Oral Oral Pulse Rate 95 112 H Pulse Strength Respiratory Rate 14 16 Respiratory Effort Normal Non-Labored Respiratory Depth Normal Respiratory Pattern Normal Blood Pressure 202/87 H 140/110 H Blood Pressure Mean 125 120 Blood Pressure Source Monitor Monitor Blood Pressure Position Semi-Fowlers Semi-Fowlers Blood Pressure Location Right Arm Right Arm Pulse Ox 97 98 Oxygen Delivery Method Room Air Room Air Room Air 06/07/25 07:30 Temperature 98.0 F Temperature Source Oral Pulse Rate 76 Pulse Strength Respiratory Rate 16 Respiratory Effort Respiratory Depth Respiratory Pattern Blood Pressure 185/72 H Blood Pressure Mean 109 Blood Pressure Source Monitor Blood Pressure Position Sitting Blood Pressure Location Right Arm Pulse Ox 98 Oxygen Delivery Method Room Air Weight Weight: 60.81 kg Body Mass Index (BMI) 25.3 Physical Exam Const alert, oriented x3 and no apparent distress General Appearance: cooperative, comfortable and well kempt HEENT normocephalic Head and Scalp: atraumatic Face and Sinus: normal facial exam Neuro Neuro Narrative: awake, alert oriented X3 speech fluent Comprehension intact CN 2-12 intact Power 5/5 Sensation: normal No ataxia Lab / Micro Data 06/07/25 05:03 06/07/25 05:03 Labs: Laboratory Results - last 24 hr 06/06/25 13:00: WBC 9.4, RBC 4.70, Hgb 13.4, Hct 40.9, MCV 87.0, MCH 28.5, MCHC 32.8, RDW Std Deviation 41.2, RDW Coeff of Michael 13.0, Plt Count 366, MPV 9.5, Immature Gran % (Auto) 0.400, Neut % (Auto) 68.9, Lymph % (Auto) 18.6 L, [place] % (Auto) 7.3, Eos % (Auto) 4.4, Baso % (Auto) 0.4, Absolute Neuts (auto) 6.5, Absolute Lymphs (auto) 1.75, Nucleated RBC % 0.5, Sodium 138, Potassium 4.0, Chloride 103, Carbon Dioxide 20.5 L, Anion Gap 15, BUN 25 H, Creatinine 0.82, Est GFR (MDRD) Non-Af 72, BUN/Creatinine Ratio 30.0 H, Glucose 187 H, Calcium 9.5, Magnesium 2.0, Troponin T High Sens 12 06/06/25 13:01: POC Glucose 190 H 06/06/25 14:51: Urine Color Yellow, Urine Clarity Clear, Urine pH 6.0, Ur Specific [place] 1.025, Urine Protein 30 H, Urine Glucose (UA) 250 H, Urine Ketones 15 H, Urine Occult Blood 25 H, Urine Nitrite Negative, Urine Bilirubin Negative, Urine Urobilinogen Normal, Ur Leukocyte Esterase 500 H, Urine RBC 0 SEEN, Urine WBC 50-100 SEEN, Ur Squamous Epith Cells 0-5 SEEN, Urine Bacteria 0 SEEN, Urine Mucus 0 SEEN 06/06/25 16:15: Troponin T Hi Sens 2 Hr 17 H 06/06/25 20:43: POC Glucose 159 H 06/07/25 05:03: WBC 11.6 H, RBC 4.27, Hgb 12.3, Hct 36.9 L, MCV 86.4, MCH 28.8, MCHC 33.3, RDW Std Deviation 40.5, RDW Coeff of Michael 13.0, Plt Count 331, MPV 9.2, Immature Gran % (Auto) 0.400, Neut % (Auto) 77.5 H, Lymph % (Auto) 15.2 L, [place] % (Auto) 6.2, Eos % (Auto) 0.4, Baso % (Auto) 0.3, Absolute Neuts (auto) 8.9 H, Absolute Lymphs (auto) 1.76, Nucleated RBC % 0, Sodium 134, Potassium 3.5, Chloride 101, Carbon Dioxide 20.0 L, Anion Gap 13, BUN 17, Creatinine 0.64 L, Estim Creat Clear Calc 46.15 L, Est GFR (MDRD) Non-Af 89, BUN/Creatinine Ratio 26.2 H, Glucose 171 H, Hemoglobin A1c 8.8 H, Calcium 9.0, Triglycerides 120, Cholesterol 187, LDL Cholesterol, Calc 128, VLDL Cholesterol 24, HDL Cholesterol 35 L, Cholesterol/HDL Ratio 5.31, TSH 0.205 L 06/07/25 06:19: POC Glucose 149 H Imaging Radiology Impression Brain CT 06/06/25 13:19 IMPRESSION: No acute intracranial abnormalities. Reading Location: [facility] Head/Neck CTA 06/06/25 13:19 IMPRESSION: No hemodynamically significant stenosis in the head and neck. No aneurysm. Reading Location: [facility] Chest X-Ray 06/06/25 15:20 IMPRESSION: Partially visualized kidneys show residual contrast material within the collecting systems. Generalized osteopenia is seen. No acute osseous change is evident. No evidence of cardiomegaly. A mildly calcified aorta is seen. Lungs are mildly hyperinflated with increased interstitial markings, consistent with chronic lung disease. No findings pulmonary edema are seen. No acute pneumonic process is noted. No pleural effusion or pneumothorax is seen. Reading Location: [address] Active Medications Active Medications Active Medications: Current Medications Generic Name Dose Route Start Last Admin Trade Name Freq PRN Reason Stop Dose Admin Acetaminophen 650 mg 06/06/25 18:27 Acetaminophen 325 Mg Tablet PO Q6H PRN PRN Pain 1-10 Or Fever >100.7 Albuterol Sulfate 2.5 mg 06/06/25 18:27 Albuterol 2.5 Mg/3 Ml Vial.Neb. INHALATION Q2H PRN PRN SOB &/OR WHEEZING Aspirin 81 mg 06/07/25 08:00 06/07/25 08:52 Aspirin 81 Mg Tab.Chew PO 81 mg BREAKFAST GIGI Administration Atorvastatin Calcium 40 mg 06/06/25 22:00 06/06/25 20:48 Atorvastatin Calcium 40 Mg Tablet PO 40 mg QHS GIGI Administration Glucagon 1 mg 06/06/25 18:27 Glucagon 1 Mg/Ml Syringe IM X1 PRN HYPOGLYCEMIA Protocol Hydralazine HCl 5 mg 06/06/25 18:27 Hydralazine 20 Mg/Ml Vial IV 06/07/25 18:27 Q30M PRN maintain BP parameters with HR <60 Dextrose 250 mls @ 0 mls/hr 06/06/25 18:27 Dextrose 10%-Water IV .Q0M PRN HYPOGLYCEMIA Protocol As Directed Sodium Chloride 250 mls @ 15 mls/hr 06/06/25 18:48 IV .[id number] PRN Saline Flush Sodium Chloride 250 mls @ 15 mls/hr 06/06/25 18:48 IV .[id number] PRN Additional IVPB Infusion Insulin Human Lispro 0 unit 06/06/25 22:00 06/07/25 06:20 Insulin Lispro 100 Unit/Ml Insuln.Pen SC Not Given ACHS GIGI Protocol Labetalol HCl 10 - 20 mg 06/06/25 18:27 Labetalol 20 Mg/4 Ml Vial IV 06/07/25 18:27 Q10M PRN PRN maintain BP parameters with HR >/=60 Latanoprost 1 drp 06/07/25 10:00 06/07/25 08:51 Latanoprost 0.005% 1 Bottle OPHTHALMIC 1 drp DAILY GIGI Administration Lorazepam 0.5 mg 06/06/25 18:27 06/07/25 09:04 Lorazepam 0.5 Mg Tablet PO 0.5 mg X1 PRN Administration Anxiety with MRI Melatonin 10 mg 06/06/25 18:27 Melatonin 10 Mg Tablet PO QHS PRN PRN INSOMNIA Ondansetron HCl 4 mg 06/06/25 18:27 06/06/25 23:19 Ondansetron 4 Mg/2 Ml Vial IV 4 mg Q8H PRN PRN Administration NAUSEA/VOMITING Senna/Docusate Sodium 2 tablet 06/06/25 18:27 Senna/Docusate Sodium 1 Tablet PO BID PRN PRN Constipation Sodium Chloride 10 - 40 ml 06/06/25 18:48 06/06/25 23:19 0.9% Saline Lock 10 Ml Syringe IV 10 ml UD PRN Administration SALINE FLUSH Timolol Maleate 1 drp 06/06/25 22:00 06/07/25 08:51 Timolol 0.5% 5ml Opth.Btl OPHTHALMIC 1 drp BID GIGI Administration NIHSS NIHSS Nursing Documentation NIHSS Nursing Documentation: NIH Stroke Scale Start: 06/06/25 13:51 Freq: Status: Discharge Protocol: Activity Type Activity Date Activity User E-sign Co-sign Detail Recorded Client Recorded Date Recorded By Document 06/06/25 12:50 MARCY desktiop 06/06/25 13:52 06/06/25 12:50 NIH Stroke Scale [NIHSS] A score of 0 is normal or asymptomatic . Total possible score is 42. Inpatient: RN or Physician to activate a stroke alert for onset of new stroke symptoms or with NIHSS increase >/= 3 points. Following change in neurological status, NIHSS will be performed per physician order or more frequently PRN. -1a. Level of Consciousness 0 - Alert; keenly responsive -1b. LOC Questions 0 - Answers BOTH questions correctly -1c. LOC Commands 0 - Performs BOTH tasks correctly -2. Best Gaze 0 - Normal -3. Visual 0 - No visual loss -4. Facial Palsy 0 - Normal symmetrical movements -5a. Left Arm 0 - No drift; arm holds 90 ( or 45) degrees for full 10 seconds -5b. Right Arm 0 - No drift; arm holds 90 ( or 45) degrees for full 10 seconds -6a. Left Leg 0 - No drift; leg holds 30- degree position for full 5 seconds -6b. Right Leg 0 - No drift; leg holds 30- degree position for full 5 seconds -7. Limb Ataxia 0 - Absent -8. Sensory 0 - Normal; no sensory loss -9. Best Language 0 - No aphasia; normal -10. Dysarthria 0 - Normal -11. Extinction and Inattention 0 - No abnormality -Total 0 Query Text:A score of 0 is normal or asymptomatic. Total possible score is 42 . ED: Notify Physician for NIHSS increase by > / = 3 points. Inpatient: RN or Physician to activate a stroke alert for NIHSS increase of > / = 3 points. NIHSS: Ischemic Stroke/TIA Start: 06/06/25 18:27 Text: For PCU Patients: NIH and Neuro Check every 4 Status: Active hours, PRN and with change in RN caregiver. Freq: [id number] Protocol: Activity Type Activity Date Activity User E-sign Co-sign Detail Recorded Client Recorded Date Recorded By Document 06/07/25 03:30 MG [id number] 06/07/25 03:33 MG 06/07/25 03:30 -1a. Level of Consciousness 0 - Alert; keenly responsive -1b. LOC Questions 0 - Answers BOTH questions correctly -1c. LOC Commands 0 - Performs BOTH tasks correctly -2. Best Gaze 0 - Normal -3. Visual 0 - No visual loss -4. Facial Palsy 0 - Normal symmetrical movements -5a. Left Arm 0 - No drift; arm holds 90 ( or 45) degrees for full 10 seconds -5b. Right Arm 0 - No drift; arm holds 90 ( or 45) degrees for full 10 seconds -6a. Left Leg 0 - No drift; leg holds 30- degree position for full 5 seconds -6b. Right Leg 0 - No drift; leg holds 30- degree position for full 5 seconds -7. Limb Ataxia 0 - Absent -8. Sensory 0 - Normal; no sensory loss -9. Best Language 0 - No aphasia; normal -10. Dysarthria 0 - Normal -11. Extinction and Inattention 0 - No abnormality -Total 0 Query Text:A score of 0 is normal or asymptomatic. Total possible score is 42 . ED: Notify Physician for NIHSS increase by > / = 3 points. Inpatient: RN or Physician to activate a stroke alert for NIHSS increase of > / = 3 points. Coma Scale [Assess] -Eye Opening Spontaneous -Motor Obeys Commands -Verbal Oriented [Total] -Coma Scale Total 15 NIHSS 1a. Level of Consciousness: 0 - Alert; keenly responsive 1b. LOC Questions: 0 - Answers BOTH questions correctly 1c. LOC Commands: 0 - Performs BOTH tasks correctly 2. Best Gaze: 0 - Normal 3. Visual: 0 - No visual loss 5a. Left Arm: 0 - No drift; arm holds 90 (or 45) degrees for full 10 seconds 5b. Right Arm: 0 - No drift; arm holds 90 (or 45) degrees for full 10 seconds 6a. Left Le - No drift; leg holds 30-degree position for full 5 seconds 6b. Right Le - No drift; leg holds 30-degree position for full 5 seconds 7. Limb Ataxia: 0 - Absent 8. Sensory: 0 - Normal; no sensory loss 9. Best Language: 0 - No aphasia; normal 10. Dysarthria: 0 - Normal 11. Extinction and Inattention: 0 - No abnormality Total: 0
[2025-06-07 10:00] VITALS: BP 185/75; PULSE 75; RESP 15; TEMP 36.1; O2SAT 97
[2025-06-07 13:00] VITALS: BP 178/76; PULSE 85; RESP 16; TEMP 37.1; O2SAT 98
--- NOTE | 2025-06-07 14:22 | PCM.DC.SUM ---
Providers Date of Admission: 06/06/25 Primary Care Physician: Dr. Belén Pratt MD Consultations 06/06/25 18:27 Consult: Tele-Neurology Routine Consulting Provider: [facility] Reason for Consult: poss TIA EMERGENT Consult: No MD Notified: Yes Date Notified: 06/06/25 Time Notified: 18:38 Method of Notification: Answering Service Nursing Unit Staff Notify [facility] of Tele-Neurology Consult: Yes Reason For Visit: TIA WORKUP Diagnosis Discharge Diagnosis (1) Numbness of left hand: Status: Acute Code(s): R20.0 - Anesthesia of skin Plan Brief left hand numbness transient work up so far negative MRI of the brain shows small acute cortical infarct of the right frontal lobe. Echo pending. Seen by neurology recommends aspirin, statin to keep LDL 70 or less. If echo unremarkable for 30-day event monitor. Type 2 diabetes mellitus Glucose checks and sliding scale insulin Hold home metformin Low TSH: Check free T4 Hypertension Allowing for permissive hypertension as above, hold lisinopril DVT ppx: SCDs Patient was sitting in a chair and looking her phone. After I introduced myself she continue to do something on her cell phone and was casually answering questions but establishing no eye contact while she was on her phone. This lasted about a minute. Then I was telling her some information about the findings, including the stroke. After which she stated that she need me to repeat what I said after her stroke. I told her I could not recall the specifics as I was when I was talking to her to which she then replied and condescending tone did you have a stroke?. She continue to have condescending comments towards me to which leading me to leave her room. Medications at Discharge Home Medications cholecalciferol (vitamin D3) 50 mcg (2,000 unit) capsule 50 mcg PO DAILY 04/08/25 latanoprost 0.005 % eye drops 1 drp ophthalmic (eye) DAILY 04/08/25 lisinopril 20 mg tablet 20 mg PO DAILY 04/08/25 metformin 500 mg tablet,extended release 24 hr 500 mg PO DAILY 04/08/25 Held on 06/07/25. Instructions: Resume on 06/11/25. minocycline 50 mg capsule 50 mg PO DAILY 04/08/25 timolol maleate 0.5 % eye drops 1 drp ophthalmic (eye) BID 04/08/25 aspirin 81 mg chewable tablet 81 mg PO BREAKFAST #0 tabs 06/07/25 atorvastatin 40 mg tablet 40 mg PO QHS #30 tabs 06/07/25 Hospital Course Operations None Procedures 2-D Echocardiogram Summary of Care Provided Hospital Course: The patient presented with left hand paresthesias that did subsequently resolved. MRI showed a right frontal stroke. Seen by neurology recommends aspirin, atorvastatin and a 30-day event monitor. Patient follow-up neurology as outpatient. Weight / BMI Weight Weight: 60.81 kg Body Mass Index (BMI) 25.3 ABG / Lab / Microbiology Data 06/07/25 05:03 06/07/25 05:03 Laboratory: Laboratory Results - last 24 hr 06/06/25 13:00: WBC 9.4, RBC 4.70, Hgb 13.4, Hct 40.9, MCV 87.0, MCH 28.5, MCHC 32.8, RDW Std Deviation 41.2, RDW Coeff of Michael 13.0, Plt Count 366, MPV 9.5, Immature Gran % (Auto) 0.400, Neut % (Auto) 68.9, Lymph % (Auto) 18.6 L, [place] % (Auto) 7.3, Eos % (Auto) 4.4, Baso % (Auto) 0.4, Absolute Neuts (auto) 6.5, Absolute Lymphs (auto) 1.75, Nucleated RBC % 0.5, Sodium 138, Potassium 4.0, Chloride 103, Carbon Dioxide 20.5 L, Anion Gap 15, BUN 25 H, Creatinine 0.82, Est GFR (MDRD) Non-Af 72, BUN/Creatinine Ratio 30.0 H, Glucose 187 H, Calcium 9.5, Magnesium 2.0, Troponin T High Sens 12 06/06/25 14:51: Urine Color Yellow, Urine Clarity Clear, Urine pH 6.0, Ur Specific [place] 1.025, Urine Protein 30 H, Urine Glucose (UA) 250 H, Urine Ketones 15 H, Urine Occult Blood 25 H, Urine Nitrite Negative, Urine Bilirubin Negative, Urine Urobilinogen Normal, Ur Leukocyte Esterase 500 H, Urine RBC 0 SEEN, Urine WBC 50-100 SEEN, Ur Squamous Epith Cells 0-5 SEEN, Urine Bacteria 0 SEEN, Urine Mucus 0 SEEN 06/06/25 16:15: Troponin T Hi Sens 2 Hr 17 H 06/06/25 20:43: POC Glucose 159 H 06/07/25 05:00: Free T4 1.50 H 06/07/25 05:03: WBC 11.6 H, RBC 4.27, Hgb 12.3, Hct 36.9 L, MCV 86.4, MCH 28.8, MCHC 33.3, RDW Std Deviation 40.5, RDW Coeff of Michael 13.0, Plt Count 331, MPV 9.2, Immature Gran % (Auto) 0.400, Neut % (Auto) 77.5 H, Lymph % (Auto) 15.2 L, [place] % (Auto) 6.2, Eos % (Auto) 0.4, Baso % (Auto) 0.3, Absolute Neuts (auto) 8.9 H, Absolute Lymphs (auto) 1.76, Nucleated RBC % 0, Sodium 134, Potassium 3.5, Chloride 101, Carbon Dioxide 20.0 L, Anion Gap 13, BUN 17, Creatinine 0.64 L, Estim Creat Clear Calc 46.15 L, Est GFR (MDRD) Non-Af 89, BUN/Creatinine Ratio 26.2 H, Glucose 171 H, Hemoglobin A1c 8.8 H, Calcium 9.0, Triglycerides 120, Cholesterol 187, LDL Cholesterol, Calc 128, VLDL Cholesterol 24, HDL Cholesterol 35 L, Cholesterol/HDL Ratio 5.31, TSH 0.205 L 06/07/25 06:19: POC Glucose 149 H 06/07/25 12:15: POC Glucose 173 H Radiography Diagnostic Testing: Radiology Impression Brain CT 06/06/25 13:19 IMPRESSION: No acute intracranial abnormalities. Reading Location: [facility] Head/Neck CTA 06/06/25 13:19 IMPRESSION: No hemodynamically significant stenosis in the head and neck. No aneurysm. Reading Location: [facility] Chest X-Ray 06/06/25 15:20 IMPRESSION: Partially visualized kidneys show residual contrast material within the collecting systems. Generalized osteopenia is seen. No acute osseous change is evident. No evidence of cardiomegaly. A mildly calcified aorta is seen. Lungs are mildly hyperinflated with increased interstitial markings, consistent with chronic lung disease. No findings pulmonary edema are seen. No acute pneumonic process is noted. No pleural effusion or pneumothorax is seen. Reading Location: [address] Echocardiogram 06/06/25 18:27 Interpretation Summary The estimated ejection fraction is 65-70 %. Moderate to severe mitral annular calcification/MAC More prominent in the posterior Mild MR No previous echo to compare Ordering Physician: Genevieve Adams Referring Physician: Belén Pratt Performed By: Yanelis Estrella, RDCS, RVT Brain MRI 06/07/25 18:27 IMPRESSION: One. 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 Two. Cystic nodule in the right parotid gland. Three. Other findings as noted. Yellow Alert: Acute right frontal cortical infarction. The critical findings in the findings and impression above were relayed directly by me by telephone to Diana/Dr Moore on 06/07/2025 at 10:56 am with readback verification. Reading Location: [facility] D/C Instructions DC O2, CPAP, BIPAP Needs Home O2 Discharge instructions: No Meaningful Use Info Meaningful Use Meaningful Use Diagnoses (Choose all that apply): Ischemic CVA CVA Therapy Assessed for PT,OT and/or ST?: Yes Ischemic Stroke Antithrombotic order at d/c?: No Reason antithrombotic not ordered: Treatment not Indicated Dx of Atrial fib/flutter?: No Statins at discharge?: Yes Primary Dx Acute Ischemic CVA?: Yes Discharge Plan Admission Admit Date/Time: 06/06/25 17:04 Primary Reason for Your Visit: Stroke Attending Provider: Doug Moore Primary Care Provider: Belén Pratt Consulting Providers: Joseph Swain; Mike Perales; Maricarmen Oglesby; Antoinette Delong; Joann Elizondo; Lux Bourgeois; Nicky James; Nas Diaz; Robert Giordano; Jl Duran; La Beasley; Rosa Nunez; Marcial Sarmiento; Bertha Pittman; Natasha Pearson; Hieu Fenton; Iftikhar Reno; Brenton Quiroga; Jose Carrion; Linette Clark; Chhaya Gonzalez; Genevieve Adams Instructions Patient Instructions: Symptoms of a Stroke, Stroke: Taking Medicines, Stroke: Resources and Support, Stroke: Self-Care, Risk Factors for Stroke Discharge Orders/Prescriptions Prescriptions: New atorvastatin 40 mg Tablet 40 mg PO QHS Qty: 30 0RF aspirin 81 mg Tablet,Chewable 81 mg PO BREAKFAST Qty: 0 0RF Continued latanoprost 0.005 % drops 1 drp ophthalmic (eye) DAILY lisinopril 20 mg tablet 20 mg PO DAILY minocycline 50 mg capsule 50 mg PO DAILY timolol maleate 0.5 % drops 1 drp ophthalmic (eye) BID cholecalciferol (vitamin D3) 50 mcg (2,000 unit) capsule 50 mcg PO DAILY Held metformin 500 mg tablet extended release 24 hr 500 mg PO DAILY Hold Instructions: Resume on 06/11/25. Referrals / Follow Up: [facility] [Provider Group] - Within 1 Month Belén Pratt MD [Primary Care Provider, Internal Medicine] - Within 2 Weeks Disposition Disposition (needs filled in before D/C Order can be placed): Home, Self Care Charges/Coding Visit Charges Inpatient E&M: 93164 Disch Hosp
--- NOTE | 2025-06-07 18:27 | MRI_ITS ---
PROCEDURE: BRAIN WITHOUT CONTRAST 06/07/2025 REASON FOR EXAM: CONCERN FOR TIA, TRANSIENT LEFT HANDED NUMBNESS TECHNIQUE: Procedure Code: MRIBR Modality: MR Procedure: BRAIN WITHOUT CONTRAST Multiplanar and multisequence images were obtained. COMPARISON: CT head without contrast and CTA head and neck, 06/06/2025. FINDINGS: There is a small area of restricted diffusion in the right frontal lobe consistent with an acute cortical infarction. There is a small area of developing surrounding vasogenic edema. There is no significant mass effect. There is minimal periventricular white matter signal abnormality consistent with ischemic white matter disease. There is a 10 millimeter in diameter cystic nodule in the right parotid gland. There is a normal sulcal pattern and gyral configuration. There is no evidence of acute intracranial hemorrhage. The kelly-white differentiation is well preserved. The ventricles and basilar cisterns are normal. There are normal flow voids demonstrated in the recognized intracranial vessels. The cerebellum and brainstem are unremarkable. The cerebellar pontine angles are normal. The craniovertebral junction is normal. The sella and suprasellar regions are normal. There are bilateral intra-ocular lens implants. The intraorbital contents are otherwise unremarkable. 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 There is mucoperiosteal thickening of multiple ethmoidal air cells bilaterally The mastoid air cells are clear. There is normal bone marrow signal in the skull base and calvarium. MRI/Brain without Contrast IMPRESSION: One. 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 Two. Cystic nodule in the right parotid gland. Three. Other findings as noted. Yellow Alert: Acute right frontal cortical infarction. The critical findings in the findings and impression above were relayed directl y by me by telephone to Diana/Dr Moore on 06/07/2025 at 10:56 am with readback verification. Reading Location: [id number]
== END 2025-06-07 15:24 | disposition home or self-care (01) ==
LOC: ED 16:14 → PCU 18:30
PROVIDERS: Admitting Provider Internal Medicine; Emergency Provider Surgery; PCP Internal Medicine
DX: I63.9 Cerebral infarction, unspecified (principal); E11.9 Type 2 diabetes mellitus without complications; R20.2 Paresthesia of skin; I10 Essential (primary) hypertension; R11.10 Vomiting, unspecified; R53.83 Other fatigue; Z79.899 Other long term (current) drug therapy; Z79.84 Long term (current) use of oral hypoglycemic drugs; R82.81 Pyuria; R94.6 Abnormal results of thyroid function studies; I08.0 Rheumatic disorders of both mitral and aortic valves
CPT/HCPCS: 36415; 70450; 70496; 70498; 70551; 71046; 80048; 80061; 81001; 82962; 83036; 83735; 84439; 84443; 84484; 85025; 87086; 87088; 92610; 93005; 93306; 94762; 96361; 96374; 96375; 97162; 97165; 97802; 99221; 99285; Q9967; A4216; G0378; J2405